=== PATIENT | female | born 1965 | race Caucasian/White ===

== ENCOUNTER 2016-04-24 18:51 | Inpatient (IN) | payer MEDICARE, MEDICAID ==
[~2016-04-24] VITALS: Ht 175.3 cm; Wt 66.0 kg
[~2016-04-24 18:51] MED LIST: /FENT25PA TD; /LINE60TA PO; /ONDA4TA OR; /ONDA4TA PO; /PANT40TA OR; /QUET10TA OR; ACET65TA OR; ACTI300C OR; ALLO300T OR; ALLO300T2 PO; AMBI5TAB OR; ASPI1TAB PO; ASPI325T OR; ASPI325T PO; ASPI650T2 OR; ASPI81CH PO; ASPI81TA60 PO; ASPI81TA85 PO; ATARAX PO; ATIV0.5T3 PO; ATIVAN PO; ATROPINE PO; Aranesp SQ; BACL10TA2 PO; BIOT10005 PO; BIOT50004 PO; BUPR100T12 OR; BUPR100T3 PO; BUPR100T6 PO; BUPR50TA PO; CALC600T10 PO; CARB1TAB20 PO; CARB20TAXR PO; CEFT250T PO; CELE40TA OR; CIPR250T2 PO; CITA40TA PO; CITA40TA4 PO; CLON0.5T PO; CODE60TA OR; CYCL10TA PO; DESYREL OR; DIFL150T PO; DIPH2.5L OR; DIPH2.5T14 PO; DIPHENOXYLATE PO; FENT50PA TOP; FENT75DI18 TD; FENT75PA TD; FENT75PA TOP; FENTANYL PATCH TOP; FERR325T PO; FLEEENE4 PR; FLON0.05; FLON1SPR; FLUC10TA PO; FLUC150T PO; FLUTISP; GABA-279 PO; GABA100C PO; GABA300C3 PO; HAIRTAB5 PO; HEPARIN FLUSH IV; HEPARIN LOCK FLUSH IV; HEPARIN SQ; IMMODIUM OR; INSUDET SC; INSUH10VL INJ; INSULANT SC; KLOR1POW2 PO; KLOR1TAB77 PO; LANTINJ4 SC; LANTUS; LANTUS SUBQ; LEVA500T IV; LEVE1INJ5 SC; LIDO5TD TOP; LIPIDS 20% IV; LOMO2.5T PO; LOPERAMIDE PO; LORA1TAB PO; LORAPOW30 PO; LOVE1INJ2 SC; MAG400TA PO; MAGN400C2 PO; MAGN400T5 PO; MAGN500T2 OR; MAPA325T2 PO; MARINOL OR; METH75TA PO; MORP10EL PO; MORP10SU IV; MORP1SOL PO; MORP20SO PO; MORP20SOL PO; MORP4SYR IV; MORP5SUP PO; MULTCAP PO; MULTLIQ7 PO; Monistat 7 PV; Multivitamin PO; NEOSSOL TOP; NEUR100C PO; NEXI40CA PO; NEXI40GR PO; NEXIUM PO; NOVOINJ3 SC; NOVOLOG FLEX PEN SUBQ; NOVOLOG100 MG/ML SC; NS10IV IV; NYSTATIN POWDER; NYSTATIN POWDER TOP; Non-Formulary Medication XX; ONDA4INJ48 IV; ONDA4TAB6 PO; ONDA8TAB8 SL; OXYC-517 PO; PAIN325T OR; PERC7.5T8 OR; PHEN 25 PO; PINK BISMUTH OR; POTA10PO PO; POTA20TA PO; POTA20TA2 PO; POTA40IN IV; POTASSIUM CHLORIDE IV; PRAV1TAB39 PO; PREV30TA OR; PRIL40CA OR; PROM25SU5 PO; PROM25TA3 PO; QUESTRAN OR; REQU0.5T PO; REQU1TAB16 PO; ROPI1TAB PO; SALI0.9I2 IV; SANDOSTATIN SQ; SERAQUEL PO; SERO50TA PO; SILV1CRE19 TOP; SODIUM CHLORIDE IV; SODIUM CL; TIGA100I IM; TIGAN IM; TPN IV; TPNINJ3 IV; TRAZ100T2 PO; TRAZ100T4 PO; TRAZADONE PO; TYL OR; VANC25CA IV; VITA-121 PO; VITA100066 PO; VITA500C10 PO; VITA500T88 PO; VITMTA PO; WELL100T OR; ZENPEP PO; ZOFR4TAB3 PO; ZYLO300T OR; [UNRECOGNIZED DRUG - CODE] IV; [UNRECOGNIZED DRUG - CODE] IV; [UNRECOGNIZED DRUG - MIXTURE] IV; [UNRECOGNIZED DRUG - OTHER] IV; [UNRECOGNIZED DRUG - OTHER] IV; [UNRECOGNIZED DRUG - OTHER] PO; [UNRECOGNIZED DRUG - OTHER] PO; aranesp SQ; heparin; heparin lock flush IV; humolog; kenalog TOP; nexium PO; novolog; saline lock flush IV
[2016-04-24 19:36] LABS: YEAST LIKE CELL URINE AUTO MODERATE
[2016-04-24] MEDS ORDERED: MORPHINE 2 MG/ML 1ML SYRINGE As Ordered ONE (20:06)
[2016-04-24 20:41] LABS: BASO % 0.2 % (0.0-1.0); EOS % 0.3 % (0.0-3.0); LARGE UNSTAINED CELL # 0.1 K/mm3 (0.0-0.4); LARGE UNSTAINED CELL % 0.9 % (0.0-4.0); LYMPH # 0.6 K/mm3 (1.5-4.5); LYMPH % 8.5 % (24.0-44.0); MEAN CORPUSCULAR HEMOGLOBIN 28.4 pg (27.0-33.0); MEAN CORPUSCULAR HGB CONC 32.5 g/dl (32.0-36.5); MEAN CORPUSCULAR VOLUME 87.5 fl (80.0-96.0); MONO # 0.2 K/mm3 (0.0-0.8); MONO % 2.9 % (0.0-5.0); NEUTROPHILS # 6.2 K/mm3 (1.8-7.7); NEUTROPHILS % 87.3 % (36.0-66.0); PLATELET COUNT, AUTOMATED 137 k/mm3 (150-450); RED CELL DISTRIBUTION WIDTH 14.2 % (11.5-14.5); WHITE BLOOD COUNT 7.1 K/mm3 (4.0-10.0)
[2016-04-24 20:45] LABS: ANION GAP 16 MEQ/L (8-16); BLOOD UREA NITROGEN 53 MG/DL (7-18); CALCIUM LEVEL 8.7 MG/DL (8.5-10.1); CARBON DIOXIDE LEVEL 19 MEQ/L (21-32); CHLORIDE LEVEL 77 MEQ/L (98-107); CREATININE FOR GFR 2.69 MG/DL (0.55-1.02); GLOMERULAR FILTRATION RATE 19.9 (>51); POTASSIUM SERUM 4.4 MEQ/L (3.5-5.1); SODIUM LEVEL 112 MEQ/L (136-145)
[2016-04-24 20:54] LABS: GLUCOSE, FASTING 1199 MG/DL (70-105)
[2016-04-24] MEDS: rOPINIRole 1MG TAB PO SCH (21:00)
[2016-04-24] MEDS: PRAVASTATIN 20 MG TAB PO SCH (21:00)
[2016-04-24] MEDS: GABAPENTIN 300 MG CAP PO SCH (21:00)
[2016-04-24] MEDS: carBAMazepine 200 MG TAB PO SCH (21:00)
[2016-04-24 21:39] LABS: ALBUMIN 3.2 GM/DL (3.2-5.2); ALBUMIN/GLOBULIN RATIO 0.86 (1.00-1.93); ALKALINE PHOSPHATASE 195 U/L (45-117); ALT/SGPT 21 U/L (12-78); AST/SGOT 12 U/L (15-37); BILIRUBIN,DIRECT 0.1 MG/DL (0.0-0.2); BILIRUBIN,TOTAL 0.3 MG/DL (0.2-1.0); TOTAL PROTEIN 6.9 GM/DL (6.4-8.2)
[2016-04-24] MEDS ORDERED: HumuLIN R (REGULAR) INSULIN (NovoLIN R) **100U/ML** PER UNIT As Ordered ONE (21:43)
[2016-04-24] MEDS ORDERED: CIPROFLOXACIN/D5W 400 MG/200 ML BAG (J0744) As Ordered ONE (21:43)
[2016-04-24] MEDS ORDERED: PERCOCET 5MG/325MG TAB PO PRN (22:15)
[2016-04-24] MEDS ORDERED: SILVER SULFADIAZINE 1% CR 50 GM JAR TOP PRN (22:15)
[2016-04-24] MEDS ORDERED: ONDANSETRON 4 MG ORAL DISINTEGRATING TAB (S0181) PO PRN (22:15)
[2016-04-24 22:26] LABS: CALCIUM LEVEL 8.3 MG/DL (8.5-10.1); CREATININE FOR GFR 2.49 MG/DL (0.55-1.02); GLOMERULAR FILTRATION RATE 21.8 (>51); MAGNESIUM LEVEL 2.1 MG/DL (1.8-2.4); POTASSIUM SERUM 4.3 MEQ/L (3.5-5.1)
[2016-04-24] MEDS ORDERED: FOSFOMYCIN TROMETHAMINE 3 GM POWDER PACKET (MONUROL) PO ONE (22:30)
[2016-04-24 22:44] LABS: VENOUS BASE EXCESS -11.6 (-2.0-2.0); VENOUS O2 SATURATION 77.1 % (60.0-80.0); VENOUS PARTIAL PRESSURE CO2 45.4 mmHg (38.0-50.0); VENOUS PARTIAL PRESSURE O2 44.3 mmHg (30.0-50.0); VENOUS STANDARD HCO3 15.1 MEQ/L; VENOUS TOTAL CO2 17.9 MEQ/L (24.0-28.0)
[2016-04-24] MEDS ORDERED: INSULIN HUMAN REGULAR 100 UNITS in NS 99 ML IV SCH (23:00)
--- NOTE | 2016-04-24 23:00 | REPUSA ---
CLINICAL HISTORY: Abdominal pain. TECHNIQUE: CT abdomen and pelvis without contrast. COMPARISON: May 26, 2015. CT ABDOMEN WITHOUT CONTRAST: Lung bases: No lung base infiltrate or effusion. Liver: No intrahepatic ductal dilation. Gallbladder: Cholecystectomy. Pancreas: No pancreatic duct dilation. Calcifications of chronic pancreatitis. Bowel loops: Right upper quadrant ileostomy. Diastasis of the anterior abdominal wall. Spleen: Normal size. Adrenals: Normal size. Right kidney: Mild hydronephrosis and hydroureter without obstructing stone. Left kidney: No stones or hydronephrosis. Calcifications adjacent to the left ureter are within the l eft gonadal vein. Aorta: Normal caliber. Peritoneum: No free air. CT PELVIS WITHOUT CONTRAST: Hips: Interval left hip arthroplasty and right femoral ORIF produce beam hardening artifact in the lo wer pelvis, limiting evaluation of the pelvic structures. Bladder: Normally distended. The wall is mildly thickened such that cystitis is not excluded Colon: Partial colectomy. Uterus: Hysterectomy. Peritoneum: No fluid. Lumbar spine: Degenerative spondylotic changes most pronounced at L4-5 and L5-S1. IMPRESSION: 1. Right upper quadrant ileostomy without evidence of obstruction. 2. Mild right hydronephrosis without obstructing stone. This may be due to reflux. 3. Urinary bladder wall thickening suggesting cystitis.
[2016-04-24 23:13] LABS: ESTIMATED AVERAGE GLUCOSE 413 MG/DL (60-110)
--- NOTE | 2016-04-24 23:29 | EDDOCDS ---
Physician Documentation [facility] Name: Delma Lora Age: 50 yrs Sex: Female : 1965 Arrival Date: 04/24/2016 Time: 18:51 Bed 7 Private MD: Disposition: 04/24/16 21:15 Hospitalization ordered by Diana Borjas for Inpatient Admission. Preliminary diagnosis are Hyperglycemia, unspecified, Hypo-osmolality and hyponatremia. - Bed requested for ICU. - Status is Inpatient Admission. [facility] - Condition is Stable. - Problem is new. - Symptoms have improved. Historical: - Allergies: Augmentin; Bactrim; Pyridium; - Home Meds: 1. aspirin 81 mg Oral cpDR 81 mg daily 2. baclofen 10 mg Oral tab 1 tab 3 times per day 3. biotin 1 mg oral tab daily 4. bupropion HCl 100 mg Oral tab 1 tab 2 times per day 5. Calcium Citrate Oral 950 mg twice a day 6. Celexa 40 mg Oral tab 1 tab once daily 7. ferrous sulfate 325 mg (65 mg iron) Oral tab three times a day 8. fluconazole 150 mg Oral tab 1 tab 9. fluticasone 50 mcg/actuation nasal spsn 2 sprays once daily 10. gabapentin 300 mg Oral cap 1 cap 3 times per day 11. Lantus 100 unit/mL Sub-Q crtg 30 unit twice a day I have not taken in over a week 12. Levemir FlexTouch 100 unit/mL (3 mL) subcutaneous inpn 35 unit daily 13. Lomotil 2.5-0.025 mg oral tab 1 tabs 4 times per day 14. magnesium oxide 400 mg Oral tab 800 mg twice a day 15. multivitamin Oral cap 1 tab daily 16. Nexium 40 mg Oral cpDR 1 cap 2 times per day 17. Normal Saline with Potassium 40 meq and Magnesium 12 meq Daily infusion via port 18. Novolog 100 unit/mL Sub-Q soln Unknown Per sliding scale has not taken 19. oxycodone 5 mg Oral tab 2 tabs every 4 hours 20. potassium Runs 40 meq daily 21. Pravachol 20 mg Oral tab 1 tab once daily 22. pravastatin 20 mg oral tab 1 tab once daily 23. Requip 1 mg Oral tab 1 tab twice a day 24. saline 1000 ml infusion through Vitale Catheter daily. 25. Silvadene 1 % Topical crea once daily not using now, using some pads 26. Tegretol 200 mg Oral tab 1 tab three times a day 27. TPN Electrolytes 35-20-5 mEq/20 mL intravenous soln Runs for 12 hours overnight. 28. trazadone 100 mg 100 mg nightly 29. Vita[employer] 1,500 mcg oral tab Unknown daily 30. Vitamin C 500 mg Oral cpER 500 mg daily 31. Vitamin D3 5,000 unit oral tab daily 32. Wellbutrin SR 100 mg Oral TbER 1 tab once daily 33. Zofran (as hydrochloride) 4 mg Oral tab 1 tabs tid prn - PMHx: chronic kidney; Depression; Diabetes - IDDM: controlled; Hypercholesterolemia; jejunostomy; necrotic bowel; Stroke; - PSHx: jejunostomy; Hysteroscopy; Knee surgery- Right; left hip surgery ( fracture repair); Vitale port placement; knee surgery; Cholecystectomy; Appendectomy; blepheroplasty; Carpal Tunnel Repair- Bilateral; - Social history: Smoking status: Patient states former smoker of tobacco. No barriers to communication noted. - Family history: Not pertinent. - : The pt / caregiver states he / she is not on anticoagulants. Home medication list is obtained from the patient. - Exposure Risk Screening:: None identified. 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 9 in. (175.26 cm) (R); Pain 8/10; 22:37 BP 96 / 61 (auto/); [facility] 22:38 BP 96 / 61; Pulse 76 MON; Resp 18; Temp 98.7; Pulse Ox 99% ; [facility] 23:23 BP 86 / 54; Pulse 75; Resp 18; Pulse Ox 98% ; [facility] 19:01 Body Mass Index 17.13 (52.62 kg, 175.26 cm) cln MDM: 19:07 Urinalysis Ordered. EDMS 19:07 Urine Culture Ordered. EDMS 19:53 NS 0.9% 1000 ml IV at bolus once ordered. fg 19:54 CBC with Diff Ordered. EDMS 19:54 Basic Metabolic Profile Ordered. EDMS 19:55 Lactic Acid (Cooper tube on ice) Ordered. EDMS 20:02 Financial registration complete. [id number] 20:04 morphine 2 mg IVP once ordered. fg 20:37 [facility] Agreement was scanned into [employer] and attached to record. dm19 21:02 Insulin Regular Human 10 units IVP once ordered. fg 21:14 Ciprofloxacin 400 mg IVPB at 200 mL/hr once over 60 mins ordered. fg 21:14 BED REQUEST+ADM ordered. EDMS 21:16 CT ABD & PELVIS: No Contrast Ordered. EDMS 21:23 ARTERIAL BLOOD GAS Ordered. EDMS 21:23 BLOOD CULTURES Ordered. EDMS 21:23 BLOOD CULTURES Ordered. EDMS 21:24 LIPASE Ordered. EDMS 21:24 LIVER PROFILE Ordered. EDMS 21:25 TROPONIN Ordered. EDMS 21:25 Admission / Observation Status ordered. EDMS 21:32 ECG WITH READING ER PHYS+CARDIAG ordered. EDMS 22:07 HEMOGLOBIN A1C Ordered. EDMS 22:07 VENOUS BLOOD GAS Ordered. EDMS 22:07 BASIC METABOLIC PROFILE Ordered. EDMS 22:08 PHOSPHOROUS LEVEL Ordered. EDMS 22:08 BASIC METABOLIC PROFILE Ordered. EDMS 22:08 BASIC METABOLIC PROFILE Ordered. EDMS 22:08 BASIC METABOLIC PROFILE Ordered. EDMS 22:08 BASIC METABOLIC PROFILE Ordered. EDMS 22:08 BASIC METABOLIC PROFILE Ordered. EDMS 22:08 BASIC METABOLIC PROFILE Ordered. EDMS 22:11 BASIC METABOLIC PROFILE Ordered. EDMS 22:15 MAGNESIUM LEVEL Ordered. EDMS 23:11 MRSA SCREEN Ordered. EDMS Administered Medications: 20:24 Drug: morphine 2 mg [morphine 2 mg/mL intravenous cartridge (1 mL)] Route: IVP; Site: jp6 Implantable Access Device; 20:25 Drug: NS 0.9% 1000 ml [sodium chloride 0.9 % intravenous solution] Route: IV; Rate: jp6 bolus; Site: Implantable Access Device; 23:25 Follow up: IV Status: Infusion discontinued; IV Intake: 850ml [facility] 21:50 Drug: Ciprofloxacin 400 mg [ciprofloxacin 400 mg/200 mL in 5 % dextrose intravenous jmb piggyback] Route: IVPB; Rate: 200 mL/hr; Infused Over: 60 mins; Site: Implantable Access Device; 23:24 Follow up: IV Status: Completed infusion; IV Intake: 200ml [facility] 21:57 Drug: Insulin Regular Human 10 units [insulin regular human 100 unit/mL injection jmb solution (0.1 mL)] {Co-Signature: ms2 (Alvino Garsia RN).} Route: IVP; Site: Implantable Access Device; Signatures: Dispatcher [employer] EDMS Deb Atwood,RN RN [facility] Juan, Leanne Guaman MD MD fg McLear, Diane [email or web address] Lokesh Joseph RN, Jessica RN [email or web address] Alvino Garsia RN ms2 The chart was reviewed and I authenticate all verbal orders and agree with the evaluation and treatment provided.Corrections: (The following items were deleted from the chart) 21:24 21:23 TROPONIN ordered. EDMS EDMS 21:24 21:23 LIVER PROFILE ordered. EDMS EDMS 21:24 21:23 LIPASE ordered. EDMS EDMS 21:37 19:57 CT ABD & PELVIS WITH CONTRAST+CT ordered. EDMS EDMS 22:11 22:07 PHOSPHOROUS LEVEL ordered. EDMS EDMS 22:11 22:07 PHOSPHOROUS LEVEL ordered. EDMS EDMS 22:11 22:07 PHOSPHOROUS LEVEL ordered. EDMS EDMS 22:11 22:08 PHOSPHOROUS LEVEL ordered. EDMS EDMS 22:11 22:08 PHOSPHOROUS LEVEL ordered. EDMS EDMS 22:11 22:08 PHOSPHOROUS LEVEL ordered. EDMS EDMS 22:15 22:07 MAGNESIUM LEVEL ordered. EDMS EDMS Attachments: 20:37 [facility] Payment Agreement [email or web address]
--- NOTE | 2016-04-24 23:29 | EDDOCDS ---
Nurse's Notes [facility] Name: Delma Lora Age: 50 yrs Sex: Female : 1965 Arrival Date: 04/24/2016 Time: 18:51 Bed 7 Private MD: Diagnosis: Hyperglycemia, unspecified;Hypo-osmolality and hyponatremia Presentation: 04/24 19:08 Presenting complaint: Patient states: I've been dehydrated for a week because dr karine delgado isn't ordering my TPN and feeling weak and feel like I've got to pee constantly with pain in my pelvic region. Adult Sepsis Screening: The patient does not have new or worsening altered mentation. Patient has a respiratory rate of greater than or equal to 22 (1 point). Systolic blood pressure is greater than 100. Patient has a qSOFA score of 1- Negative Sepsis Screen. Status: Patient is not a sales agent business services or dependent. Suicide/Homicide risk assessment- the patient denies having any suicidal and/or homicidal ideations. Transition of care: patient was not received from another setting of care. 19:08 Acuity: ABELARDO Level 3 [facility] 19:08 Method Of Arrival: Ambulance [facility] Triage Assessment: 19:15 General: Appears in no apparent distress, ill, uncomfortable, Behavior is appropriate [facility] for age, cooperative. Pain: Denies pain. HIV screening NA for this visit Offered previously. Neurological: No deficits noted. Respiratory: No deficits noted. GI: No deficits noted. : Reports urinary frequency. Derm: No deficits noted. 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 aspirin 81 mg Oral cpDR 81 mg daily 2. baclofen 10 mg Oral tab 1 tab 3 times per day 3. biotin 1 mg oral tab daily 4. bupropion HCl 100 mg Oral tab 1 tab 2 times per day 5. Calcium Citrate Oral 950 mg twice a day 6. Celexa 40 mg Oral tab 1 tab once daily 7. ferrous sulfate 325 mg (65 mg iron) Oral tab three times a day 8. fluconazole 150 mg Oral tab 1 tab 9. fluticasone 50 mcg/actuation nasal spsn 2 sprays once daily 10. gabapentin 300 mg Oral cap 1 cap 3 times per day 11. Lantus 100 unit/mL Sub-Q crtg 30 unit twice a day I have not taken in over a week 12. Levemir FlexTouch 100 unit/mL (3 mL) subcutaneous inpn 35 unit daily 13. Lomotil 2.5-0.025 mg oral tab 1 tabs 4 times per day 14. magnesium oxide 400 mg Oral tab 800 mg twice a day 15. multivitamin Oral cap 1 tab daily 16. Nexium 40 mg Oral cpDR 1 cap 2 times per day 17. Normal Saline with Potassium 40 meq and Magnesium 12 meq Daily infusion via port 18. Novolog 100 unit/mL Sub-Q soln Unknown Per sliding scale has not taken 19. oxycodone 5 mg Oral tab 2 tabs every 4 hours 20. potassium Runs 40 meq daily 21. Pravachol 20 mg Oral tab 1 tab once daily 22. pravastatin 20 mg oral tab 1 tab once daily 23. Requip 1 mg Oral tab 1 tab twice a day 24. saline 1000 ml infusion through Vitale Catheter daily. 25. Silvadene 1 % Topical crea once daily not using now, using some pads 26. Tegretol 200 mg Oral tab 1 tab three times a day 27. TPN Electrolytes 35-20-5 mEq/20 mL intravenous soln Runs for 12 hours overnight. 28. trazadone 100 mg 100 mg nightly 29. V[employer] 1,500 mcg oral tab Unknown daily 30. Vitamin C 500 mg Oral cpER 500 mg daily 31. Vitamin D3 5,000 unit oral tab daily 32. Wellbutrin SR 100 mg Oral TbER 1 tab once daily 33. Zofran (as hydrochloride) 4 mg Oral tab 1 tabs tid prn - PMHx: chronic kidney; Depression; Diabetes - IDDM: controlled; Hypercholesterolemia; jejunostomy; necrotic bowel; Stroke; - PSHx: jejunostomy; Hysteroscopy; Knee surgery- Right; left hip surgery ( fracture repair); Vitale port placement; knee surgery; Cholecystectomy; Appendectomy; blepheroplasty; Carpal Tunnel Repair- Bilateral; - Social history: Smoking status: Patient states former smoker of tobacco. No barriers to communication noted. - Family history: Not pertinent. - : The pt / caregiver states he / she is not on anticoagulants. Home medication list is obtained from the patient. - Exposure Risk Screening:: None identified. Screenin:53 Infection Control. sew 23:20 Screening information is obtained from the patient. Fall risk:. Assistance ADL's: [facility] Requires assistance with. Abuse/DV Screen: The patient / caregiver reports he/she is: not in a situation that causes fear, pain or injury. Nutritional screening: No deficits noted. Advance Directives: There is no active DNR order. home support is adequate. Assessment: 19:30 General: Appears in no apparent distress, ill, uncomfortable, Behavior is appropriate cj for age, cooperative. Pain: Denies pain. Neurological: Level of Consciousness is awake, alert, Oriented to person, place, time. Respiratory: Airway is patent Respiratory effort is even, unlabored, Respiratory pattern is regular, symmetrical, Breath sounds are clear bilaterally. GI: Abdomen is non- distended Bowel sounds present X 4 quads. j-ostomy intact to drainage bag. : Reports urinary frequency. Derm: Skin is pink, warm & dry. 20:30 General: family at bedside, assisted patient with turn, position and change of J-ostomy cjh bag. Supplies requested and provided. 21:30 General: cooperative with blood draws, IV's infusing via Vitale Cath, no complaints [facility] voiced. 22:30 General: states feeling better after IV infusion, awaiting admission. [facility] 23:20 General: awaiting admission, denies needs at this time, small amount ice chips provided cjh per authorization ED physician, no new complaints voiced awaiting admission. Vital Signs: 19:01 BP 142 / 88 LA Sitting (auto/reg); Pulse 91 MON; Resp 22 S; Temp 98.9(O); Pulse Ox 100% cln on R/A; Weight 52.62 kg (R); Height 5 ft. 9 in. (175.26 cm) (R); Pain 8/10; 22:37 BP 96 / 61 (auto/); cjh 22:38 BP 96 / 61; Pulse 76 MON; Resp 18; Temp 98.7; Pulse Ox 99% ; [facility] 23:23 BP 86 / 54; Pulse 75; Resp 18; Pulse Ox 98% ; [facility] 19:01 Body Mass Index 17.13 (52.62 kg, 175.26 cm) cln Vitals: 19:11 Log In Time N/A - ambulance arrival. [facility] ED Course: 18:52 Patient visited by Stephie Martinez. sew 18:52 Patient moved to 7 sew 19:02 Pt greeted and oriented to ED. Patient advised of names of staff involved in care, cln location of call moss, wait times and NPO status. Patient has correct armband on for positive identification. Placed in gown. Bed in low position. Call light in reach. Side rails up X 1. 19:03 Patient visited by Sophia Sorenson, ANASTASIA. cln 19:05 Leanne Holguin MD is Attending Physician. fg 19:07 Diana Borjas section supervisor. nq 19:10 Triage Initiated cjh 19:15 Urine Culture Sent. cln 19:15 Urinalysis Sent. cln 19:24 Patient visited by Leanne Holguin MD. fg 19:55 Patient visited by Wandy Mac, Television Mechanic. jlm 20:37 [facility] Payment Agreement was scanned into [employer] and attached to record. dm19 20:54 Notified attending ED physician of Critical lab value. glucose 1,199 Na+ 112 Lactic cz acid 2.7. 21:10 Diana Borjas section supervisor. nq 21:14 Diana Borjas is Hospitalizing Provider. fg 21:14 Diana Borjas is Hospitalizing Provider. fg 21:40 Patient visited by Bubba Abraham PCA. mdr 21:40 EKG done. (by ED staff). Reviewed by Leanne Holguin MD. mdr 22:28 Hospitalist Suad glucose 1091 Na+ 119. cz 23:20 The patient / caregiver is instructed regarding the plan of care and ED course. [facility] 23:20 Accessed. No procedures done that require assistance. [facility] 23:24 CT ABD & PELVIS: No Contrast Returned. EDMS Administered Medications: 20:24 Drug: morphine 2 mg [morphine 2 mg/mL intravenous cartridge (1 mL)] Route: IVP; Site: jp6 Implantable Access Device; 20:25 Drug: NS 0.9% 1000 ml [sodium chloride 0.9 % intravenous solution] Route: IV; Rate: jp6 bolus; Site: Implantable Access Device; 23:25 Follow up: IV Status: Infusion discontinued; IV Intake: 850ml [facility] 21:50 Drug: Ciprofloxacin 400 mg [ciprofloxacin 400 mg/200 mL in 5 % dextrose intravenous jmb piggyback] Route: IVPB; Rate: 200 mL/hr; Infused Over: 60 mins; Site: Implantable Access Device; 23:24 Follow up: IV Status: Completed infusion; IV Intake: 200ml [facility] 21:57 Drug: Insulin Regular Human 10 units [insulin regular human 100 unit/mL injection jmb solution (0.1 mL)] {Co-Signature: ms2 (Alvino Garsia RN).} Route: IVP; Site: Implantable Access Device; Intake: 23:24 IV: 200.00ml; Total: 200.00ml. [facility] 23:25 IV: 850.00ml; Total: 1050.00ml. [facility] Order Results: Lab Order: Urinalysis; SPEC'M 04/24/16 19:16 Test: APPEARANCE, URINE; Value: CLOUDY; Range: CLEAR; Abnormal: Above high normal; Status: F Test: COLOR, URINE; Value: YELLOW; Range: YELLOW; Status: F Test: PH,URINE; Value: 6.0; Range: 5.0-9.0; Units: UNITS; Status: F Test: SPECIFIC GRAVITY URINE AUTO; Value: 1.017; Range: 1.002-1.035; Status: F Test: PROTEIN, URINE AUTO; Value: NEGATIVE; Range: NEGATIVE; Units: mg/dL; Status: F Test: GLUCOSE, URINE (UA) AUTO; Value: 3+; Range: NEGATIVE; Abnormal: Above high normal; Units: mg/dL; Status: F Test: KETONE, URINE AUTO; Value: NEGATIVE; Range: NEGATIVE; Units: mg/dL; Status: F Test: UROBILINOGEN, URINE AUTO; Value: 0.2; Range: 0.0-2.0; Units: mg/dL; Status: F Test: BILIRUBIN, URINE AUTO; Value: NEGATIVE; Range: NEGATIVE; Status: F Test: NITRITE, URINE AUTO; Value: NEGATIVE; Range: NEGATIVE; Status: F Test: LEUKOCYTE ESTERASE, URINE AUTO; Value: 3+; Range: NEGATIVE; Abnormal: Above high normal; Status: F Test: BLOOD, URINE BLOOD; Value: 1+; Range: NEGATIVE; Abnormal: Above high normal; Status: F Test: WBC, URINE AUTO; Value: TNTC; Range: 0-3; Abnormal: Above high normal; Units: /HPF; Status: F Test: RBC, URINE AUTO; Value: 19; Range: 0-3; Abnormal: Above high normal; Units: /HPF; Status: F Test: BACTERIA, URINE AUTO; Value: 1+; Range: NEGATIVE; Abnormal: Above high normal; Status: F Test: YEAST LIKE CELL URINE AUTO; Value: MODERATE; Range: NONE; Abnormal: Above high normal; Status: F Test: SQUAMOUS EPITHELIAL CELL UR AU; Value: 2; Range: 0-6; Units: /HPF; Status: F Test: MUCUS, URINE; Value: SMALL; Range: NEGATIVE; Status: F Test: HYALINE CAST, URINE AUTO; Value: 0; Range: 0-1; Units: /LPF; Status: F Lab Order: CBC with Diff; SPEC'M 04/24/16 20:17 Test: WHITE BLOOD COUNT; Value: 7.1; Range: 4.0-10.0; Units: K/mm3; Status: F Test: RED BLOOD COUNT; Value: 4.03; Range: 4.00-5.40; Units: M/mm3; Status: F Test: HEMOGLOBIN; Value: 11.5; Range: 12.0-16.0; Abnormal: Below low normal; Units: g/dl; Status: F Test: HEMATOCRIT; Value: 35.2; Range: 36.0-47.0; Abnormal: Below low normal; Units: %; Status: F Test: MEAN CORPUSCULAR VOLUME; Value: 87.5; Range: 80.0-96.0; Units: fl; Status: F Test: MEAN CORPUSCULAR HEMOGLOBIN; Value: 28.4; Range: 27.0-33.0; Units: pg; Status: F Test: MEAN CORPUSCULAR HGB CONC; Value: 32.5; Range: 32.0-36.5; Units: g/dl; Status: F Test: RED CELL DISTRIBUTION WIDTH; Value: 14.2; Range: 11.5-14.5; Units: %; Status: F Test: PLATELET COUNT, AUTOMATED; Value: 137; Range: 150-450; Abnormal: Below low normal; Units: k/mm3; Status: F Test: NEUTROPHILS %; Value: 87.3; Range: 36.0-66.0; Abnormal: Above high normal; Units: %; Status: F Test: LYMPH %; Value: 8.5; Range: 24.0-44.0; Abnormal: Below low normal; Units: %; Status: F Test: MONO %; Value: 2.9; Range: 0.0-5.0; Units: %; Status: F Test: EOS %; Value: 0.3; Range: 0.0-3.0; Units: %; Status: F Test: BASO %; Value: 0.2; Range: 0.0-1.0; Units: %; Status: F Test: LARGE UNSTAINED CELL %; Value: 0.9; Range: 0.0-4.0; Units: %; Status: F Test: NEUTROPHILS #; Value: 6.2; Range: 1.8-7.7; Units: K/mm3; Status: F Test: LYMPH #; Value: 0.6; Range: 1.5-4.5; Abnormal: Below low normal; Units: K/mm3; Status: F Test: MONO #; Value: 0.2; Range: 0.0-0.8; Units: K/mm3; Status: F Test: EOS #; Value: 0.0; Range: 0.0-0.50; Units: K/mm3; Status: F Test: BASO #; Value: 0.0; Range: 0.0-0.2; Units: K/mm3; Status: F Test: LARGE UNSTAINED CELL #; Value: 0.1; Range: 0.0-0.4; Units: K/mm3; Status: F Lab Order: Basic Metabolic Profile; SPEC'M 04/24/16 20:17 Test: GLUCOSE, FASTING; Value: 1199; Range: 70-105; Abnormal: Above upper panic limits; Units: MG/DL; Status: F Test: BLOOD UREA NITROGEN; Value: 53; Range: 7-18; Abnormal: Above high normal; Units: MG/DL; Status: F Test: CREATININE FOR GFR; Value: 2.69; Range: 0.55-1.02; Abnormal: Above high normal; Units: MG/DL; Status: F Test: GLOMERULAR FILTRATION RATE; Value: 19.9; Range: >51; Abnormal: Below low normal; Status: F Test: SODIUM LEVEL; Value: 112; Range: 136-145; Abnormal: Critical Low; Units: MEQ/L; Status: F Test: POTASSIUM SERUM; Value: 4.4; Range: 3.5-5.1; Units: MEQ/L; Status: F Test: CHLORIDE LEVEL; Value: 77; Range: 98-107; Abnormal: Below low normal; Units: MEQ/L; Status: F Test: CARBON DIOXIDE LEVEL; Value: 19; Range: 21-32; Abnormal: Below low normal; Units: MEQ/L; Status: F Test: ANION GAP; Value: 16; Range: 8-16; Units: MEQ/L; Status: F Test: CALCIUM LEVEL; Value: 8.7; Range: 8.5-10.1; Units: MG/DL; Status: F Test Note: ; Units are mL/min/1.73 m2 Chronic Kidney Disease Staging per NKF: Stage I & II GFR >=60 Normal to Mildly Decreased Stage III GFR 30-59 Moderately Decreased Stage IV GFR 15-29 Severely Decreased Stage V GFR <15 Very Little GFR Left ESRD GFR <15 on STOCK DEALER Test: AST/SGOT; Range: 15-37; Units: U/L; Status: I Test: ALT/SGPT; Range: 12-78; Units: U/L; Status: I Test: ALKALINE PHOSPHATASE; Range: 45-117; Units: U/L; Status: I Test: BILIRUBIN,TOTAL; Range: 0.2-1.0; Units: MG/DL; Status: I Test: BILIRUBIN,DIRECT; Range: 0.0-0.2; Units: MG/DL; Status: I Test: TOTAL PROTEIN; Range: 6.4-8.2; Units: GM/DL; Status: I Test: ALBUMIN; Range: 3.2-5.2; Units: GM/DL; Status: I Test: ALBUMIN/GLOBULIN RATIO; Range: 1.00-1.93; Status: I Test: TROPONIN I; Range: < 0.10; Units: NG/ML; Status: I Test: LIPASE; Range: 73-393; Units: U/L; Status: I Lab Order: Lactic Acid (Cooper tube on ice); [facility] 04/24/16 20:17 Test: LACTIC ACID LEVEL, LACTATE; Value: 2.7; Range: 0.4-2.0; Abnormal: Above upper panic limits; Units: MMOL/L; Status: F Lab Order: LIPASE; [facility] 04/24/16 20:17 Test: LIPASE; Value: 256; Range: 73-393; Units: U/L; Status: F Lab Order: LIVER PROFILE; [facility] 04/24/16 20:17 Test: AST/SGOT; Value: 12; Range: 15-37; Abnormal: Below low normal; Units: U/L; Status: F Test: ALT/SGPT; Value: 21; Range: 12-78; Units: U/L; Status: F Test: ALKALINE PHOSPHATASE; Value: 195; Range: 45-117; Abnormal: Above high normal; Units: U/L; Status: F Test: BILIRUBIN,TOTAL; Value: 0.3; Range: 0.2-1.0; Units: MG/DL; Status: F Test: BILIRUBIN,DIRECT; Value: 0.1; Range: 0.0-0.2; Units: MG/DL; Status: F Test: TOTAL PROTEIN; Value: 6.9; Range: 6.4-8.2; Units: GM/DL; Status: F Test: ALBUMIN; Value: 3.2; Range: 3.2-5.2; Units: GM/DL; Status: F Test: ALBUMIN/GLOBULIN RATIO; Value: 0.86; Range: 1.00-1.93; Abnormal: Below low normal; Status: F Lab Order: TROPONIN; [facility] 04/24/16 20:17 Test: TROPONIN I; Value: < 0.02; Range: < 0.10; Units: NG/ML; Status: F Test Note: ; Troponin I Reference Interval for TrepUp LOCI: 99th Percentile= 0.00-0.045 ng/ml Risk Stratification: <= 0.10 ng/ml Decreased Risk for Adverse Clinical Events. 0.10-1.50 ng/ml Increased Risk for Adverse Clinical Events. Evaluation of additional criterion and/or repeat testing in 2-6 hours is suggested to rule out myocardial damage. >= 1.50 ng/ml Indicative of Myocardial Injury. Lab Order: HEMOGLOBIN A1C; [facility] 04/24/16 22:02 Test: HEMOGLOBIN A1c; Value: > 16.0; Range: 4.5-6.2; Abnormal: Above high normal; Units: %; Status: F Test: ESTIMATED AVERAGE GLUCOSE; Value: 413; Range: 60-110; Abnormal: Above high normal; Units: MG/DL; Status: F Lab Order: VENOUS BLOOD GAS; [facility] 04/24/16 22:25 Test: VENOUS PH; Value: 7.178; Range: 7.330-7.430; Abnormal: Below low normal; Units: UNITS; Status: F Test: VENOUS PARTIAL PRESSURE CO2; Value: 45.4; Range: 38.0-50.0; Units: mmHg; Status: F Test: VENOUS PARTIAL PRESSURE O2; Value: 44.3; Range: 30.0-50.0; Units: mmHg; Status: F Test: VENOUS TOTAL CO2; Value: 17.9; Range: 24.0-28.0; Abnormal: Below low normal; Units: MEQ/L; Status: F Test: VENOUS HCO3; Value: 16.5; Range: 23.0-27.0; Abnormal: Below low normal; Units: MEQ/L; Status: F Test: VENOUS BASE EXCESS; Value: -11.6; Range: -2.0-2.0; Abnormal: Below low normal; Status: F Test: VENOUS STANDARD HCO3; Value: 15.1; Units: MEQ/L; Status: F Test: VENOUS O2 SATURATION; Value: 77.1; Range: 60.0-80.0; Units: %; Status: F Lab Order: BASIC METABOLIC PROFILE; [facility] 04/24/16 22:14 Test: GLUCOSE, FASTING; Value: 1091; Range: 70-105; Abnormal: Above upper panic limits; Units: MG/DL; Status: F Test: BLOOD UREA NITROGEN; Value: 49; Range: 7-18; Abnormal: Above high normal; Units: MG/DL; Status: F Test: CREATININE FOR GFR; Value: 2.49; Range: 0.55-1.02; Abnormal: Above high normal; Units: MG/DL; Status: F Test: GLOMERULAR FILTRATION RATE; Value: 21.8; Range: >51; Abnormal: Below low normal; Status: F Test: SODIUM LEVEL; Value: 119; Range: 136-145; Abnormal: Critical Delta Low; Units: MEQ/L; Status: F Test: POTASSIUM SERUM; Value: 4.3; Range: 3.5-5.1; Units: MEQ/L; Status: F Test: CHLORIDE LEVEL; Value: 85; Range: 98-107; Abnormal: Below low normal; Units: MEQ/L; Status: F Test: CARBON DIOXIDE LEVEL; Value: 20; Range: 21-32; Abnormal: Below low normal; Units: MEQ/L; Status: F Test: ANION GAP; Value: 14; Range: 8-16; Units: MEQ/L; Status: F Test: CALCIUM LEVEL; Value: 8.3; Range: 8.5-10.1; Abnormal: Below low normal; Units: MG/DL; Status: F Test Note: ; Units are mL/min/1.73 m2 Chronic Kidney Disease Staging per NKF: Stage I & II GFR >=60 Normal to Mildly Decreased Stage III GFR 30-59 Moderately Decreased Stage IV GFR 15-29 Severely Decreased Stage V GFR <15 Very Little GFR Left ESRD GFR <15 on STOCK DEALER Lab Order: MAGNESIUM LEVEL; SPEC'M 04/24/16 22:14 Test: MAGNESIUM LEVEL; Value: 2.1; Range: 1.8-2.4; Units: MG/DL; Status: F Radiology Order: CT ABD & PELVIS: No Contrast Test: CT ABD & PELVIS: No Contrast REASON FOR EXAMINATION: Abdomen Pain; ; CLINICAL HISTORY: Abdominal pain.; ; TECHNIQUE: CT abdomen and pelvis without contrast.; ; COMPARISON: May 26, 2015.; ; CT ABDOMEN WITHOUT CONTRAST:; Lung bases: No lung base infiltrate or effusion.; Liver: No intrahepatic ductal dilation.; Gallbladder: Cholecystectomy.; Pancreas: No pancreatic duct dilation. Calcifications of chronic pancreatitis.; Bowel loops: Right upper quadrant ileostomy. Diastasis of the anterior abdominal wall.; Spleen: Normal size.; Adrenals: Normal size.; Right kidney: Mild hydronephrosis and hydroureter without obstructing stone.; Left kidney: No stones or hydronephrosis. Calcifications adjacent to the left ureter are within the l; eft gonadal vein.; Aorta: Normal caliber.; Peritoneum: No free air.; ; CT PELVIS WITHOUT CONTRAST:; Hips: Interval left hip arthroplasty and right femoral ORIF produce beam hardening artifact in the lo; wer pelvis, limiting evaluation of the pelvic structures.; Bladder: Normally distended. The wall is mildly thickened such that cystitis is not excluded; Colon: Partial colectomy.; Uterus: Hysterectomy.; Peritoneum: No fluid.; Lumbar spine: Degenerative spondylotic changes most pronounced at L4-5 and L5-S1.; IMPRESSION:; 1. Right upper quadrant ileostomy without evidence of obstruction.; 2. Mild right hydronephrosis without obstructing stone. This may be due to reflux.; 3. Urinary bladder wall thickening suggesting cystitis.; ; Outcome: 21:15 Decision to Hospitalize by Provider. 23:20 Discharge Assessment: Patient awake, alert and oriented x 3. No cognitive and/or [facility] functional deficits noted. Patient verbalized understanding of disposition instructions. patient administered narcotics - yes. Patient was admitted to the hospital or transferred to another facility. The following High Risk Discharge criteria are identified: None. Admitted to ICU. Condition: good Condition: stable Condition: improved. Property :Personal belongings accompany Pt. 23:26 CT Study completed. [facility] 23:28 Patient left the ED. [facility] Signatures: Dispatcher [employer] EDMS Rey Bone, RN RN Deb CurryRN RN [facility] Stephie Martinez Nazeel nq Becker, Joshua,RN RN Wandy Altamirano, Television Mechanic Unit Leanne Vela MD MD fg Rick, Mitchell, TOURS CAPTAIN TOURS CAPTAIN Sophia Howard, TOURS CAPTAIN TOURS CAPTAIN Pattie Santos,RN RN [id number] Ally Chambers [id number] Alvino Garsia RN ms2 Corrections: (The following items were deleted from the chart) 23:26 23:20 No special radiology studies were completed [facility] MTDD
[2016-04-25] VITALS (19 sets, daily range): BP systolic 86–137; BP diastolic 49–72
[2016-04-25] MEDS: NS 1,000 ML IV SCH ×4 (00:04→17:03)
[2016-04-25] MEDS: HEPARIN SOD (PORCINE) 5000 UNITS/ML VIAL SC SCH ×4 (00:15→21:22)
[2016-04-25] MEDS: traZODone 100 MG TAB PO SCH ×2 (00:15→21:00)
[2016-04-25] MEDS: MAGNESIUM OXIDE 400 MG TAB (MAG-OX) PO SCH ×3 (00:15→21:21)
[2016-04-25] MEDS: PANTOPRAZOLE 40MG TAB (PROTONIX) PO SCH ×3 (00:16→21:22)
[2016-04-25] MEDS: cefTRIAXone SOD 1 GM in D5W MINI-BAG PLUS 50 ML IV SCH (00:16)
[2016-04-25 00:47] LABS: CALCIUM LEVEL 8.9 MG/DL (8.5-10.1); CREATININE FOR GFR 2.21 MG/DL (0.55-1.02); POTASSIUM SERUM 3.7 MEQ/L (3.5-5.1)
[2016-04-25] MEDS ORDERED: SODIUM CHLORIDE 0.9% 1000 ML IV ONE (01:15)
[2016-04-25] MEDS: INSULIN IV RATE CHANGE DOCUMENTATION ML/HR XX SCH ×2 (01:15→02:37)
[2016-04-25 03:57] LABS: CALCIUM LEVEL 7.7 MG/DL (8.5-10.1); CREATININE FOR GFR 1.76 MG/DL (0.55-1.02); GLOMERULAR FILTRATION RATE 32.5 (>51); POTASSIUM SERUM 3.5 MEQ/L (3.5-5.1)
[2016-04-25] MEDS ORDERED: GLUCOSE 4 GM CHEW TABLET PO PRN (04:30)
[2016-04-25] MEDS ORDERED: DEXTROSE 50% 50 ML SYRINGE IV PRN (04:30)
[2016-04-25] MEDS ORDERED: LEVEMIR (INSULIN DETEMIR) 1 UNITS/0.01ML SC ONE (04:30)
[2016-04-25] MEDS ORDERED: GLUCAGON FOR INJ 1 MG VIAL (J1610) SC PRN (04:30)
--- NOTE | 2016-04-25 05:53 | ECGEPIP ---
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
[2016-04-25] MEDS: HumaLOG INSULIN (NovoLOG) PER UNIT SC SCH ×4 (07:30→20:56)
[2016-04-25] MEDS ORDERED: NALOXONE INJ 0.4 MG/1 ML VIAL (J2310) IV STA ×2 (08:06→08:13)
[2016-04-25] MEDS ORDERED: NALOXONE INJ 0.4 MG/1 ML VIAL (J2310) As Ordered ONE (08:07)
[2016-04-25] MEDS ORDERED: LEVEMIR (INSULIN DETEMIR) 1 UNITS/0.01ML SC SCH (09:00)
[2016-04-25 09:07] LABS: CREATININE FOR GFR 1.74 MG/DL (0.55-1.02); POTASSIUM SERUM 3.3 MEQ/L (3.5-5.1)
[2016-04-25] MEDS: SLF 3 ML SYR IV SCH (09:10)
[2016-04-25] MEDS: MULTIVITAMINS/MINERALS THERAP 1 TAB PO SCH (09:11)
[2016-04-25] MEDS: carBAMazepine 200 MG TAB PO SCH ×2 (09:11→21:21)
[2016-04-25] MEDS: FLUCONAZOLE 50MG TABLET PO SCH (09:11)
[2016-04-25] MEDS: GABAPENTIN 300 MG CAP PO SCH ×3 (09:11→21:26)
[2016-04-25] MEDS: FERROUS SULFATE 325MG TAB PO SCH ×3 (09:11→21:21)
[2016-04-25] MEDS: CitaloPRAM (CeleXA) 20 MG TAB PO SCH (09:11)
[2016-04-25] MEDS: LOMOTIL 2.5MG/0.025MG TABLET PO SCH ×4 (09:11→21:21)
[2016-04-25] MEDS: ASPIRIN 81 MG ENTERIC TAB PO SCH (09:12)
[2016-04-25] MEDS: FLUTICASONE PROP 0.05% NASAL SPRAY 16 GM (FLONASE) SCH (09:12)
[2016-04-25] MEDS: buPROPion 100 MG TAB PO SCH ×2 (09:12→21:22)
[2016-04-25] MEDS: rOPINIRole 1MG TAB PO SCH ×2 (09:15→21:21)
[2016-04-25] MEDS: VITAMIN D 1,000 INTERNATIONAL UNITS TABLET PO SCH (09:15)
[2016-04-25] MEDS ORDERED: POTASSIUM CHLORIDE 10 MEQ SR TABLET PO ONE (10:15)
--- NOTE | 2016-04-25 12:21 | IPN ---
DATE: 04/25/2016 50-year-old female seen at bedside. She was treated for diabetic ketoacidosis (DKA) with an anion gap. She has since closed. A little lethargic this morning. We gave her two doses of Narcan at bedside to which she did respond and seems to be much more alert. Will try to progress her meal. Continue with some IV fluids. Again, she uses TPN chronically at home. Discussed with Dr. Pratt who has agreed to consult on her later today. OBJECTIVE: Temperature 96.7, pulse 73, respiratory rate 18, blood pressure (BP)93/55, and SPO2 is 100% on room air. General: The patient appears to be in no acute distress. She is alert. HEENT: Unremarkable. Lungs: Clear. Heart: Regular rate and rhythm. Abdomen: Soft. Extremities: No Edema, no calf tenderness. LABORATORY DATA: White count 7.1, hemoglobin 11.5 and platelets are 137,000. Sodium 136, potassium 3.3 - which we will supplement, chloride 103, bicarb 20, anion gap 13, BUN is 44, creatinine is 1.74, glucose 126, calcium 9.0, lactic acid 1.4. ASSESSMENT/PLAN: 1. Diabetic ketoacidosis with anion gap that has closed. Will discontinue insulin drip. Will try to progress her diet. She does however have a high output ostomy for which we will need to reinstitute her TPN. 2. Acute on chronic renal failure. She is receiving some IV fluids. I have requested Dr. Pratt to see the patient on consult due to her longstanding issues. 3. Chronic pancreatitis with diabetes. As outlined above, will plan on adjusting her insulin with fingersticks. 4. Urinary tract infection. Continue Rocephin. Blood cultures and urine culture are pending. 5. Depression. Appears to be well-controlled on current medications. No suicidal ideation. No audiovisual hallucinations. 6. Diabetic neuropathy. Continue on Neurontin. 7. Chronic low back pain. Continue with Lidoderm patch and Percocet as needed. I did reduce her from 2 tablets to 1 tablet every 4 hours as needed and will monitor for lethargy. 8. Deep vein thrombosis (DVT) prophylaxis. Subcutaneous heparin. DISPOSITION: The patient does show some improvement; however, my concern is also for her social care. I did request patient and family services (PFS) to see the patient on consult. I know that there has been some concern about whether or not she would benefit from [facility] placement. LUCRECIA
--- NOTE | 2016-04-25 18:22 | HPE ---
DATE OF ADMISSION: 04/24/2016 PRIMARY CARE PROVIDER: Dr. Moore CHIEF COMPLAINT: Weakness. 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 The patient was recently admitted here at [facility] from 04/05/2016 to 04/10/2016. At the time, she was admitted with severe dehydration secondary to her high output ostomy and was in the process of arranging to have outpatient normal saline infusions through a central venous catheter. However, she states that she has not received these. Over the last 2 days, she has noted suprapubic tenderness, dysuria, weakness, and fatigue. No fevers, chills, sick contacts. This is what prompted her to present to the emergency room. The patient is normally on total parenteral nutrition (TPN) which she has been taking nightly. She tells me she has been checking her finger sticks and taking her insulin and it has been high the last 2 days. She has not really done anything about it. She could not tell me any specific readings. She denies chest pain, shortness of breath, fevers or chills. PAST MEDICAL HISTORY: 1. Jejunostomy as outlined above. 2. Dyslipidemia. 3. Diabetes. 4. Chronic kidney disease. 5. History of CVA without any residual deficits. 6. Restless leg syndrome. 7. Depression. 8. Iron deficiency anemia. 9. High output ostomy. 10. Severe protein calorie malnutrition. 11. Chronic sacral pressure ulcer. HOME MEDICATIONS: - NovoLog before food and nightly sliding scale - vitamin C 500 mg daily - vitamin H 1000 mcg daily - calcium 600 mg twice a day - potassium chloride 20 mEq twice a day - TPN - Clinimix E dextrose 15% at 70 mL/hour - aspirin 81 mg daily - bupropion 50 mg twice a day - carbamazepine 200 mg twice a day - vitamin D 1000 units daily - citalopram 40 mg daily - Lomotil 2.5-0.025 mg one tablet four times a day - Nexium 40 mg twice a day - ferrous sulfate 325 mg three times a day - Flonase 50 mcg inhaled two sprays to the nares daily - fluconazole 150 mg daily - gabapentin 300 mg by mouth three times a day - heparin and saline flushes - Levemir 35 units subcutaneous daily - lidocaine patch topically daily as needed - magnesium oxide 800 mg by mouth twice a day - multivitamin one tablet daily - Zofran 4 mg three times a day as needed for nausea and vomiting - Pravachol 20 mg nightly - Requip 1 mg by mouth nightly as needed - Silvadene cream topically as needed for skin sores - trazodone 100 mg nightly ALLERGIES: CLAVULANIC ACID, PENICILLIN and PENICILLIN CROSS-REACTORS cause nausea and vomiting, SULFAMETHOXAZOLE/TRIMETHOPRIM, SULFA DRUGS, PHENAZOPYRIDINE. PAST SURGICAL HISTORY: 1. Jejunostomy. 2. Hysteroscopy. 3. Right knee surgery. 4. Left hip surgery. 5. Vitale port placement. 6. Cholecystectomy. 7. Appendectomy. 8. Blepharoplasty. 9. Carpal tunnel repair bilaterally. SOCIAL HISTORY: The patient is a former smoker. She denies alcohol or illicit drug use. FAMILY HISTORY: Noncontributory. REVIEW OF SYSTEMS: Negative other than in history of present illness (HPI). PHYSICAL EXAMINATION: Blood pressure 142/88, pulse 91, respiratory rate 22, temperature 98.9, oxygen saturation 100% on room air. GENERAL: She is a disheveled, somewhat cachectic, female, laying flat in bed. She is mildly diaphoretic but does not appear to be in any acute distress. She speaks in complete sentences. She is awake, alert, oriented times three to person, place, and time, as well as to situation. HEENT: Cranial nerves II-XII are grossly intact. She has very dry mucous membranes. No elevation in her central venous pressure. CARDIOVASCULAR: S1, S2, regular. She is not tachycardic. RESPIRATORY: Clear. ABDOMINAL: Bowel sounds present. The abdomen is soft. There is some suprapubic tenderness, but no costovertebral angle (CVA) tenderness. EXTREMITIES: No clubbing, cyanosis, or edema. Chronic sacral ulcer. LABORATORY STUDIES: WBC 7.1, hemoglobin 11.5, hematocrit 35.2, platelet count 137. Chemistry panel: Sodium 112, potassium 4.4, chloride 77, bicarbonate 19, anion gap 16, BUN 53, creatinine 2.6, up from baseline of approximately 0.9, fasting glucose 1199, lactic acid 2.7, AST 12, ALT 21, lipase within normal limits. One set of troponins is within normal limits. Urinalysis is 3+ leukocyte esterase, 1+ bacteria, and WBCs too numerous to count, with 19 RBCs. Urine culture is pending. ASSESSMENT AND PLAN: This is a 50-year-old female presenting with hyperosmolar nonketotic state secondary to urinary tract infection. PROBLEMS: 1. Hyperosmolar nonketotic state secondary to urinary tract infection. I will draw blood cultures. I am currently working with pharmacy to find an acceptable antibiotic to work with this patient given her allergies. I will provide her with one dose of fosfomycin in the meantime. I will admit her to the medical intensive care unit. I will start her on normal saline at 150 mL/hour and begin diabetic ketoacidosis (DKA) protocol with every 4 hour BMP and every 2 hour finger sticks. Will check a magnesium level, blood cultures, and follow up urine cultures. Her hyponatremia is pseudohyponatremia and will likely correct with correction of her blood glucose. Hypochloremia secondary to dehydration. Acute kidney injury is likely also secondary to significant hyperosmolar dehydration. Will also trend her lactic acids in 6 hours. She should likely be scheduled with outpatient saline solution infusions prior to any disposition. 2. Protein calorie malnutrition and a short gut. Continue with Lomotil. The patient is on fluconazole, it appears to be chronically. She has a central catheter to receive her total parenteral nutrition (TPN) through. Continue with Nexium. Oxycodone as needed. I will hold her total parenteral nutrition (TPN) tonight as she is significantly hyperglycemic. We can consider restarting it tomorrow. 3. Restless leg syndrome. Continue with Requip. 4. History of CVA. Patient is on aspirin. 5. Chronic pain. The patient is on gabapentin. She is on Tegretol as well, she cannot tell me why she is on this medication. 6. Depression. On trazodone, Celexa, as well as bupropion. 7. Deep venous thrombosis (DVT) prophylaxis. The patient will be on heparin. DISPOSITION: The patient is being admitted to the medical intensive care unit, to Dr. Downey's service, who will continue following the patient tomorrow at 7 a.m.
[2016-04-25] MEDS ORDERED: FAT EMULSION IV 20% 500 ML IV SCH (21:00)
[2016-04-25] MEDS: **NOTE PATIENT COMMENT** MISC XX SCH (21:00)
[2016-04-25] MEDS ORDERED: MULTIVITAMIN -ADULT INJECTION 10 ML, CR/CU/SE/MN/ZN INJ 1 ML in AMINO AC/ELECTROLYTE/DE... IV SCH (21:00)
[2016-04-25] MEDS: PRAVASTATIN 20 MG TAB PO SCH (21:22)
[2016-04-26] VITALS (7 sets, daily range): BP systolic 99–146; BP diastolic 54–81
[2016-04-26] MEDS: NS 1,000 ML IV SCH ×2 (00:08→07:31)
[2016-04-26] MEDS: cefTRIAXone SOD 1 GM in D5W MINI-BAG PLUS 50 ML IV SCH ×2 (00:08→22:26)
[2016-04-26] MEDS: PERCOCET 5MG/325MG TAB PO PRN (05:45)
[2016-04-26] MEDS: HEPARIN SOD (PORCINE) 5000 UNITS/ML VIAL SC SCH ×3 (05:46→21:50)
[2016-04-26 07:11] LABS: MEAN CORPUSCULAR HEMOGLOBIN 31.7 pg (27.0-33.0); MEAN CORPUSCULAR VOLUME 84.6 fl (80.0-96.0); RED CELL DISTRIBUTION WIDTH 14.8 % (11.5-14.5); WHITE BLOOD COUNT 5.6 K/mm3 (4.0-10.0)
[2016-04-26 07:17] LABS: MEAN CORPUSCULAR HGB CONC 34.1 g/dl (32.0-36.5)
[2016-04-26 07:57] LABS: CALCIUM LEVEL 7.4 MG/DL (8.5-10.1); CREATININE FOR GFR 1.57 MG/DL (0.55-1.02); GLOMERULAR FILTRATION RATE 37.1 (>51); POTASSIUM SERUM 3.7 MEQ/L (3.5-5.1)
[2016-04-26] MEDS: SLF 3 ML SYR IV SCH (08:11)
[2016-04-26] MEDS: LEVEMIR (INSULIN DETEMIR) 1 UNITS/0.01ML SC SCH (08:11)
[2016-04-26] MEDS: FLUCONAZOLE 50MG TABLET PO SCH (08:11)
[2016-04-26] MEDS: VITAMIN D 1,000 INTERNATIONAL UNITS TABLET PO SCH (08:11)
[2016-04-26] MEDS: GABAPENTIN 300 MG CAP PO SCH ×3 (08:11→21:51)
[2016-04-26] MEDS: HumaLOG INSULIN (NovoLOG) PER UNIT SC SCH ×4 (08:11→20:25)
[2016-04-26] MEDS: PANTOPRAZOLE 40MG TAB (PROTONIX) PO SCH ×2 (08:12→21:51)
[2016-04-26] MEDS: rOPINIRole 1MG TAB PO SCH ×2 (08:12→21:51)
[2016-04-26] MEDS: MULTIVITAMINS/MINERALS THERAP 1 TAB PO SCH (08:12)
[2016-04-26] MEDS: LOMOTIL 2.5MG/0.025MG TABLET PO SCH ×4 (08:12→21:50)
[2016-04-26] MEDS: ASPIRIN 81 MG ENTERIC TAB PO SCH (08:12)
[2016-04-26] MEDS: CitaloPRAM (CeleXA) 20 MG TAB PO SCH (08:12)
[2016-04-26] MEDS: MAGNESIUM OXIDE 400 MG TAB (MAG-OX) PO SCH ×2 (08:12→21:51)
[2016-04-26] MEDS: carBAMazepine 200 MG TAB PO SCH ×2 (08:12→21:51)
[2016-04-26] MEDS: buPROPion 100 MG TAB PO SCH ×2 (08:12→21:51)
[2016-04-26] MEDS: FERROUS SULFATE 325MG TAB PO SCH ×3 (08:12→21:51)
[2016-04-26] MEDS: FLUTICASONE PROP 0.05% NASAL SPRAY 16 GM (FLONASE) SCH (08:13)
--- NOTE | 2016-04-26 08:21 | IPN ---
DATE: 04/26/2016 50-year-old female seen at bedside. She is feeling better. She is much more alert today and we are trying to make adjustments in her fluids as well as her insulin coverage. She denies fevers, chills, nausea or vomiting. Feels that she is relatively back to her baseline other than having some vague weakness. OBJECTIVE: Temperature is 98.9, pulse 88, respiratory rate is 20, blood pressure (BP) 140/69, SPO2 is 97% on room air. General: The patient appears to be in no acute distress. She is alert and oriented, pleasant talk to. HEENT: Unremarkable. Lungs: Clear. Heart: Regular rate and rhythm. Abdomen: Soft. Extremities: No edema, no calf tenderness. Ostomy bag and ostomy appears to be patent. No signs of infection. White count is 5.6, hemoglobin 9.8, platelets 151,000. Sodium 130, potassium 3.7, chloride 98, bicarb 20, anion gap 12, BUN is 38, creatinine 1.57, glucose is 383 which we will cover with some insulin and repeat a finger stick in the next hour. Calcium is 7.4. Blood cultures negative for 24 hours times two. Urine culture unremarkable. ASSESSMENT/PLAN: 1. Diabetic ketoacidosis with anion gap that is now closed. We are trying to progress her on to her TPN with insulin additive and sliding scale coverage and long-acting insulin will be adjusted accordingly. 2. Acute on chronic renal failure. She does appear to be improved. Will discontinue her IV fluids and appreciate Dr. Pratt's input. 3. Chronic pancreatitis resulting in diabetes. As outlined above, will continue with insulin and fingersticks. 4. Urinary tract infection. Continue on Rocephin. Blood cultures are pending. Urine culture negative. 5. Depression, well controlled. No suicidal ideation. No audiovisual hallucinations. 6. Diabetic neuropathy. Continue Neurontin 7. Chronic low back pain. Continue Lidoderm patch. Percocet as needed, which we did down regulate her medication to 1 tablet every 4 hours as needed (p.r.n.). Monitor for lethargy. 8. severe protein jah malnutrion BMI/17 emaciated treated with TPN , ivf, nutritional consult 9. stage 2 pressure ulcer coccyx present on admission 8. Deep vein thrombosis (DVT) prophylaxis. Subcutaneous heparin. DISPOSITION: She has shown quite a bit of improvement. Will go ahead and downgrade her to general medical floor today; however, long-term, I am concerned about her well being and inability to provide adequate care at home. I have requested patient and family services (PFS) to see her to help us determine whether or not she is a candidate for long-term placement. LUCRECIA
[2016-04-26] MEDS ORDERED: HumuLIN R (REGULAR) INSULIN (NovoLIN R) **100U/ML** PER UNIT SC STA (10:17)
[2016-04-26] MEDS ORDERED: HumaLOG INSULIN (NovoLOG) PER UNIT SC STA (10:22)
[2016-04-26] MEDS ORDERED: ACETAMINOPHEN TAB 650MG DOSE (2X325MG) PO ONE (15:30)
--- NOTE | 2016-04-26 20:38 | CR ---
DATE OF CONSULTATION: 04/25/2016 REASON FOR CONSULTATION: Acute renal failure and abnormal electrolytes. HISTORY OF PRESENT ILLNESS: Ms. Lora is a 50-year-old female with known history of insulin-requiring diabetes which has been historically poorly controlled. She has history of pancreatitis in the past with rupture of pancreatic cyst leading to ischemic bowel disease and requiring bowel resection. She has a jejunostomy with high output and requires daily IV normal saline at home via a central line. She also received total parenteral nutrition (TPN) every night at home. She reports that for the last week or so she could not receive the IV fluid due to running out of supplies. She reports that her primary physician did order her supplies however, she did not receive them. She also reports dysuria and increased frequency with urgency due to which she presented to the emergency room. She was found to be in diabetic ketoacidosis with blood sugars above 1100. She is currently in intensive care unit. She is being treated with IV fluids and antibiotics. Nephrology consultation was requested and the patient is seen this afternoon. PAST MEDICAL HISTORY: Significant for: 1. History of acute pancreatitis and hypotension, status post jejunostomy as a result of ischemic bowel disease. 2. History of dyslipidemia. 3. Poorly controlled insulin dependent diabetes. 4. Chronic obstructive pulmonary disease (COPD). 5. History of prior stroke without any significant residual weakness. 6. History of depression. 7. History of chronic anemia. 8. High output ostomy. 9. History of severe protein calorie malnutrition. 10. History of chronic sacral area pressure ulcer. 11. History of electrolyte abnormalities related to her TPN and IV fluids. MEDICATIONS: Her home medications include: NovoLog insulin per sliding scale, vitamin C 500 mg daily, calcium 600 mg twice a day, vitamin D 1000 mg daily, potassium chloride 20 mEq twice a day, TPN 70 mL/hour for 12 hours, aspirin 81 mg daily, bupropion 50 mg twice a day, carbamazepine 200 mg twice a day, citalopram 40 mg daily, Nexium 40 mg twice a day, ferrous sulfate 325 mg three times a day, fluconazole 150 mg daily, gabapentin 300 mg three times a day, Levemir insulin 35 units daily, lidocaine patch topically daily, magnesium oxide 800 mg twice a day, multivitamin one tablet daily, Zofran 4 mg three times a day as needed for nausea, Pravachol 20 mg daily, Requip 1 mg as needed at bedtime, trazodone 100 mg at bedtime, and Silvadene cream topically as needed for skin sores. ALLERGIES: The patient has allergy to PENICILLIN, SULFA, CLAVULANIC ACID, and PHENAZOPYRIDINE. PAST SURGICAL HISTORY: Significant for: Jejunostomy, colectomy and partial small bowel resection, hysteroscopy, right knee surgery, left hip surgery, central line placement, cholecystectomy, appendectomy, blepharoplasty and carpal tunnel release. PERSONAL AND SOCIAL HISTORY: The patient is a former smoker. She denies any alcohol or illicit drug use. FAMILY HISTORY: Significant for chronic kidney disease and hypertension. There is also diabetes in the family. REVIEW OF SYSTEMS: She denies any high-grade fever or chills. Ears are significant for mild deafness. Nose and throat are unremarkable. Cardiovascular system is negative for dyspnea or chest pain. Respiratory system is negative for cough or hemoptysis. Gastrointestinal (GI) system is as per history of present illness. Genitourinary () system is significant for dysuria, increased frequency and urgency. Endocrine system is significant for insulin-requiring diabetes. Psychosocial system is significant for depression and anxiety. Neurological system is significant for peripheral neuropathy and restless leg syndrome. Skin is negative for rash or ulcers. Musculoskeletal system is significant for chronic degenerative arthritis. Prior hip fracture and knee surgery. Other systems are unremarkable. PHYSICAL EXAMINATION: Chronically ill-looking and emaciated middle-aged lady lying in the bed without any acute distress. Temperature is 96.9 degrees Fahrenheit, heart rate 80 per minute and respiratory rate 18 per minute. Blood pressure 120/62 mmHg and oxygen saturation 100% on room air. Head is atraumatic. Ears, nose and throat are unremarkable. Pupils are equal and reactive to light and sclera is anicteric. Neck is supple and without any thyroid enlargement or jugular venous distention (JVD). Trachea is midline. Heart sounds are regular and lungs have slightly diminished breath sounds at bases. She has no wheezing or rales. Abdomen is soft. Ileostomy is present in right upper quadrant. Bowel sounds are present. Extremities have no cyanosis or clubbing. Skin has no rash or ulcers. Neurologically she is awake, alert and oriented times three. At present she has no focal neurological deficit. LABORATORY DATA: On admission sodium 112, potassium 4.4, chloride 77, CO2 19, BUN 53 and creatinine 2.69. Glucose was 1199. Lactic acid level was 2.7. Hemoglobin A1c was greater than 16%. Total protein was 6.9 and albumin 3.2. Lipase 256. This morning her sodium is up to 136, potassium 3.5, CO2 20, BUN 44 and creatinine 1.74. Glucose 126 and lactic acid is 1.4. Calcium level 9.0. Blood gas done on admission showed a pH of 7.17, pCO2 45.4, pO2 44 and bicarbonate 15. This was a venous blood gas. WBC count was 7.1, hemoglobin 11.5 and hematocrit 35.2. Urinalysis showed too numerous to count WBCs and 19 RBCs. She had 3+ leukocyte esterase. PROBLEMS: 1. Acute renal failure superimposed on chronic kidney disease. Mostly dehydration. She is improving with IV fluid hydration. She has history of chronic high output ostomy, decreased oral intake and requirement of daily IV fluid. She has not received IV fluid over a week and has also developed severe hyperglycemia which led to dehydration. She is currently receiving IV normal saline which is appropriate. 2. Hyponatremia. The patient had pseudohyponatremia on admission due to severe hyperglycemia and her sodium level has also corrected as she has been receiving IV normal saline. At this point her sodium level is already corrected fully so no further intervention will be considered. We will have to adjust her electrolytes in the total parenteral nutrition (TPN). 3. Hypokalemia. This is related to TPN and poor oral intake. She will require increased amount of potassium chloride in the TPN. 4. Diabetic ketoacidosis. The patient has history of chronic noncompliance with her diabetic control. At times she does not even monitor her blood sugars. Now her diabetes has improved. It is important for her to monitor closely and provide insulin coverage to keep her diabetes under control. Probably urinary tract infection (UTI) also contributed to poor control of her diabetes. 5. Chronic malnutrition. The patient has been TPN dependent due to short bowel syndrome. She required daily TPN. Her TPN orders have already been written today. I will be pleased to take over her TPN management from tomorrow. Thank you for involving me in the care of Ms. Lora. I will follow her along with you.
[2016-04-26] MEDS ORDERED: CALC IV SCH (21:00)
[2016-04-26] MEDS ORDERED: DEX IV SCH (21:00)
[2016-04-26] MEDS ORDERED: ELECTROLYTE IV SCH (21:00)
[2016-04-26] MEDS ORDERED: AMINO AC IV SCH (21:00)
[2016-04-26] MEDS ORDERED: FAT EMULSION IV 20% 500 ML IV SCH (21:00)
[2016-04-26] MEDS ORDERED: INSULIN HUMAN REGULAR IV SCH (21:00)
[2016-04-26] MEDS: **NOTE PATIENT COMMENT** MISC XX SCH (21:00)
[2016-04-26] MEDS: traZODone 100 MG TAB PO SCH (21:50)
[2016-04-26] MEDS: PRAVASTATIN 20 MG TAB PO SCH (21:52)
[2016-04-26] MEDS: LIDOCAINE 5% (LIDODERM) PATCH TOP PRN (21:53)
--- NOTE | 2016-04-27 00:29 | EDDOCDS ---
Physician Documentation [facility] Name: Delma Lora Age: 50 yrs Sex: Female : 1965 Arrival Date: 04/24/2016 Time: 18:51 Bed 7 Private MD: Disposition: 04/24/16 21:15 Hospitalization ordered by Diana Borjas for Inpatient Admission. Preliminary diagnosis are Hyperglycemia, unspecified, Hypo-osmolality and hyponatremia. - Bed requested for ICU. - Status is Inpatient Admission. [facility] - Condition is Stable. - Problem is new. - Symptoms have improved. Historical: - Allergies: Augmentin; Bactrim; Pyridium; - Home Meds: 1. aspirin 81 mg Oral cpDR 81 mg daily 2. baclofen 10 mg Oral tab 1 tab 3 times per day 3. biotin 1 mg oral tab daily 4. bupropion HCl 100 mg Oral tab 1 tab 2 times per day 5. Calcium Citrate Oral 950 mg twice a day 6. Celexa 40 mg Oral tab 1 tab once daily 7. ferrous sulfate 325 mg (65 mg iron) Oral tab three times a day 8. fluconazole 150 mg Oral tab 1 tab 9. fluticasone 50 mcg/actuation nasal spsn 2 sprays once daily 10. gabapentin 300 mg Oral cap 1 cap 3 times per day 11. Lantus 100 unit/mL Sub-Q crtg 30 unit twice a day I have not taken in over a week 12. Levemir FlexTouch 100 unit/mL (3 mL) subcutaneous inpn 35 unit daily 13. Lomotil 2.5-0.025 mg oral tab 1 tabs 4 times per day 14. magnesium oxide 400 mg Oral tab 800 mg twice a day 15. multivitamin Oral cap 1 tab daily 16. Nexium 40 mg Oral cpDR 1 cap 2 times per day 17. Normal Saline with Potassium 40 meq and Magnesium 12 meq Daily infusion via port 18. Novolog 100 unit/mL Sub-Q soln Unknown Per sliding scale has not taken 19. oxycodone 5 mg Oral tab 2 tabs every 4 hours 20. potassium Runs 40 meq daily 21. Pravachol 20 mg Oral tab 1 tab once daily 22. pravastatin 20 mg oral tab 1 tab once daily 23. Requip 1 mg Oral tab 1 tab twice a day 24. saline 1000 ml infusion through Vitale Catheter daily. 25. Silvadene 1 % Topical crea once daily not using now, using some pads 26. Tegretol 200 mg Oral tab 1 tab three times a day 27. TPN Electrolytes 35-20-5 mEq/20 mL intravenous soln Runs for 12 hours overnight. 28. trazadone 100 mg 100 mg nightly 29. Vita[employer] 1,500 mcg oral tab Unknown daily 30. Vitamin C 500 mg Oral cpER 500 mg daily 31. Vitamin D3 5,000 unit oral tab daily 32. Wellbutrin SR 100 mg Oral TbER 1 tab once daily 33. Zofran (as hydrochloride) 4 mg Oral tab 1 tabs tid prn - PMHx: chronic kidney; Depression; Diabetes - IDDM: controlled; Hypercholesterolemia; jejunostomy; necrotic bowel; Stroke; - PSHx: jejunostomy; Hysteroscopy; Knee surgery- Right; left hip surgery ( fracture repair); Vitale port placement; knee surgery; Cholecystectomy; Appendectomy; blepheroplasty; Carpal Tunnel Repair- Bilateral; - Social history: Smoking status: Patient states former smoker of tobacco. No barriers to communication noted. - Family history: Not pertinent. - : The pt / caregiver states he / she is not on anticoagulants. Home medication list is obtained from the patient. - Exposure Risk Screening:: None identified. 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 9 in. (175.26 cm) (R); Pain 8/10; 22:37 BP 96 / 61 (auto/); [facility] 22:38 BP 96 / 61; Pulse 76 MON; Resp 18; Temp 98.7; Pulse Ox 99% ; [facility] 23:23 BP 86 / 54; Pulse 75; Resp 18; Pulse Ox 98% ; [facility] 19:01 Body Mass Index 17.13 (52.62 kg, 175.26 cm) cln MDM: 19:07 Urinalysis Ordered. EDMS 19:07 Urine Culture Ordered. EDMS 19:53 NS 0.9% 1000 ml IV at bolus once ordered. fg 19:54 CBC with Diff Ordered. EDMS 19:54 Basic Metabolic Profile Ordered. EDMS 19:55 Lactic Acid (Cooper tube on ice) Ordered. EDMS 20:02 Financial registration complete. [id number] 20:04 morphine 2 mg IVP once ordered. fg 20:37 [facility] Payment Agreement was scanned into [employer] and attached to record. dm19 21:02 Insulin Regular Human 10 units IVP once ordered. fg 21:14 Ciprofloxacin 400 mg IVPB at 200 mL/hr once over 60 mins ordered. fg 21:14 BED REQUEST+ADM ordered. EDMS 21:16 CT ABD & PELVIS: No Contrast Ordered. EDMS 21:23 ARTERIAL BLOOD GAS Ordered. EDMS 21:23 BLOOD CULTURES Ordered. EDMS 21:23 BLOOD CULTURES Ordered. EDMS 21:24 LIPASE Ordered. EDMS 21:24 LIVER PROFILE Ordered. EDMS 21:25 TROPONIN Ordered. EDMS 21:25 Admission / Observation Status ordered. EDMS 21:32 ECG WITH READING ER PHYS+CARDIAG ordered. EDMS 22:07 HEMOGLOBIN A1C Ordered. EDMS 22:07 VENOUS BLOOD GAS Ordered. EDMS 22:07 BASIC METABOLIC PROFILE Ordered. EDMS 22:08 PHOSPHOROUS LEVEL Ordered. EDMS 22:08 BASIC METABOLIC PROFILE Ordered. EDMS 22:08 BASIC METABOLIC PROFILE Ordered. EDMS 22:08 BASIC METABOLIC PROFILE Ordered. EDMS 22:08 BASIC METABOLIC PROFILE Ordered. EDMS 22:08 BASIC METABOLIC PROFILE Ordered. EDMS 22:08 BASIC METABOLIC PROFILE Ordered. EDMS 22:11 BASIC METABOLIC PROFILE Ordered. EDMS 22:15 MAGNESIUM LEVEL Ordered. EDMS 23:11 MRSA SCREEN Ordered. EDMS 04/25 01:11 T-Sheet-- Draft Copy was scanned into [employer] and attached to record. hs2 09:38 PCR was scanned into [employer] and attached to record. gb 09:57 ECG/EKG was scanned into [employer] and attached to record. gb 09:58 Radiology Report was scanned into [employer] and attached to record. gb Administered Medications: 04/24 20:24 Drug: morphine 2 mg [morphine 2 mg/mL intravenous cartridge (1 mL)] Route: IVP; Site: jp6 Implantable Access Device; 20:25 Drug: NS 0.9% 1000 ml [sodium chloride 0.9 % intravenous solution] Route: IV; Rate: jp6 bolus; Site: Implantable Access Device; 23:25 Follow up: IV Status: Infusion discontinued; IV Intake: 850ml [facility] 21:50 Drug: Ciprofloxacin 400 mg [ciprofloxacin 400 mg/200 mL in 5 % dextrose intravenous jmb piggyback] Route: IVPB; Rate: 200 mL/hr; Infused Over: 60 mins; Site: Implantable Access Device; 23:24 Follow up: IV Status: Completed infusion; IV Intake: 200ml [facility] 21:57 Drug: Insulin Regular Human 10 units [insulin regular human 100 unit/mL injection jmb solution (0.1 mL)] {Co-Signature: [email or web address] (Alvino Garsia RN).} Route: IVP; Site: Implantable Access Device; Signatures: Dispatcher [employer] EDMS Delmy Kirk, Reg Reg gb Deb Atwood RN RN [facility] Juan, Leanne Guaman MD MD Anne Marie Jones, Reg Reg hs2 Ally Chambers dm19 Lokesh Joseph RN, Jessica RN jp6 Alvino Garsia RN ms2 The chart was reviewed and I authenticate all verbal orders and agree with the evaluation and treatment provided.Corrections: (The following items were deleted from the chart) 21:24 21:23 TROPONIN ordered. EDMS EDMS 21:24 21:23 LIVER PROFILE ordered. EDMS EDMS 21:24 21:23 LIPASE ordered. EDMS EDMS 21:37 19:57 CT ABD & PELVIS WITH CONTRAST+CT ordered. EDMS EDMS 22:11 22:07 PHOSPHOROUS LEVEL ordered. EDMS EDMS 22:11 22:07 PHOSPHOROUS LEVEL ordered. EDMS EDMS 22:11 22:07 PHOSPHOROUS LEVEL ordered. EDMS EDMS 22:11 22:08 PHOSPHOROUS LEVEL ordered. EDMS EDMS 22:11 22:08 PHOSPHOROUS LEVEL ordered. EDMS EDMS 22:11 22:08 PHOSPHOROUS LEVEL ordered. EDMS EDMS 22:15 22:07 MAGNESIUM LEVEL ordered. EDMS EDMS Attachments: 20:37 [facility] Payment Agreement [email or web address] 04/25 01:11 T-Sheet-- Draft Copy hs2 09:57 ECG/EKG gb Chart Complete MTDD
--- NOTE | 2016-04-27 00:29 | EDDOCDS ---
Nurse's Notes [facility] Name: Delma Lora Age: 50 yrs Sex: Female : 1965 Arrival Date: 04/24/2016 Time: 18:51 Bed 7 Private MD: Diagnosis: Hyperglycemia, unspecified;Hypo-osmolality and hyponatremia Presentation: 04/24 19:08 Presenting complaint: Patient states: I've been dehydrated for a week because dr karine delgado isn't ordering my TPN and feeling weak and feel like I've got to pee constantly with pain in my pelvic region. Adult Sepsis Screening: The patient does not have new or worsening altered mentation. Patient has a respiratory rate of greater than or equal to 22 (1 point). Systolic blood pressure is greater than 100. Patient has a qSOFA score of 1- Negative Sepsis Screen. Status: Patient is not a food service technician or dependent. Suicide/Homicide risk assessment- the patient denies having any suicidal and/or homicidal ideations. Transition of care: patient was not received from another setting of care. 19:08 Acuity: ABELARDO Level 3 [facility] 19:08 Method Of Arrival: Ambulance [facility] Triage Assessment: 19:15 General: Appears in no apparent distress, ill, uncomfortable, Behavior is appropriate [facility] for age, cooperative. Pain: Denies pain. HIV screening NA for this visit Offered previously. Neurological: No deficits noted. Respiratory: No deficits noted. GI: No deficits noted. : Reports urinary frequency. Derm: No deficits noted. AMBULANCE OFFICER: 19:11 LMP N/A - Hysterectomy [facility] Historical: - Allergies: Augmentin; Bactrim; Pyridium; - Home Meds: 1. aspirin 81 mg Oral cpDR 81 mg daily 2. baclofen 10 mg Oral tab 1 tab 3 times per day 3. biotin 1 mg oral tab daily 4. bupropion HCl 100 mg Oral tab 1 tab 2 times per day 5. Calcium Citrate Oral 950 mg twice a day 6. Celexa 40 mg Oral tab 1 tab once daily 7. ferrous sulfate 325 mg (65 mg iron) Oral tab three times a day 8. fluconazole 150 mg Oral tab 1 tab 9. fluticasone 50 mcg/actuation nasal spsn 2 sprays once daily 10. gabapentin 300 mg Oral cap 1 cap 3 times per day 11. Lantus 100 unit/mL Sub-Q crtg 30 unit twice a day I have not taken in over a week 12. Levemir FlexTouch 100 unit/mL (3 mL) subcutaneous inpn 35 unit daily 13. Lomotil 2.5-0.025 mg oral tab 1 tabs 4 times per day 14. magnesium oxide 400 mg Oral tab 800 mg twice a day 15. multivitamin Oral cap 1 tab daily 16. Nexium 40 mg Oral cpDR 1 cap 2 times per day 17. Normal Saline with Potassium 40 meq and Magnesium 12 meq Daily infusion via port 18. Novolog 100 unit/mL Sub-Q soln Unknown Per sliding scale has not taken 19. oxycodone 5 mg Oral tab 2 tabs every 4 hours 20. potassium Runs 40 meq daily 21. Pravachol 20 mg Oral tab 1 tab once daily 22. pravastatin 20 mg oral tab 1 tab once daily 23. Requip 1 mg Oral tab 1 tab twice a day 24. saline 1000 ml infusion through Vitale Catheter daily. 25. Silvadene 1 % Topical crea once daily not using now, using some pads 26. Tegretol 200 mg Oral tab 1 tab three times a day 27. TPN Electrolytes 35-20-5 mEq/20 mL intravenous soln Runs for 12 hours overnight. 28. trazadone 100 mg 100 mg nightly 29. Vita[employer] 1,500 mcg oral tab Unknown daily 30. Vitamin C 500 mg Oral cpER 500 mg daily 31. Vitamin D3 5,000 unit oral tab daily 32. Wellbutrin SR 100 mg Oral TbER 1 tab once daily 33. Zofran (as hydrochloride) 4 mg Oral tab 1 tabs tid prn - PMHx: chronic kidney; Depression; Diabetes - IDDM: controlled; Hypercholesterolemia; jejunostomy; necrotic bowel; Stroke; - PSHx: jejunostomy; Hysteroscopy; Knee surgery- Right; left hip surgery ( fracture repair); Vitale port placement; knee surgery; Cholecystectomy; Appendectomy; blepheroplasty; Carpal Tunnel Repair- Bilateral; - Social history: Smoking status: Patient states former smoker of tobacco. No barriers to communication noted. - Family history: Not pertinent. - : The pt / caregiver states he / she is not on anticoagulants. Home medication list is obtained from the patient. - Exposure Risk Screening:: None identified. Screenin:53 Infection Control. sew 23:20 Screening information is obtained from the patient. Fall risk:. Assistance ADL's: [facility] Requires assistance with. Abuse/DV Screen: The patient / caregiver reports he/she is: not in a situation that causes fear, pain or injury. Nutritional screening: No deficits noted. Advance Directives: There is no active DNR order. home support is adequate. Assessment: 19:30 General: Appears in no apparent distress, ill, uncomfortable, Behavior is appropriate cj for age, cooperative. Pain: Denies pain. Neurological: Level of Consciousness is awake, alert, Oriented to person, place, time. Respiratory: Airway is patent Respiratory effort is even, unlabored, Respiratory pattern is regular, symmetrical, Breath sounds are clear bilaterally. GI: Abdomen is non- distended Bowel sounds present X 4 quads. j-ostomy intact to drainage bag. : Reports urinary frequency. Derm: Skin is pink, warm & dry. 20:30 General: family at bedside, assisted patient with turn, position and change of J-ostomy cjh bag. Supplies requested and provided. 21:30 General: cooperative with blood draws, IV's infusing via Vitale Cath, no complaints [facility] voiced. 22:30 General: states feeling better after IV infusion, awaiting admission. [facility] 23:20 General: awaiting admission, denies needs at this time, small amount ice chips provided cjh per authorization ED physician, no new complaints voiced awaiting admission. Vital Signs: 19:01 BP 142 / 88 LA Sitting (auto/reg); Pulse 91 MON; Resp 22 S; Temp 98.9(O); Pulse Ox 100% cln on R/A; Weight 52.62 kg (R); Height 5 ft. 9 in. (175.26 cm) (R); Pain 8/10; 22:37 BP 96 / 61 (auto/); cjh 22:38 BP 96 / 61; Pulse 76 MON; Resp 18; Temp 98.7; Pulse Ox 99% ; [facility] 23:23 BP 86 / 54; Pulse 75; Resp 18; Pulse Ox 98% ; [facility] 19:01 Body Mass Index 17.13 (52.62 kg, 175.26 cm) cln Vitals: 19:11 Log In Time N/A - ambulance arrival. [facility] ED Course: 18:52 Patient visited by Stephie Martinez. sew 18:52 Patient moved to 7 sew 19:02 Pt greeted and oriented to ED. Patient advised of names of staff involved in care, cln location of call moss, wait times and NPO status. Patient has correct armband on for positive identification. Placed in gown. Bed in low position. Call light in reach. Side rails up X 1. 19:03 Patient visited by Sophia Sorenson, DISC PAD GRINDING MACHINE FEEDER. cln 19:05 Leanne Holguin MD is Attending Physician. fg 19:07 Diana Borjas frame gate mortiser operator. nq 19:10 Triage Initiated cjh 19:15 Urine Culture Sent. cln 19:15 Urinalysis Sent. cln 19:24 Patient visited by Leanne Holguin MD. fg 19:55 Patient visited by Wandy Mac, Home Appliance Washing Machine Mechanic. jlm 20:37 [facility] Payment Agreement was scanned into [employer] and attached to record. dm19 20:54 Notified attending ED physician of Critical lab value. glucose 1,199 Na+ 112 Lactic cz acid 2.7. 21:10 Diana Borjas frame gate mortiser operator. nq 21:14 Diana Borjas is Hospitalizing Provider. fg 21:14 Diana Borjas is Hospitalizing Provider. fg 21:40 Patient visited by Bubba Abraham PCA. mdr 21:40 EKG done. (by ED staff). Reviewed by Leanne Holguin MD. mdr 22:28 Hospitalist Suad glucose 1091 Na+ 119. cz 23:20 The patient / caregiver is instructed regarding the plan of care and ED course. cj 23:20 Accessed. No procedures done that require assistance. cj 23:24 CT ABD & PELVIS: No Contrast Returned. EDMS 04/25 01:11 T-Sheet-- Draft Copy was scanned into [employer] and attached to record. hs2 09:38 PCR was scanned into [employer] and attached to record. gb 09:57 ECG/EKG was scanned into [employer] and attached to record. gb 09:58 Radiology Report was scanned into [employer] and attached to record. gb Administered Medications: 04/24 20:24 Drug: morphine 2 mg [morphine 2 mg/mL intravenous cartridge (1 mL)] Route: IVP; Site: jp6 Implantable Access Device; 20:25 Drug: NS 0.9% 1000 ml [sodium chloride 0.9 % intravenous solution] Route: IV; Rate: jp6 bolus; Site: Implantable Access Device; 23:25 Follow up: IV Status: Infusion discontinued; IV Intake: 850ml [facility] 21:50 Drug: Ciprofloxacin 400 mg [ciprofloxacin 400 mg/200 mL in 5 % dextrose intravenous jmb piggyback] Route: IVPB; Rate: 200 mL/hr; Infused Over: 60 mins; Site: Implantable Access Device; 23:24 Follow up: IV Status: Completed infusion; IV Intake: 200ml [facility] 21:57 Drug: Insulin Regular Human 10 units [insulin regular human 100 unit/mL injection jmb solution (0.1 mL)] {Co-Signature: ms2 (Alvino Garsia RN).} Route: IVP; Site: Implantable Access Device; Intake: 23:24 IV: 200.00ml; Total: 200.00ml. [facility] 23:25 IV: 850.00ml; Total: 1050.00ml. [facility] Order Results: Lab Order: Urinalysis; SPEC'M 04/24/16 19:16 Test: APPEARANCE, URINE; Value: CLOUDY; Range: CLEAR; Abnormal: Above high normal; Status: F Test: COLOR, URINE; Value: YELLOW; Range: YELLOW; Status: F Test: PH,URINE; Value: 6.0; Range: 5.0-9.0; Units: UNITS; Status: F Test: SPECIFIC GRAVITY URINE AUTO; Value: 1.017; Range: 1.002-1.035; Status: F Test: PROTEIN, URINE AUTO; Value: NEGATIVE; Range: NEGATIVE; Units: mg/dL; Status: F Test: GLUCOSE, URINE (UA) AUTO; Value: 3+; Range: NEGATIVE; Abnormal: Above high normal; Units: mg/dL; Status: F Test: KETONE, URINE AUTO; Value: NEGATIVE; Range: NEGATIVE; Units: mg/dL; Status: F Test: UROBILINOGEN, URINE AUTO; Value: 0.2; Range: 0.0-2.0; Units: mg/dL; Status: F Test: BILIRUBIN, URINE AUTO; Value: NEGATIVE; Range: NEGATIVE; Status: F Test: NITRITE, URINE AUTO; Value: NEGATIVE; Range: NEGATIVE; Status: F Test: LEUKOCYTE ESTERASE, URINE AUTO; Value: 3+; Range: NEGATIVE; Abnormal: Above high normal; Status: F Test: BLOOD, URINE BLOOD; Value: 1+; Range: NEGATIVE; Abnormal: Above high normal; Status: F Test: WBC, URINE AUTO; Value: TNTC; Range: 0-3; Abnormal: Above high normal; Units: /HPF; Status: F Test: RBC, URINE AUTO; Value: 19; Range: 0-3; Abnormal: Above high normal; Units: /HPF; Status: F Test: BACTERIA, URINE AUTO; Value: 1+; Range: NEGATIVE; Abnormal: Above high normal; Status: F Test: YEAST LIKE CELL URINE AUTO; Value: MODERATE; Range: NONE; Abnormal: Above high normal; Status: F Test: SQUAMOUS EPITHELIAL CELL UR AU; Value: 2; Range: 0-6; Units: /HPF; Status: F Test: MUCUS, URINE; Value: SMALL; Range: NEGATIVE; Status: F Test: HYALINE CAST, URINE AUTO; Value: 0; Range: 0-1; Units: /LPF; Status: F Lab Order: CBC with Diff; SPEC'M 04/24/16 20:17 Test: WHITE BLOOD COUNT; Value: 7.1; Range: 4.0-10.0; Units: K/mm3; Status: F Test: RED BLOOD COUNT; Value: 4.03; Range: 4.00-5.40; Units: M/mm3; Status: F Test: HEMOGLOBIN; Value: 11.5; Range: 12.0-16.0; Abnormal: Below low normal; Units: g/dl; Status: F Test: HEMATOCRIT; Value: 35.2; Range: 36.0-47.0; Abnormal: Below low normal; Units: %; Status: F Test: MEAN CORPUSCULAR VOLUME; Value: 87.5; Range: 80.0-96.0; Units: fl; Status: F Test: MEAN CORPUSCULAR HEMOGLOBIN; Value: 28.4; Range: 27.0-33.0; Units: pg; Status: F Test: MEAN CORPUSCULAR HGB CONC; Value: 32.5; Range: 32.0-36.5; Units: g/dl; Status: F Test: RED CELL DISTRIBUTION WIDTH; Value: 14.2; Range: 11.5-14.5; Units: %; Status: F Test: PLATELET COUNT, AUTOMATED; Value: 137; Range: 150-450; Abnormal: Below low normal; Units: k/mm3; Status: F Test: NEUTROPHILS %; Value: 87.3; Range: 36.0-66.0; Abnormal: Above high normal; Units: %; Status: F Test: LYMPH %; Value: 8.5; Range: 24.0-44.0; Abnormal: Below low normal; Units: %; Status: F Test: MONO %; Value: 2.9; Range: 0.0-5.0; Units: %; Status: F Test: EOS %; Value: 0.3; Range: 0.0-3.0; Units: %; Status: F Test: BASO %; Value: 0.2; Range: 0.0-1.0; Units: %; Status: F Test: LARGE UNSTAINED CELL %; Value: 0.9; Range: 0.0-4.0; Units: %; Status: F Test: NEUTROPHILS #; Value: 6.2; Range: 1.8-7.7; Units: K/mm3; Status: F Test: LYMPH #; Value: 0.6; Range: 1.5-4.5; Abnormal: Below low normal; Units: K/mm3; Status: F Test: MONO #; Value: 0.2; Range: 0.0-0.8; Units: K/mm3; Status: F Test: EOS #; Value: 0.0; Range: 0.0-0.50; Units: K/mm3; Status: F Test: BASO #; Value: 0.0; Range: 0.0-0.2; Units: K/mm3; Status: F Test: LARGE UNSTAINED CELL #; Value: 0.1; Range: 0.0-0.4; Units: K/mm3; Status: F Lab Order: Basic Metabolic Profile; SPEC'M 04/24/16 20:17 Test: GLUCOSE, FASTING; Value: 1199; Range: 70-105; Abnormal: Above upper panic limits; Units: MG/DL; Status: F Test: BLOOD UREA NITROGEN; Value: 53; Range: 7-18; Abnormal: Above high normal; Units: MG/DL; Status: F Test: CREATININE FOR GFR; Value: 2.69; Range: 0.55-1.02; Abnormal: Above high normal; Units: MG/DL; Status: F Test: GLOMERULAR FILTRATION RATE; Value: 19.9; Range: >51; Abnormal: Below low normal; Status: F Test: SODIUM LEVEL; Value: 112; Range: 136-145; Abnormal: Critical Low; Units: MEQ/L; Status: F Test: POTASSIUM SERUM; Value: 4.4; Range: 3.5-5.1; Units: MEQ/L; Status: F Test: CHLORIDE LEVEL; Value: 77; Range: 98-107; Abnormal: Below low normal; Units: MEQ/L; Status: F Test: CARBON DIOXIDE LEVEL; Value: 19; Range: 21-32; Abnormal: Below low normal; Units: MEQ/L; Status: F Test: ANION GAP; Value: 16; Range: 8-16; Units: MEQ/L; Status: F Test: CALCIUM LEVEL; Value: 8.7; Range: 8.5-10.1; Units: MG/DL; Status: F Test Note: ; Units are mL/min/1.73 m2 Chronic Kidney Disease Staging per NKF: Stage I & II GFR >=60 Normal to Mildly Decreased Stage III GFR 30-59 Moderately Decreased Stage IV GFR 15-29 Severely Decreased Stage V GFR <15 Very Little GFR Left ESRD GFR <15 on ENCODING MACHINE OPERATOR Test: AST/SGOT; Range: 15-37; Units: U/L; Status: I Test: ALT/SGPT; Range: 12-78; Units: U/L; Status: I Test: ALKALINE PHOSPHATASE; Range: 45-117; Units: U/L; Status: I Test: BILIRUBIN,TOTAL; Range: 0.2-1.0; Units: MG/DL; Status: I Test: BILIRUBIN,DIRECT; Range: 0.0-0.2; Units: MG/DL; Status: I Test: TOTAL PROTEIN; Range: 6.4-8.2; Units: GM/DL; Status: I Test: ALBUMIN; Range: 3.2-5.2; Units: GM/DL; Status: I Test: ALBUMIN/GLOBULIN RATIO; Range: 1.00-1.93; Status: I Test: TROPONIN I; Range: < 0.10; Units: NG/ML; Status: I Test: LIPASE; Range: 73-393; Units: U/L; Status: I Lab Order: Lactic Acid (Cooper tube on ice); [facility] 04/24/16 20: Test: LACTIC ACID LEVEL, LACTATE; Value: 2.7; Range: 0.4-2.0; Abnormal: Above upper panic limits; Units: MMOL/L; Status: F Lab Order: LIPASE; [facility] 04/24/16 20: Test: LIPASE; Value: 256; Range: 73-393; Units: U/L; Status: F Lab Order: LIVER PROFILE; [facility] 04/24/16: Test: AST/SGOT; Value: 12; Range: 15-37; Abnormal: Below low normal; Units: U/L; Status: F Test: ALT/SGPT; Value: 21; Range: 12-78; Units: U/L; Status: F Test: ALKALINE PHOSPHATASE; Value: 195; Range: 45-117; Abnormal: Above high normal; Units: U/L; Status: F Test: BILIRUBIN,TOTAL; Value: 0.3; Range: 0.2-1.0; Units: MG/DL; Status: F Test: BILIRUBIN,DIRECT; Value: 0.1; Range: 0.0-0.2; Units: MG/DL; Status: F Test: TOTAL PROTEIN; Value: 6.9; Range: 6.4-8.2; Units: GM/DL; Status: F Test: ALBUMIN; Value: 3.2; Range: 3.2-5.2; Units: GM/DL; Status: F Test: ALBUMIN/GLOBULIN RATIO; Value: 0.86; Range: 1.00-1.93; Abnormal: Below low normal; Status: F Lab Order: TROPONIN; [facility] 04/24/16: Test: TROPONIN I; Value: < 0.02; Range: < 0.10; Units: NG/ML; Status: F Test Note: ; Troponin I Reference Interval for [employer] LOCI: 99th Percentile= 0.00-0.045 ng/ml Risk Stratification: <= 0.10 ng/ml Decreased Risk for Adverse Clinical Events. 0.10-1.50 ng/ml Increased Risk for Adverse Clinical Events. Evaluation of additional criterion and/or repeat testing in 2-6 hours is suggested to rule out myocardial damage. >= 1.50 ng/ml Indicative of Myocardial Injury. Lab Order: HEMOGLOBIN A1C; [facility] 04/24/16 22:02 Test: HEMOGLOBIN A1c; Value: > 16.0; Range: 4.5-6.2; Abnormal: Above high normal; Units: %; Status: F Test: ESTIMATED AVERAGE GLUCOSE; Value: 413; Range: 60-110; Abnormal: Above high normal; Units: MG/DL; Status: F Lab Order: VENOUS BLOOD GAS; [facility] 04/24/16 22:25 Test: VENOUS PH; Value: 7.178; Range: 7.330-7.430; Abnormal: Below low normal; Units: UNITS; Status: F Test: VENOUS PARTIAL PRESSURE CO2; Value: 45.4; Range: 38.0-50.0; Units: mmHg; Status: F Test: VENOUS PARTIAL PRESSURE O2; Value: 44.3; Range: 30.0-50.0; Units: mmHg; Status: F Test: VENOUS TOTAL CO2; Value: 17.9; Range: 24.0-28.0; Abnormal: Below low normal; Units: MEQ/L; Status: F Test: VENOUS HCO3; Value: 16.5; Range: 23.0-27.0; Abnormal: Below low normal; Units: MEQ/L; Status: F Test: VENOUS BASE EXCESS; Value: -11.6; Range: -2.0-2.0; Abnormal: Below low normal; Status: F Test: VENOUS STANDARD HCO3; Value: 15.1; Units: MEQ/L; Status: F Test: VENOUS O2 SATURATION; Value: 77.1; Range: 60.0-80.0; Units: %; Status: F Lab Order: BASIC METABOLIC PROFILE; [facility] 04/24/16 22:14 Test: GLUCOSE, FASTING; Value: 1091; Range: 70-105; Abnormal: Above upper panic limits; Units: MG/DL; Status: F Test: BLOOD UREA NITROGEN; Value: 49; Range: 7-18; Abnormal: Above high normal; Units: MG/DL; Status: F Test: CREATININE FOR GFR; Value: 2.49; Range: 0.55-1.02; Abnormal: Above high normal; Units: MG/DL; Status: F Test: GLOMERULAR FILTRATION RATE; Value: 21.8; Range: >51; Abnormal: Below low normal; Status: F Test: SODIUM LEVEL; Value: 119; Range: 136-145; Abnormal: Critical Delta Low; Units: MEQ/L; Status: F Test: POTASSIUM SERUM; Value: 4.3; Range: 3.5-5.1; Units: MEQ/L; Status: F Test: CHLORIDE LEVEL; Value: 85; Range: 98-107; Abnormal: Below low normal; Units: MEQ/L; Status: F Test: CARBON DIOXIDE LEVEL; Value: 20; Range: 21-32; Abnormal: Below low normal; Units: MEQ/L; Status: F Test: ANION GAP; Value: 14; Range: 8-16; Units: MEQ/L; Status: F Test: CALCIUM LEVEL; Value: 8.3; Range: 8.5-10.1; Abnormal: Below low normal; Units: MG/DL; Status: F Test Note: ; Units are mL/min/1.73 m2 Chronic Kidney Disease Staging per NKF: Stage I & II GFR >=60 Normal to Mildly Decreased Stage III GFR 30-59 Moderately Decreased Stage IV GFR 15-29 Severely Decreased Stage V GFR <15 Very Little GFR Left ESRD GFR <15 on ENCODING MACHINE OPERATOR Lab Order: MAGNESIUM LEVEL; SPEC'M 04/24/16 22:14 Test: MAGNESIUM LEVEL; Value: 2.1; Range: 1.8-2.4; Units: MG/DL; Status: F Radiology Order: CT ABD & PELVIS: No Contrast Test: CT ABD & PELVIS: No Contrast REASON FOR EXAMINATION: Abdomen Pain; ; CLINICAL HISTORY: Abdominal pain.; ; TECHNIQUE: CT abdomen and pelvis without contrast.; ; COMPARISON: May 26, 2015.; ; CT ABDOMEN WITHOUT CONTRAST:; Lung bases: No lung base infiltrate or effusion.; Liver: No intrahepatic ductal dilation.; Gallbladder: Cholecystectomy.; Pancreas: No pancreatic duct dilation. Calcifications of chronic pancreatitis.; Bowel loops: Right upper quadrant ileostomy. Diastasis of the anterior abdominal wall.; Spleen: Normal size.; Adrenals: Normal size.; Right kidney: Mild hydronephrosis and hydroureter without obstructing stone.; Left kidney: No stones or hydronephrosis. Calcifications adjacent to the left ureter are within the l; eft gonadal vein.; Aorta: Normal caliber.; Peritoneum: No free air.; ; CT PELVIS WITHOUT CONTRAST:; Hips: Interval left hip arthroplasty and right femoral ORIF produce beam hardening artifact in the lo; wer pelvis, limiting evaluation of the pelvic structures.; Bladder: Normally distended. The wall is mildly thickened such that cystitis is not excluded; Colon: Partial colectomy.; Uterus: Hysterectomy.; Peritoneum: No fluid.; Lumbar spine: Degenerative spondylotic changes most pronounced at L4-5 and L5-S1.; IMPRESSION:; 1. Right upper quadrant ileostomy without evidence of obstruction.; 2. Mild right hydronephrosis without obstructing stone. This may be due to reflux.; 3. Urinary bladder wall thickening suggesting cystitis.; ; Outcome: 21:15 Decision to Hospitalize by Provider. fg 23:20 Discharge Assessment: Patient awake, alert and oriented x 3. No cognitive and/or [facility] functional deficits noted. Patient verbalized understanding of disposition instructions. patient administered narcotics - yes. Patient was admitted to the hospital or transferred to another facility. The following High Risk Discharge criteria are identified: None. Admitted to ICU. Condition: good Condition: stable Condition: improved. Property :Personal belongings accompany Pt. 23:26 CT Study completed. [facility] 23:28 Patient left the ED. [facility] Signatures: Dispatcher [employer] EDMS Rey Bone, RN IJEOMA cz Delmy Kirk, Reg Reg gb Deb AtwoodRN RN [facility] Stephie Martinez Nazeel nq Becker, JoshuaRN RN Wandy Altamirano, Home Appliance Washing Machine Mechanic Unit Leanne Vela MD MD fg Rick, Mitchell, DISC PAD GRINDING MACHINE FEEDER DISC PAD GRINDING MACHINE FEEDER Anne Marie Browne, Reg Reg hs2 Sophia Sorenson, DISC PAD GRINDING MACHINE FEEDER DISC PAD GRINDING MACHINE FEEDER Pattie Santos,RN RN jp6 Ally Chambers [id number] Alvino Garsia RN ms2 Corrections: (The following items were deleted from the chart) 23:26 23:20 No special radiology studies were completed [facility] Chart Complete MTDD
--- NOTE | 2016-04-27 00:29 | EDDOCDS ---
Physician Documentation [facility] Name: Delma Lora Age: 50 yrs Sex: Female : 1965 Arrival Date: 04/24/2016 Time: 18:51 Bed 7 Private MD: Disposition: 04/24/16 21:15 Hospitalization ordered by Diana Borjas for Inpatient Admission. Preliminary diagnosis are Hyperglycemia, unspecified, Hypo-osmolality and hyponatremia. - Bed requested for ICU. - Status is Inpatient Admission. [facility] - Condition is Stable. - Problem is new. - Symptoms have improved. Historical: - Allergies: Augmentin; Bactrim; Pyridium; - Home Meds: 1. aspirin 81 mg Oral cpDR 81 mg daily 2. baclofen 10 mg Oral tab 1 tab 3 times per day 3. biotin 1 mg oral tab daily 4. bupropion HCl 100 mg Oral tab 1 tab 2 times per day 5. Calcium Citrate Oral 950 mg twice a day 6. Celexa 40 mg Oral tab 1 tab once daily 7. ferrous sulfate 325 mg (65 mg iron) Oral tab three times a day 8. fluconazole 150 mg Oral tab 1 tab 9. fluticasone 50 mcg/actuation nasal spsn 2 sprays once daily 10. gabapentin 300 mg Oral cap 1 cap 3 times per day 11. Lantus 100 unit/mL Sub-Q crtg 30 unit twice a day I have not taken in over a week 12. Levemir FlexTouch 100 unit/mL (3 mL) subcutaneous inpn 35 unit daily 13. Lomotil 2.5-0.025 mg oral tab 1 tabs 4 times per day 14. magnesium oxide 400 mg Oral tab 800 mg twice a day 15. multivitamin Oral cap 1 tab daily 16. Nexium 40 mg Oral cpDR 1 cap 2 times per day 17. Normal Saline with Potassium 40 meq and Magnesium 12 meq Daily infusion via port 18. Novolog 100 unit/mL Sub-Q soln Unknown Per sliding scale has not taken 19. oxycodone 5 mg Oral tab 2 tabs every 4 hours 20. potassium Runs 40 meq daily 21. Pravachol 20 mg Oral tab 1 tab once daily 22. pravastatin 20 mg oral tab 1 tab once daily 23. Requip 1 mg Oral tab 1 tab twice a day 24. saline 1000 ml infusion through Vitale Catheter daily. 25. Silvadene 1 % Topical crea once daily not using now, using some pads 26. Tegretol 200 mg Oral tab 1 tab three times a day 27. TPN Electrolytes 35-20-5 mEq/20 mL intravenous soln Runs for 12 hours overnight. 28. trazadone 100 mg 100 mg nightly 29. VitaMelts Energy 1,500 mcg oral tab Unknown daily 30. Vitamin C 500 mg Oral cpER 500 mg daily 31. Vitamin D3 5,000 unit oral tab daily 32. Wellbutrin SR 100 mg Oral TbER 1 tab once daily 33. Zofran (as hydrochloride) 4 mg Oral tab 1 tabs tid prn - PMHx: chronic kidney; Depression; Diabetes - IDDM: controlled; Hypercholesterolemia; jejunostomy; necrotic bowel; Stroke; - PSHx: jejunostomy; Hysteroscopy; Knee surgery- Right; left hip surgery ( fracture repair); Vitale port placement; knee surgery; Cholecystectomy; Appendectomy; blepheroplasty; Carpal Tunnel Repair- Bilateral; - Social history: Smoking status: Patient states former smoker of tobacco. No barriers to communication noted. - Family history: Not pertinent. - : The pt / caregiver states he / she is not on anticoagulants. Home medication list is obtained from the patient. - Exposure Risk Screening:: None identified. 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 9 in. (175.26 cm) (R); Pain 8/10; 22:37 BP 96 / 61 (auto/); [facility] 22:38 BP 96 / 61; Pulse 76 MON; Resp 18; Temp 98.7; Pulse Ox 99% ; [facility] 23:23 BP 86 / 54; Pulse 75; Resp 18; Pulse Ox 98% ; [facility] 19:01 Body Mass Index 17.13 (52.62 kg, 175.26 cm) cln MDM: 19:07 Urinalysis Ordered. EDMS 19:07 Urine Culture Ordered. EDMS 19:53 NS 0.9% 1000 ml IV at bolus once ordered. fg 19:54 CBC with Diff Ordered. EDMS 19:54 Basic Metabolic Profile Ordered. EDMS 19:55 Lactic Acid (Cooper tube on ice) Ordered. EDMS 20:02 Financial registration complete. [id number] 20:04 morphine 2 mg IVP once ordered. fg 20:37 [facility] Payment Agreement was scanned into [employer] and attached to record. dm19 21:02 Insulin Regular Human 10 units IVP once ordered. fg 21:14 Ciprofloxacin 400 mg IVPB at 200 mL/hr once over 60 mins ordered. fg 21:14 BED REQUEST+ADM ordered. EDMS 21:16 CT ABD & PELVIS: No Contrast Ordered. EDMS 21:23 ARTERIAL BLOOD GAS Ordered. EDMS 21:23 BLOOD CULTURES Ordered. EDMS 21:23 BLOOD CULTURES Ordered. EDMS 21:24 LIPASE Ordered. EDMS 21:24 LIVER PROFILE Ordered. EDMS 21:25 TROPONIN Ordered. EDMS 21:25 Admission / Observation Status ordered. EDMS 21:32 ECG WITH READING ER PHYS+CARDIAG ordered. EDMS 22:07 HEMOGLOBIN A1C Ordered. EDMS 22:07 VENOUS BLOOD GAS Ordered. EDMS 22:07 BASIC METABOLIC PROFILE Ordered. EDMS 22:08 PHOSPHOROUS LEVEL Ordered. EDMS 22:08 BASIC METABOLIC PROFILE Ordered. EDMS 22:08 BASIC METABOLIC PROFILE Ordered. EDMS 22:08 BASIC METABOLIC PROFILE Ordered. EDMS 22:08 BASIC METABOLIC PROFILE Ordered. EDMS 22:08 BASIC METABOLIC PROFILE Ordered. EDMS 22:08 BASIC METABOLIC PROFILE Ordered. EDMS 22:11 BASIC METABOLIC PROFILE Ordered. EDMS 22:15 MAGNESIUM LEVEL Ordered. EDMS 23:11 MRSA SCREEN Ordered. EDMS 04/25 01:11 T-Sheet-- Draft Copy was scanned into [employer] and attached to record. hs2 09:38 PCR was scanned into [employer] and attached to record. gb 09:57 ECG/EKG was scanned into [employer] and attached to record. gb 09:58 Radiology Report was scanned into [employer] and attached to record. gb Administered Medications: 04/24 20:24 Drug: morphine 2 mg [morphine 2 mg/mL intravenous cartridge (1 mL)] Route: IVP; Site: jp6 Implantable Access Device; 20:25 Drug: NS 0.9% 1000 ml [sodium chloride 0.9 % intravenous solution] Route: IV; Rate: jp6 bolus; Site: Implantable Access Device; 23:25 Follow up: IV Status: Infusion discontinued; IV Intake: 850ml [facility] 21:50 Drug: Ciprofloxacin 400 mg [ciprofloxacin 400 mg/200 mL in 5 % dextrose intravenous jmb piggyback] Route: IVPB; Rate: 200 mL/hr; Infused Over: 60 mins; Site: Implantable Access Device; 23:24 Follow up: IV Status: Completed infusion; IV Intake: 200ml [facility] 21:57 Drug: Insulin Regular Human 10 units [insulin regular human 100 unit/mL injection jmb solution (0.1 mL)] {Co-Signature: [email or web address] (Alvino Garsia RN).} Route: IVP; Site: Implantable Access Device; Signatures: Dispatcher [employer] EDMS Delmy Kirk, Reg Reg gb Deb Atwood RN RN [facility] Juan, Leanne Guaman MD MD Anne Marie Jones, Reg Reg hs2 Ally Chambers [id number] Lokesh Joseph RN, Jessica RN [email or web address] Alvino Garsia RN ms2 The chart was reviewed and I authenticate all verbal orders and agree with the evaluation and treatment provided.Corrections: (The following items were deleted from the chart) 21:24 21:23 TROPONIN ordered. EDMS EDMS 21:24 21:23 LIVER PROFILE ordered. EDMS EDMS 21:24 21:23 LIPASE ordered. EDMS EDMS 21:37 19:57 CT ABD & PELVIS WITH CONTRAST+CT ordered. EDMS EDMS 22:11 22:07 PHOSPHOROUS LEVEL ordered. EDMS EDMS 22:11 22:07 PHOSPHOROUS LEVEL ordered. EDMS EDMS 22:11 22:07 PHOSPHOROUS LEVEL ordered. EDMS EDMS 22:11 22:08 PHOSPHOROUS LEVEL ordered. EDMS EDMS 22:11 22:08 PHOSPHOROUS LEVEL ordered. EDMS EDMS 22:11 22:08 PHOSPHOROUS LEVEL ordered. EDMS EDMS 22:15 22:07 MAGNESIUM LEVEL ordered. EDMS EDMS Attachments: 20:37 [facility] Payment Agreement [email or web address] 04/25 01:11 T-Sheet-- Draft Copy hs2 09:57 ECG/EKG gb Chart Complete MTDD
[2016-04-27] MEDS: HEPARIN SOD (PORCINE) 5000 UNITS/ML VIAL SC SCH ×3 (05:05→21:47)
[2016-04-27 05:07] LABS: MEAN CORPUSCULAR HGB CONC 36.2 g/dl (32.0-36.5); MEAN CORPUSCULAR VOLUME 82.7 fl (80.0-96.0); RED CELL DISTRIBUTION WIDTH 15.3 % (11.5-14.5); WHITE BLOOD COUNT 5.1 K/mm3 (4.0-10.0)
[2016-04-27 05:39] LABS: ALBUMIN 2.2 GM/DL (3.2-5.2); CALCIUM LEVEL 7.5 MG/DL (8.5-10.1); CREATININE FOR GFR 1.45 MG/DL (0.55-1.02); GLOMERULAR FILTRATION RATE 40.7 (>51); PHOSPHORUS LEVEL 2.6 MG/DL (2.5-4.9); POTASSIUM SERUM 3.4 MEQ/L (3.5-5.1)
[2016-04-27 06:00] VITALS: BP 98/49
[2016-04-27] MEDS: PERCOCET 5MG/325MG TAB PO PRN ×3 (07:09→22:35)
[2016-04-27] MEDS: LEVEMIR (INSULIN DETEMIR) 1 UNITS/0.01ML SC SCH (08:29)
[2016-04-27] MEDS: FLUCONAZOLE 50MG TABLET PO SCH (08:29)
[2016-04-27] MEDS: MULTIVITAMINS/MINERALS THERAP 1 TAB PO SCH (08:29)
[2016-04-27] MEDS: rOPINIRole 1MG TAB PO SCH ×2 (08:29→21:46)
[2016-04-27] MEDS: FERROUS SULFATE 325MG TAB PO SCH ×3 (08:29→21:46)
[2016-04-27] MEDS: LOMOTIL 2.5MG/0.025MG TABLET PO SCH ×4 (08:30→21:47)
[2016-04-27] MEDS: GABAPENTIN 300 MG CAP PO SCH ×3 (08:30→21:47)
[2016-04-27] MEDS: MAGNESIUM OXIDE 400 MG TAB (MAG-OX) PO SCH ×2 (08:30→21:47)
[2016-04-27] MEDS: carBAMazepine 200 MG TAB PO SCH ×2 (08:30→21:46)
[2016-04-27] MEDS: SLF 3 ML SYR IV SCH (08:30)
[2016-04-27] MEDS: PANTOPRAZOLE 40MG TAB (PROTONIX) PO SCH ×2 (08:30→21:47)
[2016-04-27] MEDS: ASPIRIN 81 MG ENTERIC TAB PO SCH (08:30)
[2016-04-27] MEDS: VITAMIN D 1,000 INTERNATIONAL UNITS TABLET PO SCH (08:30)
[2016-04-27] MEDS: buPROPion 100 MG TAB PO SCH ×2 (08:30→21:46)
[2016-04-27] MEDS: HumaLOG INSULIN (NovoLOG) PER UNIT SC SCH ×4 (08:30→21:49)
[2016-04-27] MEDS: CitaloPRAM (CeleXA) 20 MG TAB PO SCH (08:31)
[2016-04-27] MEDS: FLUTICASONE PROP 0.05% NASAL SPRAY 16 GM (FLONASE) SCH (09:00)
[2016-04-27 14:00] VITALS: BP 104/56
[2016-04-27] MEDS ORDERED: POTASSIUM CHLORIDE 10 MEQ SR TABLET PO ONE (16:00)
--- NOTE | 2016-04-27 16:02 | IPN ---
DATE: 04/27/2016 50-year-old female seen at bedside. She denies any specific complaints of chest pain, shortness breath, productive sputum, cough or hemoptysis. Our concern continues to be that she has some generalized weakness. Has not been able to pass physical therapy. OBJECTIVE: Temperature is 96.6, pulse 89, respiratory rate 18, BP 104/56, SPO2 is 96% on room air. General: The patient appears to be in no acute distress. Is alert, oriented. HEENT: Unremarkable. Lungs: Clear. Heart: Regular rhythm. Abdomen: Soft. Ostomy is patent. Extremities: No edema or calf tenderness. LABORATORY DATA: White count 5.1, hemoglobin 9.7, platelets are 124,000. Sodium 132, potassium 3.4, which we will supplement, chloride 96, bicarb 23, anion gap 13, BUN 36, creatinine 1.45, glucose 152. ASSESSMENT/PLAN: 1. Diabetic ketoacidosis, anion gap is now closed. She is back on her total parenteral nutrition (TPN). Will increase the insulin additive in her TPN due to elevated blood sugars early in the morning. We did currently add 20 units of short-acting insulin. 2. Acute on chronic renal failure. She does appear to be improving. Appreciate Dr. Pratt's imput. . 3. Chronic pancreatitis, resulting in diabetes. As outlined above. Continue with insulin fingersticks before food and at bedtime with sliding scale coverage. 4. Severe protein calorie malnutrition. Continue with supplementation as indicated. 5. Urinary tract infection. Continue Rocephin. Blood cultures and urine culture pending. 6. Depression, well controlled. No suicidal ideation, audiovisual hallucinations. 7. Diabetic neuropathy. Continue Neurontin. 8. Chronic low back pain. Continue Lidoderm patch, Percocet as needed. Monitor for lethargy. 9. Stage II pressure ulcer on the coccyx present on admission, stable. 10. Deep venous thrombosis (DVT) prophylaxis with subcu heparin. DISPOSITION: Patient and Family Services (PFS) is on board as well as physical therapy. I am concerned that she does have some continued generalized weakness and does not appear to be safe for home discharge at this point. Will need to broach this subject with possible placement in either a halfway or assisted living to help her maintain her medications and TPN doses.
--- NOTE | 2016-04-27 20:43 | IPN ---
DATE: 04/26/2016 Ms. Lora is seen this morning on her bedside in intensive care unit. She is feeling better today. She reports that yesterday she had significant urine output when she was receiving IV fluid which has now been stopped. She received TPN through the night. She denies any dyspnea or chest pain. On physical exam, temperature 98.0 degrees Fahrenheit, heart rate 97 per minute and respiratory rate 18 per minute. Blood pressure 106/55 mmHg and oxygen saturation 96% on room air. Intake and output records from yesterday showed total intake 6800 mL, output 2875. Head is atraumatic. Ears, nose and throat are unremarkable. Neck is supple and without any thyroid enlargement or jugular venous distention (JVD). Heart sounds are regular. Lungs clear to auscultation. Abdomen is soft and her ileostomy is functioning right upper quadrant. Bowel sounds are present. Extremities have no cyanosis or clubbing. Neurologically, she is awake, alert and at her baseline mentation. Today's labs show WBC count 5.6, hemoglobin 9.8 and hematocrit 28.8. Sodium 130 and potassium 3.7. BUN 38 and creatinine 1.57. Glucose 838 and calcium 7.4. PROBLEMS: 1. Hyponatremia. Her corrected calcium is still within normal range. She has pseudohyponatremia related to hyperglycemia. 2. Acute renal failure superimposed on chronic kidney disease. Kidney function is improving. The patient was hydrated aggressively yesterday. I suggest to give her 1 liter of normal saline during daytime and TPN 1 liter during night. This is her usual fluids at home. 3. Hyperglycemia. The patient has developed significant hyperglycemia again today related to TPN. It is likely to improve with aggressive insulin therapy. 4. Urinary tract infection (UTI). The patient remains on antibiotics and urine culture has already been reported negative.
[2016-04-27] MEDS ORDERED: FAT EMULSION IV 20% 500 ML IV SCH (21:00)
[2016-04-27] MEDS ORDERED: [UNRECOGNIZED DRUG - MIXTURE] IV SCH ×4 (21:00)
[2016-04-27] MEDS: cefTRIAXone SOD 1 GM in D5W MINI-BAG PLUS 50 ML IV SCH (21:46)
[2016-04-27] MEDS: PRAVASTATIN 20 MG TAB PO SCH (21:47)
[2016-04-27] MEDS: traZODone 100 MG TAB PO SCH (21:47)
[2016-04-27] MEDS: **NOTE PATIENT COMMENT** MISC XX SCH (21:48)
[2016-04-27 22:00] VITALS: BP 101/57
[2016-04-28] MEDS: HEPARIN SOD (PORCINE) 5000 UNITS/ML VIAL SC SCH ×3 (05:19→21:50)
[2016-04-28 05:47] LABS: MEAN CORPUSCULAR HEMOGLOBIN 28.5 pg (27.0-33.0); MEAN CORPUSCULAR VOLUME 83.8 fl (80.0-96.0); RED CELL DISTRIBUTION WIDTH 15.4 % (11.5-14.5); WHITE BLOOD COUNT 6.2 K/mm3 (4.0-10.0)
[2016-04-28 05:58] LABS: ALBUMIN 2.4 GM/DL (3.2-5.2); CALCIUM LEVEL 7.6 MG/DL (8.5-10.1); CREATININE FOR GFR 1.45 MG/DL (0.55-1.02); GLOMERULAR FILTRATION RATE 40.7 (>51); PHOSPHORUS LEVEL 3.5 MG/DL (2.5-4.9); POTASSIUM SERUM 3.4 MEQ/L (3.5-5.1)
[2016-04-28 06:00] VITALS: BP 106/56
[2016-04-28] MEDS ORDERED: POTASSIUM CHLORIDE 10 MEQ SR TABLET PO ONE (07:30)
[2016-04-28] MEDS: LEVEMIR (INSULIN DETEMIR) 1 UNITS/0.01ML SC SCH (08:29)
[2016-04-28] MEDS: ASPIRIN 81 MG ENTERIC TAB PO SCH (08:30)
[2016-04-28] MEDS: HumaLOG INSULIN (NovoLOG) PER UNIT SC SCH ×3 (08:30→17:45)
[2016-04-28] MEDS: LOMOTIL 2.5MG/0.025MG TABLET PO SCH ×4 (08:30→21:49)
[2016-04-28] MEDS: rOPINIRole 1MG TAB PO SCH ×2 (08:30→21:49)
[2016-04-28] MEDS: FERROUS SULFATE 325MG TAB PO SCH ×3 (08:30→21:49)
[2016-04-28] MEDS: buPROPion 100 MG TAB PO SCH ×2 (08:30→21:49)
[2016-04-28] MEDS: GABAPENTIN 300 MG CAP PO SCH ×3 (08:30→21:49)
[2016-04-28] MEDS: PANTOPRAZOLE 40MG TAB (PROTONIX) PO SCH ×2 (08:30→21:49)
[2016-04-28] MEDS: MULTIVITAMINS/MINERALS THERAP 1 TAB PO SCH (08:30)
[2016-04-28] MEDS: FLUTICASONE PROP 0.05% NASAL SPRAY 16 GM (FLONASE) SCH (08:31)
[2016-04-28] MEDS: carBAMazepine 200 MG TAB PO SCH ×2 (08:31→21:49)
[2016-04-28] MEDS: VITAMIN D 1,000 INTERNATIONAL UNITS TABLET PO SCH (08:31)
[2016-04-28] MEDS: MAGNESIUM OXIDE 400 MG TAB (MAG-OX) PO SCH ×2 (08:31→21:49)
[2016-04-28] MEDS: FLUCONAZOLE 50MG TABLET PO SCH (08:31)
[2016-04-28] MEDS: CitaloPRAM (CeleXA) 20 MG TAB PO SCH (08:31)
[2016-04-28] MEDS: SLF 3 ML SYR IV SCH (08:32)
[2016-04-28] MEDS: PERCOCET 5MG/325MG TAB PO PRN ×3 (08:42→19:54)
[2016-04-28] MEDS: LIDOCAINE 5% (LIDODERM) PATCH TOP PRN (08:42)
--- NOTE | 2016-04-28 10:26 | IPN ---
DATE: 04/28/2016 50-year-old female seen at bedside. No overnight issues reported. She is resting comfortably. Denies fevers, chills, nausea, or vomiting. OBJECTIVE: Temperature is 97.6, pulse 84, respiratory rate 16, blood pressure (BP) 106/56, and SPO2 is 98% on room air. General: The patient appears to be in no acute distress. She is alert, pleasant talk to. HEENT: Unremarkable. Lungs: Clear. Heart: Regular rate and rhythm. Abdomen: Soft. Ostomy is patent. Extremities: No edema, no calf tenderness. LABORATORY DATA: White count is 6.2, hemoglobin 9.4, platelets 120,000. Sodium 131, potassium 3.4, chloride 93, bicarb 26, anion gap 12, BUN is 37, creatinine 1.45, calcium 7.6, phosphorus 3.5, albumin 2.4. She has one blood culture that was positive for Staphylococcus epidermitis. She remains afebrile. Normal white count. This most likely is a contaminant. ASSESSMENT/PLAN: 1. Diabetic ketoacidosis with anion gap now closed. She is back on TPN of which we are making some adjustments and accounting for her low potassium. Will go and check a magnesium today as well. I did increase her insulin with the TPN to 30 units starting today and will monitor to see how she does. 2. Acute on chronic renal failure. She appears to be moving back towards her baseline. Appreciate Dr. Pratt's input. 3. Chronic pancreatitis resulting in diabetes long-term. Continue with fingersticks and sliding scale coverage. 4. Protein calorie malnutrition. Continue with supplementation with TPN. 5. Urinary tract infection. Continue Rocephin. Urine culture is unremarkable. 6. Depression. Appears to be stable. She is not suicidal. No audio or visual hallucinations. 7. Diabetic neuropathy. Continue on Neurontin 8. Hypokalemia. Will make adjustments as indicated above and check magnesium. For now, I did supplement with oral potassium, but will try to make adjustments with her TPN to account for this. 8. Chronic low back pain. Continue on Lidoderm and Percocet. Monitor for lethargy. 9. Stage II pressure ulcer on the coccyx that was present on admission. Will continue to follow. 10. Deep vein thrombosis (DVT) prophylaxis with subcutaneous heparin. DISPOSITION: Patient and Family Services (PFS) is on board and physical therapy as well. She continues to have some generalized weakness and does not appear to be safe for home discharge from a physical therapy standpoint. Will continue to modify her TPN orders and see if we can get her optimized for discharge. My concern is that she does have poor compliance at home. We have discussed with the patient and PFS regarding possible assisted living, which she is resistant to this idea. However, she does continue to be a high risk for repeated bounce-backs to the emergency department and for admissions. What I would like to do is to see if we can get her followed up with the outpatient clinic/resident clinic with close follow-ups to see if we can do a better job with her disposition.
[2016-04-28 13:06] LABS: MAGNESIUM LEVEL 1.8 MG/DL (1.8-2.4)
[2016-04-28 14:00] VITALS: BP 106/60
--- NOTE | 2016-04-28 18:11 | IPN ---
DATE: 04/27/2016 Ms. Lora is seen this morning on her bedside. She has been transferred out of intensive care unit to regular medical floor. She reports feeling better today and denies any nausea, vomiting, dyspnea or chest pain. Her blood sugars went high once again. She reports that she received total parenteral nutrition (TPN) through the night. PHYSICAL EXAMINATION: Temperature 100.2 degrees Fahrenheit, heart rate 90 per minute and respiratory rate 18 per minute. Blood pressure 98/49 mmHg and oxygen saturation 97% on room air. Head is atraumatic. Ears, nose and throat are unremarkable. Neck is supple and without any jugular venous distention (JVD) or thyroid enlargement. Heart sounds are regular. Lungs with bilateral good air entry. Abdomen soft and nontender. Ileostomy is functioning. Extremities have no cyanosis or clubbing. Skin has no rash or ulcers. Neurologically she is awake, alert and oriented times three. She has no focal neurological deficit. She is still quite weak and unable to ambulate by herself. Today's labs show WBC count 5.1, hemoglobin 9.7 and hematocrit 26.8. Platelets 124. Sodium 132 and potassium 3.4. CO2 is up to 23, BUN 36 and creatinine 1.45. Glucose 521 and calcium 7.5. PROBLEMS: 1. Acute renal failure superimposed on chronic kidney disease. Most likely related to dehydration and diabetic ketoacidosis. Kidney function is gradually improving. At present she seems well hydrated and I would recommend to give her 1 liter of normal saline during the daytime and she will continue with total parenteral nutrition (TPN) through the night. 2. Hyponatremia. The patient has pseudohyponatremia related to hyperglycemia and does not need any intervention. Her actual sodium is within normal range. 3. Hypokalemia, potassium level is slightly low. Probably again related to hyperglycemia. I recommend increasing the potassium supplement in the TPN. 4. Hyperglycemia. The patient needs addition of insulin in the TPN in addition to fingerstick with coverage. She also gets dehydrated due to hyperglycemia. At home she receives 1 liter of normal saline during daytime. I would recommend to continue with daytime normal saline 1 liter and 1 liter of TPN at night. DISPOSITION: The patient has multiple chronic issues and has not been able to take care of her self very well at home. She is likely to benefit from supervised living.
[2016-04-28 20:50] VITALS: BP 103/61
[2016-04-28] MEDS ORDERED: INSULIN HUMAN REGULAR IV SCH (21:00)
[2016-04-28] MEDS ORDERED: [UNRECOGNIZED DRUG - OTHER] IV SCH (21:00)
[2016-04-28] MEDS ORDERED: FAT EMULSION IV 20% 500 ML IV SCH (21:00)
[2016-04-28] MEDS ORDERED: POTASSIUM CHLORIDE IV SCH (21:00)
[2016-04-28] MEDS: traZODone 100 MG TAB PO SCH (21:49)
[2016-04-28] MEDS: **NOTE PATIENT COMMENT** MISC XX SCH (21:50)
[2016-04-28] MEDS: PRAVASTATIN 20 MG TAB PO SCH (21:50)
[2016-04-28] MEDS: cefTRIAXone SOD 1 GM in D5W MINI-BAG PLUS 50 ML IV SCH (22:38)
[2016-04-28] MEDS ORDERED: CYCLOBENZAPRINE 5MG TABLET PO ONE (22:45)
[2016-04-29] MEDS: HumaLOG INSULIN (NovoLOG) PER UNIT SC SCH ×4 (00:40→17:59)
[2016-04-29] MEDS ORDERED: HumaLOG INSULIN (NovoLOG) PER UNIT SC ONE ×2 (00:45→03:30)
[2016-04-29] MEDS: PERCOCET 5MG/325MG TAB PO PRN ×5 (02:07→21:12)
[2016-04-29 05:05] VITALS: BP 93/54
[2016-04-29] MEDS: HEPARIN SOD (PORCINE) 5000 UNITS/ML VIAL SC SCH ×3 (05:06→21:11)
[2016-04-29 05:40] LABS: MEAN CORPUSCULAR HEMOGLOBIN 29.2 pg (27.0-33.0); MEAN CORPUSCULAR HGB CONC 35.7 g/dl (32.0-36.5); MEAN CORPUSCULAR VOLUME 81.7 fl (80.0-96.0); RED CELL DISTRIBUTION WIDTH 14.4 % (11.5-14.5); WHITE BLOOD COUNT 8.2 K/mm3 (4.0-10.0)
[2016-04-29 05:42] LABS: ALBUMIN 2.6 GM/DL (3.2-5.2); CALCIUM LEVEL 8.2 MG/DL (8.5-10.1); CREATININE FOR GFR 1.51 MG/DL (0.55-1.02); GLOMERULAR FILTRATION RATE 38.8 (>51); PHOSPHORUS LEVEL 3.8 MG/DL (2.5-4.9); POTASSIUM SERUM 3.5 MEQ/L (3.5-5.1)
[2016-04-29] MEDS: rOPINIRole 1MG TAB PO SCH ×2 (09:25→21:13)
[2016-04-29] MEDS: FERROUS SULFATE 325MG TAB PO SCH ×3 (09:25→21:13)
[2016-04-29] MEDS: PANTOPRAZOLE 40MG TAB (PROTONIX) PO SCH ×2 (09:25→21:11)
[2016-04-29] MEDS: CitaloPRAM (CeleXA) 20 MG TAB PO SCH (09:25)
[2016-04-29] MEDS: GABAPENTIN 300 MG CAP PO SCH ×3 (09:25→21:13)
[2016-04-29] MEDS: ASPIRIN 81 MG ENTERIC TAB PO SCH (09:25)
[2016-04-29] MEDS: MULTIVITAMINS/MINERALS THERAP 1 TAB PO SCH (09:26)
[2016-04-29] MEDS: LOMOTIL 2.5MG/0.025MG TABLET PO SCH ×4 (09:26→21:13)
[2016-04-29] MEDS: MAGNESIUM OXIDE 400 MG TAB (MAG-OX) PO SCH ×2 (09:26→21:12)
[2016-04-29] MEDS: carBAMazepine 200 MG TAB PO SCH ×2 (09:26→21:11)
[2016-04-29] MEDS: FLUTICASONE PROP 0.05% NASAL SPRAY 16 GM (FLONASE) SCH (09:26)
[2016-04-29] MEDS: buPROPion 100 MG TAB PO SCH ×2 (09:26→21:16)
[2016-04-29] MEDS: FLUCONAZOLE 50MG TABLET PO SCH (09:26)
[2016-04-29] MEDS: VITAMIN D 1,000 INTERNATIONAL UNITS TABLET PO SCH (09:26)
[2016-04-29] MEDS: SLF 3 ML SYR IV SCH (09:26)
[2016-04-29] MEDS: LEVEMIR (INSULIN DETEMIR) 1 UNITS/0.01ML SC SCH (09:27)
[2016-04-29] MEDS: CYCLOBENZAPRINE 10 MG TAB PO PRN ×2 (10:41→21:25)
[2016-04-29 14:00] VITALS: BP 99/65
--- NOTE | 2016-04-29 17:04 | IPN ---
DATE: 04/29/2016 A 50-year-old female seen at bedside. No overnight issues reported. She denies fevers, chills, nausea, vomiting, abdominal pain. OBJECTIVE: Temperature 97.4, pulse 89, respiratory rate 16, blood pressure (BP) 93/54, SpO2 is 100% on room air. GENERAL: The patient appears to be in no acute distress. She is alert, oriented. HEENT: Unremarkable. LUNGS: Clear. HEART: Regular rate and rhythm. ABDOMEN: Soft. Ostomy remains patent. EXTREMITIES: No edema. No calf tenderness. LABORATORY DATA: White count 8.2, hemoglobin 10.4, platelets 174,000. Sodium 133, potassium 3.5, chloride 90, bicarbonate 31, anion gap 12, BUN 39, creatinine is 1.51, glucose is 341, phosphorus 3.8, calcium is 8.2, and albumin is 2.6. ASSESSMENT AND PLAN: 1. Diabetic ketoacidosis with anion gap now closed. Her total parenteral nutrition (TPN) is back on. We are trying to make adjustments in her TPN as well as her additive regular insulin. Will increase it to 35 units today. Continue to monitor her fingersticks and continue with sliding-scale coverage as needed. She does tend to drop during the afternoon. This may be a result of her Levemir dose, which we will decrease today. Continue to monitor. 2. Acute on chronic renal failure. She appears to be at baseline. 3. Chronic pancreatitis, resulting in diabetes. Continue with fingersticks, sliding scale coverage as indicated above. 3. Severe protein calorie malnutrition with supplemental TPN. 4. Upper respiratory infection, on Rocephin. Urine culture is unremarkable. 5. Depression. Appears to be stable. She is not suicidal. No visual hallucinations. 6. Diabetic neuropathy. Continue on Neurontin 7. Hypokalemia. Will continue to supplement with her TPN. 8. Chronic low back pain. Continue on Lidoderm and Percocet. Monitor for lethargy. 9. Stage II pressure ulcer on the coccyx present at admission. Will continue to follow. 10. Deep vein thrombosis (DVT) prophylaxis with subcutaneous heparin. DISPOSITION: Patient and family services (PFS) is on board. Will continue with modifying her TPN with insulin. My concern is she appears to be deconditioned. Will need to continue with some physical therapy and make sure that she has appropriate outpatient followup and help at home due to her issues with medical noncompliance.
[2016-04-29] MEDS ORDERED: FAT EMULSION IV 20% 500 ML IV SCH (21:00)
[2016-04-29] MEDS: **NOTE PATIENT COMMENT** MISC XX SCH (21:00)
[2016-04-29] MEDS ORDERED: [UNRECOGNIZED DRUG - MIXTURE] IV SCH ×5 (21:00)
[2016-04-29 21:10] VITALS: BP 103/65
[2016-04-29] MEDS: traZODone 100 MG TAB PO SCH (21:11)
[2016-04-29] MEDS: PRAVASTATIN 20 MG TAB PO SCH (21:12)
[2016-04-29] MEDS: cefTRIAXone SOD 1 GM in D5W MINI-BAG PLUS 50 ML IV SCH (22:58)
[2016-04-30] MEDS: HumaLOG INSULIN (NovoLOG) PER UNIT SC SCH ×5 (00:20→23:48)
[2016-04-30] MEDS: CYCLOBENZAPRINE 10 MG TAB PO PRN ×3 (04:18→21:34)
[2016-04-30] MEDS: PERCOCET 5MG/325MG TAB PO PRN ×5 (04:18→21:35)
[2016-04-30 05:30] VITALS: BP 114/58
[2016-04-30] MEDS: HEPARIN SOD (PORCINE) 5000 UNITS/ML VIAL SC SCH ×3 (05:39→22:58)
[2016-04-30 06:01] LABS: MEAN CORPUSCULAR HEMOGLOBIN 28.3 pg (27.0-33.0); MEAN CORPUSCULAR HGB CONC 32.8 g/dl (32.0-36.5); MEAN CORPUSCULAR VOLUME 86.2 fl (80.0-96.0); RED CELL DISTRIBUTION WIDTH 14.3 % (11.5-14.5); WHITE BLOOD COUNT 7.9 K/mm3 (4.0-10.0)
[2016-04-30 06:20] LABS: ALBUMIN 2.3 GM/DL (3.2-5.2); CALCIUM LEVEL 8.2 MG/DL (8.5-10.1); CREATININE FOR GFR 1.44 MG/DL (0.55-1.02); PHOSPHORUS LEVEL 3.8 MG/DL (2.5-4.9); POTASSIUM SERUM 4.5 MEQ/L (3.5-5.1)
[2016-04-30] MEDS: VITAMIN D 1,000 INTERNATIONAL UNITS TABLET PO SCH (08:39)
[2016-04-30] MEDS: rOPINIRole 1MG TAB PO SCH ×2 (08:39→20:38)
[2016-04-30] MEDS: PANTOPRAZOLE 40MG TAB (PROTONIX) PO SCH ×2 (08:39→20:38)
[2016-04-30] MEDS: MAGNESIUM OXIDE 400 MG TAB (MAG-OX) PO SCH ×2 (08:39→20:37)
[2016-04-30] MEDS: MULTIVITAMINS/MINERALS THERAP 1 TAB PO SCH (08:40)
[2016-04-30] MEDS: LEVEMIR (INSULIN DETEMIR) 1 UNITS/0.01ML SC SCH ×2 (08:41→20:38)
[2016-04-30] MEDS: FLUCONAZOLE 50MG TABLET PO SCH (08:42)
[2016-04-30] MEDS: LOMOTIL 2.5MG/0.025MG TABLET PO SCH ×4 (08:42→20:38)
[2016-04-30] MEDS: ASPIRIN 81 MG ENTERIC TAB PO SCH (08:42)
[2016-04-30] MEDS: FLUTICASONE PROP 0.05% NASAL SPRAY 16 GM (FLONASE) SCH (08:42)
[2016-04-30] MEDS: carBAMazepine 200 MG TAB PO SCH ×2 (08:43→20:38)
[2016-04-30] MEDS: GABAPENTIN 300 MG CAP PO SCH ×3 (08:43→20:37)
[2016-04-30] MEDS: FERROUS SULFATE 325MG TAB PO SCH ×3 (08:43→20:37)
[2016-04-30] MEDS: CitaloPRAM (CeleXA) 20 MG TAB PO SCH (08:43)
[2016-04-30] MEDS: buPROPion 100 MG TAB PO SCH ×2 (08:43→20:38)
[2016-04-30] MEDS: SLF 3 ML SYR IV SCH (08:46)
[2016-04-30] MEDS ORDERED: HumaLOG INSULIN (NovoLOG) PER UNIT SC ONE (09:30)
[2016-04-30] MEDS ORDERED: NS 1,000 ML IV SCH (11:45)
--- NOTE | 2016-04-30 12:53 | IPN ---
DATE: 04/30/2016 50-year-old female seen at bedside. She is up using her walker. She feels that her muscle spasm in her back is moderately improved and she felt that the Flexeril did seem to help. She denies any other issues overnight. No chest pain, shortness of breath, productive sputum, cough, or hemoptysis. OBJECTIVE: Temperature 97.4, pulse 94, respiratory 16, blood pressure 114/58, SpO2 is 98% on room air. GENERAL: The patient appears to be in no acute distress. She is alert, pleasant to talk to. HEENT: Unremarkable. LUNGS: Clear. HEART: Regular rate, rhythm. ABDOMEN: Soft with patent ostomy. EXTREMITIES: No edema. No calf tenderness. LABORATORY DATA: White count 7.9, hemoglobin 9.5, platelets 164,000. Sodium is 127, potassium 4.5, chloride 86, bicarbonate 31, anion gap 10, BUN 46, creatinine 1.44, glucose 589, phosphorus 3.8, albumin is 2.3. Her blood sugars continue to be fluctuating. However her mid afternoon blood sugar yesterday was 168. She does not have any recorded low blood sugars, but we do need to make some further adjustments in her Levemir. ASSESSMENT/PLAN: 1. Diabetic ketoacidosis with anion gap, resolved. Currently we are still trying to make some adjustments in her insulin regimen. We are giving her 40 units of regular insulin with her total parenteral nutrition (TPN) that is infused from 9 p.m. to 9 a.m. I did make adjustments in her Levemir, she will need to take 20 units in the morning and 10 units in the evening and we will see if this helps regulate better. She will continue with every 6 hours fingersticks. 2. Acute on chronic renal failure. She appears to be at baseline. However, she does have some hyponatremia going on. She has a high output ostomy. Will go ahead and give her a liter of IV normal saline 250 mL/hour times one. We may need to get her back on a regimen of doing this once daily. She does have a history of easily being dehydrated if she does not have normal saline and some historical perspective is the patient previously had been taking TPN at home which she requires as well as 1 liter to 2 liters of IV normal saline, will see if we can regulate this a little bit better. 2. Chronic pancreatitis resulting in diabetes. Continue fingersticks and sliding scale coverage as indicated. 3. Severe protein calorie malnutrition. We are currently supplementing with TPN. Additives include regular insulin at 40 units and potassium chloride which I have adjusted to 10 mEq, that should be run at 9 p.m. to 9 a.m. with a Clinimix rate of 130 mL/hour, daily weights, blood sugars every 6 hours, and sliding scale protocol. Again she likely will need 1-2 liters of normal saline to supplement during the day since she continues to have a high output ostomy. 4. Upper respiratory infection. Urine culture and blood cultures were unremarkable. Will go ahead and discontinue the Rocephin since she does appear to be stable with normal white count. 6. Depression, stable. No suicidal ideation or audiovisual hallucination. 7. Diabetic neuropathy. Continue with Neurontin. 8. Hypokalemia. Continue supplementing with her TPN. 9. Chronic low back pain. Lidoderm patch, Percocet. We did add on Flexeril but we do need to monitor for lethargy since she does have a history of overuse of her medications in the past. 10. Stage II pressure ulcer on coccyx on admission. Will continue to follow and we will see if we can help her out with better nutrition. 11. Chronic jejunostomy with high output ostomy resulting from bowel perforation in the past and due to her poor nutrition status she has never been a candidate for this to be re-anastomosed. Does appear to be doing well otherwise and not infected, however she does continue with high output ostomy resulting in severe protein calorie malnutrition and at risk for acute kidney injury and dehydration. Please see above. Will continue to supplement with 1-2 liters normal saline daily. 12. Deep venous thrombosis (DVT) prophylaxis with subcutaneous heparin. DISPOSITION: Currently unclear. She definitely needs a few more days of physical therapy. We are making adjustments in her TPN, normal saline and insulin coverage. Also patient and family services (PFS) is on board and she does remain a high risk for readmission due to medical noncompliance and complexity of her medical conditions.
[2016-04-30 14:00] VITALS: BP_SYST 82; BP_SYST 88; BP_DIAS 48; BP_DIAS 56
[2016-04-30 19:03] VITALS: BP 96/51
[2016-04-30 20:30] VITALS: BP 114/82
[2016-04-30] MEDS: traZODone 100 MG TAB PO SCH (20:37)
[2016-04-30] MEDS: PRAVASTATIN 20 MG TAB PO SCH (20:38)
[2016-04-30] MEDS: **NOTE PATIENT COMMENT** MISC XX SCH (20:39)
[2016-04-30] MEDS ORDERED: POTASSIUM CHLORIDE IV ONE (21:00)
[2016-04-30] MEDS ORDERED: INSULIN HUMAN REGULAR IV ONE (21:00)
[2016-04-30] MEDS ORDERED: [UNRECOGNIZED DRUG - OTHER] IV ONE (21:00)
[2016-04-30] MEDS ORDERED: FAT EMULSION IV 20% 500 ML IV ONE (21:00)
[2016-04-30] MEDS: cefTRIAXone SOD 1 GM in D5W MINI-BAG PLUS 50 ML IV SCH (22:58)
[2016-05-01] MEDS: PERCOCET 5MG/325MG TAB PO PRN ×4 (03:52→21:19)
[2016-05-01 05:25] VITALS: BP 99/55
[2016-05-01] MEDS: HEPARIN SOD (PORCINE) 5000 UNITS/ML VIAL SC SCH ×3 (05:37→21:16)
[2016-05-01] MEDS: CYCLOBENZAPRINE 10 MG TAB PO PRN ×3 (05:38→21:17)
[2016-05-01 05:48] LABS: MEAN CORPUSCULAR HEMOGLOBIN 27.4 pg (27.0-33.0); MEAN CORPUSCULAR HGB CONC 31.8 g/dl (32.0-36.5); MEAN CORPUSCULAR VOLUME 86.2 fl (80.0-96.0); WHITE BLOOD COUNT 7.9 K/mm3 (4.0-10.0)
[2016-05-01 06:06] LABS: ALBUMIN 2.1 GM/DL (3.2-5.2); CALCIUM LEVEL 8.7 MG/DL (8.5-10.1); CREATININE FOR GFR 1.12 MG/DL (0.55-1.02); GLOMERULAR FILTRATION RATE 54.8 (>51); PHOSPHORUS LEVEL 3.1 MG/DL (2.5-4.9); POTASSIUM SERUM 4.6 MEQ/L (3.5-5.1)
[2016-05-01] MEDS: HumaLOG INSULIN (NovoLOG) PER UNIT SC SCH ×3 (06:47→17:25)
[2016-05-01] MEDS: NS 1,000 ML IV SCH ×2 (07:50→15:48)
[2016-05-01] MEDS: FLUCONAZOLE 50MG TABLET PO SCH (07:51)
[2016-05-01] MEDS: ASPIRIN 81 MG ENTERIC TAB PO SCH (07:52)
[2016-05-01] MEDS: carBAMazepine 200 MG TAB PO SCH ×2 (07:52→21:18)
[2016-05-01] MEDS: FERROUS SULFATE 325MG TAB PO SCH ×3 (07:52→21:17)
[2016-05-01] MEDS: PANTOPRAZOLE 40MG TAB (PROTONIX) PO SCH ×2 (07:52→21:18)
[2016-05-01] MEDS: LOMOTIL 2.5MG/0.025MG TABLET PO SCH ×4 (07:52→21:17)
[2016-05-01] MEDS: buPROPion 100 MG TAB PO SCH ×2 (07:52→21:17)
[2016-05-01] MEDS: VITAMIN D 1,000 INTERNATIONAL UNITS TABLET PO SCH (07:52)
[2016-05-01] MEDS: rOPINIRole 1MG TAB PO SCH ×2 (07:52→21:17)
[2016-05-01] MEDS: MULTIVITAMINS/MINERALS THERAP 1 TAB PO SCH (07:53)
[2016-05-01] MEDS: MAGNESIUM OXIDE 400 MG TAB (MAG-OX) PO SCH ×2 (07:53→21:17)
[2016-05-01] MEDS: CitaloPRAM (CeleXA) 20 MG TAB PO SCH (07:53)
[2016-05-01] MEDS: LEVEMIR (INSULIN DETEMIR) 1 UNITS/0.01ML SC SCH ×2 (07:55→21:17)
[2016-05-01] MEDS: FLUTICASONE PROP 0.05% NASAL SPRAY 16 GM (FLONASE) SCH (07:56)
[2016-05-01] MEDS: SLF 3 ML SYR IV SCH (07:56)
[2016-05-01 08:16] LABS: VENOUS BASE EXCESS 6.4 (-2.0-2.0); VENOUS O2 SATURATION 99.2 % (60.0-80.0); VENOUS PARTIAL PRESSURE CO2 41.7 mmHg (38.0-50.0); VENOUS PARTIAL PRESSURE O2 136.9 mmHg (30.0-50.0); VENOUS STANDARD HCO3 30.3 MEQ/L; VENOUS TOTAL CO2 31.7 MEQ/L (24.0-28.0)
[2016-05-01] MEDS: GABAPENTIN 300 MG CAP PO SCH ×3 (08:45→21:17)
--- NOTE | 2016-05-01 11:20 | IPNPDOC ---
Text Note Date of Service The patient was seen on 05/01/16 at 11:07. NOTE Subjective: Patient states her high ostomy output has improved. Denies any acute change. Objective: Vitals: (see below) General: No acute distress, laying comfortably in bed. HEENT: Moist mucous membranes. Neck: No JVD or lymphadenopathy Cardiac: RRR, No murmurs Pulm: Clear to auscultation b/l. No wheezing, rhonchi Abd: NT/ND + BS. Ostomy noted. Ext: No edema or cyanosis Labs (see below) Images: 04/24/16 CT ABDOMEN WITHOUT CONTRAST: Lung bases: No lung base infiltrate or effusion. Liver: No intrahepatic ductal dilation. Gallbladder: Cholecystectomy. Pancreas: No pancreatic duct dilation. Calcifications of chronic pancreatitis. Bowel loops: Right upper quadrant ileostomy. Diastasis of the anterior abdominal wall. Spleen: Normal size. Adrenals: Normal size. Right kidney: Mild hydronephrosis and hydroureter without obstructing stone. Left kidney: No stones or hydronephrosis. Calcifications adjacent to the left ureter are within the left gonadal vein. Aorta: Normal caliber. Peritoneum: No free air. CT PELVIS WITHOUT CONTRAST: Hips: Interval left hip arthroplasty and right femoral ORIF produce beam hardening artifact in the lower pelvis, limiting evaluation of the pelvic structures. Bladder: Normally distended. The wall is mildly thickened such that cystitis is not excluded Colon: Partial colectomy. Uterus: Hysterectomy. Peritoneum: No fluid. Lumbar spine: Degenerative spondylotic changes most pronounced at L4-5 and L5- S1. IMPRESSION: 1. Right upper quadrant ileostomy without evidence of obstruction. 2. Mild right hydronephrosis without obstructing stone. This may be due to reflux. 3. Urinary bladder wall thickening suggesting cystitis. Assessment/Plan 1. Diabetic ketoacidosis- resolved; Levemir has been titrated yesterday.. On TPN. May be secondary to urinary tract infection. Patient is on Rocephin. 2. Staph epidermidis bacteremia - patient does have a Vitale port. 2 blood cultures positive. We'll start patient on vancomycin for now. Blood cultures have been repeated today. IV fluids. Lactic acid 2.0. No leukocytosis. Will need ID consult cultures remain positive. 3. AQUILES - likely secondary to volume depletion from high output ostomy. Creatinine improved. On IV fluids. 4. 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 5. Severe protein calorie malnutrition- on TPN 9 PM to 9 AM. 6. Depression- continue home meds 7. Diabetic neuropathy- continue Neurontin 8. Hypokalemia- potassium has been added to TPN 9. Chronic lower back pain with a stage II pressure ulcer on coccyx on admission - on Lidoderm patch, Percocet, Flexeril when necessary. DVT prophy: Heparin Subcutaneous VS,Fishbone, I+O VS, Fishbone, I+O Laboratory Tests 05/01/16 05:31 Anion Gap 9, Red Blood Count 3.18 L, Mean Corpuscular Volume 86.2, Mean Corpuscular Hemoglobin 27.4, Mean Corpuscular Hemoglobin Concent 31.8 L, Red Cell Distribution Width 15.0 H Vital Signs Date Time Temp Pulse Resp B/P Pulse Ox O2 Delivery O2 Flow Rate FiO2 05/01/16 08:28 20 05/01/16 07:54 Room Air 05/01/16 05:25 100.3 59 99/55 98 I&O- Last 24 Hours up to 6 AM 05/01/16 06:00 Intake Total 6588 ml Output Total 5175 ml Balance 1413 ml VONNIE MCMAHAN MD May 01, 2016 11:20
[2016-05-01] MEDS ORDERED: VANCOMYCIN HCL 1,000 MG, VIAL MATE ADAPTER 1 EACH in D5W 250 ML IV ONE (12:00)
--- NOTE | 2016-05-01 12:01 | PHACANCOPD ---
PHARMACY VANCOMYCIN DOSING Pt Demographics Demographics Patient Age:50 , Weight:54.500 , Gender: female Adjusted Body Weight Date: 05/01/16, Adjusted Body Weight: Kg Events Past 24 Hours Events Past 24 Hours: YES: Fever, NO: Change in CrCl, Dialysis, Diuretic Therapy, Elevation in WBC, Other, Pending Diagnostics, Pending Procedures Vancomycin Vancomycin indication: staph epidermidis bacteremia Vancomycin Target Ranges: 15-20 mcg/ml Vancomycin Load Y/N: Yes Load Dose Date Time Vancomycin Load Dose: 1000MG Date: 05/01 Time: 12:00 noon Vancomycin Dose Date: 05/01/16. Current Vancomycin Dose: [750mg IV q12h @18] Intermittent Dosing?: No Labs Labs Item Value Date Time White Blood Count 6.2 K/mm3 04/28/16 0524 White Blood Count 8.2 K/mm3 04/29/16 0508 White Blood Count 7.9 K/mm3 04/30/16 0543 White Blood Count 7.9 K/mm3 05/01/16 0531 Creatinine 1.45 MG/DL H 04/28/16 0524 Creatinine 1.51 MG/DL H 04/29/16 0508 Creatinine 1.44 MG/DL H 04/30/16 0543 Creatinine 1.12 MG/DL H 05/01/16 0531 Vital Signs Label Value Date Time Patient Temperature 100.3 degrees F 05/01/16 0525 Temperature Source Tympanic 05/01/16 0525 Patient Temperature 99.3 degrees F 04/30/162029 Temperature Source Tympanic 04/30/16 2030 Micro Microbiology 05/01/16 Blood Culture, Received Pending 05/01/16 Blood Culture, Received Pending 04/25/16 Blood Culture - Final, Complete Staphylococcus Epidermidis 04/24/16 Blood Culture - Final, Complete Staphylococcus Epidermidis 04/24/16 MRSA Screen - Final, Complete 04/24/16 Urine Culture - Final, Complete Creatinine Clearance Date:05/01/16. Creatinine Clearance: [66 ml/min]. Pending Labs Vanco trough scheduled 05/03 @05:00 Assessment and Plan Maintaining Current Dose?: Yes Reason for dose change: No Dose Change Pharmacist Note Pharmacist Note Date: 05/01/16. Pharmacist note: pt has 2 positive blood cultures for Staph epi (drawn 04/24-) with KORTNEY = 1. Repeat blood cultures are pending. She is still on Rocephin 1g IV q24h (started 04/24). MRSA screen is negative. She was last on vancomycin at our facility in September 2014, I have resumed similar dosing. I have a trough scheduled before the 5th dose. Her SCr fluctuates, we will continue to monitor. Kapil Davis Pharm.D. May 01, 2016 12:01
[2016-05-01 14:00] VITALS: BP 97/55
[2016-05-01] MEDS: VANCOMYCIN HCL 750 MG, VIAL MATE ADAPTER 1 EACH in D5W 250 ML IV SCH (17:25)
[2016-05-01] MEDS: **NOTE PATIENT COMMENT** MISC XX SCH (21:00)
[2016-05-01] MEDS ORDERED: POTASSIUM CHLORIDE IV ONE (21:00)
[2016-05-01] MEDS ORDERED: INSULIN HUMAN REGULAR IV ONE (21:00)
[2016-05-01] MEDS ORDERED: [UNRECOGNIZED DRUG - OTHER] IV ONE (21:00)
[2016-05-01] MEDS ORDERED: FAT EMULSION IV 20% 500 ML IV ONE (21:00)
[2016-05-01] MEDS: PRAVASTATIN 20 MG TAB PO SCH (21:18)
[2016-05-01] MEDS: traZODone 100 MG TAB PO SCH (21:18)
[2016-05-01 22:00] VITALS: BP 122/68
[2016-05-02] MEDS: HumaLOG INSULIN (NovoLOG) PER UNIT SC SCH ×4 (00:16→17:27)
[2016-05-02] MEDS: cefTRIAXone SOD 1 GM in D5W MINI-BAG PLUS 50 ML IV SCH ×2 (00:16→23:00)
[2016-05-02] MEDS: PERCOCET 5MG/325MG TAB PO PRN ×6 (01:22→23:00)
[2016-05-02 06:00] VITALS: BP 112/58
[2016-05-02] MEDS: VANCOMYCIN HCL 750 MG, VIAL MATE ADAPTER 1 EACH in D5W 250 ML IV SCH ×2 (06:00→17:54)
[2016-05-02] MEDS: HEPARIN SOD (PORCINE) 5000 UNITS/ML VIAL SC SCH ×3 (06:01→21:45)
[2016-05-02 06:11] LABS: MEAN CORPUSCULAR HGB CONC 32.3 g/dl (32.0-36.5); MEAN CORPUSCULAR VOLUME 86.7 fl (80.0-96.0); RED CELL DISTRIBUTION WIDTH 14.2 % (11.5-14.5); WHITE BLOOD COUNT 7.1 K/mm3 (4.0-10.0)
[2016-05-02] MEDS: CYCLOBENZAPRINE 10 MG TAB PO PRN ×3 (06:13→17:54)
[2016-05-02 06:27] LABS: ALBUMIN 1.9 GM/DL (3.2-5.2); ANION GAP 8 MEQ/L (8-16); BLOOD UREA NITROGEN 23 MG/DL (7-18); CALCIUM LEVEL 8.9 MG/DL (8.5-10.1); CARBON DIOXIDE LEVEL 33 MEQ/L (21-32); CHLORIDE LEVEL 96 MEQ/L (98-107); CREATININE FOR GFR 0.92 MG/DL (0.55-1.02); GLOMERULAR FILTRATION RATE > 60.0 (>51); GLUCOSE, FASTING 201 MG/DL (70-105); PHOSPHORUS LEVEL 3.4 MG/DL (2.5-4.9); POTASSIUM SERUM 4.3 MEQ/L (3.5-5.1); SODIUM LEVEL 137 MEQ/L (136-145)
[2016-05-02] MEDS: NS 1,000 ML IV SCH (08:23)
[2016-05-02] MEDS: SLF 3 ML SYR IV SCH (09:00)
[2016-05-02] MEDS: ASPIRIN 81 MG ENTERIC TAB PO SCH (09:07)
[2016-05-02] MEDS: CitaloPRAM (CeleXA) 20 MG TAB PO SCH (09:07)
[2016-05-02] MEDS: MULTIVITAMINS/MINERALS THERAP 1 TAB PO SCH (09:07)
[2016-05-02] MEDS: buPROPion 100 MG TAB PO SCH ×2 (09:07→21:46)
[2016-05-02] MEDS: MAGNESIUM OXIDE 400 MG TAB (MAG-OX) PO SCH ×2 (09:07→21:47)
[2016-05-02] MEDS: FERROUS SULFATE 325MG TAB PO SCH ×3 (09:07→21:47)
[2016-05-02] MEDS: PANTOPRAZOLE 40MG TAB (PROTONIX) PO SCH ×2 (09:07→21:47)
[2016-05-02] MEDS: GABAPENTIN 300 MG CAP PO SCH ×3 (09:07→21:47)
[2016-05-02] MEDS: rOPINIRole 1MG TAB PO SCH ×2 (09:08→21:47)
[2016-05-02] MEDS: VITAMIN D 1,000 INTERNATIONAL UNITS TABLET PO SCH (09:08)
[2016-05-02] MEDS: FLUCONAZOLE 50MG TABLET PO SCH (09:08)
[2016-05-02] MEDS: carBAMazepine 200 MG TAB PO SCH ×2 (09:08→21:46)
[2016-05-02] MEDS: LOMOTIL 2.5MG/0.025MG TABLET PO SCH ×4 (09:08→21:47)
[2016-05-02] MEDS: LEVEMIR (INSULIN DETEMIR) 1 UNITS/0.01ML SC SCH ×2 (09:09→21:46)
[2016-05-02] MEDS: FLUTICASONE PROP 0.05% NASAL SPRAY 16 GM (FLONASE) SCH (09:10)
[2016-05-02] MEDS: LIDOCAINE 5% (LIDODERM) PATCH TOP PRN (09:16)
--- NOTE | 2016-05-02 13:54 | IPN ---
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 She was left on the bed dwyer. No fever or chills. She is on TPN, which was renewed today. PHYSICAL EXAMINATION: 99.7, maximum temperature (t-max) 100.3. GENERAL APPEARANCE: Chronically ill-appearing, cachectic. LUNGS: Clear. HEART: Regular rhythm. ABDOMEN: Soft, nontender. Tender over the right sacroiliac joint. Pain in right sacroiliac joint to rotate right hip. LABORATORY DATA: CBC is stable. CMP looks unremarkable, potassium is 4.3, glucose 201, albumin is 1.9. Repeat blood cultures are negative at 24 hours. IMPRESSION: 1. Right sacroiliac joint pain. X-ray ordered. She denies any falls. There is pain to manipulate the hip in the right sacroiliac joint. 2. Nonketotic hyperosmolar coma. On Levemir and sliding scale. 3. Staphylococcus epidermidis bacteremia. Repeat blood cultures are pending. No infectious disease consultation available today. Could consult tomorrow. Vancomycin has been added. 4. Acute kidney injury. Creatinine is improved. Clinical pharmacology is managing dosing of vancomycin. 5. Severe protein calorie malnutrition. On TPN, which was renewed.
[2016-05-02 14:00] VITALS: BP 103/51
--- NOTE | 2016-05-02 14:51 | REP ---
Clinical: Right sacroiliac joint pain. Comparison: 03/02/2015. Findings: Degenerative changes to the visualized lumbosacral spine appreciated. Bilateral sacroiliac joints appear relatively symmetric and essentially normal for age. No obvious excessive fusion or spurring. No periarticular cystic changes are appreciated. Impression: Relatively symmetric age-appropriate sacroiliac joint suggested. Signed by Xander Hollingsworth MD 05/02/2016 02:42 P
[2016-05-02] MEDS ORDERED: [UNRECOGNIZED DRUG - OTHER] IV ONE ×5 (21:00)
[2016-05-02] MEDS ORDERED: POTASSIUM CHLORIDE IV ONE ×5 (21:00)
[2016-05-02] MEDS ORDERED: INSULIN HUMAN REGULAR IV ONE ×5 (21:00)
[2016-05-02] MEDS: **NOTE PATIENT COMMENT** MISC XX SCH (21:00)
[2016-05-02] MEDS ORDERED: FAT EMULSION IV 20% 500 ML IV ONE (21:00)
[2016-05-02] MEDS: PRAVASTATIN 20 MG TAB PO SCH (21:47)
[2016-05-02] MEDS: traZODone 100 MG TAB PO SCH (21:47)
[2016-05-02 22:00] VITALS: BP 112/62
[2016-05-03] MEDS: HumaLOG INSULIN (NovoLOG) PER UNIT SC SCH ×5 (01:00→23:56)
[2016-05-03] MEDS: NS 1,000 ML IV SCH ×2 (01:03→17:01)
[2016-05-03] MEDS: CYCLOBENZAPRINE 10 MG TAB PO PRN ×3 (01:59→18:43)
[2016-05-03] MEDS: PERCOCET 5MG/325MG TAB PO PRN ×5 (04:34→18:43)
[2016-05-03 05:16] LABS: MEAN CORPUSCULAR HEMOGLOBIN 27.1 pg (27.0-33.0); MEAN CORPUSCULAR HGB CONC 31.5 g/dl (32.0-36.5); MEAN CORPUSCULAR VOLUME 85.9 fl (80.0-96.0); RED CELL DISTRIBUTION WIDTH 14.7 % (11.5-14.5); WHITE BLOOD COUNT 8.1 K/mm3 (4.0-10.0)
[2016-05-03 05:37] LABS: ANION GAP 9 MEQ/L (8-16); BLOOD UREA NITROGEN 18 MG/DL (7-18); CALCIUM LEVEL 7.9 MG/DL (8.5-10.1); CARBON DIOXIDE LEVEL 33 MEQ/L (21-32); CHLORIDE LEVEL 96 MEQ/L (98-107); CREATININE FOR GFR 0.95 MG/DL (0.55-1.02); GLOMERULAR FILTRATION RATE > 60.0 (>51); GLUCOSE, FASTING 266 MG/DL (70-105); PHOSPHORUS LEVEL 4.1 MG/DL (2.5-4.9); POTASSIUM SERUM 4.2 MEQ/L (3.5-5.1); SODIUM LEVEL 138 MEQ/L (136-145)
[2016-05-03 06:00] VITALS: BP 118/61
[2016-05-03] MEDS: VANCOMYCIN HCL 750 MG, VIAL MATE ADAPTER 1 EACH in D5W 250 ML IV SCH ×2 (06:04→17:01)
[2016-05-03] MEDS: HEPARIN SOD (PORCINE) 5000 UNITS/ML VIAL SC SCH ×3 (06:04→22:11)
--- NOTE | 2016-05-03 07:24 | PHACANCOPD ---
PHARMACY VANCOMYCIN DOSING Pt Demographics Demographics Patient Age:50 , Weight:56.600 , Gender: female Adjusted Body Weight Date: 05/01/16, Adjusted Body Weight: Kg Vancomycin Vancomycin indication: staph epidermidis bacteremia Vancomycin Target Ranges: 15-20 mcg/ml Vancomycin Load Y/N: Yes Load Dose Date Time Vancomycin Load Dose: 1000MG Date: 05/01 Time: 12:00 noon Vancomycin Dose Date: 05/03/16. Current Vancomycin Dose: [750MG IV Q12H] Date: 05/01/16. Current Vancomycin Dose: [750mg IV q12h @18] Intermittent Dosing?: No Labs Labs Item Value Date Time Creatinine 1.12 MG/DL H 05/01/16 0531 Creatinine 0.92 MG/DL 05/02/16 0557 Creatinine 0.95 MG/DL 05/03/16 0503 Micro Microbiology 05/01/16 Blood Culture - Preliminary, Resulted No growth after 24 hours . All specim... 05/01/16 Blood Culture - Preliminary, Resulted No growth after 24 hours . All specim... 04/25/16 Blood Culture - Final, Complete Staphylococcus Epidermidis 04/24/16 Blood Culture - Final, Complete Staphylococcus Epidermidis 04/24/16 MRSA Screen - Final, Complete 04/24/16 Urine Culture - Final, Complete Creatinine Clearance Date:05/01/16. Creatinine Clearance: [66 ml/min]. Pending Labs Vanco trough scheduled 05/05 @05:00 Assessment and Plan Maintaining Current Dose?: Yes Reason for dose change: No Dose Change Pharmacist Note Pharmacist Note Date: 05/03/16. Pharmacist note:Patients trough was therapeutic. Continue current dosing and repeat trough in 2 days. Continue to monitor renal function and adjust dose as needed. Date: 05/01/16. Pharmacist note: pt has 2 positive blood cultures for Staph epi (drawn 04/24-) with KORTNEY = 1. Repeat blood cultures are pending. She is still on Rocephin 1g IV q24h (started 04/24). MRSA screen is negative. She was last on vancomycin at our facility in September 2014, I have resumed similar dosing. I have a trough scheduled before the 5th dose. Her SCr fluctuates, we will continue to monitor. JEANETH VITALE PHARMACY May 03, 2016 07:24
[2016-05-03] MEDS: CitaloPRAM (CeleXA) 20 MG TAB PO SCH (08:39)
[2016-05-03] MEDS: rOPINIRole 1MG TAB PO SCH ×2 (08:39→22:12)
[2016-05-03] MEDS: FLUCONAZOLE 50MG TABLET PO SCH (08:39)
[2016-05-03] MEDS: VITAMIN D 1,000 INTERNATIONAL UNITS TABLET PO SCH (08:39)
[2016-05-03] MEDS: buPROPion 100 MG TAB PO SCH ×2 (08:39→22:12)
[2016-05-03] MEDS: FERROUS SULFATE 325MG TAB PO SCH ×3 (08:39→22:11)
[2016-05-03] MEDS: MAGNESIUM OXIDE 400 MG TAB (MAG-OX) PO SCH ×2 (08:39→22:11)
[2016-05-03] MEDS: LOMOTIL 2.5MG/0.025MG TABLET PO SCH ×4 (08:39→22:11)
[2016-05-03] MEDS: carBAMazepine 200 MG TAB PO SCH ×2 (08:39→22:12)
[2016-05-03] MEDS: PANTOPRAZOLE 40MG TAB (PROTONIX) PO SCH ×2 (08:39→22:12)
[2016-05-03] MEDS: GABAPENTIN 300 MG CAP PO SCH ×3 (08:40→22:12)
[2016-05-03] MEDS: MULTIVITAMINS/MINERALS THERAP 1 TAB PO SCH (08:40)
[2016-05-03] MEDS: LEVEMIR (INSULIN DETEMIR) 1 UNITS/0.01ML SC SCH ×2 (08:40→22:10)
[2016-05-03] MEDS: ASPIRIN 81 MG ENTERIC TAB PO SCH (08:40)
[2016-05-03] MEDS: FLUTICASONE PROP 0.05% NASAL SPRAY 16 GM (FLONASE) SCH (08:41)
[2016-05-03] MEDS: SLF 3 ML SYR IV SCH (08:41)
[2016-05-03 09:25] LABS: VENOUS PARTIAL PRESSURE CO2 57.2 mmHg (38.0-50.0); VENOUS PARTIAL PRESSURE O2 54.9 mmHg (30.0-50.0); VENOUS STANDARD HCO3 30.7 MEQ/L
[2016-05-03] MEDS ORDERED: PERCOCET 5MG/325MG TAB PO ONE (12:00)
[2016-05-03 14:00] VITALS: BP 109/57
--- NOTE | 2016-05-03 14:30 | IPNPDOC ---
Text Note Date of Service The patient was seen on 05/03/16 at 14:30. NOTE Subjective: Patient states she feels well. Has some mild discomfort from her hip region. Denies any acute change. Objective: Vitals: (see below) General: No acute distress, laying comfortably in bed. HEENT: Moist mucous membranes. Neck: No JVD or lymphadenopathy Cardiac: RRR, No murmurs Pulm: Clear to auscultation b/l. No wheezing, rhonchi. Right Vitale catheter. No area of bleeding or cellulitis. No tenderness. Abd: NT/ND + BS. Ostomy noted. Ext: No edema or cyanosis Labs (see below) Images: 04/24/16 CT ABDOMEN WITHOUT CONTRAST: Lung bases: No lung base infiltrate or effusion. Liver: No intrahepatic ductal dilation. Gallbladder: Cholecystectomy. Pancreas: No pancreatic duct dilation. Calcifications of chronic pancreatitis. Bowel loops: Right upper quadrant ileostomy. Diastasis of the anterior abdominal wall. Spleen: Normal size. Adrenals: Normal size. Right kidney: Mild hydronephrosis and hydroureter without obstructing stone. Left kidney: No stones or hydronephrosis. Calcifications adjacent to the left ureter are within the left gonadal vein. Aorta: Normal caliber. Peritoneum: No free air. CT PELVIS WITHOUT CONTRAST: Hips: Interval left hip arthroplasty and right femoral ORIF produce beam hardening artifact in the lower pelvis, limiting evaluation of the pelvic structures. Bladder: Normally distended. The wall is mildly thickened such that cystitis is not excluded Colon: Partial colectomy. Uterus: Hysterectomy. Peritoneum: No fluid. Lumbar spine: Degenerative spondylotic changes most pronounced at L4-5 and L5- S1. IMPRESSION: 1. Right upper quadrant ileostomy without evidence of obstruction. 2. Mild right hydronephrosis without obstructing stone. This may be due to reflux. 3. Urinary bladder wall thickening suggesting cystitis. Assessment/Plan 1. Diabetic ketoacidosis- resolved; Levemir has been titrated yesterday.. On TPN. May be secondary to urinary tract infection. Patient is on Rocephin. 2. Staph epidermidis bacteremia - patient does have a Vitale port, which will need to be removed. Patient will need a temporary central line for her TPN. 2 blood cultures positive. Cont. vancomycin for now. Blood cultures repeated, and 1 bottle positive. IV fluids. Lactic acid 2.0. No leukocytosis. We'll obtain echocardiogram. Will need ID consult cultures remain positive. 3. AQUILES - likely secondary to volume depletion from high output ostomy. Creatinine improved. On IV fluids. 4. 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 5. Severe protein calorie malnutrition- on TPN 9 PM to 9 AM. 6. Depression- continue home meds 7. Diabetic neuropathy- continue Neurontin 8. Hypokalemia- potassium has been added to TPN 9. Chronic lower back pain with a stage II pressure ulcer on coccyx on admission - on Lidoderm patch, Percocet, Flexeril when necessary. DVT prophy: Heparin Subcutaneous VS,Fishbone, I+O VS, Fishbone, I+O Laboratory Tests 05/03/16 05:03 Anion Gap 9, Red Blood Count 2.93 L, Mean Corpuscular Volume 85.9, Mean Corpuscular Hemoglobin 27.1, Mean Corpuscular Hemoglobin Concent 31.5 L, Red Cell Distribution Width 14.7 H Vital Signs Date Time Temp Pulse Resp B/P Pulse Ox O2 Delivery O2 Flow Rate FiO2 05/03/16 14:08 18 Room Air 05/03/16 06:00 98.1 86 118/61 97 I&O- Last 24 Hours up to 6 AM 05/03/16 06:00 Intake Total 2660 ml Output Total 7800 ml Balance -5140 ml VONNIE MCMAHAN MD May 03, 2016 14:30
[2016-05-03 16:36] LABS: MICROSCOPIC INDICATED? NO (NO); YEAST LIKE CELL URINE AUTO SMALL
[2016-05-03] MEDS ORDERED: KETOROLAC 30 MG/ML VIAL (J1885) IV SCH (16:45)
[2016-05-03] MEDS: KETOROLAC 30 MG/ML VIAL (J1885) IV PRN (17:00)
[2016-05-03] MEDS: **NOTE PATIENT COMMENT** MISC XX SCH (21:00)
[2016-05-03] MEDS ORDERED: INSULIN HUMAN REGULAR IV SCH (21:00)
[2016-05-03] MEDS ORDERED: POTASSIUM CHLORIDE IV SCH (21:00)
[2016-05-03] MEDS ORDERED: FAT EMULSION IV 20% 500 ML IV SCH (21:00)
[2016-05-03] MEDS ORDERED: [UNRECOGNIZED DRUG - OTHER] IV SCH (21:00)
[2016-05-03 22:00] VITALS: BP 80/54
[2016-05-03] MEDS: traZODone 100 MG TAB PO SCH (22:12)
[2016-05-03] MEDS: PRAVASTATIN 20 MG TAB PO SCH (22:12)
[2016-05-03] MEDS: cefTRIAXone SOD 1 GM in D5W MINI-BAG PLUS 50 ML IV SCH (23:04)
[2016-05-03 23:30] VITALS: BP 86/52
[2016-05-03] MEDS ORDERED: SODIUM CHLORIDE 0.9% 1000 ML IV ONE (23:45)
[2016-05-04] VITALS (7 sets, daily range): BP systolic 88–160; BP diastolic 56–76
[2016-05-04] MEDS ORDERED: SODIUM CHLORIDE 0.9% 1000 ML IV ONE (02:15)
[2016-05-04] MEDS: NS 1,000 ML IV SCH ×3 (03:34→21:06)
[2016-05-04] MEDS: KETOROLAC 30 MG/ML VIAL (J1885) IV PRN ×3 (04:32→21:07)
[2016-05-04 05:33] LABS: BASO % 0.2 % (0.0-1.0); EOS # 0.1 K/mm3 (0.0-0.50); EOS % 1.6 % (0.0-3.0); LARGE UNSTAINED CELL # 0.1 K/mm3 (0.0-0.4); LARGE UNSTAINED CELL % 1.2 % (0.0-4.0); LYMPH # 0.9 K/mm3 (1.5-4.5); LYMPH % 12.6 % (24.0-44.0); MEAN CORPUSCULAR HEMOGLOBIN 27.6 pg (27.0-33.0); MEAN CORPUSCULAR HGB CONC 31.5 g/dl (32.0-36.5); MEAN CORPUSCULAR VOLUME 87.6 fl (80.0-96.0); MONO # 0.3 K/mm3 (0.0-0.8); MONO % 4.1 % (0.0-5.0); NEUTROPHILS # 5.9 K/mm3 (1.8-7.7); NEUTROPHILS % 80.3 % (36.0-66.0); PLATELET COUNT, AUTOMATED 162 k/mm3 (150-450); WHITE BLOOD COUNT 7.3 K/mm3 (4.0-10.0)
[2016-05-04] MEDS: HEPARIN SOD (PORCINE) 5000 UNITS/ML VIAL SC SCH ×3 (05:36→22:48)
[2016-05-04] MEDS: VANCOMYCIN HCL 750 MG, VIAL MATE ADAPTER 1 EACH in D5W 250 ML IV SCH ×2 (05:36→17:50)
[2016-05-04 05:57] LABS: ALBUMIN 1.8 GM/DL (3.2-5.2); ANION GAP 9 MEQ/L (8-16); BLOOD UREA NITROGEN 19 MG/DL (7-18); CALCIUM LEVEL 7.7 MG/DL (8.5-10.1); CARBON DIOXIDE LEVEL 30 MEQ/L (21-32); CHLORIDE LEVEL 100 MEQ/L (98-107); CREATININE FOR GFR 0.92 MG/DL (0.55-1.02); GLOMERULAR FILTRATION RATE > 60.0 (>51); GLUCOSE, FASTING 178 MG/DL (70-105); PHOSPHORUS LEVEL 3.3 MG/DL (2.5-4.9); POTASSIUM SERUM 4.2 MEQ/L (3.5-5.1); SODIUM LEVEL 139 MEQ/L (136-145)
[2016-05-04] MEDS: HumaLOG INSULIN (NovoLOG) PER UNIT SC SCH ×3 (06:03→17:31)
[2016-05-04] MEDS: GABAPENTIN 300 MG CAP PO SCH ×3 (09:32→21:07)
[2016-05-04] MEDS: CYCLOBENZAPRINE 10 MG TAB PO PRN ×2 (09:32→17:50)
[2016-05-04] MEDS: VITAMIN D 1,000 INTERNATIONAL UNITS TABLET PO SCH (09:32)
[2016-05-04] MEDS: MULTIVITAMINS/MINERALS THERAP 1 TAB PO SCH (09:32)
[2016-05-04] MEDS: LOMOTIL 2.5MG/0.025MG TABLET PO SCH ×4 (09:32→21:08)
[2016-05-04] MEDS: carBAMazepine 200 MG TAB PO SCH ×2 (09:32→21:08)
[2016-05-04] MEDS: FLUCONAZOLE 50MG TABLET PO SCH (09:32)
[2016-05-04] MEDS: ASPIRIN 81 MG ENTERIC TAB PO SCH (09:32)
[2016-05-04] MEDS: CitaloPRAM (CeleXA) 20 MG TAB PO SCH (09:32)
[2016-05-04] MEDS: rOPINIRole 1MG TAB PO SCH ×2 (09:33→21:08)
[2016-05-04] MEDS: MAGNESIUM OXIDE 400 MG TAB (MAG-OX) PO SCH ×2 (09:33→21:07)
[2016-05-04] MEDS: LEVEMIR (INSULIN DETEMIR) 1 UNITS/0.01ML SC SCH (09:33)
[2016-05-04] MEDS: buPROPion 100 MG TAB PO SCH ×2 (09:33→21:09)
[2016-05-04] MEDS: PANTOPRAZOLE 40MG TAB (PROTONIX) PO SCH ×2 (09:33→21:07)
[2016-05-04] MEDS: FERROUS SULFATE 325MG TAB PO SCH ×3 (09:33→21:09)
[2016-05-04] MEDS: SLF 3 ML SYR IV SCH (09:33)
[2016-05-04] MEDS: FLUTICASONE PROP 0.05% NASAL SPRAY 16 GM (FLONASE) SCH (09:34)
--- NOTE | 2016-05-04 10:14 | ECHO ---
DATE OF PROCEDURE: 05/03/2016 REFERRING PHYSICIAN: Tony Mayo. The study was performed May 03 for indication of blood culture positivity suspicion for endocarditis. The patient measures 179 cm. Weight is 57 kg. DIMENSIONS: IVS - 0.9 LV - 4.4 LVPW - 1.0 LA - 3.4 Aorta - 2.9 FINDINGS: The study is of good technical quality. Left ventricle is normal size and systolic function with estimated EF around 70%. Right ventricle does not appear enlarged. Both atria appear grossly normal. All four cardiac valves were reasonably well seen and appear normal. No vegetation is seen on any of the valves. No pericardial effusion is noted. Inferior vena cava is normal size. Aortic root and abdominal aorta appear normal. Doppler interrogation reveals no aortic, mitral or pulmonic valve disease. There is trace tricuspid insufficiency. Calculated pulmonary artery pressure is within normal limits. Mitral inflow pattern and tissue Doppler imaging of mitral annulus reveal probably grade 1 diastolic dysfunction. CONCLUSION: 1. Study is of good technical quality. 2. Normal LV size and systolic function, probably normal diastolic function (there is approximately equal size of E and A wave on mitral inflow). 3. No significant valvular disease. 4. Normal central venous pressure and likely normal pulmonary artery pressure. 5. No vegetations are seen. COMMENT: SBE prophylaxis is not recommended. INDICATION
[2016-05-04] MEDS: LIDOCAINE 5% (LIDODERM) PATCH TOP PRN (13:16)
[2016-05-04] MEDS ORDERED: POTASSIUM CHLORIDE IV ONE ×10 (14:00→21:00)
[2016-05-04] MEDS ORDERED: INSULIN HUMAN REGULAR IV ONE ×10 (14:00→21:00)
[2016-05-04] MEDS ORDERED: [UNRECOGNIZED DRUG - OTHER] IV ONE ×10 (14:00→21:00)
[2016-05-04] MEDS: PERCOCET 5MG/325MG TAB PO PRN ×2 (14:08→22:49)
--- NOTE | 2016-05-04 15:15 | IPNPDOC ---
Text Note Date of Service The patient was seen on 05/04/16 at 15:12. NOTE Subjective: Patient states she feels well. Denies any acute change. No black stools/blood in ostomy. Objective: Vitals: (see below) General: No acute distress, laying comfortably in bed. HEENT: Moist mucous membranes. Neck: No JVD or lymphadenopathy Cardiac: RRR, No murmurs Pulm: Clear to auscultation b/l. No wheezing, rhonchi. Right Vitale catheter. No area of bleeding or cellulitis. No tenderness. Abd: NT/ND + BS. Ostomy noted. Ext: No edema or cyanosis Labs (see below) Images: 04/24/16 CT ABDOMEN WITHOUT CONTRAST: Lung bases: No lung base infiltrate or effusion. Liver: No intrahepatic ductal dilation. Gallbladder: Cholecystectomy. Pancreas: No pancreatic duct dilation. Calcifications of chronic pancreatitis. Bowel loops: Right upper quadrant ileostomy. Diastasis of the anterior abdominal wall. Spleen: Normal size. Adrenals: Normal size. Right kidney: Mild hydronephrosis and hydroureter without obstructing stone. Left kidney: No stones or hydronephrosis. Calcifications adjacent to the left ureter are within the left gonadal vein. Aorta: Normal caliber. Peritoneum: No free air. CT PELVIS WITHOUT CONTRAST: Hips: Interval left hip arthroplasty and right femoral ORIF produce beam hardening artifact in the lower pelvis, limiting evaluation of the pelvic structures. Bladder: Normally distended. The wall is mildly thickened such that cystitis is not excluded Colon: Partial colectomy. Uterus: Hysterectomy. Peritoneum: No fluid. Lumbar spine: Degenerative spondylotic changes most pronounced at L4-5 and L5- S1. IMPRESSION: 1. Right upper quadrant ileostomy without evidence of obstruction. 2. Mild right hydronephrosis without obstructing stone. This may be due to reflux. 3. Urinary bladder wall thickening suggesting cystitis. Assessment/Plan 1. Diabetic ketoacidosis- resolved; Levemir has been titrated yesterday.. On TPN. May be secondary to urinary tract infection. Patient is on Rocephin. 2. Staph epidermidis bacteremia - 2 blood cultures positive. Cont. vancomycin for now. Blood cultures repeated, and 1 bottle positive. IV fluids. Lactic acid 2.0. No leukocytosis. We'll obtain echocardiogram. Spoke with Dr. Bansal and Dr. Hankins - will obtain repeat cultures, one from the port and one peripheral, if port culture is positive, will have it removed. 3. Anemia - chronically trending down. Occult blood negative. Transfuse 1 unit. Monitor Hb 4. AQUILES - likely secondary to volume depletion from high output ostomy. Creatinine improved. On IV fluids. 5. 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 6. Severe protein calorie malnutrition- on TPN 9 PM to 9 AM. 7. Depression- continue home meds 8. Diabetic neuropathy- continue Neurontin 9. Hypokalemia- potassium has been added to TPN 10. Chronic lower back pain with a stage II pressure ulcer on coccyx on admission- on Lidoderm patch, Percocet, Flexeril when necessary. DVT prophy: Heparin Subcutaneous VS,Fishbone, I+O VS, Fishbone, I+O Laboratory Tests 05/04/16 05:19 Anion Gap 9, Red Blood Count 2.77 L, Mean Corpuscular Volume 87.6, Mean Corpuscular Hemoglobin 27.6, Mean Corpuscular Hemoglobin Concent 31.5 L, Red Cell Distribution Width 14.0, Neutrophils (%) (Auto) 80.3 H, Lymphocytes (%) ( Auto) 12.6 L, Monocytes (%) (Auto) 4.1, Eosinophils (%) (Auto) 1.6, Basophils (% ) (Auto) 0.2, Neutrophils # (Auto) 5.9, Lymphocytes # (Auto) 0.9 L, Monocytes # (Auto) 0.3, Eosinophils # (Auto) 0.1, Basophils # (Auto) 0.0 Vital Signs Date Time Temp Pulse Resp B/P Pulse Ox O2 Delivery O2 Flow Rate FiO2 05/04/16 14:08 18 05/04/16 06:00 100.3 91 132/67 97 Room Air 05/03/16 14:47 3.0 I&O- Last 24 Hours up to 6 AM 05/04/16 06:00 Intake Total 5744 ml Output Total 5175 ml Balance 569 ml VONNIE MCMAHAN MD May 04, 2016 15:15
[2016-05-04] MEDS ORDERED: LEVEMIR (INSULIN DETEMIR) 1 UNITS/0.01ML SC SCH ×2 (21:00)
[2016-05-04] MEDS ORDERED: FAT EMULSION IV 20% 500 ML IV ONE (21:00)
[2016-05-04] MEDS: PRAVASTATIN 20 MG TAB PO SCH (21:08)
[2016-05-04] MEDS: traZODone 100 MG TAB PO SCH (21:08)
[2016-05-04] MEDS: **NOTE PATIENT COMMENT** MISC XX SCH (21:11)
[2016-05-04] MEDS: cefTRIAXone SOD 1 GM in D5W MINI-BAG PLUS 50 ML IV SCH (22:49)
[2016-05-05] MEDS: HumaLOG INSULIN (NovoLOG) PER UNIT SC SCH ×4 (00:56→17:54)
[2016-05-05] MEDS: KETOROLAC 30 MG/ML VIAL (J1885) IV PRN ×3 (03:38→21:33)
[2016-05-05] MEDS: HEPARIN SOD (PORCINE) 5000 UNITS/ML VIAL SC SCH ×3 (05:48→21:35)
[2016-05-05] MEDS: NS 1,000 ML IV SCH (05:49)
--- NOTE | 2016-05-05 05:52 | PHACANCOPD ---
PHARMACY VANCOMYCIN DOSING Pt Demographics Demographics Patient Age:50 , Weight:57.500 , Gender: female Adjusted Body Weight Date: 05/01/16, Adjusted Body Weight: [57.5]ACTUAL WT Kg Vancomycin Vancomycin indication: staph epidermidis bacteremia Vancomycin Target Ranges: 15-20 mcg/ml Vancomycin Load Y/N: Yes Load Dose Date Time Vancomycin Load Dose: 1000MG Date: 05/01 Time: 12:00 noon Vancomycin Dose Date: 05/05/16. Current Vancomycin Dose: [1 GRAM IV Q24H@12] Date: 05/03/16. Current Vancomycin Dose: [750MG IV Q12H] Date: 05/01/16. Current Vancomycin Dose: [750mg IV q12h @18] Intermittent Dosing?: No Labs Micro Microbiology 05/03/16 Blood Culture - Preliminary, Resulted No growth after 24 hours . All specim... 05/03/16 Blood Culture - Preliminary, Resulted No growth after 24 hours . All specim... 05/01/16 Blood Culture - Preliminary, Resulted 05/01/16 Blood Culture - Preliminary, Resulted No Growth after 72 hours. All specime... 04/25/16 Blood Culture - Final, Complete Staphylococcus Epidermidis 05/04/16 Stool Occult Blood (KORTNEY) - Final, Complete 05/03/16 Urine Culture - Final, Complete Creatinine Clearance Date:05/01/16. Creatinine Clearance: [66 ml/min]. Assessment and Plan Maintaining Current Dose?: No Reason for dose change: Trough too high Pharmacist Note Pharmacist Note Date: 05/05/16. Pharmacist note:TROUGH DRAWN THIS AM@0452=REPORTED 22.3:WILL ADJUST current Vancomycin dose (d/t accumulation) to 1 GM IV Q234H@12noon :scr= 0.92:calculated CRCL=63.5: will continue to monitor Date: 05/03/16. Pharmacist note:Patients trough was therapeutic. Continue current dosing and repeat trough in 2 days. Continue to monitor renal function and adjust dose as needed. Date: 05/01/16. Pharmacist note: pt has 2 positive blood cultures for Staph epi (drawn 04/24-) with KORTNEY = 1. Repeat blood cultures are pending. She is still on Rocephin 1g IV q24h (started 04/24). MRSA screen is negative. She was last on vancomycin at our facility in September 2014, I have resumed similar dosing. I have a trough scheduled before the 5th dose. Her SCr fluctuates, we will continue to monitor. TERESITA SMALL PHARMACY May 05, 2016 05:52
[2016-05-05 06:00] VITALS: BP 119/55
[2016-05-05] MEDS: GABAPENTIN 300 MG CAP PO SCH ×3 (09:18→21:34)
[2016-05-05] MEDS: LOMOTIL 2.5MG/0.025MG TABLET PO SCH ×4 (09:18→21:34)
[2016-05-05] MEDS: PANTOPRAZOLE 40MG TAB (PROTONIX) PO SCH ×2 (09:18→21:34)
[2016-05-05] MEDS: FERROUS SULFATE 325MG TAB PO SCH ×3 (09:18→21:34)
[2016-05-05] MEDS: VITAMIN D 1,000 INTERNATIONAL UNITS TABLET PO SCH (09:18)
[2016-05-05] MEDS: rOPINIRole 1MG TAB PO SCH ×2 (09:18→21:33)
[2016-05-05] MEDS: SLF 3 ML SYR IV SCH (09:18)
[2016-05-05] MEDS: CitaloPRAM (CeleXA) 20 MG TAB PO SCH (09:18)
[2016-05-05] MEDS: carBAMazepine 200 MG TAB PO SCH ×2 (09:18→21:34)
[2016-05-05] MEDS: LEVEMIR (INSULIN DETEMIR) 1 UNITS/0.01ML SC SCH ×2 (09:18→21:35)
[2016-05-05] MEDS: MAGNESIUM OXIDE 400 MG TAB (MAG-OX) PO SCH ×2 (09:18→21:34)
[2016-05-05] MEDS: LIDOCAINE 5% (LIDODERM) PATCH TOP PRN (09:19)
[2016-05-05] MEDS: FLUCONAZOLE 50MG TABLET PO SCH (09:19)
[2016-05-05] MEDS: MULTIVITAMINS/MINERALS THERAP 1 TAB PO SCH (09:19)
[2016-05-05] MEDS: FLUTICASONE PROP 0.05% NASAL SPRAY 16 GM (FLONASE) SCH (09:19)
[2016-05-05] MEDS: buPROPion 100 MG TAB PO SCH ×2 (09:19→21:34)
[2016-05-05] MEDS: ASPIRIN 81 MG ENTERIC TAB PO SCH (09:19)
[2016-05-05] MEDS: CYCLOBENZAPRINE 10 MG TAB PO PRN (09:19)
[2016-05-05 09:42] LABS: MEAN CORPUSCULAR HEMOGLOBIN 27.8 pg (27.0-33.0); MEAN CORPUSCULAR HGB CONC 32.1 g/dl (32.0-36.5); MEAN CORPUSCULAR VOLUME 86.4 fl (80.0-96.0); RED CELL DISTRIBUTION WIDTH 14.9 % (11.5-14.5); WHITE BLOOD COUNT 7.5 K/mm3 (4.0-10.0)
[2016-05-05 10:14] LABS: ANION GAP 9 MEQ/L (8-16); BLOOD UREA NITROGEN 25 MG/DL (7-18); CARBON DIOXIDE LEVEL 29 MEQ/L (21-32); CHLORIDE LEVEL 104 MEQ/L (98-107); CREATININE FOR GFR 0.78 MG/DL (0.55-1.02); GLOMERULAR FILTRATION RATE > 60.0 (>51); GLUCOSE, FASTING 114 MG/DL (70-105); MAGNESIUM LEVEL 1.7 MG/DL (1.8-2.4); POTASSIUM SERUM 4.2 MEQ/L (3.5-5.1); SODIUM LEVEL 142 MEQ/L (136-145)
--- NOTE | 2016-05-05 10:57 | CR ---
DATE OF CONSULTATION: 05/03/2016 CHIEF COMPLAINT: Gram-positive bacteremia. HISTORY OF PRESENT ILLNESS: The patient is a 50-year-old female who came to the emergency room on the with chief complaint of weakness. She was found to have hyperosmolar nonketotic state secondary to urinary tract infection. She was also treated for possible sepsis secondary to blood stream infection with Gram-positive Staphylococcus epidermidis blood cultures. Currently, she is better. Vitals have been stable. She is out of the intensive care unit (ICU). However, she is continuing to have positive blood cultures. Therefore, I was asked to remove Vitale catheter from her right IJ that could possibly be infected and causing these persistent positive blood cultures. Last cultures were drawn on the , only one of two was positive then and according to the lab, they believe that the peripheral one was positive and that the port site culture was negative. 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 She uses this Ivtale catheter for daily TPN feedings, as well as IV hydration. This catheter has been in for almost a year. The last one was removed a little over year ago for similar reasons of possible infection, however, she has not had any problems with this one up until now. She denies any current nausea or vomiting. No fevers or chills. The only reason she is still the hospital is due to these persistent blood cultures being positive. PAST MEDICAL HISTORY: Jejunostomy, dyslipidemia, diabetes, chronic kidney disease, history of CVA, restless leg syndrome, depression, iron-deficient anemia, protein calorie malnutrition, chronic sacral pressure ulcer. HOME MEDICATIONS: Please see medical record. ALLERGIES: CLAVULANIC ACID, PENICILLIN, BACTRIM, SULFA DRUGS. PAST SURGICAL HISTORY: Jejunostomy, partial colectomy, partial small bowel resection hysteroscopy, right knee surgery, left hip surgery, Vitale catheter placement, cholecystectomy, appendectomy blepharoplasty, carpal tunnel repair bilaterally. SOCIAL HISTORY: Denies any current drug, alcohol, tobacco abuse. FAMILY HISTORY: Noncontributory. REVIEW OF SYSTEMS: Pertinent positives and negatives as stated in the history of present illness. PHYSICAL EXAMINATION GENERAL: The patient is alert and oriented times three. No acute distress. VITALS: Temperature 97.1, pulse 79, respirations 18, blood pressure 121/59, pulse oximetry 97% room air. HEENT: Pupils equal round react to light accommodation. HEART: S1, S2. Regular rate and rhythm. LUNGS: Clear to auscultation bilaterally. Chest wall; there is a tunneled central venous catheter in the right IJ coming onto the right chest wall. No signs of infection. No erythema. No pain to palpation. No drainage around the catheter site. ABDOMEN: Soft, nontender, nondistended. EXTREMITIES: No clubbing, cyanosis or edema. LABORATORY DATA: White count 8.1, hemoglobin 7.9, platelets 172. Blood cultures on the 04/24 and 04/25/2016; she had two separate cultures and both positive for Staphylococcus epidermis. On 05/01/2016, she had two cultures drawn, one positive and one negative. IMAGING STUDIES: CT abdomen and pelvis from 04/24/2016 shows right upper quadrant ileostomy, mild right hydronephrosis, urinary bladder wall thickening. 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 She has a chronic jejunostomy and uses TPN and home intravenous hydration because of that. She has currently in the hospital for an episode of sepsis, likely secondary to both the UTI and possibly a port infection. Blood cultures are positive with Staphylococcus epidermidis. I was asked to remove the Vitale catheter; however, with talking to the patient, she is not interested in having it removed unless it is absolutely necessary. Her last cultures drawn on the , only one was positive and one was negative. The one was positive was drawn from peripheral site and that could have been secondary to contamination. Therefore, my recommendation is to obtain two more blood cultures today, one from the port from the peripheral site with further recommendations to follow.
[2016-05-05] MEDS: VANCOMYCIN HCL 1,000 MG, VIAL MATE ADAPTER 1 EACH in D5W 250 ML IV SCH (11:26)
--- NOTE | 2016-05-05 13:26 | IPNPDOC ---
Text Note Date of Service The patient was seen on 05/05/16 at 13:21. NOTE Subjective: Patient states she feels well. No changes overnight. Objective: Vitals: (see below) General: No acute distress, laying comfortably in bed. HEENT: Moist mucous membranes. Neck: No JVD or lymphadenopathy Cardiac: RRR, No murmurs Pulm: Clear to auscultation b/l. No wheezing, rhonchi. Right Vitale catheter. No area of bleeding or cellulitis. No tenderness. Abd: NT/ND + BS. Ostomy noted. Ext: No edema or cyanosis Labs (see below) Images: 04/24/16 CT ABDOMEN WITHOUT CONTRAST: Lung bases: No lung base infiltrate or effusion. Liver: No intrahepatic ductal dilation. Gallbladder: Cholecystectomy. Pancreas: No pancreatic duct dilation. Calcifications of chronic pancreatitis. Bowel loops: Right upper quadrant ileostomy. Diastasis of the anterior abdominal wall. Spleen: Normal size. Adrenals: Normal size. Right kidney: Mild hydronephrosis and hydroureter without obstructing stone. Left kidney: No stones or hydronephrosis. Calcifications adjacent to the left ureter are within the left gonadal vein. Aorta: Normal caliber. Peritoneum: No free air. CT PELVIS WITHOUT CONTRAST: Hips: Interval left hip arthroplasty and right femoral ORIF produce beam hardening artifact in the lower pelvis, limiting evaluation of the pelvic structures. Bladder: Normally distended. The wall is mildly thickened such that cystitis is not excluded Colon: Partial colectomy. Uterus: Hysterectomy. Peritoneum: No fluid. Lumbar spine: Degenerative spondylotic changes most pronounced at L4-5 and L5- S1. IMPRESSION: 1. Right upper quadrant ileostomy without evidence of obstruction. 2. Mild right hydronephrosis without obstructing stone. This may be due to reflux. 3. Urinary bladder wall thickening suggesting cystitis. Assessment/Plan 1. Diabetic ketoacidosis- resolved; Levemir has been titrated.. On TPN. May be secondary to urinary tract infection. Patient is on Rocephin. 2. Staph epidermidis bacteremia - 2 blood cultures positive. Cont. vancomycin for now. Blood cultures repeated, and 1 bottle positive for staph epi. IV fluids. No leukocytosis. TTE with no vegetations. Spoke with Dr. Bansal and Dr. Hankins - will obtain repeat cultures, one from the port and one peripheral, if port culture is positive, will have it removed. 3. Anemia - chronically trending down. Occult blood negative. Transfused 1 unit. Monitor Hb 4. AQUILES - likely secondary to volume depletion from high output ostomy. Creatinine improved. On IV fluids. 5. 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 6. Severe protein calorie malnutrition- on TPN 9 PM to 9 AM. 7. Depression- continue home meds 8. Diabetic neuropathy- continue Neurontin 9. Hypokalemia- potassium has been added to TPN 10. Chronic lower back pain with a stage II pressure ulcer on coccyx on admission- on Lidoderm patch, Percocet, Flexeril when necessary. DVT prophy: Heparin Subcutaneous VS,Fishbone, I+O VS, Fishbone, I+O Laboratory Tests 05/05/16 09:24 Calcium Level 8.0 L, Red Blood Count 3.30 L, Mean Corpuscular Volume 86.4, Mean Corpuscular Hemoglobin 27.8, Mean Corpuscular Hemoglobin Concent 32.1, Red Cell Distribution Width 14.9 H Vital Signs Date Time Temp Pulse Resp B/P Pulse Ox O2 Delivery O2 Flow Rate FiO2 05/05/16 06:00 97.5 81 18 119/55 96 Room Air 05/03/16 14:47 3.0 I&O- Last 24 Hours up to 6 AM 05/05/16 06:00 Intake Total 3941 ml Output Total 7275 ml Balance -3334 ml VONNIE MCMAHAN MD May 05, 2016 13:26
[2016-05-05 14:00] VITALS: BP 135/69
[2016-05-05] MEDS: PERCOCET 5MG/325MG TAB PO PRN (14:31)
[2016-05-05] MEDS ORDERED: FAT EMULSION IV 20% 500 ML IV SCH (21:00)
[2016-05-05] MEDS ORDERED: AMINO AC/ELECTROLYTE/DEX/CALC 2,000 ML IV SCH (21:00)
[2016-05-05] MEDS: PRAVASTATIN 20 MG TAB PO SCH (21:33)
[2016-05-05] MEDS: traZODone 100 MG TAB PO SCH (21:34)
[2016-05-05] MEDS: **NOTE PATIENT COMMENT** MISC XX SCH (21:36)
[2016-05-05 22:00] VITALS: BP 125/67
[2016-05-06] MEDS: cefTRIAXone SOD 1 GM in D5W MINI-BAG PLUS 50 ML IV SCH ×2 (00:15→23:32)
[2016-05-06] MEDS: NS 1,000 ML IV SCH ×2 (00:15→09:32)
[2016-05-06] MEDS ORDERED: HumaLOG INSULIN (NovoLOG) PER UNIT SC STA ×2 (00:31→02:01)
[2016-05-06] MEDS: PERCOCET 5MG/325MG TAB PO PRN ×5 (00:41→21:27)
[2016-05-06] MEDS ORDERED: LEVEMIR (INSULIN DETEMIR) 1 UNITS/0.01ML SC ONE (02:15)
[2016-05-06] MEDS: KETOROLAC 30 MG/ML VIAL (J1885) IV PRN ×3 (04:01→17:54)
[2016-05-06] MEDS: HEPARIN SOD (PORCINE) 5000 UNITS/ML VIAL SC SCH ×4 (05:22→21:34)
[2016-05-06] MEDS: HumaLOG INSULIN (NovoLOG) PER UNIT SC SCH ×5 (05:23→23:35)
[2016-05-06 05:32] LABS: MEAN CORPUSCULAR HEMOGLOBIN 27.9 pg (27.0-33.0); RED CELL DISTRIBUTION WIDTH 14.9 % (11.5-14.5); WHITE BLOOD COUNT 9.6 K/mm3 (4.0-10.0)
[2016-05-06 05:57] LABS: ANION GAP 9 MEQ/L (8-16); BLOOD UREA NITROGEN 21 MG/DL (7-18); CARBON DIOXIDE LEVEL 28 MEQ/L (21-32); CHLORIDE LEVEL 101 MEQ/L (98-107); CREATININE FOR GFR 1.02 MG/DL (0.55-1.02); GLOMERULAR FILTRATION RATE > 60.0 (>51); GLUCOSE, FASTING 267 MG/DL (70-105); SODIUM LEVEL 138 MEQ/L (136-145)
[2016-05-06] MEDS: SLF 3 ML SYR IV SCH (09:32)
[2016-05-06] MEDS: LEVEMIR (INSULIN DETEMIR) 1 UNITS/0.01ML SC SCH ×2 (09:33→21:35)
[2016-05-06] MEDS: FLUCONAZOLE 50MG TABLET PO SCH (09:33)
[2016-05-06] MEDS: MAGNESIUM OXIDE 400 MG TAB (MAG-OX) PO SCH ×2 (09:34→21:34)
[2016-05-06] MEDS: PANTOPRAZOLE 40MG TAB (PROTONIX) PO SCH ×2 (09:34→21:27)
[2016-05-06] MEDS: FERROUS SULFATE 325MG TAB PO SCH ×3 (09:34→21:27)
[2016-05-06] MEDS: LOMOTIL 2.5MG/0.025MG TABLET PO SCH ×4 (09:34→21:26)
[2016-05-06] MEDS: GABAPENTIN 300 MG CAP PO SCH ×3 (09:34→21:34)
[2016-05-06] MEDS: buPROPion 100 MG TAB PO SCH ×2 (09:34→21:26)
[2016-05-06] MEDS: ASPIRIN 81 MG ENTERIC TAB PO SCH (09:34)
[2016-05-06] MEDS: MULTIVITAMINS/MINERALS THERAP 1 TAB PO SCH (09:34)
[2016-05-06] MEDS: VITAMIN D 1,000 INTERNATIONAL UNITS TABLET PO SCH (09:34)
[2016-05-06] MEDS: CitaloPRAM (CeleXA) 20 MG TAB PO SCH (09:34)
[2016-05-06] MEDS: carBAMazepine 200 MG TAB PO SCH ×2 (09:34→21:27)
[2016-05-06] MEDS: rOPINIRole 1MG TAB PO SCH ×2 (09:35→21:26)
[2016-05-06] MEDS: FLUTICASONE PROP 0.05% NASAL SPRAY 16 GM (FLONASE) SCH (09:35)
[2016-05-06 10:45] VITALS: BP 126/66
[2016-05-06] MEDS: VANCOMYCIN HCL 1,000 MG, VIAL MATE ADAPTER 1 EACH in D5W 250 ML IV SCH (12:24)
[2016-05-06 14:00] VITALS: BP 120/66
--- NOTE | 2016-05-06 14:01 | IPNPDOC ---
Text Note Date of Service The patient was seen on 05/06/16 at 13:57. NOTE Subjective: Patient states she feels well. C/o pelvic/LBP with radiculopathy down RLE. Objective: Vitals: (see below) General: No acute distress, laying comfortably in bed. HEENT: Moist mucous membranes. Neck: No JVD or lymphadenopathy Cardiac: RRR, No murmurs Pulm: Clear to auscultation b/l. No wheezing, rhonchi. Right Vitale catheter. No area of bleeding or cellulitis. No tenderness. Abd: NT/ND + BS. Ostomy noted. Ext: No edema or cyanosis. LE with preserved strength 5/5 in BLE. Distal pulses intact. Labs (see below) Images: 04/24/16 CT ABDOMEN WITHOUT CONTRAST: Lung bases: No lung base infiltrate or effusion. Liver: No intrahepatic ductal dilation. Gallbladder: Cholecystectomy. Pancreas: No pancreatic duct dilation. Calcifications of chronic pancreatitis. Bowel loops: Right upper quadrant ileostomy. Diastasis of the anterior abdominal wall. Spleen: Normal size. Adrenals: Normal size. Right kidney: Mild hydronephrosis and hydroureter without obstructing stone. Left kidney: No stones or hydronephrosis. Calcifications adjacent to the left ureter are within the left gonadal vein. Aorta: Normal caliber. Peritoneum: No free air. CT PELVIS WITHOUT CONTRAST: Hips: Interval left hip arthroplasty and right femoral ORIF produce beam hardening artifact in the lower pelvis, limiting evaluation of the pelvic structures. Bladder: Normally distended. The wall is mildly thickened such that cystitis is not excluded Colon: Partial colectomy. Uterus: Hysterectomy. Peritoneum: No fluid. Lumbar spine: Degenerative spondylotic changes most pronounced at L4-5 and L5- S1. IMPRESSION: 1. Right upper quadrant ileostomy without evidence of obstruction. 2. Mild right hydronephrosis without obstructing stone. This may be due to reflux. 3. Urinary bladder wall thickening suggesting cystitis. Assessment/Plan 1. Diabetic ketoacidosis- resolved; Levemir has been titrated.. On TPN. May be secondary to urinary tract infection. Completing Rocephin 05/06/16. 2. Staph epidermidis bacteremia - 2 blood cultures positive. Cont. vancomycin for now. Blood cultures repeated, and 1 bottle positive for staph epi. IV fluids. No leukocytosis. TTE with no vegetations. Repeat cx negative. will hold off on removing line as it does not appear to be infected. The positive cultures were from peripheral draws. 3. Anemia - chronically trending down. Occult blood negative. Transfused 1 unit. Hb stable 4. AQUILES - resolved. likely secondary to volume depletion from high output ostomy. Creatinine improved. On IV fluids. 5. 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 6. Severe protein calorie malnutrition- on TPN 9 PM to 9 AM. 7. Depression- continue home meds 8. Diabetic neuropathy- continue Neurontin 9. Hypokalemia- potassium has been added to TPN 10. Chronic lower back pain with a stage II pressure ulcer on coccyx on admission- on Lidoderm patch, Percocet, Flexeril when necessary. Given radiculopathy, MRI Lumbar spine ordered. Increase toradol to 30mg q6h prn. DVT prophy: Heparin Subcutaneous VS,Fishbone, I+O VS, Fishbone, I+O Laboratory Tests 05/06/16 05:20 Calcium Level 8.0 L, Red Blood Count 3.03 L, Mean Corpuscular Volume 87.0, Mean Corpuscular Hemoglobin 27.9, Mean Corpuscular Hemoglobin Concent 32.0, Red Cell Distribution Width 14.9 H Vital Signs Date Time Temp Pulse Resp B/P Pulse Ox O2 Delivery O2 Flow Rate FiO2 05/06/16 10:45 98.6 88 16 126/66 99 Room Air 05/03/16 14:47 3.0 I&O- Last 24 Hours up to 6 AM 05/06/16 06:00 Intake Total 7388 ml Output Total 8975 ml Balance -1587 ml VONNIE MCMAHAN MD May 06, 2016 14:00
--- NOTE | 2016-05-06 15:17 | REP ---
BILATERAL HIPS AND AP PELVIS: AP PELVIS: Comparison: 11/02/2015. There is a left hip hemiarthroplasty. This is unchanged. There is internal fixation of the right hip with a gamma nail stabilizing the intertochanteric fracture on the prior study. The fracture is maintained in satisfactory position and alignment. The visualized portion of the gamma nail is unremarkable. No acute pelvic fractures are identified. There is degenerative disc disease in the visualized inferior lumbar spine. RIGHT HIP, TWO VIEWS: Comparison: 11/02/2015. There is internal fixation of an intertrochanteric fracture with a gamma nail and compression plate. The fracture and gamma nail are in satisfactory positions and alignment on the views provided. The visualized portion of the compression plate is in satisfactory position and alignment, however, the distal portion of the compression plate is excluded at the film margin. LEFT HIP, TWO VIEWS: Comparison is 09/07/2005. There is hemiarthroplasty with the hardware in satisfactory position and alignment in both views, unchanged. There is no acute fracture or dislocation. Unreviewed
--- NOTE | 2016-05-06 16:12 | REP ---
Limited MRI study of the lumbar spine without contrast: History: Radiculopathy and back pain. Comparison study: 09/02/2014. Technique: The study was severely limited because the patient was unable to continue after the initial T2-weighted sagittal sequence. Exam was terminated at her request due to severe hip and leg and back pain. Interestingly, the prior comparison study from 09/02/2014 followed precisely this in course which consisted only of the T2-weighted sagittal sequence. Findings: T2-weighted sagittal images demonstrate degenerative disc narrowing at this L3-4, L4-5, and L5-S1 with disc space bulging diffusely at each of these levels. This indents the ventral margin of the thecal sac. There is no evidence of spinal stenosis however. The thecal sac is fairly capacious. Conus medullaris terminates at L1-L2 and is unremarkable. There is mild right-sided neural foraminal narrowing L4-5 and L5-S1 unchanged. No new finding. Signed by Royce Tijerina MD 05/06/2016 05:18 P
[2016-05-06] MEDS ORDERED: [UNRECOGNIZED DRUG - MIXTURE] IV SCH ×5 (21:00)
[2016-05-06] MEDS ORDERED: FAT EMULSION IV 20% 500 ML IV SCH (21:00)
[2016-05-06] MEDS: **NOTE PATIENT COMMENT** MISC XX SCH (21:00)
[2016-05-06] MEDS: traZODone 100 MG TAB PO SCH (21:26)
[2016-05-06] MEDS: PRAVASTATIN 20 MG TAB PO SCH (21:26)
[2016-05-06 22:00] VITALS: BP 122/62
[2016-05-07] MEDS: KETOROLAC 30 MG/ML VIAL (J1885) IV PRN ×4 (00:33→21:26)
[2016-05-07] MEDS: HEPARIN SOD (PORCINE) 5000 UNITS/ML VIAL SC SCH ×2 (05:24→14:12)
[2016-05-07] MEDS: HumaLOG INSULIN (NovoLOG) PER UNIT SC SCH ×4 (05:24→18:23)
[2016-05-07] MEDS: PERCOCET 5MG/325MG TAB PO PRN ×4 (05:26→17:01)
[2016-05-07 05:50] LABS: MEAN CORPUSCULAR HEMOGLOBIN 27.5 pg (27.0-33.0); MEAN CORPUSCULAR HGB CONC 31.7 g/dl (32.0-36.5); MEAN CORPUSCULAR VOLUME 86.9 fl (80.0-96.0); WHITE BLOOD COUNT 8.7 K/mm3 (4.0-10.0)
[2016-05-07 06:00] VITALS: BP 139/67
[2016-05-07 06:06] LABS: ANION GAP 10 MEQ/L (8-16); BLOOD UREA NITROGEN 22 MG/DL (7-18); CARBON DIOXIDE LEVEL 29 MEQ/L (21-32); CHLORIDE LEVEL 101 MEQ/L (98-107); CREATININE FOR GFR 0.88 MG/DL (0.55-1.02); GLOMERULAR FILTRATION RATE > 60.0 (>51); GLUCOSE, FASTING 273 MG/DL (70-105); POTASSIUM SERUM 4.4 MEQ/L (3.5-5.1); SODIUM LEVEL 140 MEQ/L (136-145)
[2016-05-07] MEDS: GABAPENTIN 300 MG CAP PO SCH ×3 (08:50→21:25)
[2016-05-07] MEDS: MULTIVITAMINS/MINERALS THERAP 1 TAB PO SCH (08:50)
[2016-05-07] MEDS: rOPINIRole 1MG TAB PO SCH ×2 (08:50→21:25)
[2016-05-07] MEDS: buPROPion 100 MG TAB PO SCH ×2 (08:50→21:25)
[2016-05-07] MEDS: LOMOTIL 2.5MG/0.025MG TABLET PO SCH ×4 (08:50→21:25)
[2016-05-07] MEDS: FERROUS SULFATE 325MG TAB PO SCH ×3 (08:50→21:25)
[2016-05-07] MEDS: PANTOPRAZOLE 40MG TAB (PROTONIX) PO SCH ×2 (08:50→21:29)
[2016-05-07] MEDS: FLUCONAZOLE 50MG TABLET PO SCH (08:50)
[2016-05-07] MEDS: ASPIRIN 81 MG ENTERIC TAB PO SCH (08:50)
[2016-05-07] MEDS: CitaloPRAM (CeleXA) 20 MG TAB PO SCH (08:51)
[2016-05-07] MEDS: VITAMIN D 1,000 INTERNATIONAL UNITS TABLET PO SCH (08:51)
[2016-05-07] MEDS: MAGNESIUM OXIDE 400 MG TAB (MAG-OX) PO SCH ×2 (08:51→21:25)
[2016-05-07] MEDS: carBAMazepine 200 MG TAB PO SCH ×2 (08:52→21:25)
[2016-05-07] MEDS: SLF 3 ML SYR IV SCH (08:53)
[2016-05-07] MEDS: LEVEMIR (INSULIN DETEMIR) 1 UNITS/0.01ML SC SCH ×2 (08:53→21:25)
[2016-05-07] MEDS: FLUTICASONE PROP 0.05% NASAL SPRAY 16 GM (FLONASE) SCH (08:54)
[2016-05-07 08:57] VITALS: BP 139/67
[2016-05-07] MEDS: CYCLOBENZAPRINE 10 MG TAB PO PRN (11:08)
[2016-05-07] MEDS: VANCOMYCIN HCL 1,000 MG, VIAL MATE ADAPTER 1 EACH in D5W 250 ML IV SCH (12:52)
[2016-05-07] MEDS ORDERED: MAG SULF 1GM/100ML (MAG RUN) 1 GM in APPROPRIATE DILUENT 1 EA IV ONE (13:00)
--- NOTE | 2016-05-07 13:38 | IPNPDOC ---
Text Note Date of Service The patient was seen on 05/07/16 at 13:28. NOTE Subjective: Patient states she feels well. C/o pelvic/LBP with radiculopathy down RLE. States she will try to get out of bed and walk around. Objective: Vitals: (see below) General: No acute distress, laying comfortably in bed. HEENT: Moist mucous membranes. Neck: No JVD or lymphadenopathy Cardiac: RRR, No murmurs Pulm: Clear to auscultation b/l. No wheezing, rhonchi. Right Vitael catheter. No area of bleeding or cellulitis. No tenderness. Abd: NT/ND + BS. Ostomy noted. Ext: No edema or cyanosis. LE with preserved strength 5/5 in BLE. Distal pulses intact. Labs (see below) Images: 04/24/16 CT ABDOMEN WITHOUT CONTRAST: Lung bases: No lung base infiltrate or effusion. Liver: No intrahepatic ductal dilation. Gallbladder: Cholecystectomy. Pancreas: No pancreatic duct dilation. Calcifications of chronic pancreatitis. Bowel loops: Right upper quadrant ileostomy. Diastasis of the anterior abdominal wall. Spleen: Normal size. Adrenals: Normal size. Right kidney: Mild hydronephrosis and hydroureter without obstructing stone. Left kidney: No stones or hydronephrosis. Calcifications adjacent to the left ureter are within the left gonadal vein. Aorta: Normal caliber. Peritoneum: No free air. CT PELVIS WITHOUT CONTRAST: Hips: Interval left hip arthroplasty and right femoral ORIF produce beam hardening artifact in the lower pelvis, limiting evaluation of the pelvic structures. Bladder: Normally distended. The wall is mildly thickened such that cystitis is not excluded Colon: Partial colectomy. Uterus: Hysterectomy. Peritoneum: No fluid. Lumbar spine: Degenerative spondylotic changes most pronounced at L4-5 and L5- S1. IMPRESSION: 1. Right upper quadrant ileostomy without evidence of obstruction. 2. Mild right hydronephrosis without obstructing stone. This may be due to reflux. 3. Urinary bladder wall thickening suggesting cystitis. MRI Lumbar spine 05/06/16 Findings: T2-weighted sagittal images demonstrate degenerative disc narrowing at this L3-4, L4-5, and L5-S1 with disc space bulging diffusely at each of these levels. This indents the ventral margin of the thecal sac. There is no evidence of spinal stenosis however. The thecal sac is fairly capacious. Conus medullaris terminates at L1-L2 and is unremarkable. There is mild right-sided neural foraminal narrowing L4-5 and L5-S1 unchanged. No new finding. Assessment/Plan 1. Diabetic ketoacidosis- resolved; Levemir has been titrated.. On TPN. May be secondary to urinary tract infection. Completing Rocephin 05/06/16. 2. Staph epidermidis bacteremia - 2 blood cultures positive. Cont. vancomycin for now. Blood cultures repeated, and 1 bottle positive for staph epi. IV fluids. No leukocytosis. TTE with no vegetations. Repeat cx negative. will hold off on removing line as it does not appear to be infected. The positive cultures were from peripheral draws. Spiked low grade fever today, and repeat bld cx drawn. 3. Anemia - chronically trending down. Occult blood negative. Transfused 1 unit. Hb stable 4. AQUILES - resolved. likely secondary to volume depletion from high output ostomy. Creatinine improved. On IV fluids. 5. 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 6. Severe protein calorie malnutrition- on TPN 9 PM to 9 AM. 7. Depression- continue home meds 8. Diabetic neuropathy- continue Neurontin 9. Hypokalemia- potassium has been added to TPN 10. Chronic lower back pain with a stage II pressure ulcer on coccyx on admission- on Lidoderm patch, Percocet, Flexeril when necessary.MRI Lumbar spine (see above). Cont toradol, lidocaine patch, OOB, PT. Percocet. DVT prophy: Heparin Subcutaneous VS,Fishbone, I+O VS, Fishbone, I+O Laboratory Tests 05/07/16 05:34 Calcium Level 8.0 L, Red Blood Count 3.15 L, Mean Corpuscular Volume 86.9, Mean Corpuscular Hemoglobin 27.5, Mean Corpuscular Hemoglobin Concent 31.7 L, Red Cell Distribution Width 15.0 H Vital Signs Date Time Temp Pulse Resp B/P Pulse Ox O2 Delivery O2 Flow Rate FiO2 05/07/16 12:53 18 Room Air 05/07/16 08:57 100.6 96 139/67 96 3.0 I&O- Last 24 Hours up to 6 AM 05/07/16 06:00 Intake Total 2040 ml Output Total 6050 ml Balance -4010 ml VONNIE MCMAHAN MD May 07, 2016 13:38
[2016-05-07 14:00] VITALS: BP 122/66
--- NOTE | 2016-05-07 15:18 | PHACANCOPD ---
PHARMACY VANCOMYCIN DOSING Pt Demographics Demographics Patient Age:50 , Weight:61.000 , Gender: female Adjusted Body Weight Date: 05/01/16, Adjusted Body Weight: [57.5]ACTUAL WT Kg Events Past 24 Hours Events Past 24 Hours: YES: Fever, NO: Change in CrCl, Dialysis, Diuretic Therapy, Elevation in WBC, Other, Pending Diagnostics, Pending Procedures Vancomycin Vancomycin indication: staph epidermidis bacteremia Vancomycin Target Ranges: 15-20 mcg/ml Vancomycin Load Y/N: Yes Load Dose Date Time Vancomycin Load Dose: 1000MG Date: 05/01 Time: 12:00 noon Vancomycin Dose Date: 05/07/16. Current Vancomycin Dose: [1g IV q18h @06] Date: 05/05/16. Current Vancomycin Dose: [1 GRAM IV Q24H@12] Date: 05/03/16. Current Vancomycin Dose: [750MG IV Q12H] Date: 05/01/16. Current Vancomycin Dose: [750mg IV q12h @18] Intermittent Dosing?: No Labs Labs Item Value Date Time White Blood Count 7.5 K/mm3 05/05/16 0924 White Blood Count 9.6 K/mm3 05/06/16 0520 White Blood Count 8.7 K/mm3 05/07/16 0534 Creatinine 0.78 MG/DL 05/05/16 0924 Creatinine 1.02 MG/DL 05/06/16 0520 Creatinine 0.88 MG/DL 05/07/16 0534 Vancomycin Level Trough 13.0 UG/ML 05/07/16 1100 Vital Signs Label Value Date Time Patient Temperature 100.6 degrees F 05/07/16 0857 Temperature Source Tympanic 05/07/16 0857 Patient Temperature 98.4 degrees F 05/07/16 1400 Temperature Source Tympanic 05/07/16 1400 Patient Temperature 100.6 degrees F 05/07/16 0600 Temperature Source Tympanic 05/07/16 0600 Patient Temperature 97.5 degrees F 05/06/16 2200 Temperature Source Tympanic 05/06/16 2200 Micro Microbiology 05/07/16 Blood Culture, Received Pending 05/07/16 Blood Culture, Received Pending 05/03/16 Blood Culture - Preliminary, Resulted No Growth after 72 hours. All specime... 05/03/16 Blood Culture - Preliminary, Resulted No Growth after 72 hours. All specime... 05/01/16 Blood Culture - Final, Complete Staphylococcus Epidermidis 05/01/16 Blood Culture - Final, Complete NO GROWTH AFTER 5 DAYS 05/04/16 Stool Occult Blood (KORTNEY) - Final, Complete 05/03/16 Urine Culture - Final, Complete Creatinine Clearance Date:05/07/16. Creatinine Clearance: [84 ml/min]. Date:05/01/16. Creatinine Clearance: [66 ml/min]. Assessment and Plan Maintaining Current Dose?: No Reason for dose change: Trough too low Pharmacist Note Pharmacist Note Date: 05/07/16. Pharmacist note: vanco trough was drawn on time 1 hour before the dose and came back at 13. Last positive blood culture was on 05/01 (1/) for Staph epi, same sensitivities. Viatle catheter was not removed as the pt does not want it removed unless absolutely necessary. Blood cultures on 05/03 are negative (2/2), repeat cultures today are pending. I have increased her dosing to 1g IV q18h (~1250mg/day) to yield a higher trough level. We will continue to monitor. Date: 05/05/16. Pharmacist note:TROUGH DRAWN THIS AM@0452=REPORTED 22.3:WILL ADJUST current Vancomycin dose (d/t accumulation) to 1 GM IV Q234H@12noon :scr= 0.92:calculated CRCL=63.5: will continue to monitor Date: 05/03/16. Pharmacist note:Patients trough was therapeutic. Continue current dosing and repeat trough in 2 days. Continue to monitor renal function and adjust dose as needed. Date: 05/01/16. Pharmacist note: pt has 2 positive blood cultures for Staph epi (drawn 04/24-) with KORTNEY = 1. Repeat blood cultures are pending. She is still on Rocephin 1g IV q24h (started 04/24). MRSA screen is negative. She was last on vancomycin at our facility in September 2014, I have resumed similar dosing. I have a trough scheduled before the 5th dose. Her SCr fluctuates, we will continue to monitor. Kapli Davis Pharm.D. May 07, 2016 15:18
[2016-05-07] MEDS ORDERED: [UNRECOGNIZED DRUG - OTHER] IV SCH (21:00)
[2016-05-07] MEDS ORDERED: POTASSIUM CHLORIDE IV SCH (21:00)
[2016-05-07] MEDS ORDERED: INSULIN HUMAN REGULAR IV SCH (21:00)
[2016-05-07] MEDS ORDERED: FAT EMULSION IV 20% 500 ML IV SCH (21:00)
[2016-05-07] MEDS: **NOTE PATIENT COMMENT** MISC XX SCH (21:00)
[2016-05-07] MEDS: PRAVASTATIN 20 MG TAB PO SCH (21:25)
[2016-05-07] MEDS: traZODone 100 MG TAB PO SCH (21:25)
[2016-05-07 22:00] VITALS: BP 104/57
[2016-05-08] MEDS: HumaLOG INSULIN (NovoLOG) PER UNIT SC SCH ×7 (00:15→18:17)
[2016-05-08] MEDS: KETOROLAC 30 MG/ML VIAL (J1885) IV PRN ×3 (03:37→21:42)
[2016-05-08] MEDS: VANCOMYCIN HCL 1,000 MG, VIAL MATE ADAPTER 1 EACH in D5W 250 ML IV SCH (05:25)
[2016-05-08] MEDS: PERCOCET 5MG/325MG TAB PO PRN ×3 (05:56→18:18)
[2016-05-08 06:00] VITALS: BP 116/60
[2016-05-08 06:16] LABS: ANION GAP 9 MEQ/L (8-16); BLOOD UREA NITROGEN 23 MG/DL (7-18); CALCIUM LEVEL 8.1 MG/DL (8.5-10.1); CARBON DIOXIDE LEVEL 32 MEQ/L (21-32); CHLORIDE LEVEL 100 MEQ/L (98-107); CREATININE FOR GFR 0.82 MG/DL (0.55-1.02); GLOMERULAR FILTRATION RATE > 60.0 (>51); GLUCOSE, FASTING 54 MG/DL (70-105); MEAN CORPUSCULAR HEMOGLOBIN 27.9 pg (27.0-33.0); MEAN CORPUSCULAR HGB CONC 32.5 g/dl (32.0-36.5); MEAN CORPUSCULAR VOLUME 85.9 fl (80.0-96.0); POTASSIUM SERUM 4.6 MEQ/L (3.5-5.1); RED CELL DISTRIBUTION WIDTH 14.1 % (11.5-14.5); SODIUM LEVEL 141 MEQ/L (136-145); WHITE BLOOD COUNT 7.3 K/mm3 (4.0-10.0)
[2016-05-08] MEDS: VITAMIN D 1,000 INTERNATIONAL UNITS TABLET PO SCH (09:18)
[2016-05-08] MEDS: CitaloPRAM (CeleXA) 20 MG TAB PO SCH (09:18)
[2016-05-08] MEDS: FERROUS SULFATE 325MG TAB PO SCH ×3 (09:18→21:45)
[2016-05-08] MEDS: LOMOTIL 2.5MG/0.025MG TABLET PO SCH ×4 (09:18→21:45)
[2016-05-08] MEDS: buPROPion 100 MG TAB PO SCH ×2 (09:18→21:45)
[2016-05-08] MEDS: rOPINIRole 1MG TAB PO SCH ×2 (09:18→21:45)
[2016-05-08] MEDS: PANTOPRAZOLE 40MG TAB (PROTONIX) PO SCH ×2 (09:18→21:44)
[2016-05-08] MEDS: FLUCONAZOLE 50MG TABLET PO SCH (09:20)
[2016-05-08] MEDS: MAGNESIUM OXIDE 400 MG TAB (MAG-OX) PO SCH ×2 (09:20→21:45)
[2016-05-08] MEDS: ASPIRIN 81 MG ENTERIC TAB PO SCH (09:21)
[2016-05-08] MEDS: GABAPENTIN 300 MG CAP PO SCH ×3 (09:23→21:45)
[2016-05-08] MEDS: MULTIVITAMINS/MINERALS THERAP 1 TAB PO SCH (09:24)
[2016-05-08] MEDS: carBAMazepine 200 MG TAB PO SCH ×2 (09:24→21:45)
[2016-05-08] MEDS: FLUTICASONE PROP 0.05% NASAL SPRAY 16 GM (FLONASE) SCH (09:28)
[2016-05-08] MEDS: SLF 3 ML SYR IV SCH (09:29)
[2016-05-08] MEDS: LEVEMIR (INSULIN DETEMIR) 1 UNITS/0.01ML SC SCH ×2 (09:43→21:43)
[2016-05-08] MEDS: CYCLOBENZAPRINE 10 MG TAB PO PRN ×2 (09:43→16:32)
[2016-05-08] MEDS: LIDOCAINE 5% (LIDODERM) PATCH TOP PRN (09:43)
--- NOTE | 2016-05-08 13:58 | IPNPDOC ---
Text Note Date of Service The patient was seen on 05/08/16 at 13:57. NOTE Subjective: Patient states she feels well. States her pain is much improved, and she is ambulating. Objective: Vitals: (see below) General: No acute distress, laying comfortably in bed. HEENT: Moist mucous membranes. Neck: No JVD or lymphadenopathy Cardiac: RRR, No murmurs Pulm: Clear to auscultation b/l. No wheezing, rhonchi. Right Vitale catheter. No area of bleeding or cellulitis. No tenderness. Abd: NT/ND + BS. Ostomy noted. Ext: No edema or cyanosis. LE with preserved strength 5/5 in BLE. Distal pulses intact. Labs (see below) Images: 04/24/16 CT ABDOMEN WITHOUT CONTRAST: Lung bases: No lung base infiltrate or effusion. Liver: No intrahepatic ductal dilation. Gallbladder: Cholecystectomy. Pancreas: No pancreatic duct dilation. Calcifications of chronic pancreatitis. Bowel loops: Right upper quadrant ileostomy. Diastasis of the anterior abdominal wall. Spleen: Normal size. Adrenals: Normal size. Right kidney: Mild hydronephrosis and hydroureter without obstructing stone. Left kidney: No stones or hydronephrosis. Calcifications adjacent to the left ureter are within the left gonadal vein. Aorta: Normal caliber. Peritoneum: No free air. CT PELVIS WITHOUT CONTRAST: Hips: Interval left hip arthroplasty and right femoral ORIF produce beam hardening artifact in the lower pelvis, limiting evaluation of the pelvic structures. Bladder: Normally distended. The wall is mildly thickened such that cystitis is not excluded Colon: Partial colectomy. Uterus: Hysterectomy. Peritoneum: No fluid. Lumbar spine: Degenerative spondylotic changes most pronounced at L4-5 and L5- S1. IMPRESSION: 1. Right upper quadrant ileostomy without evidence of obstruction. 2. Mild right hydronephrosis without obstructing stone. This may be due to reflux. 3. Urinary bladder wall thickening suggesting cystitis. MRI Lumbar spine 05/06/16 Findings: T2-weighted sagittal images demonstrate degenerative disc narrowing at this L3-4, L4-5, and L5-S1 with disc space bulging diffusely at each of these levels. This indents the ventral margin of the thecal sac. There is no evidence of spinal stenosis however. The thecal sac is fairly capacious. Conus medullaris terminates at L1-L2 and is unremarkable. There is mild right-sided neural foraminal narrowing L4-5 and L5-S1 unchanged. No new finding. Assessment/Plan 1. Diabetic ketoacidosis- resolved; Levemir has been titrated.. On TPN. May be secondary to urinary tract infection. Completing Rocephin 05/06/16. 2. Staph epidermidis bacteremia - 2 blood cultures positive. Cont. vancomycin for now. Blood cultures repeated, and 1 bottle positive for staph epi. IV fluids. No leukocytosis. TTE with no vegetations. Repeat cx negative. will hold off on removing line as it does not appear to be infected. The positive cultures were from peripheral draws. Spiked low grade fever today, and repeat bld cx drawn. Will need ID consult when available. 3. Anemia - chronically trending down. Occult blood negative. Transfused 1 unit. Hb stable 4. AQUILES - resolved. likely secondary to volume depletion from high output ostomy. Creatinine improved. On IV fluids. 5. 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 6. Severe protein calorie malnutrition- on TPN 9 PM to 9 AM. 7. Depression- continue home meds 8. Diabetic neuropathy- continue Neurontin 9. Hypokalemia- potassium has been added to TPN 10. Chronic lower back pain with a stage II pressure ulcer on coccyx on admission- on Lidoderm patch, Percocet, Flexeril when necessary.MRI Lumbar spine (see above). Cont toradol, lidocaine patch, OOB, PT. Percocet. DVT prophy: Heparin Subcutaneous VS,Fishbone, I+O VS, Fishbone, I+O Laboratory Tests 05/08/16 05:31 Calcium Level 8.1 L, Red Blood Count 3.00 L, Mean Corpuscular Volume 85.9, Mean Corpuscular Hemoglobin 27.9, Mean Corpuscular Hemoglobin Concent 32.5, Red Cell Distribution Width 14.1 Vital Signs Date Time Temp Pulse Resp B/P Pulse Ox O2 Delivery O2 Flow Rate FiO2 05/08/16 06:46 18 05/08/16 06:00 98.0 87 116/60 96 Room Air 05/07/16 08:57 3.0 I&O- Last 24 Hours up to 6 AM 05/08/16 06:00 Intake Total 4020 ml Output Total 5920 ml Balance -1900 ml VONNIE MCMAHAN MD May 08, 2016 13:58
[2016-05-08 14:00] VITALS: BP 144/75
[2016-05-08] MEDS: HEPARIN SOD (PORCINE) 5000 UNITS/ML VIAL SQ SCH ×2 (14:06→21:44)
[2016-05-08] MEDS: **NOTE PATIENT COMMENT** MISC XX SCH (21:00)
[2016-05-08] MEDS ORDERED: INSULIN HUMAN REGULAR IV ONE (21:00)
[2016-05-08] MEDS ORDERED: FAT EMULSION IV 20% 500 ML IV ONE (21:00)
[2016-05-08] MEDS ORDERED: POTASSIUM CHLORIDE IV ONE (21:00)
[2016-05-08] MEDS ORDERED: [UNRECOGNIZED DRUG - OTHER] IV ONE (21:00)
[2016-05-08] MEDS: traZODone 100 MG TAB PO SCH (21:45)
[2016-05-08] MEDS: PRAVASTATIN 20 MG TAB PO SCH (21:45)
[2016-05-08 22:00] VITALS: BP 101/54
[2016-05-09] MEDS: HumaLOG INSULIN (NovoLOG) PER UNIT SC SCH ×4 (00:40→17:43)
[2016-05-09] MEDS: PERCOCET 5MG/325MG TAB PO PRN ×5 (00:41→22:29)
[2016-05-09] MEDS: VANCOMYCIN HCL 1,000 MG, VIAL MATE ADAPTER 1 EACH in D5W 250 ML IV SCH ×2 (00:41→18:17)
[2016-05-09] MEDS: HEPARIN SOD (PORCINE) 5000 UNITS/ML VIAL SQ SCH ×3 (05:49→22:26)
[2016-05-09 06:00] VITALS: BP 106/55
[2016-05-09 06:09] LABS: MEAN CORPUSCULAR HGB CONC 31.6 g/dl (32.0-36.5); MEAN CORPUSCULAR VOLUME 88.8 fl (80.0-96.0); RED CELL DISTRIBUTION WIDTH 14.2 % (11.5-14.5); WHITE BLOOD COUNT 5.4 K/mm3 (4.0-10.0)
[2016-05-09 06:25] LABS: ANION GAP 7 MEQ/L (8-16); BLOOD UREA NITROGEN 26 MG/DL (7-18); CALCIUM LEVEL 8.1 MG/DL (8.5-10.1); CARBON DIOXIDE LEVEL 31 MEQ/L (21-32); CHLORIDE LEVEL 101 MEQ/L (98-107); CREATININE FOR GFR 0.99 MG/DL (0.55-1.02); GLOMERULAR FILTRATION RATE > 60.0 (>51); GLUCOSE, FASTING 303 MG/DL (70-105); POTASSIUM SERUM 4.3 MEQ/L (3.5-5.1); SODIUM LEVEL 139 MEQ/L (136-145)
[2016-05-09] MEDS: KETOROLAC 30 MG/ML VIAL (J1885) IV PRN ×3 (06:51→19:49)
[2016-05-09] MEDS ORDERED: SODIUM CHLORIDE 0.9% 1000 ML IV ONE (08:15)
[2016-05-09] MEDS: LOMOTIL 2.5MG/0.025MG TABLET PO SCH ×4 (09:41→22:27)
[2016-05-09] MEDS: MAGNESIUM OXIDE 400 MG TAB (MAG-OX) PO SCH ×2 (09:41→22:27)
[2016-05-09] MEDS: FLUCONAZOLE 50MG TABLET PO SCH (09:41)
[2016-05-09] MEDS: LEVEMIR (INSULIN DETEMIR) 1 UNITS/0.01ML SC SCH ×2 (09:41→22:26)
[2016-05-09] MEDS: PANTOPRAZOLE 40MG TAB (PROTONIX) PO SCH ×2 (09:41→22:28)
[2016-05-09] MEDS: buPROPion 100 MG TAB PO SCH ×2 (09:41→22:27)
[2016-05-09] MEDS: rOPINIRole 1MG TAB PO SCH ×2 (09:41→22:27)
[2016-05-09] MEDS: FERROUS SULFATE 325MG TAB PO SCH ×3 (09:41→22:27)
[2016-05-09] MEDS: VITAMIN D 1,000 INTERNATIONAL UNITS TABLET PO SCH (09:42)
[2016-05-09] MEDS: carBAMazepine 200 MG TAB PO SCH ×2 (09:42→22:27)
[2016-05-09] MEDS: CitaloPRAM (CeleXA) 20 MG TAB PO SCH (09:42)
[2016-05-09] MEDS: SLF 3 ML SYR IV SCH (09:42)
[2016-05-09] MEDS: GABAPENTIN 300 MG CAP PO SCH ×3 (09:42→22:28)
[2016-05-09] MEDS: MULTIVITAMINS/MINERALS THERAP 1 TAB PO SCH (09:42)
[2016-05-09] MEDS: ASPIRIN 81 MG ENTERIC TAB PO SCH (09:42)
[2016-05-09] MEDS: FLUTICASONE PROP 0.05% NASAL SPRAY 16 GM (FLONASE) SCH (09:43)
[2016-05-09 14:00] VITALS: BP 131/58
--- NOTE | 2016-05-09 14:17 | IPNPDOC ---
Text Note Date of Service The patient was seen on 05/09/16 at 14:16. NOTE Subjective: Denies any complaints. States she has walked around the room yesterday. Objective: Vitals: (see below) General: No acute distress, laying comfortably in bed. HEENT: Moist mucous membranes. Neck: No JVD or lymphadenopathy Cardiac: RRR, No murmurs Pulm: Clear to auscultation b/l. No wheezing, rhonchi. Right Vitale catheter. No area of bleeding or cellulitis. No tenderness. Abd: NT/ND + BS. Ostomy noted. Ext: No edema or cyanosis. LE with preserved strength 5/5 in BLE. Distal pulses intact. Labs (see below) Images: 04/24/16 CT ABDOMEN WITHOUT CONTRAST: Lung bases: No lung base infiltrate or effusion. Liver: No intrahepatic ductal dilation. Gallbladder: Cholecystectomy. Pancreas: No pancreatic duct dilation. Calcifications of chronic pancreatitis. Bowel loops: Right upper quadrant ileostomy. Diastasis of the anterior abdominal wall. Spleen: Normal size. Adrenals: Normal size. Right kidney: Mild hydronephrosis and hydroureter without obstructing stone. Left kidney: No stones or hydronephrosis. Calcifications adjacent to the left ureter are within the left gonadal vein. Aorta: Normal caliber. Peritoneum: No free air. CT PELVIS WITHOUT CONTRAST: Hips: Interval left hip arthroplasty and right femoral ORIF produce beam hardening artifact in the lower pelvis, limiting evaluation of the pelvic structures. Bladder: Normally distended. The wall is mildly thickened such that cystitis is not excluded Colon: Partial colectomy. Uterus: Hysterectomy. Peritoneum: No fluid. Lumbar spine: Degenerative spondylotic changes most pronounced at L4-5 and L5- S1. IMPRESSION: 1. Right upper quadrant ileostomy without evidence of obstruction. 2. Mild right hydronephrosis without obstructing stone. This may be due to reflux. 3. Urinary bladder wall thickening suggesting cystitis. MRI Lumbar spine 05/06/16 Findings: T2-weighted sagittal images demonstrate degenerative disc narrowing at this L3-4, L4-5, and L5-S1 with disc space bulging diffusely at each of these levels. This indents the ventral margin of the thecal sac. There is no evidence of spinal stenosis however. The thecal sac is fairly capacious. Conus medullaris terminates at L1-L2 and is unremarkable. There is mild right-sided neural foraminal narrowing L4-5 and L5-S1 unchanged. No new finding. Assessment/Plan 1. Diabetic ketoacidosis- resolved; Levemir has been titrated.. On TPN. May be secondary to urinary tract infection. Completing Rocephin 05/06/16. 2. Staph epidermidis bacteremia - 2 blood cultures positive. Cont. vancomycin for now. Blood cultures repeated, and 1 bottle positive for staph epi. IV fluids. No leukocytosis. TTE with no vegetations. Repeat cx negative. will hold off on removing line as it does not appear to be infected. The positive cultures were from peripheral draws. Will need ID consult when available. 3. Anemia - chronically trending down. Occult blood negative. Transfused 1 unit. Hb stable 4. AQUILES - resolved. likely secondary to volume depletion from high output ostomy. Creatinine improved. On IV fluids. 5. 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 6. Severe protein calorie malnutrition- on TPN 9 PM to 9 AM. 7. Depression- continue home meds 8. Diabetic neuropathy- continue Neurontin 9. Hypokalemia- potassium has been added to TPN 10. Chronic lower back pain with a stage II pressure ulcer on coccyx on admission- on Lidoderm patch, Percocet, Flexeril when necessary.MRI Lumbar spine (see above). Cont toradol, lidocaine patch, OOB, PT. Percocet. DVT prophy: Heparin Subcutaneous Case management noting that it would be very difficult to find surfaces were the patient would have antibiotics at home. This is due to the fact that the patient also receives TPN as well as normal saline daily. VS,Fishbone, I+O VS, Fishbone, I+O Laboratory Tests 05/09/16 05:58 Calcium Level 8.1 L, Red Blood Count 2.89 L, Mean Corpuscular Volume 88.8, Mean Corpuscular Hemoglobin 28.0, Mean Corpuscular Hemoglobin Concent 31.6 L, Red Cell Distribution Width 14.2 Vital Signs Date Time Temp Pulse Resp B/P Pulse Ox O2 Delivery O2 Flow Rate FiO2 05/09/16 11:14 16 05/09/16 06:00 97.2 87 106/55 94 Room Air 05/07/16 08:57 3.0 I&O- Last 24 Hours up to 6 AM 05/09/16 06:00 Intake Total 2672 ml Output Total 5350 ml Balance -2678 ml VONNIE MCMAHAN MD May 09, 2016 14:17
[2016-05-09] MEDS ORDERED: FAT EMULSION IV 20% 500 ML IV SCH (21:00)
[2016-05-09] MEDS: **NOTE PATIENT COMMENT** MISC XX SCH (21:00)
[2016-05-09] MEDS ORDERED: [UNRECOGNIZED DRUG - MIXTURE] IV SCH ×5 (21:00)
[2016-05-09 22:00] VITALS: BP 137/67
[2016-05-09] MEDS: PRAVASTATIN 20 MG TAB PO SCH (22:27)
[2016-05-09] MEDS: traZODone 100 MG TAB PO SCH (22:27)
[2016-05-09] MEDS: CYCLOBENZAPRINE 10 MG TAB PO PRN (23:55)
[2016-05-10] MEDS: KETOROLAC 30 MG/ML VIAL (J1885) IV PRN ×3 (01:52→17:34)
[2016-05-10] MEDS: HEPARIN SOD (PORCINE) 5000 UNITS/ML VIAL SQ SCH ×3 (06:11→21:47)
[2016-05-10 06:37] LABS: MEAN CORPUSCULAR HEMOGLOBIN 27.9 pg (27.0-33.0); MEAN CORPUSCULAR HGB CONC 31.6 g/dl (32.0-36.5); MEAN CORPUSCULAR VOLUME 88.2 fl (80.0-96.0); RED CELL DISTRIBUTION WIDTH 14.2 % (11.5-14.5); WHITE BLOOD COUNT 5.7 K/mm3 (4.0-10.0)
[2016-05-10 06:40] LABS: ANION GAP 7 MEQ/L (8-16); BLOOD UREA NITROGEN 22 MG/DL (7-18); CALCIUM LEVEL 8.3 MG/DL (8.5-10.1); CARBON DIOXIDE LEVEL 30 MEQ/L (21-32); CHLORIDE LEVEL 102 MEQ/L (98-107); CREATININE FOR GFR 0.96 MG/DL (0.55-1.02); GLOMERULAR FILTRATION RATE > 60.0 (>51); GLUCOSE, FASTING 168 MG/DL (70-105); POTASSIUM SERUM 4.5 MEQ/L (3.5-5.1); SODIUM LEVEL 139 MEQ/L (136-145)
[2016-05-10] MEDS: PERCOCET 5MG/325MG TAB PO PRN ×4 (06:52→22:50)
[2016-05-10] MEDS: HumaLOG INSULIN (NovoLOG) PER UNIT SC SCH ×4 (06:52→17:34)
[2016-05-10 09:05] VITALS: BP 134/70
[2016-05-10] MEDS: SLF 3 ML SYR IV SCH (09:58)
[2016-05-10] MEDS: CYCLOBENZAPRINE 10 MG TAB PO PRN ×2 (10:06→21:45)
[2016-05-10] MEDS: LIDOCAINE 5% (LIDODERM) PATCH TOP PRN (10:07)
[2016-05-10] MEDS: CitaloPRAM (CeleXA) 20 MG TAB PO SCH (10:24)
[2016-05-10] MEDS: FLUCONAZOLE 50MG TABLET PO SCH (10:25)
[2016-05-10] MEDS: LOMOTIL 2.5MG/0.025MG TABLET PO SCH ×4 (10:25→21:45)
[2016-05-10] MEDS: ASPIRIN 81 MG ENTERIC TAB PO SCH (10:26)
[2016-05-10] MEDS: GABAPENTIN 300 MG CAP PO SCH ×3 (10:26→21:46)
[2016-05-10] MEDS: PANTOPRAZOLE 40MG TAB (PROTONIX) PO SCH ×2 (10:26→21:46)
[2016-05-10] MEDS: rOPINIRole 1MG TAB PO SCH ×2 (10:26→21:45)
[2016-05-10] MEDS: MULTIVITAMINS/MINERALS THERAP 1 TAB PO SCH (10:26)
[2016-05-10] MEDS: carBAMazepine 200 MG TAB PO SCH ×2 (10:26→21:45)
[2016-05-10] MEDS: buPROPion 100 MG TAB PO SCH ×2 (10:26→21:45)
[2016-05-10] MEDS: FERROUS SULFATE 325MG TAB PO SCH ×3 (10:26→21:45)
[2016-05-10] MEDS: VITAMIN D 1,000 INTERNATIONAL UNITS TABLET PO SCH (10:26)
[2016-05-10] MEDS: MAGNESIUM OXIDE 400 MG TAB (MAG-OX) PO SCH ×2 (10:27→21:46)
[2016-05-10] MEDS: FLUTICASONE PROP 0.05% NASAL SPRAY 16 GM (FLONASE) SCH (10:28)
[2016-05-10] MEDS: LEVEMIR (INSULIN DETEMIR) 1 UNITS/0.01ML SC SCH ×2 (10:32→21:47)
--- NOTE | 2016-05-10 12:41 | IPNPDOC ---
Text Note Date of Service The patient was seen on 05/10/16 at 12:14. NOTE Subjective: Patient is a 50 year old female with a PMHx of pancreatic cyst rupture causing ischemic gut - s/p partial colectomy and jejunostomy, DLP, DM2, CKD3, hx of CVA, RLS, Depression, CALVIN, Chronic sacral pressure ulcer, . Patient was recently admitted from 04/05 - 04/10 for dehydration 2/2 high output ostomy. Had outpatient arrangements for NS infusion and TPN. When patient was home she had complaints of suprapubic tenderness. Also noted that she had uncontrolled blood sugars. Upon arrival to ER patient was found to have a UTI and HHNK state. Blood cultures were subsequently positive for MSSA. Patient was seen and examined at the bedside. Clinically she has no new complaints. Objective: Vitals (see below) General: Lying in bed, no acute distress, AAOx3 HEENT: NC, AT CVS: RRR, +S1S2 Lungs: Fair air entry b/l, -w/r/r Abdomen: Soft, ND, NT, +BSx4 Extremities: +PPx4, -edema, -calf tenderness Assessment and plan: 1. s/p HHNK - 2/2 poorly controlled DM2 and infection - Levemir has been titrated - will continue to follow glucose and adjust insulin as needed 2. Sepsis - 2/2 staph epidermidis bacteremia - (2/2 unclear etiology - possibly 2/2 abdominal skin infection) and urinary tract infection - Blood cultures 04/24 positive for Strep epidermidis - Urine cultures 04/25 negative - Repeat blood cultures on 05/03 and 05/07 negative - TTE 05/03: no vegetations noted - Patient has a Right side Vitale catheter present - not removed as cultures were negative - s/p Ceftriaxone (for 12 days) - c/w Vancomycin (Day #16) - Will consult ID (Dr. Hankins) today 3. Normocytic anemia - Hg from admission was 11; currently at 8 - Likely 2/2 dilution - s/p 1 unit PRBC - FOBT negative 05/04 - Will check iron panel and reticulocyte count 4. s/p AQUILES 5. History of pancreatic cyst rupture - causing ischemic cut; s/p partial colectomy with jejunostomy - supplements with 1 liter of NS daily and TPN nightly 6. Severe protein calorie malnutrition - c/w TPN nightly 7. Depression 8. Diabetic neuropathy 9. Chronic lower back pain - MRI shows degenerative disc narrowing, no spinal stenosis, mild right sided neural foraminal narrowing - c/w lidoderm patch, percocet, flexeril 10. Stage II Pressure ulcer at coccyx - present from admission 11. GI prophylaxis - c/w protonix 12. DVT prophylaxis - c/w heparin VS,Fishbone, I+O VS, Fishbone, I+O Laboratory Tests 05/10/16 06:02 Calcium Level 8.3 L, Red Blood Count 2.87 L, Mean Corpuscular Volume 88.2, Mean Corpuscular Hemoglobin 27.9, Mean Corpuscular Hemoglobin Concent 31.6 L, Red Cell Distribution Width 14.2 Vital Signs Date Time Temp Pulse Resp B/P Pulse Ox O2 Delivery O2 Flow Rate FiO2 05/10/16 09:05 97.2 93 24 134/70 92 Room Air 05/07/16 08:57 3.0 I&O- Last 24 Hours up to 6 AM 05/10/16 06:00 Intake Total 7070 ml Output Total 9150 ml Balance -2080 ml LIBRADO PALMER MD May 10, 2016 12:41
[2016-05-10] MEDS: VANCOMYCIN HCL 1,000 MG, VIAL MATE ADAPTER 1 EACH in D5W 250 ML IV SCH (12:59)
[2016-05-10 13:21] LABS: PERCENT SATURATION 15.6 % (13.2-37.4)
[2016-05-10 14:25] VITALS: BP 140/73
[2016-05-10 16:00] VITALS: BP 140/73
--- NOTE | 2016-05-10 18:25 | CR ---
DATE OF CONSULTATION: 05/10/2016 Asked to consult by hospitalist for evaluation of a port infection with staph epidermidis. HISTORY OF PRESENT ILLNESS; Ms. Lora is a 50-year-old female with a history of multiple chronic medical problems as well as noncompliance with a history of ischemic gut requiring colectomy. The patient usually requires normal saline 1 meter every day to prevent dehydration. According to the patient she did not receive her saline from [employer] infusion company because it was not renewed and she came to the hospital complaining of weakness, dehydration. The patient was also complaining of dysuria, suprapubic tenderness, weakness and fatigue. She had no fever or chills. The patient was treated for presumed urinary tract infection with IV Rocephin for 13 days. Her urinalysis had many white cells but urine culture was negative. She also had blood cultures that were done on admission, two sets were positive for staph epidermidis that was resistant to oxacillin another repeat culture was taken on 05/01 and that was positive for staph epidermidis. At that point vancomycin was started initially ay 750 mg every 12 hours then was switched to 1 gram IV every 18 hours. The patient had a temperature of 100.6 on the . Blood cultures from the and the have been negative since vancomycin was started. Currently she has no complaint except from back pain. The patient has had bilateral femur fractures and hip fracture from multiple falls this past 6 months. She has had multiple surgeries. PAST MEDICAL HISTORY: Dyslipidemia, diabetes, chronic kidney disease, CVA, restless leg syndrome, depression and iron deficiency anemia, high output ileostomy leading to protein calorie malnutrition, decubitus sacral pressure ulcer. PAST SURGICAL HISTORY: Multiple abdominal surgeries, jejunostomy, hysteroscopy, knee surgery, hip surgery, Vitale port placement, open reduction internal fixation of right hip fracture, cholecystectomy, appendectomy, left blepharoplasty, carpal tunnel surgery. SOCIAL HISTORY: She is a former smoker. She denies alcohol or illicit drug use. She lives with her who takes care of her, her [id number]-xox as well and currently public health as stating that they would not take her back home because she has been noncompliant and needs 24-hour care. REVIEW OF SYSTEMS: She denies any nausea, vomiting. She has chronic output ileostomy from her ileostomy. She has low back pain and right hip pain which has worsened in the past 2 days. No fever or chills. No cough or shortness of breath. No urinary symptoms currently. ALLERGIES: CLAVULANIC ACID, PENICILLIN, BACTRIM, PHENAZOPYRIDINE. MEDICATIONS: - insulin 51 units IV - TPN fatty emulsion -vancomycin 1 gram IV every 18 hours - Percocet 2 tablets every fours hours as needed - Toradol 30 mg IV every 6 hours as needed - Flexeril 10 mg by mouth every 6 hours as needed - Humalog sliding - aspirin 81 mg by mouth daily - bupropion 100 mg by mouth twice a day - vitamin D 1000 units by mouth daily - citalopram 40 mg daily - Lomotil 1 tablet by mouth four times a day - ferrous sulfate 325 three times a day - fluticasone 2 sprays inhaled daily - fluconazole 150 mg by mouth daily - multivitamin 1 tablet by mouth daily - fluconazole was started on 04/25 - gabapentin 300 mg by mouth three times a day - Mag oxide 800 mg by mouth twice a day - Requip 1 mg by mouth twice a day - <<4:33>> 100 mg by mouth at bedtime LABORATORY DATA: White count on admission was normal 7.1 and today was normal at 5.7, hemoglobin 88, hematocrit 25.4, platelets 223. Retic count is 3%. Sodium 139, potassium 4.5, chloride 102, bicarb 30, BUN 22, creatinine 0.96, glucose 168, calcium 8.3, magnesium 1.70, iron 38, TIBC 244, iron saturation 15, ferritin 161. Urinalysis on admission had too many white cells. Repeat urinalysis had 91 white cells, 6 red cells. Vancomycin level of 18.7 on 05/10. Blood cultures on 04/24, 04/25 and 05/01 was positive for staph epidermidis but a repeat cultures from 05/03 when vancomycin was started have been negative. Urine culture from admission was negative. IMAGING STUDY: Hip x-rays bilateral hip and pelvis no acute pelvic fracture. There is internal fixation of the right hip with a gamma nail stabilizing the intertrochanteric fracture left hip. There is a hemiarthroplasty with hardware. [id number] nontender. IMPRESSION: This is a 50-year-old female with a history of protein calorie malnutrition from a colectomy and high output ileostomy who is on chronic TPN and is admitted with dehydration as well as Lrakre-A-Liha infection with staph epidermidis. The patient was started on vancomycin on 05/01 following which her blood cultures have come back negative. There is no need to remove her Gpzuby-W-Kace as her cultures are negative within 48 hours of appropriate antibiotic. Previous to that she was being treated for UTI with Rocephin which she finished a 13-day course. Acute kidney injury has resolved. She came with a creatinine of 2.7 and currently is 0.96. PLAN: The patient, from an infectious disease standpoint could go home on vancomycin IV at the dose of 1 gram every 18 hours or that could be adjusted to every 24 hours as well as. If she is accepted with a nursing agency, currently there is issues with public health and [place] as she has had behavioral issues and noncompliance. Her end of therapy with vancomycin would be May 16. After her IV vancomycin is finished please repeat blood cultures through her [id number] to make sure that the line is sterile. Monitor CBC, vancomycin trough and basic profile every 3-5 days. Thank you for consultation. Case has been discussed with Dr. Cachorro Torres and David Sanderson from [facility]
[2016-05-10] MEDS ORDERED: [UNRECOGNIZED DRUG - OTHER] IV SCH (21:00)
[2016-05-10] MEDS ORDERED: INSULIN HUMAN REGULAR IV SCH (21:00)
[2016-05-10] MEDS: **NOTE PATIENT COMMENT** MISC XX SCH (21:00)
[2016-05-10] MEDS ORDERED: FAT EMULSION IV 20% 500 ML IV SCH (21:00)
[2016-05-10] MEDS ORDERED: POTASSIUM CHLORIDE IV SCH (21:00)
[2016-05-10] MEDS: traZODone 100 MG TAB PO SCH (21:45)
[2016-05-10] MEDS: PRAVASTATIN 20 MG TAB PO SCH (21:45)
[2016-05-10 22:00] VITALS: BP 112/60
[2016-05-11] MEDS: HumaLOG INSULIN (NovoLOG) PER UNIT SC SCH ×4 (00:04→17:44)
[2016-05-11] MEDS: PERCOCET 5MG/325MG TAB PO PRN ×4 (04:50→22:13)
[2016-05-11] MEDS: VANCOMYCIN HCL 1,000 MG, VIAL MATE ADAPTER 1 EACH in D5W 250 ML IV SCH (05:22)
[2016-05-11] MEDS: HEPARIN SOD (PORCINE) 5000 UNITS/ML VIAL SQ SCH ×3 (05:22→21:10)
[2016-05-11 05:24] LABS: MEAN CORPUSCULAR HEMOGLOBIN 27.8 pg (27.0-33.0); MEAN CORPUSCULAR HGB CONC 31.2 g/dl (32.0-36.5); MEAN CORPUSCULAR VOLUME 89.1 fl (80.0-96.0); RED CELL DISTRIBUTION WIDTH 15.1 % (11.5-14.5); WHITE BLOOD COUNT 6.7 K/mm3 (4.0-10.0)
[2016-05-11] MEDS: KETOROLAC 30 MG/ML VIAL (J1885) IV PRN ×2 (05:27→17:40)
[2016-05-11 05:44] LABS: ANION GAP 6 MEQ/L (8-16); BLOOD UREA NITROGEN 23 MG/DL (7-18); CALCIUM LEVEL 8.2 MG/DL (8.5-10.1); CARBON DIOXIDE LEVEL 31 MEQ/L (21-32); CHLORIDE LEVEL 103 MEQ/L (98-107); CREATININE FOR GFR 0.96 MG/DL (0.55-1.02); GLOMERULAR FILTRATION RATE > 60.0 (>51); GLUCOSE, FASTING 136 MG/DL (70-105); POTASSIUM SERUM 4.6 MEQ/L (3.5-5.1); SODIUM LEVEL 140 MEQ/L (136-145)
[2016-05-11 06:00] VITALS: BP 128/63
[2016-05-11] MEDS ORDERED: IRON SUCROSE 100 MG/5 ML INJ (J1756) IV ONE (07:30)
[2016-05-11] MEDS ORDERED: IRON SUCROSE 25 MG in NS 50 ML IV ONE (09:00)
[2016-05-11] MEDS: FLUCONAZOLE 50MG TABLET PO SCH (09:27)
[2016-05-11] MEDS: LOMOTIL 2.5MG/0.025MG TABLET PO SCH ×4 (09:27→21:13)
[2016-05-11] MEDS: carBAMazepine 200 MG TAB PO SCH ×2 (09:27→21:13)
[2016-05-11] MEDS: MAGNESIUM OXIDE 400 MG TAB (MAG-OX) PO SCH ×2 (09:28→21:13)
[2016-05-11] MEDS: ASPIRIN 81 MG ENTERIC TAB PO SCH (09:28)
[2016-05-11] MEDS: PANTOPRAZOLE 40MG TAB (PROTONIX) PO SCH ×2 (09:28→21:14)
[2016-05-11] MEDS: rOPINIRole 1MG TAB PO SCH ×2 (09:28→21:13)
[2016-05-11] MEDS: GABAPENTIN 300 MG CAP PO SCH ×3 (09:28→21:13)
[2016-05-11] MEDS: VITAMIN D 1,000 INTERNATIONAL UNITS TABLET PO SCH (09:28)
[2016-05-11] MEDS: buPROPion 100 MG TAB PO SCH ×2 (09:28→21:13)
[2016-05-11] MEDS: MULTIVITAMINS/MINERALS THERAP 1 TAB PO SCH (09:29)
[2016-05-11] MEDS: FERROUS SULFATE 325MG TAB PO SCH ×3 (09:29→21:13)
[2016-05-11] MEDS: CitaloPRAM (CeleXA) 20 MG TAB PO SCH (09:29)
[2016-05-11] MEDS: LEVEMIR (INSULIN DETEMIR) 1 UNITS/0.01ML SC SCH ×2 (09:29→21:11)
[2016-05-11] MEDS: FLUTICASONE PROP 0.05% NASAL SPRAY 16 GM (FLONASE) SCH (09:29)
[2016-05-11] MEDS: SLF 3 ML SYR IV SCH (09:30)
[2016-05-11] MEDS ORDERED: IRON SUCROSE 75 MG in NS 100 ML IV ONE (10:00)
--- NOTE | 2016-05-11 11:55 | IPNPDOC ---
Text Note Date of Service The patient was seen on 05/11/16 at 11:49. NOTE Subjective: Patient is a 50 year old female with a PMHx of pancreatic cyst rupture causing ischemic gut - s/p partial colectomy and jejunostomy, DLP, DM2, CKD3, hx of CVA, RLS, Depression, CALVIN, Chronic sacral pressure ulcer, . Patient was recently admitted from 04/05 - 04/10 for dehydration 2/2 high output ostomy. Had outpatient arrangements for NS infusion and TPN. When patient was home she had complaints of suprapubic tenderness. Also noted that she had uncontrolled blood sugars. Upon arrival to ER patient was found to have a UTI and HHNK state. Blood cultures were subsequently positive for MSSA. Patient was seen and examined at the bedside. Patient noted that she is having some right lower back pain radiating to front of her abdomen. Objective: Vitals (see below) General: Lying in bed, no acute distress, AAOx3 HEENT: NC, AT CVS: RRR, +S1S2 Lungs: Fair air entry b/l, -w/r/r Abdomen: Soft, ND, NT, +BSx4 Extremities: +PPx4, -edema, -calf tenderness Assessment and plan: 1. s/p HHNK - 2/2 poorly controlled DM2 and infection - Levemir has been titrated - will continue to follow glucose and adjust insulin as needed 2. Sepsis - 2/2 staph epidermidis bacteremia - (2/2 possible R IJ catheter infection) and/or urinary tract infection - Clinical picture of sepsis was present from admission - Initially treated for UTI with ceftriaxone; Strep epi was resistant to it, antibiotics were subsequently changed to vancomycin - Blood cultures 04/24 positive for Strep epidermidis - Urine cultures 04/25 negative after treatment with Vancomycin - Repeat blood cultures on 05/03 and 05/07 negative - TTE 05/03: no vegetations noted - Patient has a Right side Vitale catheter present - not removed as cultures were negative - s/p Ceftriaxone (for 12 days) - c/w Vancomycin - ID consulted (Dr. Hankins) - no need to remove catheter; will c/w current antibiotics until May 16 3. Normocytic anemia - Hg from admission was 11; currently at 8 - Reticulocyte index of 1.2; Iron panel - consistent with CALVIN - s/p 1 unit PRBC - FOBT negative 05/04 - will give Venofer 100mg IV today 4. s/p AQUILES 5. History of pancreatic cyst rupture - causing ischemic cut; s/p partial colectomy with jejunostomy - supplements with 1 liter of NS daily and TPN nightly 6. Severe protein calorie malnutrition - c/w TPN nightly 7. Depression 8. Diabetic neuropathy 9. Chronic lower back pain - MRI shows degenerative disc narrowing, no spinal stenosis, mild right sided neural foraminal narrowing - c/w lidoderm patch, percocet, flexeril - if pain remains uncontrolled will consider getting pain management consult; re : opiate abuser 10. Stage II Pressure ulcer at coccyx - present from admission 11. GI prophylaxis - c/w protonix 12. DVT prophylaxis - c/w heparin Disposition: - may require inpatient stay for Vancomycin until May 16 - will need outpatient setup continued for 1 L NS and TPN nightly VS,Fishbone, I+O VS, Fishbone, I+O Laboratory Tests 05/11/16 05:08 Calcium Level 8.2 L, Red Blood Count 2.85 L, Mean Corpuscular Volume 89.1, Mean Corpuscular Hemoglobin 27.8, Mean Corpuscular Hemoglobin Concent 31.2 L, Red Cell Distribution Width 15.1 H Vital Signs Date Time Temp Pulse Resp B/P Pulse Ox O2 Delivery O2 Flow Rate FiO2 05/11/16 09:58 18 05/11/16 06:00 99.2 94 128/63 91 Room Air 05/07/16 08:57 3.0 I&O- Last 24 Hours up to 6 AM 05/11/16 06:00 Intake Total 1770 ml Output Total 6350 ml Balance -4580 ml LIBRADO PALMER MD May 11, 2016 11:50
[2016-05-11] MEDS: CYCLOBENZAPRINE 10 MG TAB PO PRN ×2 (13:00→22:12)
[2016-05-11 14:00] VITALS: BP 116/58
--- NOTE | 2016-05-11 19:41 | IPN ---
DATE: 05/11/2016 Ms. Lora is feeling well except for severe right hip pain. She denies any fever or chills. No nausea or vomiting. No abdominal pain. The hip pain has been new since that hospital admission. She had an x-ray of pelvis and both hips. There is no acute findings. No fractures or dislocation. PHYSICAL EXAMINATION: On physical exam temperature is 98.1, pulse 85, respirations 18, blood pressure 116/58, O2 sat 94% on room air. HEART: Normal S1-S2. No murmurs. LUNGS: Are clear. ABDOMEN: Is soft, nontender. Ileostomy with large amount of stools in the Youngblood catheter bag. EXTREMITIES: Trace ankle edema bilaterally. Right sacral iliac tenderness, but range of motion of the hip in the knee within normal. LABORATORY DATA: White count 6.7, hemoglobin 7.9, hematocrit 25.4, platelets 230. Sodium 140, potassium 4.6, chloride 103, bicarb 31, BUN 23, creatinine 0.96, glucose 136, calcium 8.2, CRP 6.40. Blood cultures from 05/03 and 05/07 are negative. Blood cultures from 04/24, 04/25 and 05/01 were positive for staph epidermidis. IMPRESSION: 1. Vitale port infection with staph epidermidis on IV vancomycin. The patient will need to remain on IV vancomycin for total of 14 weeks from negative culture end of therapy treatment would be on May 17. Currently on vancomycin 1 gram IV every 18 hours. If the patient will be discharged home, please ask pharmacy to dose her every 24 hours for convenience. 2. Right hip pain, probably related to multiple surgery. PLAN: Continue IV vancomycin until May 17.
[2016-05-11] MEDS ORDERED: [UNRECOGNIZED DRUG - MIXTURE] IV ONE ×5 (21:00)
[2016-05-11] MEDS ORDERED: FAT EMULSION IV 20% 500 ML IV ONE (21:00)
[2016-05-11] MEDS: NS 1,000 ML IV SCH (21:11)
[2016-05-11] MEDS: traZODone 100 MG TAB PO SCH (21:12)
[2016-05-11] MEDS: PRAVASTATIN 20 MG TAB PO SCH (21:13)
[2016-05-11] MEDS: **NOTE PATIENT COMMENT** MISC XX SCH (21:14)
[2016-05-11 22:00] VITALS: BP 126/60
[2016-05-12] MEDS: VANCOMYCIN HCL 1,000 MG, VIAL MATE ADAPTER 1 EACH in D5W 250 ML IV SCH ×2 (00:01→17:34)
[2016-05-12] MEDS: HumaLOG INSULIN (NovoLOG) PER UNIT SC SCH ×5 (00:01→23:55)
[2016-05-12] MEDS: PERCOCET 5MG/325MG TAB PO PRN ×4 (05:03→20:40)
[2016-05-12] MEDS: HEPARIN SOD (PORCINE) 5000 UNITS/ML VIAL SQ SCH ×3 (05:03→22:09)
[2016-05-12 05:33] LABS: BASO % 0.2 % (0.0-1.0); EOS # 0.2 K/mm3 (0.0-0.50); EOS % 3.4 % (0.0-3.0); LARGE UNSTAINED CELL # 0.1 K/mm3 (0.0-0.4); LARGE UNSTAINED CELL % 2.2 % (0.0-4.0); LYMPH % 15.8 % (24.0-44.0); MEAN CORPUSCULAR HEMOGLOBIN 27.3 pg (27.0-33.0); MEAN CORPUSCULAR HGB CONC 30.6 g/dl (32.0-36.5); MEAN CORPUSCULAR VOLUME 89.3 fl (80.0-96.0); MONO # 0.4 K/mm3 (0.0-0.8); NEUTROPHILS # 4.5 K/mm3 (1.8-7.7); NEUTROPHILS % 72.4 % (36.0-66.0); PLATELET COUNT, AUTOMATED 256 k/mm3 (150-450); RED CELL DISTRIBUTION WIDTH 14.4 % (11.5-14.5); WHITE BLOOD COUNT 6.2 K/mm3 (4.0-10.0)
[2016-05-12 05:51] LABS: ALBUMIN 1.8 GM/DL (3.2-5.2); ALBUMIN/GLOBULIN RATIO 0.53 (1.00-1.93); ALKALINE PHOSPHATASE 158 U/L (45-117); ALT/SGPT 17 U/L (12-78); ANION GAP 10 MEQ/L (8-16); AST/SGOT 10 U/L (15-37); BILIRUBIN,TOTAL 0.2 MG/DL (0.2-1.0); BLOOD UREA NITROGEN 23 MG/DL (7-18); CALCIUM LEVEL 7.8 MG/DL (8.5-10.1); CARBON DIOXIDE LEVEL 29 MEQ/L (21-32); CHLORIDE LEVEL 102 MEQ/L (98-107); CREATININE FOR GFR 0.97 MG/DL (0.55-1.02); GLOMERULAR FILTRATION RATE > 60.0 (>51); GLUCOSE, FASTING 258 MG/DL (70-105); POTASSIUM SERUM 4.5 MEQ/L (3.5-5.1); SODIUM LEVEL 141 MEQ/L (136-145); TOTAL PROTEIN 5.2 GM/DL (6.4-8.2)
[2016-05-12 06:00] VITALS: BP 122/58
[2016-05-12] MEDS ORDERED: SODIUM CHLORIDE 0.9% 1000 ML IV SCH (09:00)
[2016-05-12] MEDS: LEVEMIR (INSULIN DETEMIR) 1 UNITS/0.01ML SC SCH ×2 (09:41→20:41)
[2016-05-12] MEDS: rOPINIRole 1MG TAB PO SCH ×2 (09:41→20:40)
[2016-05-12] MEDS: MULTIVITAMINS/MINERALS THERAP 1 TAB PO SCH (09:41)
[2016-05-12] MEDS: LOMOTIL 2.5MG/0.025MG TABLET PO SCH ×4 (09:41→20:40)
[2016-05-12] MEDS: PANTOPRAZOLE 40MG TAB (PROTONIX) PO SCH ×2 (09:42→20:40)
[2016-05-12] MEDS: carBAMazepine 200 MG TAB PO SCH ×2 (09:42→20:40)
[2016-05-12] MEDS: MAGNESIUM OXIDE 400 MG TAB (MAG-OX) PO SCH ×2 (09:42→20:40)
[2016-05-12] MEDS: ASPIRIN 81 MG ENTERIC TAB PO SCH (09:42)
[2016-05-12] MEDS: GABAPENTIN 300 MG CAP PO SCH ×3 (09:42→20:41)
[2016-05-12] MEDS: buPROPion 100 MG TAB PO SCH ×2 (09:42→20:40)
[2016-05-12] MEDS: FERROUS SULFATE 325MG TAB PO SCH ×3 (09:42→20:41)
[2016-05-12] MEDS: VITAMIN D 1,000 INTERNATIONAL UNITS TABLET PO SCH (09:42)
[2016-05-12] MEDS: CitaloPRAM (CeleXA) 20 MG TAB PO SCH (09:42)
[2016-05-12] MEDS: SLF 3 ML SYR IV SCH (09:43)
[2016-05-12] MEDS: FLUTICASONE PROP 0.05% NASAL SPRAY 16 GM (FLONASE) SCH (09:43)
--- NOTE | 2016-05-12 11:52 | IPNPDOC ---
Text Note Date of Service The patient was seen on 05/12/16 at 11:46. NOTE Subjective: Patient is a 50 year old female with a PMHx of pancreatic cyst rupture causing ischemic gut - s/p partial colectomy and jejunostomy, DLP, DM2, CKD3, hx of CVA, RLS, Depression, CALVIN, Chronic sacral pressure ulcer, . Patient was recently admitted from 04/05 - 04/10 for dehydration 2/2 high output ostomy. Had outpatient arrangements for NS infusion and TPN. When patient was home she had complaints of suprapubic tenderness. Also noted that she had uncontrolled blood sugars. Upon arrival to ER patient was found to have a UTI and HHNK state. Blood cultures were subsequently positive for MSSA. Patient was seen and examined at the bedside. Patient noted that she is experiencing right lower back pain radiating down her right leg. She notes that the pain is a 8/10 constant. Objective: Vitals (see below) General: Lying in bed, no acute distress, AAOx3 HEENT: NC, AT CVS: RRR, +S1S2 Lungs: Fair air entry b/l, -w/r/r Abdomen: Soft, ND, NT, +BSx4, Ostomy on R lower quadrant Extremities: +PPx4, -edema, -calf tenderness Assessment and plan: 1. Sepsis - 2/2 staph epidermidis bacteremia - (2/2 possible R IJ catheter infection) and/or urinary tract infection - Clinical picture of sepsis was present from admission - Initially treated for UTI with ceftriaxone; Strep epi was resistant to it, antibiotics were subsequently changed to vancomycin - Blood cultures 04/24 positive for Strep epidermidis - Urine cultures 04/25 negative after treatment with Vancomycin - Repeat blood cultures on 05/03 and 05/07 negative - TTE 05/03: no vegetations noted - Patient has a Right side Vitale catheter present - not removed as cultures were negative - s/p Ceftriaxone (for 12 days) - c/w Vancomycin - ID consulted (Dr. Hankins) - no need to remove catheter; will c/w current antibiotics until May 16 2. s/p HHNK - 2/2 poorly controlled DM2 and infection - Levemir has been titrated - will continue to follow glucose and adjust insulin as needed 3. Normocytic anemia - Hg from admission was 11 - currently at 8 - Reticulocyte index of 1.2; Iron panel - consistent with CALVIN - s/p 1 unit PRBC - FOBT negative 05/04 - s/p Venofer 100mg IV today 4. s/p AQUILES 5. History of pancreatic cyst rupture - causing ischemic cut; s/p partial colectomy with jejunostomy 6. Severe protein calorie malnutrition and high output ostomy - supplements with 1 liter of NS daily and TPN nightly 7. Depression 8. Diabetic neuropathy 9. Chronic lower back pain - MRI shows degenerative disc narrowing, no spinal stenosis, mild right sided neural foraminal narrowing - c/w lidoderm patch, percocet, flexeril - consulted pain management consult; re: opiate abuser 10. Stage II Pressure ulcer at coccyx - present from admission 11. GI prophylaxis - c/w protonix 12. DVT prophylaxis - c/w heparin Disposition: - may require inpatient stay for Vancomycin until May 16 - will need outpatient setup continued for 1 L NS and TPN nightly - pain management consult for back pain VS,Hardike, I+O VS, Fishbone, I+O Laboratory Tests 05/12/16 05:15 Calcium Level 7.8 L, Aspartate Amino Transf (AST/SGOT) 10 L, Alanine Aminotransferase (ALT/SGPT) 17, Alkaline Phosphatase 158 H, Total Bilirubin 0.2 , Total Protein 5.2 L, Albumin 1.8 L, Red Blood Count 2.93 L, Mean Corpuscular Volume 89.3, Mean Corpuscular Hemoglobin 27.3, Mean Corpuscular Hemoglobin Concent 30.6 L, Red Cell Distribution Width 14.4, Neutrophils (%) (Auto) 72.4 H , Lymphocytes (%) (Auto) 15.8 L, Monocytes (%) (Auto) 6.0 H, Eosinophils (%) ( Auto) 3.4 H, Basophils (%) (Auto) 0.2, Neutrophils # (Auto) 4.5, Lymphocytes # ( Auto) 1.0 L, Monocytes # (Auto) 0.4, Eosinophils # (Auto) 0.2, Basophils # (Auto ) 0.0 Vital Signs Date Time Temp Pulse Resp B/P Pulse Ox O2 Delivery O2 Flow Rate FiO2 05/12/16 10:25 18 05/12/16 09:43 Room Air 05/12/16 06:00 99.8 99 122/58 93 05/07/16 08:57 3.0 I&O- Last 24 Hours up to 6 AM 05/12/16 06:00 Intake Total 6753 ml Output Total 5200 ml Balance 1553 ml LIBRADO PALMER MD May 12, 2016 11:52
[2016-05-12] MEDS: [UNRECOGNIZED DRUG - REMARK] XX SCH (12:00)
[2016-05-12 14:00] VITALS: BP 126/60
[2016-05-12] MEDS: tiZANidine 4 MG TAB PO PRN ×2 (17:16→23:54)
[2016-05-12] MEDS: ANALGESIC BALM CRM 120 GM TOP SCH ×2 (17:16→20:42)
[2016-05-12] MEDS ORDERED: HumaLOG INSULIN (NovoLOG) PER UNIT SC SCH (18:00)
[2016-05-12] MEDS: traZODone 100 MG TAB PO SCH (20:40)
[2016-05-12] MEDS: PRAVASTATIN 20 MG TAB PO SCH (20:40)
[2016-05-12] MEDS: NS 1,000 ML IV SCH (20:42)
[2016-05-12] MEDS ORDERED: INSULIN HUMAN REGULAR IV SCH (21:00)
[2016-05-12] MEDS ORDERED: POTASSIUM CHLORIDE IV SCH (21:00)
[2016-05-12] MEDS ORDERED: [UNRECOGNIZED DRUG - OTHER] IV SCH (21:00)
[2016-05-12] MEDS ORDERED: FAT EMULSION IV 20% 500 ML IV SCH (21:00)
[2016-05-12 22:00] VITALS: BP 121/67
[2016-05-13 05:07] LABS: MEAN CORPUSCULAR HEMOGLOBIN 27.7 pg (27.0-33.0); MEAN CORPUSCULAR HGB CONC 31.8 g/dl (32.0-36.5); MEAN CORPUSCULAR VOLUME 87.1 fl (80.0-96.0); RED CELL DISTRIBUTION WIDTH 14.6 % (11.5-14.5); WHITE BLOOD COUNT 6.4 K/mm3 (4.0-10.0)
[2016-05-13 05:56] LABS: ANION GAP 9 MEQ/L (8-16); BLOOD UREA NITROGEN 20 MG/DL (7-18); CALCIUM LEVEL 8.5 MG/DL (8.5-10.1); CARBON DIOXIDE LEVEL 30 MEQ/L (21-32); CHLORIDE LEVEL 102 MEQ/L (98-107); GLOMERULAR FILTRATION RATE > 60.0 (>51); GLUCOSE, FASTING 90 MG/DL (70-105); POTASSIUM SERUM 4.5 MEQ/L (3.5-5.1); SODIUM LEVEL 141 MEQ/L (136-145)
[2016-05-13] MEDS: HumaLOG INSULIN (NovoLOG) PER UNIT SC SCH ×3 (05:57→18:26)
[2016-05-13 06:00] VITALS: BP 131/70
[2016-05-13] MEDS: HEPARIN SOD (PORCINE) 5000 UNITS/ML VIAL SQ SCH ×3 (06:02→21:06)
[2016-05-13] MEDS: PERCOCET 5MG/325MG TAB PO PRN ×3 (06:03→18:26)
[2016-05-13] MEDS: tiZANidine 4 MG TAB PO PRN ×3 (06:38→20:57)
[2016-05-13] MEDS: ANALGESIC BALM CRM 120 GM TOP SCH ×3 (09:24→21:07)
[2016-05-13] MEDS: SLF 3 ML SYR IV SCH (09:24)
[2016-05-13] MEDS: FLUTICASONE PROP 0.05% NASAL SPRAY 16 GM (FLONASE) SCH (09:25)
[2016-05-13] MEDS: LEVEMIR (INSULIN DETEMIR) 1 UNITS/0.01ML SC SCH ×2 (09:25→20:55)
[2016-05-13] MEDS: MAGNESIUM OXIDE 400 MG TAB (MAG-OX) PO SCH ×2 (09:26→20:56)
[2016-05-13] MEDS: LOMOTIL 2.5MG/0.025MG TABLET PO SCH ×4 (09:26→20:56)
[2016-05-13] MEDS: ASPIRIN 81 MG ENTERIC TAB PO SCH (09:26)
[2016-05-13] MEDS: MULTIVITAMINS/MINERALS THERAP 1 TAB PO SCH (09:26)
[2016-05-13] MEDS: GABAPENTIN 300 MG CAP PO SCH ×3 (09:26→20:57)
[2016-05-13] MEDS: carBAMazepine 200 MG TAB PO SCH ×2 (09:26→20:57)
[2016-05-13] MEDS: PANTOPRAZOLE 40MG TAB (PROTONIX) PO SCH ×2 (09:26→20:57)
[2016-05-13] MEDS: FERROUS SULFATE 325MG TAB PO SCH ×3 (09:26→20:56)
[2016-05-13] MEDS: CitaloPRAM (CeleXA) 20 MG TAB PO SCH (09:26)
[2016-05-13] MEDS: VITAMIN D 1,000 INTERNATIONAL UNITS TABLET PO SCH (09:26)
[2016-05-13] MEDS: buPROPion 100 MG TAB PO SCH ×2 (09:26→20:57)
[2016-05-13] MEDS: rOPINIRole 1MG TAB PO SCH ×2 (09:26→20:56)
--- NOTE | 2016-05-13 11:15 | CR.PDOC ---
[facility] Pain Clinic Consultation General Date of Consultation: 05/12/16 Chief Complaint The patient is a 50-year-old female admitted with a reason for visit of Hyperosmolar Non-Ketotic State In Pt W/Type 2 DM. Pain management is asked to see the patient for new onset right back sacral and hip area pain. Patient states that she has never had this pain before. States that the pain began during her hospitalization after being placed on the bedpan. Since then she states pain has been sharp severe. He has been rating the pain as an 8-9/10. Pain has been treated with Percocet. She has been noting intermittent relief of pain with this medication. Reports that the pain has made it difficult for her to stand and walk. Has noted no changes in her bowel output through her high output colostomy. Denies any loss of bladder control. Has a history of a right hip fracture and right femur fracture with rods and screws. Notes that this area has been very achy since this pain started. Denies any numbness tingling or weakness in the feet. History of Present Illness See above. Home Medications Scheduled (Requip) 1 Mg Tab 1 MG PO BID (Reported) (Flonase Allergy Relief) 50 Mcg/Act Spr 2 SPRAYS NA DAILY (Reported) (TPN Electrolytes) 1 Inj Inj 1 INJ IV DAILY (Reported) Ascorbic Acid (Vitamin C) 500 Mg Tab 500 MG PO DAILY (Reported) Aspirin (Aspirin 81) 81 Mg Tab 81 MG PO DAILY (Reported) Biotin (Vitamin H) (Biotin) 1,000 Mcg Tab 1,000 MCG PO DAILY (Reported) Bupropion HCl (Bupropion HCl) 50 Mg Halftab 100 MG PO BID (Reported) Calcium (Calcium) 600 Mg Tab 600 MG PO BID (Reported) Carbamazepine (Carbamazepine) 200 Mg Tab 200 MG PO BID (Reported) Cholecalciferol (Vitamin D) 1,000 Unit Tab 1,000 UNIT PO DAILY (Reported) Citalopram Hydrobromide (Citalopram Hydrobromide) 40 Mg Tab 40 MG PO DAILY ( Reported) Diphenoxylate/Atropine (Lomotil 2.5-0.025 mg) 1 Tab Tab 2 TAB PO QID (Reported ) Esomeprazole Magnesium Trihydr (Nexium) 40 Mg Cap 40 MG PO BID (Reported) Ferrous Sulfate (Ferrous Sulfate) 325 Mg Tab 325 MG PO TID (Reported) Fluconazole (Fluconazole) 150 Mg Tab 150 MG PO DAILY (Reported) Gabapentin (Gabapentin) 300 Mg Cap 300 MG PO TID (Reported) Heparin Sodium Flush (Porcine) (Heparin Lock Flush/NaCl F) 10 Unit/Ml Inj 1 DOSE IV TID (Reported) Insulin Aspart (Novolog Flexpen) 100 Unit/Ml Inj 1 DOSE SC ACHS (Reported) PER SLIDING SCALE Insulin Detemir (Levemir) 1 Units/0.01 Ml Susp 35 UNITS SC DAILY (Reported) Magnesium Oxide (Magnesium Oxide) 400 Mg Tab 800 MG PO BID (Reported) Multivitamins *[facility] STOCKED* (Thera M Plus *[facility] STOCKED*) 1 Tab Tab 1 TAB PO DAILY (Reported) Potassium Chloride (Klor-Con M20) 20 Meq Tabcr 20 MEQ PO BID Pravastatin Sodium (Pravachol) 20 Mg Tab 20 MG PO QHS (Reported) Sodium Chloride (Saline Flush) 0.9 % Inj 1 DOSE IV DAILY (Reported) Trazodone HCl (Trazodone HCl) 100 Mg Tab 100 MG PO QHS (Reported) Scheduled PRN Lidocaine (Lidocaine) 5 % Pad 1 PATCH TOP DAILY PRN PRN PAIN (Reported) APPLY TO BACK Ondansetron (Zofran Odt) 4 Mg Tab 4 MG PO TID PRN PRN NAUSEA OR VOMITING ( Reported) Silver Sulfadiazine (Silvadene) 1 % Cre 1 DOSE TOP DAILY PRN PRN SKIN SORES ( Reported) APPLY TO BUTTOCKS Allergies Coded Allergies: Phenazopyridine (Unverified Allergy, Intermediate, RASH, 02/09/16) Sulfa Drugs (Unverified Allergy, Intermediate, RASH, 02/09/16) Replaces SULFAMETHOXAZ Sulfamethoxazole (Unverified Allergy, Intermediate, RASH, 02/09/16) Replaces SULFAMETHOXAZ Trimethoprim (Unverified Allergy, Intermediate, RASH, 02/09/16) Replaces SULFAMETHOXAZ Clavulanic Acid (Unverified Adverse Reaction, Mild, NAUSEA AND VOMITING, DIARRHEA, 02/09/16) Replaces AUGMENTIN Penicillins (Unverified Adverse Reaction, Mild, NAUSEA AND VOMITING, ) Replaces AUGMENTIN Penicillins Cross Reactors (Unverified Adverse Reaction, Mild, NAUSEA AND VOMITING, 02/09/16) Replaces AUGMENTIN Past Medical History Past Medical History Medical History Past medical history includes history of ischemic gut requiring requiring colectomy, need for IV hydration. Sepsis with staph epidermis requiring IV antibiotics. History of bilateral femur fracture and right hip fracture status post multiple falls. Iron deficiency anemia. History of multiple pressure ulcers. Chronic kidney disease. Status post stroke. Diabetes mellitus type 2. Restless leg syndrome and dyslipidemia. Surgical History As above Social History Psychosocial History: Other (history of noncompliance with medical regimen) Alcohol: denies Drugs: denies Review of Systems Subjective Constitutional: Denies: chills, fatigue, fever, night sweats, weakness Skin: Reports: breakdown (healing area and sacrum a few open areas bilateral lower extremities) Pulmonary: Reports: shortness of breath (with exertion) Cardiovascular: Denies: chest pain Gastrointestinal: Reports: diarrhea (high-output ileostomy) Genitourinary: Reports: normal urination, Denies: hematuria, pain Hematologic: Reports: anemia, easy bruising Musculoskeletal: Reports: leg pain, muscle pain, muscle stiffness, spasms ( right hip right leg) Neurological: Denies: headache, migraines, numbness Psych: Reports: anxiety Physical Examination Physical Examination Vital Signs/I&O Vital Signs Date Time Temp Pulse Resp B/P Pulse Ox O2 Delivery O2 Flow Rate FiO2 05/13/16 06:33 15 Room Air 05/13/16 06:00 98.6 88 131/70 90 05/07/16 08:57 3.0 I&O- Last 24 Hours up to 6 AM 05/13/16 06:00 Intake Total 3975 ml Output Total 4700 ml Balance -725 ml Recent Travel/Sick Contacts: Denies: Recent sick contacts, Recent travel General Exam: Positive: alert, attentive, no acute distress, oriented times three, talkative Visual Analog Score (VAS) For: 7 ENT EXAM: Positive: normocephalic, other (thinning hair) Neck Exam: Negative: Lymphadenopathy, Thyromegaly Chest Exam: Positive: Clear to auscultation, Decreased breath sounds (at bases) , Decreased resp. excursion Heart Exam: Positive: Normal S1, S2, Regular rate and rhythm, Negative: Murmurs, Rubs Abdominal Exam: Positive: Nondistended, Normal bowel sounds, Other (colostomy intact large amount of liquid stools), Soft Extremity Exam: Negative: Edema Skin Exam: Positive: Dry, Other Symptoms (stage II pressure ulcer noted over right sacrum. Dressings over open lesions noted lower extremities.), Warm, Negative: Rashes Neuro Exam: Positive: Normal sensation (bilateral lower extremities) Musculoskeletal Point tenderness noted with palpation over lumbar spinous processes and over the right sacrum and sacroiliac joint. Tenderness extends into the right trochanteric region. Well-healed surgical incision identified over the right femur from the trochanter to the knee. No edema. Trigger points and tight fibrous bands are identified over the right sacrum right trochanter and into the right buttock. Point tenderness present over the right piriformis. Laboratory Data Labs 24H Laboratory Tests 2 05/12/16 12:03: Bedside Glucose (Misc Panel) 195H 05/12/16 16:43: Bedside Glucose (Misc Panel) 67L 05/12/16 20:41: Bedside Glucose (Misc Panel) 237H 05/12/16 23:46: Bedside Glucose (Misc Panel) 218H 05/13/16 05:01: Anion Gap 9, C-Reactive Protein, Quantitative 7.81H, Blood Urea Nitrogen 20H, Creatinine 1.00, Sodium Level 141, Potassium Level 4.5, Chloride Level 102, Carbon Dioxide Level 30, Calcium Level 8.5, Glomerular Filtration Rate > 60.0 FSBS Laboratory Tests Test 05/12/16 12:03 05/12/16 16:43 05/12/16 20:41 05/12/16 23:46 Range/Units Bedside Glucose (Misc Panel) 195 67 237 218 70-105 MG/DL Microbiology Microbiology 05/07/16 Blood Culture - Final, Complete NO GROWTH AFTER 5 DAYS 05/07/16 Blood Culture - Final, Complete NO GROWTH AFTER 5 DAYS 05/03/16 Blood Culture - Final, Complete NO GROWTH AFTER 5 DAYS 05/03/16 Blood Culture - Final, Complete NO GROWTH AFTER 5 DAYS 05/04/16 Stool Occult Blood (KORTNEY) - Final, Complete 05/03/16 Urine Culture - Final, Complete Diagnostic and Imaging Studies MRI of the lumbar spine was completed without contrast on 05/06/2016. The exam could not be completed due to severe hip leg and back pain. The T2-weighted images which were completed did demonstrate degenerative disc narrowing at L3-4 L4-5 and L5-S1 with disc space bulging diffusely at each of these levels. His does indent on the ventral margin of the thecal sac. Is no evidence of spinal stenosis. There is mild right-sided neural foraminal narrowing at L4-5 and L5- S1 which is unchanged. X-ray of the bilateral hips and AP pelvis was completed on 05/06/2016. This does demonstrate left hip hemiarthroplasty. There is an internal fixation of the right hip with a gamma minute gamma nail stabilizing the intertrochanteric fracture. The fracture is maintained in a stable position and alignment. There are no acute pelvic fractures identified. Assessment/Plan Assessment 1. Lumbar degenerative disc disease 2. Myalgia. 3. Acute on chronic low back pain. Plan Currently patient is on combination of cyclobenzaprine 10 mg every 6 hours and Lidoderm patch to be applied every day for 12 hours at a time. Patch is currently not in place. Lengthy discussion held with the patient. At this time I will discontinue cyclobenzaprine and start her on tizanidine 2 mg every 6 hours. We'll discontinue Lidoderm patch and start on BenGay topical to be applied to the low back and right hip area 3 times a day. At this time the Percocet is not having any adverse reactions and is effective occasionally. We' ll try a few days of the above regimen and if this is not effective we will change the Percocet to hydrocodone. I have encouraged the patient to get out of bed on a regular basis to stand and to walk. Because of her open wounds, her recent sepsis, and her continuing need for antibiotics we will not look to do any interventional treatments. Thank you Dr. Torres for allowing us to participate in the care of your patient Haroon Lora. Should you have any questions we'll certainly be glad to discuss this with you at any time. The number here at the clinic is [phone] option 4. Donita Herman May 13, 2016 11:15
[2016-05-13] MEDS: [UNRECOGNIZED DRUG - REMARK] XX SCH (12:00)
[2016-05-13] MEDS: VANCOMYCIN HCL 1,000 MG, VIAL MATE ADAPTER 1 EACH in D5W 250 ML IV SCH (12:19)
--- NOTE | 2016-05-13 13:36 | IPNPDOC ---
Text Note Date of Service The patient was seen on 05/13/16 at 13:29. NOTE Subjective: Patient is a 50 year old female with a PMHx of pancreatic cyst rupture causing ischemic gut - s/p partial colectomy and jejunostomy, DLP, DM2, CKD3, hx of CVA, RLS, Depression, CALVIN, Chronic sacral pressure ulcer, . Patient was recently admitted from 04/05 - 04/10 for dehydration 2/2 high output ostomy. Had outpatient arrangements for NS infusion and TPN. When patient was home she had complaints of suprapubic tenderness. Also noted that she had uncontrolled blood sugars. Upon arrival to ER patient was found to have a UTI and HHNK state. Blood cultures were subsequently positive for MSSA. Patient was seen and examined at the bedside. She reports that her lower right back pain has improved with a change in medications. Objective: Vitals (see below) General: Lying in bed, no acute distress, AAOx3 HEENT: NC, AT CVS: RRR, +S1S2 Lungs: Fair air entry b/l, -w/r/r Abdomen: Soft, ND, NT, +BSx4, Ostomy on R lower quadrant Extremities: +PPx4, -edema, -calf tenderness Assessment and plan: 1. Sepsis - 2/2 staph epidermidis bacteremia - (2/2 possible R IJ catheter infection) and/or urinary tract infection - Clinical picture of sepsis was present from admission - Initially treated for UTI with ceftriaxone; Strep epi was resistant to it, antibiotics were subsequently changed to vancomycin - Blood cultures 04/24 positive for Strep epidermidis - Urine cultures 04/25 negative after treatment with Vancomycin - Repeat blood cultures on 05/03 and 05/07 negative - TTE 05/03: no vegetations noted - Patient has a Right side Vitale catheter present - not removed as cultures were negative - s/p Ceftriaxone (for 12 days) - c/w Vancomycin - ID consulted (Dr. Hankins) - no need to remove catheter; will c/w current antibiotics until May 16 2. s/p HHNK - 2/2 poorly controlled DM2 and infection - Levemir has been titrated - will continue to follow glucose and adjust insulin as needed 3. Normocytic anemia - Hg from admission was 11 - currently stable around ~8 - Reticulocyte index of 1.2; Iron panel - consistent with CALVIN - s/p 1 unit PRBC - FOBT negative 05/04 - s/p Venofer 4. s/p AQUILES 5. History of pancreatic cyst rupture - causing ischemic cut; s/p partial colectomy with jejunostomy 6. Severe protein calorie malnutrition and high output ostomy - supplements with 1 liter of NS daily and TPN nightly 7. Depression 8. Diabetic neuropathy 9. Chronic lower back pain - MRI shows degenerative disc narrowing, no spinal stenosis, mild right sided neural foraminal narrowing - c/w lidoderm patch, percocet, s/p flexeril - seen by pain management; c/w bengay cream 10. Stage II Pressure ulcer at coccyx - present from admission 11. GI prophylaxis - c/w protonix 12. DVT prophylaxis - c/w heparin Disposition: - will require inpatient stay for Vancomycin until May 16; no home care available for her - outpatient setup already established for 1 L NS and TPN nightly VS,Fishbone, I+O VS, Fishbone, I+O Laboratory Tests 05/13/16 05:01 Calcium Level 8.5, Red Blood Count 2.86 L, Mean Corpuscular Volume 87.1, Mean Corpuscular Hemoglobin 27.7, Mean Corpuscular Hemoglobin Concent 31.8 L, Red Cell Distribution Width 14.6 H Vital Signs Date Time Temp Pulse Resp B/P Pulse Ox O2 Delivery O2 Flow Rate FiO2 05/13/16 12:49 18 05/13/16 06:33 Room Air 05/13/16 06:00 98.6 88 131/70 90 05/07/16 08:57 3.0 I&O- Last 24 Hours up to 6 AM 05/13/16 05:59 Intake Total 4095 ml Output Total 3800 ml Balance 295 ml LIBRADO PALMER MD May 13, 2016 13:36
[2016-05-13 14:00] VITALS: BP 121/59
--- NOTE | 2016-05-13 19:57 | IPN ---
DATE: 05/13/2016 SUBJECTIVE: Ms. Lora seems to be doing fairly well except for right hip pain. She has no nausea or vomiting. No abdominal pain. No chest pain, shortness of breath. She has been getting out of bed with the help of a walker. LABORATORY DATA: White count is 6.4, hemoglobin 7.9, hematocrit 25 platelets 65, reticulocyte count 3%. Sodium 141, potassium 4.5, chloride 102, bicarb 50, BUN 20, creatinine 1, glucose 90, calcium 8.5. CRP 7.81. MICROBIOLOGY: Blood cultures from 05/07 are negative. OBJECTIVE: VITAL SIGNS: On physical exam, temperature is 98.6, pulse 88, respirations 15, blood pressure 131/70, O2 saturation 90% on room air. Even though she is not complaining of shortness of breath, this is a drop from previous O2 saturations. HEART: Normal S1, S2. No murmurs. LUNGS: Clear. [id number] site is clean with no tenderness. BACK: Mild right sacroiliac tenderness. EXTREMITIES: Trace ankle edema. ABDOMEN: Soft, nontender with ileostomy bag. IMPRESSION: 1. Rdaszh-A-Ukow infection with Staphylococcus epidermidis on intravenous (IV) vancomycin since 05/01. The patient will need 14 days of the IV antibiotics through the [id number] from negative cultures on 05/03. End of therapy would be May 17. 2. Persistent right hip pain, history of open reduction internal fixation of right hip right leg. Probably mechanical and muscular in origin. Doing better with muscle relaxant. PLAN Continue IV vancomycin until . Most recent vancomycin level was 18.7 on 05/10. please also draw blood culture from Vitale and peripherally 3-4 days after antibiotics were discontinued MTDD
[2016-05-13] MEDS: traZODone 100 MG TAB PO SCH (20:56)
[2016-05-13] MEDS: PRAVASTATIN 20 MG TAB PO SCH (20:56)
[2016-05-13] MEDS ORDERED: [UNRECOGNIZED DRUG - MIXTURE] IV SCH ×5 (21:00)
[2016-05-13] MEDS ORDERED: FAT EMULSION IV 20% 500 ML IV SCH (21:00)
[2016-05-13] MEDS: NS 1,000 ML IV SCH (21:07)
[2016-05-13 22:00] VITALS: BP 123/62
[2016-05-14] MEDS: PERCOCET 5MG/325MG TAB PO PRN ×5 (00:10→23:56)
[2016-05-14] MEDS: HumaLOG INSULIN (NovoLOG) PER UNIT SC SCH ×5 (00:11→23:55)
[2016-05-14] MEDS: tiZANidine 4 MG TAB PO PRN ×4 (03:08→21:29)
[2016-05-14] MEDS: HEPARIN SOD (PORCINE) 5000 UNITS/ML VIAL SQ SCH ×3 (05:22→21:28)
[2016-05-14 05:23] LABS: MEAN CORPUSCULAR HGB CONC 31.4 g/dl (32.0-36.5); MEAN CORPUSCULAR VOLUME 89.2 fl (80.0-96.0); RED CELL DISTRIBUTION WIDTH 14.7 % (11.5-14.5)
[2016-05-14 05:44] LABS: ANION GAP 10 MEQ/L (8-16); BLOOD UREA NITROGEN 19 MG/DL (7-18); CALCIUM LEVEL 8.2 MG/DL (8.5-10.1); CARBON DIOXIDE LEVEL 30 MEQ/L (21-32); CHLORIDE LEVEL 99 MEQ/L (98-107); CREATININE FOR GFR 0.97 MG/DL (0.55-1.02); GLOMERULAR FILTRATION RATE > 60.0 (>51); GLUCOSE, FASTING 380 MG/DL (70-105); POTASSIUM SERUM 4.2 MEQ/L (3.5-5.1); SODIUM LEVEL 139 MEQ/L (136-145)
--- NOTE | 2016-05-14 05:55 | PHACANCOPD ---
PHARMACY VANCOMYCIN DOSING Pt Demographics Demographics Patient Age:50 , Weight:61.700 , Gender: female Adjusted Body Weight Date: 05/01/16, Adjusted Body Weight: [57.5]ACTUAL WT Kg Events Past 24 Hours Events Past 24 Hours: NO: Change in CrCl, Dialysis, Diuretic Therapy, Elevation in WBC, Fever, Other, Pending Diagnostics, Pending Procedures Vancomycin Vancomycin indication: staph epidermidis bacteremia Vancomycin Target Ranges: 15-20 mcg/ml Vancomycin Load Y/N: Yes Load Dose Date Time Vancomycin Load Dose: 1000MG Date: 05/01 Time: 12:00 noon Vancomycin Dose Date: 05/14/16. Current Vancomycin Dose: [1g IV q18h] Intermittent Dosing?: No Labs Labs Item Value Date Time White Blood Count 6.0 K/mm3 05/14/16512 Creatinine 0.97 MG/DL 05/14/16 05 Vancomycin Level Trough 17.5 UG/ML 05/14/16 0513 Vital Signs Label Value Date Time Patient Temperature 98.4 degrees F 05/13/16 2200 Temperature Source Tympanic 05/13/16 2200 Micro Microbiology 05/07/16 Blood Culture - Final, Complete NO GROWTH AFTER 5 DAYS 05/07/16 Blood Culture - Final, Complete NO GROWTH AFTER 5 DAYS 05/04/16 Stool Occult Blood (KORTNEY) - Final, Complete Creatinine Clearance Date:05/07/16. Creatinine Clearance: [84 ml/min]. Date:05/01/16. Creatinine Clearance: [66 ml/min]. Assessment and Plan Maintaining Current Dose?: Yes Reason for dose change: No Dose Change Pharmacist Note Pharmacist Note Date: 05/14/16. Pharmacist note: trough of 17.5 is within target range. Will continue current dosing. Will continue to monitor and make adjustment as needed. [facility] May 14, 2016 05:55
[2016-05-14 06:00] VITALS: BP 131/63
[2016-05-14] MEDS: VANCOMYCIN HCL 1,000 MG, VIAL MATE ADAPTER 1 EACH in D5W 250 ML IV SCH ×2 (06:22→23:55)
[2016-05-14] MEDS: LEVEMIR (INSULIN DETEMIR) 1 UNITS/0.01ML SC SCH ×2 (09:19→21:28)
[2016-05-14] MEDS: SLF 3 ML SYR IV SCH (09:19)
[2016-05-14] MEDS: CitaloPRAM (CeleXA) 20 MG TAB PO SCH (09:20)
[2016-05-14] MEDS: LOMOTIL 2.5MG/0.025MG TABLET PO SCH ×4 (09:20→21:29)
[2016-05-14] MEDS: carBAMazepine 200 MG TAB PO SCH ×2 (09:20→21:29)
[2016-05-14] MEDS: MAGNESIUM OXIDE 400 MG TAB (MAG-OX) PO SCH ×2 (09:20→21:28)
[2016-05-14] MEDS: rOPINIRole 1MG TAB PO SCH ×2 (09:20→21:28)
[2016-05-14] MEDS: ASPIRIN 81 MG ENTERIC TAB PO SCH (09:20)
[2016-05-14] MEDS: buPROPion 100 MG TAB PO SCH ×2 (09:21→21:29)
[2016-05-14] MEDS: GABAPENTIN 300 MG CAP PO SCH ×3 (09:21→21:28)
[2016-05-14] MEDS: PANTOPRAZOLE 40MG TAB (PROTONIX) PO SCH ×2 (09:21→21:28)
[2016-05-14] MEDS: ANALGESIC BALM CRM 120 GM TOP SCH ×3 (09:21→21:30)
[2016-05-14] MEDS: VITAMIN D 1,000 INTERNATIONAL UNITS TABLET PO SCH (09:21)
[2016-05-14] MEDS: FERROUS SULFATE 325MG TAB PO SCH ×3 (09:21→21:29)
[2016-05-14] MEDS: MULTIVITAMINS/MINERALS THERAP 1 TAB PO SCH (09:21)
[2016-05-14] MEDS: FLUTICASONE PROP 0.05% NASAL SPRAY 16 GM (FLONASE) SCH (09:22)
[2016-05-14] MEDS: [UNRECOGNIZED DRUG - REMARK] XX SCH (11:37)
[2016-05-14 14:00] VITALS: BP 114/56
--- NOTE | 2016-05-14 14:04 | IPNPDOC ---
Text Note Date of Service The patient was seen on 05/14/16 at 14:01. NOTE Subjective: Patient is a 50 year old female with a PMHx of pancreatic cyst rupture causing ischemic gut - s/p partial colectomy and jejunostomy, DLP, DM2, CKD3, hx of CVA, RLS, Depression, CALVIN, Chronic sacral pressure ulcer, . Patient was recently admitted from 04/05 - 04/10 for dehydration 2/2 high output ostomy. Had outpatient arrangements for NS infusion and TPN. When patient was home she had complaints of suprapubic tenderness. Also noted that she had uncontrolled blood sugars. Upon arrival to ER patient was found to have a UTI and HHNK state. Blood cultures were subsequently positive for MSSA. Patient was seen and examined at the bedside. Again she notes some pain with her R lower back radiating to her leg. Objective: Vitals (see below) General: Lying in bed, no acute distress, AAOx3 HEENT: NC, AT CVS: RRR, +S1S2 Lungs: Fair air entry b/l, -w/r/r Abdomen: Soft, ND, NT, +BSx4, Ostomy on R lower quadrant Extremities: +PPx4, -edema, -calf tenderness Assessment and plan: 1. Sepsis - 2/2 staph epidermidis bacteremia - (2/2 possible R IJ catheter infection) and/or urinary tract infection - Clinical picture of sepsis was present from admission - Initially treated for UTI with ceftriaxone; Strep epi was resistant to it, antibiotics were subsequently changed to vancomycin - Blood cultures 04/24 positive for Strep epidermidis; Repeat blood cultures on 05/03 and 05/07 negative - Urine cultures 04/25 negative after treatment with Vancomycin - TTE 05/03: no vegetations noted - No indication to remove R sided catheter - cultures negative rapidly and no more fevers - c/w Vancomycin until MondayMay 16; s/p Ceftriaxone (for 12 days) - ID consulted (Dr. Hankins) - appreciated their input 2. s/p HHNK - 2/2 poorly controlled DM2 and infection - Will increase dose of Levemir again today - will continue to follow glucose and adjust insulin as needed 3. Normocytic anemia - Hg from admission was 11 - currently stable around ~8 - Reticulocyte index of 1.2; Iron panel - consistent with CALVIN - s/p 1 unit PRBC - FOBT negative 05/04 - s/p Venofer 4. s/p AQUILES 5. History of pancreatic cyst rupture - causing ischemic gut; s/p partial colectomy with jejunostomy 6. Severe protein calorie malnutrition and high output ostomy - supplements with 1 liter of NS daily and TPN nightly 7. Depression 8. Diabetic neuropathy 9. Chronic lower back pain - MRI shows degenerative disc narrowing, no spinal stenosis, mild right sided neural foraminal narrowing - c/w lidoderm patch, percocet, s/p flexeril - seen by pain management; c/w bengay cream 10. Stage II Pressure ulcer at coccyx - present from admission 11. GI prophylaxis - c/w protonix 12. DVT prophylaxis - c/w heparin Disposition: - will require inpatient stay for Vancomycin until May 16; no home care available for her - outpatient setup already established for 1 L NS and TPN nightly VS,Fishbone, I+O VS, Fishbone, I+O Laboratory Tests 05/14/16 05:13 Calcium Level 8.2 L, Red Blood Count 2.81 L, Mean Corpuscular Volume 89.2, Mean Corpuscular Hemoglobin 28.0, Mean Corpuscular Hemoglobin Concent 31.4 L, Red Cell Distribution Width 14.7 H Vital Signs Date Time Temp Pulse Resp B/P Pulse Ox O2 Delivery O2 Flow Rate FiO2 05/14/16 12:06 18 05/14/16 06:00 99.2 89 131/63 95 Room Air I&O- Last 24 Hours up to 6 AM 05/14/16 06:00 Intake Total 2820 ml Output Total 7075 ml Balance -4255 ml LIBRADO PALMER MD May 14, 2016 14:04
[2016-05-14] MEDS ORDERED: [UNRECOGNIZED DRUG - OTHER] IV SCH (21:00)
[2016-05-14] MEDS ORDERED: INSULIN HUMAN REGULAR IV SCH (21:00)
[2016-05-14] MEDS ORDERED: POTASSIUM CHLORIDE IV SCH (21:00)
[2016-05-14] MEDS ORDERED: FAT EMULSION IV 20% 500 ML IV SCH (21:00)
[2016-05-14] MEDS: PRAVASTATIN 20 MG TAB PO SCH (21:28)
[2016-05-14] MEDS: traZODone 100 MG TAB PO SCH (21:28)
[2016-05-14] MEDS: NS 1,000 ML IV SCH (21:30)
[2016-05-14 22:00] VITALS: BP 109/55
[2016-05-15] MEDS: tiZANidine 4 MG TAB PO PRN ×4 (04:57→23:44)
[2016-05-15] MEDS: HEPARIN SOD (PORCINE) 5000 UNITS/ML VIAL SQ SCH ×3 (04:58→20:59)
[2016-05-15] MEDS: PERCOCET 5MG/325MG TAB PO PRN ×4 (04:59→20:54)
[2016-05-15 05:34] LABS: MEAN CORPUSCULAR HEMOGLOBIN 27.7 pg (27.0-33.0); MEAN CORPUSCULAR HGB CONC 31.9 g/dl (32.0-36.5); RED CELL DISTRIBUTION WIDTH 15.8 % (11.5-14.5); WHITE BLOOD COUNT 6.7 K/mm3 (4.0-10.0)
[2016-05-15 05:45] LABS: ANION GAP 10 MEQ/L (8-16); BLOOD UREA NITROGEN 21 MG/DL (7-18); CALCIUM LEVEL 8.2 MG/DL (8.5-10.1); CARBON DIOXIDE LEVEL 29 MEQ/L (21-32); CHLORIDE LEVEL 101 MEQ/L (98-107); CREATININE FOR GFR 0.89 MG/DL (0.55-1.02); GLOMERULAR FILTRATION RATE > 60.0 (>51); GLUCOSE, FASTING 216 MG/DL (70-105); POTASSIUM SERUM 4.1 MEQ/L (3.5-5.1); SODIUM LEVEL 140 MEQ/L (136-145)
[2016-05-15] MEDS: HumaLOG INSULIN (NovoLOG) PER UNIT SC SCH ×4 (05:51→23:44)
[2016-05-15 06:00] VITALS: BP 139/69
[2016-05-15] MEDS: SLF 3 ML SYR IV SCH (09:58)
[2016-05-15] MEDS: FLUTICASONE PROP 0.05% NASAL SPRAY 16 GM (FLONASE) SCH (09:58)
[2016-05-15] MEDS: LOMOTIL 2.5MG/0.025MG TABLET PO SCH ×4 (09:58→20:56)
[2016-05-15] MEDS: carBAMazepine 200 MG TAB PO SCH ×2 (09:59→20:56)
[2016-05-15] MEDS: VITAMIN D 1,000 INTERNATIONAL UNITS TABLET PO SCH (09:59)
[2016-05-15] MEDS: MAGNESIUM OXIDE 400 MG TAB (MAG-OX) PO SCH ×2 (09:59→20:57)
[2016-05-15] MEDS: CitaloPRAM (CeleXA) 20 MG TAB PO SCH (09:59)
[2016-05-15] MEDS: buPROPion 100 MG TAB PO SCH ×2 (09:59→20:57)
[2016-05-15] MEDS: rOPINIRole 1MG TAB PO SCH ×2 (09:59→20:56)
[2016-05-15] MEDS: GABAPENTIN 300 MG CAP PO SCH ×3 (10:00→20:56)
[2016-05-15] MEDS: MULTIVITAMINS/MINERALS THERAP 1 TAB PO SCH (10:00)
[2016-05-15] MEDS: PANTOPRAZOLE 40MG TAB (PROTONIX) PO SCH ×2 (10:00→20:56)
[2016-05-15] MEDS: FERROUS SULFATE 325MG TAB PO SCH ×3 (10:00→20:57)
[2016-05-15] MEDS: ASPIRIN 81 MG ENTERIC TAB PO SCH (10:00)
[2016-05-15] MEDS: LEVEMIR (INSULIN DETEMIR) 1 UNITS/0.01ML SC SCH ×2 (10:01→20:58)
[2016-05-15] MEDS: ANALGESIC BALM CRM 120 GM TOP SCH ×3 (10:01→21:00)
[2016-05-15] MEDS: [UNRECOGNIZED DRUG - REMARK] XX SCH (12:00)
[2016-05-15 14:00] VITALS: BP 115/59
--- NOTE | 2016-05-15 14:28 | IPNPDOC ---
Text Note Date of Service The patient was seen on 05/15/16 at 14:23. NOTE Subjective: Patient is a 50 year old female with a PMHx of pancreatic cyst rupture causing ischemic gut - s/p partial colectomy and jejunostomy, DLP, DM2, CKD3, hx of CVA, RLS, Depression, CALVIN, Chronic sacral pressure ulcer, . Patient was recently admitted from 04/05 - 04/10 for dehydration 2/2 high output ostomy. Had outpatient arrangements for NS infusion and TPN. When patient was home she had complaints of suprapubic tenderness. Also noted that she had uncontrolled blood sugars. Upon arrival to ER patient was found to have a UTI and HHNK state. Blood cultures were subsequently positive for MSSA. Patient was seen and examined at the bedside. Reports that the new pain medication has given some relief, but still experiences breath through pain. Objective: Vitals (see below) General: Lying in bed, no acute distress, AAOx3 HEENT: NC, AT CVS: RRR, +S1S2 Lungs: Fair air entry b/l, -w/r/r Abdomen: Soft, ND, NT, +BSx4, Ostomy on R lower quadrant Extremities: +PPx4, -edema, -calf tenderness Assessment and plan: 1. Sepsis - 2/2 staph epidermidis bacteremia - (2/2 possible R IJ catheter infection) and/or urinary tract infection - Clinical picture of sepsis was present from admission - Initially treated for UTI with ceftriaxone; Strep epi was resistant to it, antibiotics were subsequently changed to vancomycin - Blood cultures 04/24 positive for Strep epidermidis; Repeat blood cultures on 05/03 and 05/07 negative - Urine cultures 04/25 negative after treatment with Vancomycin - TTE 05/03: no vegetations noted - No indication to remove R sided catheter - cultures negative rapidly and no more fevers - c/w Vancomycin until MondayMay 16; s/p Ceftriaxone - ID consulted (Dr. Hankins) - appreciated their input 2. s/p HHNK - 2/2 poorly controlled DM2 and infection - Will increase dose of Levemir again today to 30 BID - will continue to follow glucose and adjust insulin as needed 3. Normocytic anemia - Hg from admission was 11 - currently stable around ~8 - Reticulocyte index of 1.2; Iron panel - consistent with CALVIN - s/p 1 unit PRBC - FOBT negative 05/04 - s/p Venofer; will give additional dose today - Will transfuse if Hg <7 4. s/p AQUILES 5. History of pancreatic cyst rupture - causing ischemic gut; s/p partial colectomy with jejunostomy 6. Severe protein calorie malnutrition and high output ostomy - supplements with 1 liter of NS daily and TPN nightly 7. Depression 8. Diabetic neuropathy 9. Chronic lower back pain - MRI shows degenerative disc narrowing, no spinal stenosis, mild right sided neural foraminal narrowing - c/w lidoderm patch, percocet, s/p flexeril - seen by pain management; c/w bengay cream and tizanidine - will increase dose of tizanidine 10. Stage II Pressure ulcer at coccyx - present from admission 11. GI prophylaxis - c/w protonix 12. DVT prophylaxis - c/w heparin Disposition: - will require inpatient stay for Vancomycin until May 16; no home care available for her - outpatient setup already established for 1 L NS and TPN nightly VS,Fishbone, I+O VS, Fishbone, I+O Laboratory Tests 05/15/16 05:19 Calcium Level 8.2 L, Red Blood Count 2.83 L, Mean Corpuscular Volume 87.0, Mean Corpuscular Hemoglobin 27.7, Mean Corpuscular Hemoglobin Concent 31.9 L, Red Cell Distribution Width 15.8 H Vital Signs Date Time Temp Pulse Resp B/P Pulse Ox O2 Delivery O2 Flow Rate FiO2 05/15/16 10:31 18 05/15/16 06:00 98.9 93 139/69 98 Room Air I&O- Last 24 Hours up to 6 AM 05/15/16 06:00 Intake Total 4286 ml Output Total 4300 ml Balance -14 ml LIBRADO PALMER MD May 15, 2016 14:28
[2016-05-15] MEDS ORDERED: IRON SUCROSE 100 MG/5 ML INJ (J1756) IV ONE (14:30)
[2016-05-15] MEDS ORDERED: IRON SUCROSE 25 MG in NS 50 ML IV ONE (16:00)
[2016-05-15] MEDS ORDERED: IRON SUCROSE 75 MG in NS 100 ML IV ONE (17:15)
[2016-05-15] MEDS: VANCOMYCIN HCL 1,000 MG, VIAL MATE ADAPTER 1 EACH in D5W 250 ML IV SCH (17:43)
[2016-05-15] MEDS: traZODone 100 MG TAB PO SCH (20:57)
[2016-05-15] MEDS: PRAVASTATIN 20 MG TAB PO SCH (20:57)
[2016-05-15] MEDS ORDERED: FAT EMULSION IV 20% 500 ML IV SCH (21:00)
[2016-05-15] MEDS ORDERED: INSULIN HUMAN REGULAR IV SCH (21:00)
[2016-05-15] MEDS ORDERED: [UNRECOGNIZED DRUG - OTHER] IV SCH (21:00)
[2016-05-15] MEDS ORDERED: POTASSIUM CHLORIDE IV SCH (21:00)
[2016-05-15] MEDS: NS 1,000 ML IV SCH (21:27)
[2016-05-15 22:00] VITALS: BP 103/57
[2016-05-16] MEDS: PERCOCET 5MG/325MG TAB PO PRN ×6 (00:59→23:13)
[2016-05-16 05:33] LABS: MEAN CORPUSCULAR HEMOGLOBIN 27.7 pg (27.0-33.0); MEAN CORPUSCULAR HGB CONC 31.9 g/dl (32.0-36.5); MEAN CORPUSCULAR VOLUME 86.9 fl (80.0-96.0); WHITE BLOOD COUNT 5.3 K/mm3 (4.0-10.0)
[2016-05-16 05:46] LABS: ANION GAP 8 MEQ/L (8-16); BLOOD UREA NITROGEN 19 MG/DL (7-18); CARBON DIOXIDE LEVEL 30 MEQ/L (21-32); CHLORIDE LEVEL 106 MEQ/L (98-107); GLOMERULAR FILTRATION RATE > 60.0 (>51); GLUCOSE, FASTING 91 MG/DL (70-105); POTASSIUM SERUM 3.9 MEQ/L (3.5-5.1); SODIUM LEVEL 144 MEQ/L (136-145)
[2016-05-16] MEDS: HumaLOG INSULIN (NovoLOG) PER UNIT SC SCH ×4 (05:56→17:32)
[2016-05-16 06:00] VITALS: BP 142/67
[2016-05-16] MEDS: HEPARIN SOD (PORCINE) 5000 UNITS/ML VIAL SQ SCH ×3 (06:02→22:13)
[2016-05-16] MEDS: tiZANidine 4 MG TAB PO PRN ×3 (06:02→18:45)
[2016-05-16] MEDS: rOPINIRole 1MG TAB PO SCH ×2 (09:32→22:10)
[2016-05-16] MEDS: CitaloPRAM (CeleXA) 20 MG TAB PO SCH (09:32)
[2016-05-16] MEDS: FERROUS SULFATE 325MG TAB PO SCH ×3 (09:32→22:11)
[2016-05-16] MEDS: carBAMazepine 200 MG TAB PO SCH ×2 (09:32→22:11)
[2016-05-16] MEDS: LOMOTIL 2.5MG/0.025MG TABLET PO SCH ×4 (09:32→22:10)
[2016-05-16] MEDS: buPROPion 100 MG TAB PO SCH ×2 (09:32→22:11)
[2016-05-16] MEDS: VITAMIN D 1,000 INTERNATIONAL UNITS TABLET PO SCH (09:33)
[2016-05-16] MEDS: MULTIVITAMINS/MINERALS THERAP 1 TAB PO SCH (09:33)
[2016-05-16] MEDS: MAGNESIUM OXIDE 400 MG TAB (MAG-OX) PO SCH ×2 (09:33→22:11)
[2016-05-16] MEDS: ASPIRIN 81 MG ENTERIC TAB PO SCH (09:33)
[2016-05-16] MEDS: GABAPENTIN 300 MG CAP PO SCH ×3 (09:33→22:11)
[2016-05-16] MEDS: PANTOPRAZOLE 40MG TAB (PROTONIX) PO SCH ×2 (09:33→22:11)
[2016-05-16] MEDS: FLUTICASONE PROP 0.05% NASAL SPRAY 16 GM (FLONASE) SCH (09:34)
[2016-05-16] MEDS: LEVEMIR (INSULIN DETEMIR) 1 UNITS/0.01ML SC SCH ×2 (09:34→22:12)
[2016-05-16] MEDS: SLF 3 ML SYR IV SCH (09:35)
[2016-05-16] MEDS: ANALGESIC BALM CRM 120 GM TOP SCH ×3 (09:35→22:13)
[2016-05-16] MEDS: [UNRECOGNIZED DRUG - REMARK] XX SCH (12:00)
--- NOTE | 2016-05-16 12:25 | IPNPDOC ---
Text Note Date of Service The patient was seen on 05/16/16 at 12:19. NOTE Subjective: Patient is a 50 year old female with a PMHx of pancreatic cyst rupture causing ischemic gut - s/p partial colectomy and jejunostomy, DLP, DM2, CKD3, hx of CVA, RLS, Depression, CALVIN, Chronic sacral pressure ulcer, . Patient was recently admitted from 04/05 - 04/10 for dehydration 2/2 high output ostomy. Had outpatient arrangements for NS infusion and TPN. When patient was home she had complaints of suprapubic tenderness. Also noted that she had uncontrolled blood sugars. Upon arrival to ER patient was found to have a UTI and HHNK state. Blood cultures were subsequently positive for MSSA. Patient was seen and examined at the bedside. Reports that the lower right back pain is more tolerable after her medications were adjusted yesterday. Physical therapy to evaluate her today for clearance. Objective: Vitals (see below) General: Lying in bed, no acute distress, AAOx3 HEENT: NC, AT CVS: RRR, +S1S2 Lungs: Fair air entry b/l, -w/r/r Abdomen: Soft, ND, NT, +BSx4, Ostomy on R lower quadrant Extremities: +PPx4, -edema, -calf tenderness Assessment and plan: 1. Sepsis - 2/2 staph epidermidis bacteremia - (2/2 possible R IJ catheter infection) and/or urinary tract infection - Clinical picture of sepsis was present from admission - Initially treated for UTI with ceftriaxone; Strep epi was resistant to it, antibiotics were subsequently changed to vancomycin - Blood cultures 04/24 positive for Strep epidermidis; Repeat blood cultures on 05/03 and 05/07 negative - Urine cultures 04/25 negative after treatment with Vancomycin - TTE 05/03: no vegetations noted - No indication to remove R sided catheter - cultures negative rapidly and no more fevers - c/w Vancomycin; last dose today 05/16 - ID consulted (Dr. Hankins) - appreciated their input 2. s/p HHNK - 2/2 poorly controlled DM2 and infection - Will increase dose of Levemir again today to 35 BID - will continue to follow glucose and adjust insulin as needed 3. Normocytic anemia - Hg from admission was 11 - currently stable around ~8 - Reticulocyte index of 1.2; Iron panel - consistent with CALVIN - s/p 1 unit PRBC - FOBT negative 05/04 - s/p Venofer x2 - Will transfuse if Hg <7 4. s/p AQUILES 5. History of pancreatic cyst rupture - causing ischemic gut; s/p partial colectomy with jejunostomy 6. Severe protein calorie malnutrition and high output ostomy - supplements with 1 liter of NS daily and TPN nightly 7. Depression 8. Diabetic neuropathy 9. Chronic lower back pain - MRI shows degenerative disc narrowing, no spinal stenosis, mild right sided neural foraminal narrowing - c/w lidoderm patch, percocet, s/p flexeril - seen by pain management; c/w bengay cream and increased dose of tizanidine 10. Stage II Pressure ulcer at coccyx - present from admission 11. GI prophylaxis - c/w protonix 12. DVT prophylaxis - c/w heparin Disposition: - case management working on discharge for tomorrow - outpatient setup already established for 1 L NS and TPN nightly VS,Fishbone, I+O VS, Fishbone, I+O Laboratory Tests 05/16/16 05:16 Calcium Level 8.0 L, Red Blood Count 2.88 L, Mean Corpuscular Volume 86.9, Mean Corpuscular Hemoglobin 27.7, Mean Corpuscular Hemoglobin Concent 31.9 L, Red Cell Distribution Width 15.0 H Vital Signs Date Time Temp Pulse Resp B/P Pulse Ox O2 Delivery O2 Flow Rate FiO2 05/16/16 10:30 16 Room Air 05/16/16 06:00 97.3 87 142/67 96 I&O- Last 24 Hours up to 6 AM 05/16/16 06:00 Intake Total 4718 ml Output Total 6000 ml Balance -1282 ml LIBRADO PALMER MD May 16, 2016 12:25
[2016-05-16] MEDS: VANCOMYCIN HCL 1,000 MG, VIAL MATE ADAPTER 1 EACH in D5W 250 ML IV SCH (12:43)
[2016-05-16 14:35] VITALS: BP 102/52
[2016-05-16] MEDS ORDERED: [UNRECOGNIZED DRUG - MIXTURE] IV SCH ×5 (21:00)
[2016-05-16] MEDS ORDERED: FAT EMULSION IV 20% 500 ML IV SCH (21:00)
[2016-05-16 22:00] VITALS: BP 135/65
[2016-05-16] MEDS: PRAVASTATIN 20 MG TAB PO SCH (22:11)
[2016-05-16] MEDS: traZODone 100 MG TAB PO SCH (22:12)
--- NOTE | 2016-05-16 22:30 | IPN ---
DATE: 05/16/2016 Delma was upset today because we discussed a public health referral and having nursing helping her at home. She is afebrile. Temperature is 97.7, pulse 85, respirations 16, oxygen saturation 96% on room air. Heart: Normal S1, S2 with no murmurs. Lungs are clear. No wheezes, rales or rhonchi. Abdomen: Soft, nontender. Ileostomy with large amount of stools, unchanged. Extremities: Trace edema. LABORATORY DATA: White count 5.3, hemoglobin 8, hematocrit 25, platelets 295. Sodium 144, potassium 3.9, chloride 106, bicarbonate 30, BUN 19, creatinine 0.8, glucose 91, calcium 8. Blood cultures from 05/07/2016 were negative. IMPRESSION: 1. [id number]-Nyxv infection. On IV vancomycin. Culture positive Staphylococcus epidermidis. The patient received her last dose of vancomycin today. 2. Poorly controlled diabetes and history of noncompliance. 3. Severe protein-calorie malnutrition with high output ostomy requiring total parenteral nutrition (TPN) and 1 liter of IV fluid daily. PLAN: Disposition: Home tomorrow if there is nursing agency who have accepted the patient. Please, I need to have blood cultures drawn from one peripheral and once with a port in 3-4 days, probably or Monday, to make sure the line has cleared from infection. Make sure that that is ordered on discharge to be done by nursing agency or for her to come and have it done at the hospital through the infusion unit as it needs to be done by a registered nurse from her port.
[2016-05-16] MEDS: NS 1,000 ML IV SCH (23:05)
[2016-05-17] MEDS: tiZANidine 4 MG TAB PO PRN ×4 (00:53→21:55)
[2016-05-17] MEDS: HumaLOG INSULIN (NovoLOG) PER UNIT SC SCH ×4 (00:53→17:49)
[2016-05-17] MEDS: PERCOCET 5MG/325MG TAB PO PRN ×5 (03:59→21:55)
[2016-05-17] MEDS: HEPARIN SOD (PORCINE) 5000 UNITS/ML VIAL SQ SCH ×3 (05:48→21:55)
[2016-05-17] MEDS: VANCOMYCIN HCL 1,000 MG, VIAL MATE ADAPTER 1 EACH in D5W 250 ML IV SCH (05:48)
[2016-05-17 06:00] VITALS: BP 119/63
[2016-05-17 06:16] LABS: MEAN CORPUSCULAR HEMOGLOBIN 28.9 pg (27.0-33.0); MEAN CORPUSCULAR HGB CONC 32.6 g/dl (32.0-36.5); MEAN CORPUSCULAR VOLUME 88.6 fl (80.0-96.0); WHITE BLOOD COUNT 6.3 K/mm3 (4.0-10.0)
[2016-05-17 06:32] LABS: ANION GAP 10 MEQ/L (8-16); BLOOD UREA NITROGEN 18 MG/DL (7-18); CALCIUM LEVEL 8.5 MG/DL (8.5-10.1); CARBON DIOXIDE LEVEL 27 MEQ/L (21-32); CHLORIDE LEVEL 105 MEQ/L (98-107); CREATININE FOR GFR 1.03 MG/DL (0.55-1.02); GLOMERULAR FILTRATION RATE > 60.0 (>51); GLUCOSE, FASTING 199 MG/DL (70-105); POTASSIUM SERUM 4.1 MEQ/L (3.5-5.1); SODIUM LEVEL 142 MEQ/L (136-145)
[2016-05-17] MEDS: CitaloPRAM (CeleXA) 20 MG TAB PO SCH (09:31)
[2016-05-17] MEDS: rOPINIRole 1MG TAB PO SCH ×2 (09:31→21:40)
[2016-05-17] MEDS: LOMOTIL 2.5MG/0.025MG TABLET PO SCH ×4 (09:31→21:40)
[2016-05-17] MEDS: MAGNESIUM OXIDE 400 MG TAB (MAG-OX) PO SCH ×2 (09:31→21:41)
[2016-05-17] MEDS: buPROPion 100 MG TAB PO SCH ×2 (09:31→21:40)
[2016-05-17] MEDS: PANTOPRAZOLE 40MG TAB (PROTONIX) PO SCH ×2 (09:31→21:41)
[2016-05-17] MEDS: VITAMIN D 1,000 INTERNATIONAL UNITS TABLET PO SCH (09:31)
[2016-05-17] MEDS: ASPIRIN 81 MG ENTERIC TAB PO SCH (09:31)
[2016-05-17] MEDS: FERROUS SULFATE 325MG TAB PO SCH ×3 (09:31→21:40)
[2016-05-17] MEDS: MULTIVITAMINS/MINERALS THERAP 1 TAB PO SCH (09:31)
[2016-05-17] MEDS: carBAMazepine 200 MG TAB PO SCH ×2 (09:31→21:41)
[2016-05-17] MEDS: GABAPENTIN 300 MG CAP PO SCH ×3 (09:31→21:40)
[2016-05-17] MEDS: LEVEMIR (INSULIN DETEMIR) 1 UNITS/0.01ML SC SCH ×2 (09:32→21:44)
[2016-05-17] MEDS: SLF 3 ML SYR IV SCH (09:33)
[2016-05-17] MEDS: ANALGESIC BALM CRM 120 GM TOP SCH ×3 (09:34→21:43)
[2016-05-17] MEDS: FLUTICASONE PROP 0.05% NASAL SPRAY 16 GM (FLONASE) SCH (09:34)
[2016-05-17] MEDS: [UNRECOGNIZED DRUG - REMARK] XX SCH (12:00)
[2016-05-17 14:00] VITALS: BP 122/58
--- NOTE | 2016-05-17 14:59 | IPNPDOC ---
Text Note Date of Service The patient was seen on 05/17/16 at 14:57. NOTE Subjective: Denies any complaints. States she has walked around with PT. Objective: Vitals: (see below) General: No acute distress, laying comfortably in bed. HEENT: Moist mucous membranes. Neck: No JVD or lymphadenopathy Cardiac: RRR, No murmurs Pulm: Clear to auscultation b/l. No wheezing, rhonchi. Right Vitale catheter. No area of bleeding or cellulitis. No tenderness. Abd: NT/ND + BS. Ostomy noted. Ext: No edema or cyanosis. LE with preserved strength 5/5 in BLE. Distal pulses intact. Labs (see below) Images: 04/24/16 CT ABDOMEN WITHOUT CONTRAST: Lung bases: No lung base infiltrate or effusion. Liver: No intrahepatic ductal dilation. Gallbladder: Cholecystectomy. Pancreas: No pancreatic duct dilation. Calcifications of chronic pancreatitis. Bowel loops: Right upper quadrant ileostomy. Diastasis of the anterior abdominal wall. Spleen: Normal size. Adrenals: Normal size. Right kidney: Mild hydronephrosis and hydroureter without obstructing stone. Left kidney: No stones or hydronephrosis. Calcifications adjacent to the left ureter are within the left gonadal vein. Aorta: Normal caliber. Peritoneum: No free air. CT PELVIS WITHOUT CONTRAST: Hips: Interval left hip arthroplasty and right femoral ORIF produce beam hardening artifact in the lower pelvis, limiting evaluation of the pelvic structures. Bladder: Normally distended. The wall is mildly thickened such that cystitis is not excluded Colon: Partial colectomy. Uterus: Hysterectomy. Peritoneum: No fluid. Lumbar spine: Degenerative spondylotic changes most pronounced at L4-5 and L5- S1. IMPRESSION: 1. Right upper quadrant ileostomy without evidence of obstruction. 2. Mild right hydronephrosis without obstructing stone. This may be due to reflux. 3. Urinary bladder wall thickening suggesting cystitis. MRI Lumbar spine 05/06/16 Findings: T2-weighted sagittal images demonstrate degenerative disc narrowing at this L3-4, L4-5, and L5-S1 with disc space bulging diffusely at each of these levels. This indents the ventral margin of the thecal sac. There is no evidence of spinal stenosis however. The thecal sac is fairly capacious. Conus medullaris terminates at L1-L2 and is unremarkable. There is mild right-sided neural foraminal narrowing L4-5 and L5-S1 unchanged. No new finding. Assessment/Plan 1. Staph epidermidis bacteremia - 2 blood cultures positive. Cont. vancomycin for now. Blood cultures repeated, and 1 bottle positive for staph epi. IV fluids. No leukocytosis. TTE with no vegetations. Repeat cx negative. will hold off on removing line as it does not appear to be infected. The positive cultures were from peripheral draws. Dr. Hankins on board. Patient completed her treatment with vancomycin. 2. S/p Diabetic ketoacidosis - Levemir has been titrated.. On TPN. May be secondary to urinary tract infection. Completing Rocephin 05/06/16. 3. Anemia - chronically trending down. Occult blood negative. Transfused 1 unit. Hb stable 4. AQUILES - resolved. likely secondary to volume depletion from high output ostomy. Creatinine improved. On IV fluids. 5. 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 6. Severe protein calorie malnutrition- on TPN 9 PM to 9 AM. 7. Depression- continue home meds 8. Diabetic neuropathy- continue Neurontin 9. Hypokalemia- potassium has been added to TPN 10. Chronic lower back pain with a stage II pressure ulcer on coccyx on admission- on Lidoderm patch, Percocet, Flexeril when necessary.MRI Lumbar spine (see above). Cont toradol, lidocaine patch, OOB, PT. Percocet. DVT prophy: Heparin Subcutaneous Case management is working on setting up a safe discharge. VS,Pili, I+O VS, [place], I+O Laboratory Tests 05/17/16 05:58 Calcium Level 8.5, Red Blood Count 2.92 L, Mean Corpuscular Volume 88.6, Mean Corpuscular Hemoglobin 28.9, Mean Corpuscular Hemoglobin Concent 32.6, Red Cell Distribution Width 15.0 H Vital Signs Date Time Temp Pulse Resp B/P Pulse Ox O2 Delivery O2 Flow Rate FiO2 05/17/16 14:32 18 Room Air 05/17/16 06:00 97.9 84 119/63 97 I&O- Last 24 Hours up to 6 AM 05/17/16 06:00 Intake Total 4890 ml Output Total 6750 ml Balance -1860 ml VONNIE MCMAHAN MD May 17, 2016 14:59
[2016-05-17] MEDS ORDERED: HumaLOG INSULIN (NovoLOG) PER UNIT SC SCH (18:00)
[2016-05-17] MEDS ORDERED: [UNRECOGNIZED DRUG - OTHER] IV SCH (21:00)
[2016-05-17] MEDS ORDERED: FAT EMULSION IV 20% 500 ML IV SCH ×2 (21:00)
[2016-05-17] MEDS ORDERED: [UNRECOGNIZED DRUG - OTHER] IV SCH (21:00)
[2016-05-17] MEDS ORDERED: POTASSIUM CHLORIDE IV SCH ×2 (21:00)
[2016-05-17] MEDS ORDERED: INSULIN HUMAN REGULAR IV SCH ×2 (21:00)
[2016-05-17] MEDS: PRAVASTATIN 20 MG TAB PO SCH (21:40)
[2016-05-17] MEDS: traZODone 100 MG TAB PO SCH (21:40)
[2016-05-17] MEDS: NS 1,000 ML IV SCH (21:40)
[2016-05-17 22:00] VITALS: BP 104/59
[2016-05-18] MEDS: HumaLOG INSULIN (NovoLOG) PER UNIT SC SCH ×5 (00:51→23:27)
[2016-05-18] MEDS: VANCOMYCIN HCL 1,000 MG, VIAL MATE ADAPTER 1 EACH in D5W 250 ML IV SCH (00:52)
[2016-05-18] MEDS: PERCOCET 5MG/325MG TAB PO PRN ×5 (02:19→20:11)
[2016-05-18] MEDS: tiZANidine 4 MG TAB PO PRN ×3 (04:28→18:10)
[2016-05-18] MEDS: HEPARIN SOD (PORCINE) 5000 UNITS/ML VIAL SQ SCH ×3 (05:37→21:31)
[2016-05-18 06:00] VITALS: BP 137/67
[2016-05-18 06:04] LABS: MEAN CORPUSCULAR HEMOGLOBIN 28.9 pg (27.0-33.0); MEAN CORPUSCULAR HGB CONC 33.3 g/dl (32.0-36.5); MEAN CORPUSCULAR VOLUME 86.8 fl (80.0-96.0); RED CELL DISTRIBUTION WIDTH 14.7 % (11.5-14.5); WHITE BLOOD COUNT 7.1 K/mm3 (4.0-10.0)
[2016-05-18 06:12] LABS: ANION GAP 9 MEQ/L (8-16); BLOOD UREA NITROGEN 20 MG/DL (7-18); CALCIUM LEVEL 8.4 MG/DL (8.5-10.1); CARBON DIOXIDE LEVEL 28 MEQ/L (21-32); CHLORIDE LEVEL 104 MEQ/L (98-107); CREATININE FOR GFR 0.83 MG/DL (0.55-1.02); GLOMERULAR FILTRATION RATE > 60.0 (>51); GLUCOSE, FASTING 88 MG/DL (70-105); POTASSIUM SERUM 4.2 MEQ/L (3.5-5.1); SODIUM LEVEL 141 MEQ/L (136-145)
[2016-05-18] MEDS: CitaloPRAM (CeleXA) 20 MG TAB PO SCH (09:21)
[2016-05-18] MEDS: MAGNESIUM OXIDE 400 MG TAB (MAG-OX) PO SCH ×2 (09:22→20:12)
[2016-05-18] MEDS: buPROPion 100 MG TAB PO SCH ×2 (09:22→20:11)
[2016-05-18] MEDS: rOPINIRole 1MG TAB PO SCH ×2 (09:22→20:12)
[2016-05-18] MEDS: VITAMIN D 1,000 INTERNATIONAL UNITS TABLET PO SCH (09:22)
[2016-05-18] MEDS: FLUTICASONE PROP 0.05% NASAL SPRAY 16 GM (FLONASE) SCH (09:22)
[2016-05-18] MEDS: ASPIRIN 81 MG ENTERIC TAB PO SCH (09:22)
[2016-05-18] MEDS: GABAPENTIN 300 MG CAP PO SCH ×3 (09:22→20:12)
[2016-05-18] MEDS: PANTOPRAZOLE 40MG TAB (PROTONIX) PO SCH ×2 (09:22→20:11)
[2016-05-18] MEDS: FERROUS SULFATE 325MG TAB PO SCH ×3 (09:22→20:12)
[2016-05-18] MEDS: LOMOTIL 2.5MG/0.025MG TABLET PO SCH ×4 (09:22→20:12)
[2016-05-18] MEDS: carBAMazepine 200 MG TAB PO SCH ×2 (09:22→20:12)
[2016-05-18] MEDS: MULTIVITAMINS/MINERALS THERAP 1 TAB PO SCH (09:22)
[2016-05-18] MEDS: LEVEMIR (INSULIN DETEMIR) 1 UNITS/0.01ML SC SCH ×2 (09:23→20:13)
[2016-05-18] MEDS: ANALGESIC BALM CRM 120 GM TOP SCH ×3 (09:23→20:15)
[2016-05-18] MEDS: SLF 3 ML SYR IV SCH (09:24)
[2016-05-18] MEDS: [UNRECOGNIZED DRUG - REMARK] XX SCH (12:00)
[2016-05-18 14:00] VITALS: BP 108/57
--- NOTE | 2016-05-18 16:01 | IPNPDOC ---
Text Note Date of Service The patient was seen on 05/18/16 at 16:00. NOTE Subjective: Denies any complaints. No acute changes overnight. Objective: Vitals: (see below) General: No acute distress, laying comfortably in bed. HEENT: Moist mucous membranes. Neck: No JVD or lymphadenopathy Cardiac: RRR, No murmurs Pulm: Clear to auscultation b/l. No wheezing, rhonchi. Right Vitale catheter. No area of bleeding or cellulitis. No tenderness. Abd: NT/ND + BS. Ostomy noted. Ext: No edema or cyanosis. LE with preserved strength 5/5 in BLE. Distal pulses intact. Labs (see below) Images: 04/24/16 CT ABDOMEN WITHOUT CONTRAST: Lung bases: No lung base infiltrate or effusion. Liver: No intrahepatic ductal dilation. Gallbladder: Cholecystectomy. Pancreas: No pancreatic duct dilation. Calcifications of chronic pancreatitis. Bowel loops: Right upper quadrant ileostomy. Diastasis of the anterior abdominal wall. Spleen: Normal size. Adrenals: Normal size. Right kidney: Mild hydronephrosis and hydroureter without obstructing stone. Left kidney: No stones or hydronephrosis. Calcifications adjacent to the left ureter are within the left gonadal vein. Aorta: Normal caliber. Peritoneum: No free air. CT PELVIS WITHOUT CONTRAST: Hips: Interval left hip arthroplasty and right femoral ORIF produce beam hardening artifact in the lower pelvis, limiting evaluation of the pelvic structures. Bladder: Normally distended. The wall is mildly thickened such that cystitis is not excluded Colon: Partial colectomy. Uterus: Hysterectomy. Peritoneum: No fluid. Lumbar spine: Degenerative spondylotic changes most pronounced at L4-5 and L5- S1. IMPRESSION: 1. Right upper quadrant ileostomy without evidence of obstruction. 2. Mild right hydronephrosis without obstructing stone. This may be due to reflux. 3. Urinary bladder wall thickening suggesting cystitis. MRI Lumbar spine 05/06/16 Findings: T2-weighted sagittal images demonstrate degenerative disc narrowing at this L3-4, L4-5, and L5-S1 with disc space bulging diffusely at each of these levels. This indents the ventral margin of the thecal sac. There is no evidence of spinal stenosis however. The thecal sac is fairly capacious. Conus medullaris terminates at L1-L2 and is unremarkable. There is mild right-sided neural foraminal narrowing L4-5 and L5-S1 unchanged. No new finding. Assessment/Plan 1. Staph epidermidis bacteremia - 2 blood cultures positive. Cont. vancomycin for now. Blood cultures repeated, and 1 bottle positive for staph epi. IV fluids. No leukocytosis. TTE with no vegetations. Repeat cx negative. will hold off on removing line as it does not appear to be infected. The positive cultures were from peripheral draws. Dr. Hankins on board. Patient completed her treatment with vancomycin. 2. S/p Diabetic ketoacidosis - Levemir has been titrated.. On TPN. May be secondary to urinary tract infection. Completing Rocephin 05/06/16. 3. Anemia - chronically trending down. Occult blood negative. Transfused 1 unit. Hb stable 4. AQUILES - resolved. likely secondary to volume depletion from high output ostomy. Creatinine improved. On IV fluids. 5. 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 6. Severe protein calorie malnutrition- on TPN 9 PM to 9 AM. 7. Depression- continue home meds 8. Diabetic neuropathy- continue Neurontin 9. Hypokalemia- potassium has been added to TPN 10. Chronic lower back pain with a stage II pressure ulcer on coccyx on admission- on Lidoderm patch, Percocet, Flexeril when necessary.MRI Lumbar spine (see above). Cont toradol, lidocaine patch, OOB, PT. Percocet. DVT prophy: Heparin Subcutaneous Case management is working on setting up a safe discharge. VS,Fishbone, I+O VS, Fishbone, I+O Laboratory Tests 05/18/16 05:40 Calcium Level 8.4 L, Red Blood Count 2.90 L, Mean Corpuscular Volume 86.8, Mean Corpuscular Hemoglobin 28.9, Mean Corpuscular Hemoglobin Concent 33.3, Red Cell Distribution Width 14.7 H Vital Signs Date Time Temp Pulse Resp B/P Pulse Ox O2 Delivery O2 Flow Rate FiO2 05/18/16 15:54 18 05/18/16 06:00 99.2 84 137/67 97 Room Air I&O- Last 24 Hours up to 6 AM 05/18/16 06:00 Intake Total 5146 ml Output Total 3925 ml Balance 1221 ml ABED,VONNIE MD May 18, 2016 16:01
[2016-05-18] MEDS: traZODone 100 MG TAB PO SCH (20:12)
[2016-05-18] MEDS: PRAVASTATIN 20 MG TAB PO SCH (20:12)
[2016-05-18] MEDS ORDERED: [UNRECOGNIZED DRUG - MIXTURE] IV SCH ×5 (21:00)
[2016-05-18] MEDS ORDERED: FAT EMULSION IV 20% 500 ML IV SCH (21:00)
[2016-05-18] MEDS: NS 1,000 ML IV SCH (21:31)
[2016-05-18 22:00] VITALS: BP 120/60
[2016-05-19] MEDS: PERCOCET 5MG/325MG TAB PO PRN ×5 (00:46→23:39)
[2016-05-19] MEDS: HEPARIN SOD (PORCINE) 5000 UNITS/ML VIAL SQ SCH ×3 (05:06→22:11)
[2016-05-19 05:26] LABS: MEAN CORPUSCULAR HEMOGLOBIN 28.3 pg (27.0-33.0); MEAN CORPUSCULAR VOLUME 85.8 fl (80.0-96.0); WHITE BLOOD COUNT 8.1 K/mm3 (4.0-10.0)
[2016-05-19 05:45] LABS: ANION GAP 9 MEQ/L (8-16); BLOOD UREA NITROGEN 22 MG/DL (7-18); CALCIUM LEVEL 8.2 MG/DL (8.5-10.1); CARBON DIOXIDE LEVEL 30 MEQ/L (21-32); CHLORIDE LEVEL 100 MEQ/L (98-107); CREATININE FOR GFR 0.92 MG/DL (0.55-1.02); GLOMERULAR FILTRATION RATE > 60.0 (>51); GLUCOSE, FASTING 125 MG/DL (70-105); POTASSIUM SERUM 4.2 MEQ/L (3.5-5.1); SODIUM LEVEL 139 MEQ/L (136-145)
[2016-05-19 06:00] VITALS: BP 156/77
[2016-05-19] MEDS: HumaLOG INSULIN (NovoLOG) PER UNIT SC SCH ×4 (06:15→23:39)
[2016-05-19] MEDS: tiZANidine 4 MG TAB PO PRN ×3 (06:17→18:10)
[2016-05-19] MEDS: FLUTICASONE PROP 0.05% NASAL SPRAY 16 GM (FLONASE) SCH (09:39)
[2016-05-19] MEDS: ANALGESIC BALM CRM 120 GM TOP SCH ×3 (09:39→22:08)
[2016-05-19] MEDS: MAGNESIUM OXIDE 400 MG TAB (MAG-OX) PO SCH ×2 (09:40→22:11)
[2016-05-19] MEDS: MULTIVITAMINS/MINERALS THERAP 1 TAB PO SCH (09:40)
[2016-05-19] MEDS: LOMOTIL 2.5MG/0.025MG TABLET PO SCH ×4 (09:40→22:07)
[2016-05-19] MEDS: VITAMIN D 1,000 INTERNATIONAL UNITS TABLET PO SCH (09:40)
[2016-05-19] MEDS: PANTOPRAZOLE 40MG TAB (PROTONIX) PO SCH ×2 (09:40→22:08)
[2016-05-19] MEDS: rOPINIRole 1MG TAB PO SCH ×2 (09:40→22:08)
[2016-05-19] MEDS: buPROPion 100 MG TAB PO SCH ×2 (09:40→22:08)
[2016-05-19] MEDS: FERROUS SULFATE 325MG TAB PO SCH ×3 (09:40→22:08)
[2016-05-19] MEDS: ASPIRIN 81 MG ENTERIC TAB PO SCH (09:40)
[2016-05-19] MEDS: GABAPENTIN 300 MG CAP PO SCH ×3 (09:42→22:07)
[2016-05-19] MEDS: SLF 3 ML SYR IV SCH (09:42)
[2016-05-19] MEDS: CitaloPRAM (CeleXA) 20 MG TAB PO SCH (09:42)
[2016-05-19] MEDS: carBAMazepine 200 MG TAB PO SCH ×2 (09:42→22:08)
[2016-05-19] MEDS: LEVEMIR (INSULIN DETEMIR) 1 UNITS/0.01ML SC SCH ×2 (09:42→22:12)
[2016-05-19] MEDS: [UNRECOGNIZED DRUG - REMARK] XX SCH (11:45)
[2016-05-19 14:00] VITALS: BP 95/63
--- NOTE | 2016-05-19 16:22 | IPNPDOC ---
Text Note Date of Service The patient was seen on 05/19/16 at 16:22. NOTE Subjective: Patient states she's doing well. Acknowledges that it is very difficult to set up TPN outpatient and will try to be compliant outpatient. Objective: Vitals: (see below) General: No acute distress, laying comfortably in bed. HEENT: Moist mucous membranes. Neck: No JVD or lymphadenopathy Cardiac: RRR, No murmurs Pulm: Clear to auscultation b/l. No wheezing, rhonchi. Right Vitale catheter. No area of bleeding or cellulitis. No tenderness. Abd: NT/ND + BS. Ostomy noted. Ext: No edema or cyanosis. LE with preserved strength 5/5 in BLE. Distal pulses intact. Labs (see below) Images: 04/24/16 CT ABDOMEN WITHOUT CONTRAST: Lung bases: No lung base infiltrate or effusion. Liver: No intrahepatic ductal dilation. Gallbladder: Cholecystectomy. Pancreas: No pancreatic duct dilation. Calcifications of chronic pancreatitis. Bowel loops: Right upper quadrant ileostomy. Diastasis of the anterior abdominal wall. Spleen: Normal size. Adrenals: Normal size. Right kidney: Mild hydronephrosis and hydroureter without obstructing stone. Left kidney: No stones or hydronephrosis. Calcifications adjacent to the left ureter are within the left gonadal vein. Aorta: Normal caliber. Peritoneum: No free air. CT PELVIS WITHOUT CONTRAST: Hips: Interval left hip arthroplasty and right femoral ORIF produce beam hardening artifact in the lower pelvis, limiting evaluation of the pelvic structures. Bladder: Normally distended. The wall is mildly thickened such that cystitis is not excluded Colon: Partial colectomy. Uterus: Hysterectomy. Peritoneum: No fluid. Lumbar spine: Degenerative spondylotic changes most pronounced at L4-5 and L5- S1. IMPRESSION: 1. Right upper quadrant ileostomy without evidence of obstruction. 2. Mild right hydronephrosis without obstructing stone. This may be due to reflux. 3. Urinary bladder wall thickening suggesting cystitis. MRI Lumbar spine 05/06/16 Findings: T2-weighted sagittal images demonstrate degenerative disc narrowing at this L3-4, L4-5, and L5-S1 with disc space bulging diffusely at each of these levels. This indents the ventral margin of the thecal sac. There is no evidence of spinal stenosis however. The thecal sac is fairly capacious. Conus medullaris terminates at L1-L2 and is unremarkable. There is mild right-sided neural foraminal narrowing L4-5 and L5-S1 unchanged. No new finding. Assessment/Plan 1. Staph epidermidis bacteremia - 2 blood cultures positive. Cont. vancomycin for now. Blood cultures repeated, and 1 bottle positive for staph epi. IV fluids. No leukocytosis. TTE with no vegetations. Repeat cx negative. will hold off on removing line as it does not appear to be infected. The positive cultures were from peripheral draws. Dr. Hankins on board. Patient completed her treatment with vancomycin. 2. S/p Diabetic ketoacidosis - Levemir has been titrated.. On TPN. May be secondary to urinary tract infection. Completing Rocephin 05/06/16. 3. Anemia - chronically trending down. Occult blood negative. Transfused 1 unit. Hb stable 4. AQUILES - resolved. likely secondary to volume depletion from high output ostomy. Creatinine improved. On IV fluids. 5. 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 6. Severe protein calorie malnutrition- on TPN 9 PM to 9 AM. 7. Depression- continue home meds 8. Diabetic neuropathy- continue Neurontin 9. Hypokalemia- potassium has been added to TPN 10. Chronic lower back pain with a stage II pressure ulcer on coccyx on admission- on Lidoderm patch, Percocet, Flexeril when necessary.MRI Lumbar spine (see above). Cont toradol, lidocaine patch, OOB, PT. Percocet. DVT prophy: Heparin Subcutaneous Case management is working on setting up a safe discharge. VS,Fishbone, I+O VS, Fishbone, I+O Laboratory Tests 05/19/16 05:09 Calcium Level 8.2 L, Red Blood Count 3.09 L, Mean Corpuscular Volume 85.8, Mean Corpuscular Hemoglobin 28.3, Mean Corpuscular Hemoglobin Concent 33.0, Red Cell Distribution Width 16.0 H Vital Signs Date Time Temp Pulse Resp B/P Pulse Ox O2 Delivery O2 Flow Rate FiO2 05/19/16 14:00 98.4 84 18 95/63 97 Room Air I&O- Last 24 Hours up to 6 AM 05/19/16 06:00 Intake Total 2970 ml Output Total 2350 ml Balance 620 ml VONNIE MCMAHAN MD May 19, 2016 16:22
[2016-05-19] MEDS: NS 1,000 ML IV SCH (20:55)
[2016-05-19] MEDS ORDERED: FAT EMULSION IV 20% 500 ML IV SCH (21:00)
[2016-05-19] MEDS ORDERED: INSULIN HUMAN REGULAR IV SCH (21:00)
[2016-05-19] MEDS ORDERED: POTASSIUM CHLORIDE IV SCH (21:00)
[2016-05-19] MEDS ORDERED: [UNRECOGNIZED DRUG - OTHER] IV SCH (21:00)
[2016-05-19] MEDS: traZODone 100 MG TAB PO SCH (21:24)
[2016-05-19] MEDS ORDERED: SODIUM CHLORIDE 0.9% 1000 ML IV ONE (21:30)
[2016-05-19 22:00] VITALS: BP 78/44
[2016-05-19] MEDS: PRAVASTATIN 20 MG TAB PO SCH (22:08)
[2016-05-19 22:20] VITALS: BP 126/70
[2016-05-20] MEDS: tiZANidine 4 MG TAB PO PRN ×4 (00:42→19:48)
[2016-05-20] MEDS: NS 1,000 ML IV SCH ×2 (00:45→21:28)
[2016-05-20] MEDS: PERCOCET 5MG/325MG TAB PO PRN ×5 (04:24→22:21)
[2016-05-20] MEDS: HEPARIN SOD (PORCINE) 5000 UNITS/ML VIAL SQ SCH ×3 (05:39→21:13)
[2016-05-20 05:55] LABS: MEAN CORPUSCULAR HEMOGLOBIN 27.6 pg (27.0-33.0); MEAN CORPUSCULAR HGB CONC 32.2 g/dl (32.0-36.5); MEAN CORPUSCULAR VOLUME 85.6 fl (80.0-96.0); RED CELL DISTRIBUTION WIDTH 15.8 % (11.5-14.5); WHITE BLOOD COUNT 8.6 K/mm3 (4.0-10.0)
[2016-05-20 06:00] VITALS: BP 141/68
[2016-05-20 06:11] LABS: ANION GAP 7 MEQ/L (8-16); BLOOD UREA NITROGEN 22 MG/DL (7-18); CALCIUM LEVEL 8.6 MG/DL (8.5-10.1); CARBON DIOXIDE LEVEL 29 MEQ/L (21-32); CHLORIDE LEVEL 102 MEQ/L (98-107); CREATININE FOR GFR 0.93 MG/DL (0.55-1.02); GLOMERULAR FILTRATION RATE > 60.0 (>51); GLUCOSE, FASTING 220 MG/DL (70-105); POTASSIUM SERUM 4.8 MEQ/L (3.5-5.1); SODIUM LEVEL 138 MEQ/L (136-145)
[2016-05-20] MEDS: HumaLOG INSULIN (NovoLOG) PER UNIT SC SCH ×3 (06:44→18:43)
[2016-05-20] MEDS: ASPIRIN 81 MG ENTERIC TAB PO SCH (08:29)
[2016-05-20] MEDS: ANALGESIC BALM CRM 120 GM TOP SCH ×3 (08:29→21:00)
[2016-05-20] MEDS: FLUTICASONE PROP 0.05% NASAL SPRAY 16 GM (FLONASE) SCH (08:29)
[2016-05-20] MEDS: SLF 3 ML SYR IV SCH (08:29)
[2016-05-20] MEDS: LOMOTIL 2.5MG/0.025MG TABLET PO SCH ×4 (08:29→21:09)
[2016-05-20] MEDS: buPROPion 100 MG TAB PO SCH ×2 (08:30→21:10)
[2016-05-20] MEDS: PANTOPRAZOLE 40MG TAB (PROTONIX) PO SCH ×2 (08:30→21:10)
[2016-05-20] MEDS: CitaloPRAM (CeleXA) 20 MG TAB PO SCH (08:30)
[2016-05-20] MEDS: rOPINIRole 1MG TAB PO SCH ×2 (08:30→21:10)
[2016-05-20] MEDS: MULTIVITAMINS/MINERALS THERAP 1 TAB PO SCH (08:30)
[2016-05-20] MEDS: VITAMIN D 1,000 INTERNATIONAL UNITS TABLET PO SCH (08:30)
[2016-05-20] MEDS: MAGNESIUM OXIDE 400 MG TAB (MAG-OX) PO SCH ×2 (08:30→21:09)
[2016-05-20] MEDS: FERROUS SULFATE 325MG TAB PO SCH ×3 (08:31→21:10)
[2016-05-20] MEDS: carBAMazepine 200 MG TAB PO SCH ×2 (08:31→21:10)
[2016-05-20] MEDS: LEVEMIR (INSULIN DETEMIR) 1 UNITS/0.01ML SC SCH ×2 (08:31→21:11)
[2016-05-20] MEDS: GABAPENTIN 300 MG CAP PO SCH ×3 (08:31→21:10)
--- NOTE | 2016-05-20 11:19 | IPN ---
DATE: 05/20/2016 Haroon seems to be doing well. She has been afebrile. She is anxious to go home. She still has her right-sided low back pain but that has improved as well. Her last dose of IV vancomycin was on May 18. Blood cultures will be done through her Vitale catheter from both ports to make sure that there is no residual colonization with staph epidermidis. A peripheral culture was also done. She is afebrile and she is cleared to go home. The patient will be called next week if cultures are positive. LABORATORY DATA: Today white count is 8.6, hemoglobin 8.6, hematocrit 26.8, platelets 318. Sodium 138, potassium 4.8, chloride 102, bicarb 29, BUN 22, creatinine 0.93, glucose 220, calcium 8.6. Blood cultures are pending. Last cultures were done on 05/07 and were negative.
[2016-05-20] MEDS: [UNRECOGNIZED DRUG - REMARK] XX SCH (11:43)
--- NOTE | 2016-05-20 14:43 | IPNPDOC ---
Text Note Date of Service The patient was seen on 05/20/16 at 14:42. NOTE Subjective: Patient states she's doing well. No acute changes overnight. Objective: Vitals: (see below) General: No acute distress, laying comfortably in bed. HEENT: Moist mucous membranes. Neck: No JVD or lymphadenopathy Cardiac: RRR, No murmurs Pulm: Clear to auscultation b/l. No wheezing, rhonchi. Right Vitale catheter. No area of bleeding or cellulitis. No tenderness. Abd: NT/ND + BS. Ostomy noted. Ext: No edema or cyanosis. LE with preserved strength 5/5 in BLE. Distal pulses intact. Labs (see below) Images: 04/24/16 CT ABDOMEN WITHOUT CONTRAST: Lung bases: No lung base infiltrate or effusion. Liver: No intrahepatic ductal dilation. Gallbladder: Cholecystectomy. Pancreas: No pancreatic duct dilation. Calcifications of chronic pancreatitis. Bowel loops: Right upper quadrant ileostomy. Diastasis of the anterior abdominal wall. Spleen: Normal size. Adrenals: Normal size. Right kidney: Mild hydronephrosis and hydroureter without obstructing stone. Left kidney: No stones or hydronephrosis. Calcifications adjacent to the left ureter are within the left gonadal vein. Aorta: Normal caliber. Peritoneum: No free air. CT PELVIS WITHOUT CONTRAST: Hips: Interval left hip arthroplasty and right femoral ORIF produce beam hardening artifact in the lower pelvis, limiting evaluation of the pelvic structures. Bladder: Normally distended. The wall is mildly thickened such that cystitis is not excluded Colon: Partial colectomy. Uterus: Hysterectomy. Peritoneum: No fluid. Lumbar spine: Degenerative spondylotic changes most pronounced at L4-5 and L5- S1. IMPRESSION: 1. Right upper quadrant ileostomy without evidence of obstruction. 2. Mild right hydronephrosis without obstructing stone. This may be due to reflux. 3. Urinary bladder wall thickening suggesting cystitis. MRI Lumbar spine 05/06/16 Findings: T2-weighted sagittal images demonstrate degenerative disc narrowing at this L3-4, L4-5, and L5-S1 with disc space bulging diffusely at each of these levels. This indents the ventral margin of the thecal sac. There is no evidence of spinal stenosis however. The thecal sac is fairly capacious. Conus medullaris terminates at L1-L2 and is unremarkable. There is mild right-sided neural foraminal narrowing L4-5 and L5-S1 unchanged. No new finding. Assessment/Plan 1. Staph epidermidis bacteremia - 2 blood cultures positive. Cont. vancomycin for now. Blood cultures repeated, and 1 bottle positive for staph epi. IV fluids. No leukocytosis. TTE with no vegetations. Repeat cx negative. will hold off on removing line as it does not appear to be infected. The positive cultures were from peripheral draws. Dr. Hankins on board. Patient completed her treatment with vancomycin. 2. S/p Diabetic ketoacidosis - Levemir has been titrated.. On TPN. May be secondary to urinary tract infection. Completing Rocephin 05/06/16. 3. Anemia - chronically trending down. Occult blood negative. Transfused 1 unit. Hb stable 4. AQUILES - resolved. likely secondary to volume depletion from high output ostomy. Creatinine improved. On IV fluids. 5. 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 6. Severe protein calorie malnutrition- on TPN 9 PM to 9 AM. 7. Depression- continue home meds 8. Diabetic neuropathy- continue Neurontin 9. Hypokalemia- potassium has been added to TPN 10. Chronic lower back pain with a stage II pressure ulcer on coccyx on admission- on Lidoderm patch, Percocet, Flexeril when necessary.MRI Lumbar spine (see above). Cont toradol, lidocaine patch, OOB, PT. Percocet. DVT prophy: Heparin Subcutaneous Case management is working on setting up a safe discharge. It has been difficult arranging for home TPN. Home care had said that they will not be attending to the patient if she does not have 24-hour care at home. VS,Fishbone, I+O VS, Fishbone, I+O Laboratory Tests 05/20/16 05:42 Calcium Level 8.6, Red Blood Count 3.13 L, Mean Corpuscular Volume 85.6, Mean Corpuscular Hemoglobin 27.6, Mean Corpuscular Hemoglobin Concent 32.2, Red Cell Distribution Width 15.8 H Vital Signs Date Time Temp Pulse Resp B/P Pulse Ox O2 Delivery O2 Flow Rate FiO2 05/20/16 13:05 17 Room Air 05/20/16 06:00 98.2 87 141/68 96 I&O- Last 24 Hours up to 6 AM 05/20/16 06:00 Intake Total 6959 ml Output Total 7150 ml Balance -191 ml VONNIE MCMAHAN MD May 20, 2016 14:43
[2016-05-20] MEDS ORDERED: FAT EMULSION IV 20% 500 ML IV SCH ×2 (18:00→21:00)
[2016-05-20] MEDS: diphenhydrAMINE 25 MG CAP PO PRN (18:42)
[2016-05-20] MEDS ORDERED: [UNRECOGNIZED DRUG - MIXTURE] IV SCH ×5 (21:00)
[2016-05-20] MEDS: traZODone 100 MG TAB PO SCH (21:10)
[2016-05-20] MEDS: PRAVASTATIN 20 MG TAB PO SCH (21:10)
[2016-05-20 22:00] VITALS: BP 113/55
[2016-05-21] MEDS: HumaLOG INSULIN (NovoLOG) PER UNIT SC SCH ×4 (00:05→17:51)
[2016-05-21] MEDS: PERCOCET 5MG/325MG TAB PO PRN ×5 (02:26→22:17)
[2016-05-21] MEDS: tiZANidine 4 MG TAB PO PRN ×3 (03:36→15:35)
[2016-05-21 05:28] LABS: MEAN CORPUSCULAR HEMOGLOBIN 28.1 pg (27.0-33.0); MEAN CORPUSCULAR HGB CONC 32.2 g/dl (32.0-36.5); MEAN CORPUSCULAR VOLUME 87.3 fl (80.0-96.0); RED CELL DISTRIBUTION WIDTH 14.8 % (11.5-14.5); WHITE BLOOD COUNT 6.7 K/mm3 (4.0-10.0)
[2016-05-21 05:45] LABS: ANION GAP 8 MEQ/L (8-16); BLOOD UREA NITROGEN 22 MG/DL (7-18); CALCIUM LEVEL 8.4 MG/DL (8.5-10.1); CARBON DIOXIDE LEVEL 29 MEQ/L (21-32); CHLORIDE LEVEL 103 MEQ/L (98-107); CREATININE FOR GFR 0.85 MG/DL (0.55-1.02); GLOMERULAR FILTRATION RATE > 60.0 (>51); GLUCOSE, FASTING 171 MG/DL (70-105); POTASSIUM SERUM 4.7 MEQ/L (3.5-5.1); SODIUM LEVEL 140 MEQ/L (136-145)
[2016-05-21 06:00] VITALS: BP 144/67
[2016-05-21] MEDS: HEPARIN SOD (PORCINE) 5000 UNITS/ML VIAL SQ SCH ×3 (06:11→22:00)
[2016-05-21 08:30] VITALS: BP 144/73
[2016-05-21] MEDS: ANALGESIC BALM CRM 120 GM TOP SCH ×3 (09:00→21:00)
[2016-05-21] MEDS: LEVEMIR (INSULIN DETEMIR) 1 UNITS/0.01ML SC SCH ×2 (10:23→21:00)
[2016-05-21] MEDS: MAGNESIUM OXIDE 400 MG TAB (MAG-OX) PO SCH ×2 (10:24→21:00)
[2016-05-21] MEDS: GABAPENTIN 300 MG CAP PO SCH ×3 (10:24→21:00)
[2016-05-21] MEDS: buPROPion 100 MG TAB PO SCH ×2 (10:24→21:00)
[2016-05-21] MEDS: diphenhydrAMINE 25 MG CAP PO PRN (10:24)
[2016-05-21] MEDS: VITAMIN D 1,000 INTERNATIONAL UNITS TABLET PO SCH (10:24)
[2016-05-21] MEDS: ASPIRIN 81 MG ENTERIC TAB PO SCH (10:25)
[2016-05-21] MEDS: MULTIVITAMINS/MINERALS THERAP 1 TAB PO SCH (10:25)
[2016-05-21] MEDS: rOPINIRole 1MG TAB PO SCH ×2 (10:25→21:00)
[2016-05-21] MEDS: FERROUS SULFATE 325MG TAB PO SCH ×3 (10:25→21:00)
[2016-05-21] MEDS: carBAMazepine 200 MG TAB PO SCH ×2 (10:25→21:00)
[2016-05-21] MEDS: PANTOPRAZOLE 40MG TAB (PROTONIX) PO SCH ×2 (10:25→21:00)
[2016-05-21] MEDS: LOMOTIL 2.5MG/0.025MG TABLET PO SCH ×4 (10:25→21:00)
[2016-05-21] MEDS: CitaloPRAM (CeleXA) 20 MG TAB PO SCH (10:25)
[2016-05-21] MEDS: FLUTICASONE PROP 0.05% NASAL SPRAY 16 GM (FLONASE) SCH (10:26)
[2016-05-21] MEDS: [UNRECOGNIZED DRUG - REMARK] XX SCH (12:00)
--- NOTE | 2016-05-21 12:34 | IPNPDOC ---
Text Note Date of Service The patient was seen on 05/21/16 at 12:33. NOTE Subjective: Patient denies CP/SOB/Palpitations. No acute changes overnight. Objective: Vitals: (see below) General: No acute distress, laying comfortably in bed. HEENT: Moist mucous membranes. Neck: No JVD or lymphadenopathy Cardiac: RRR, No murmurs Pulm: Clear to auscultation b/l. No wheezing, rhonchi. Right Vitale catheter. No area of bleeding or cellulitis. No tenderness. Abd: NT/ND + BS. Ostomy noted. Ext: No edema or cyanosis. LE with preserved strength 5/5 in BLE. Distal pulses intact. Labs (see below) Images: 04/24/16 CT ABDOMEN WITHOUT CONTRAST: Lung bases: No lung base infiltrate or effusion. Liver: No intrahepatic ductal dilation. Gallbladder: Cholecystectomy. Pancreas: No pancreatic duct dilation. Calcifications of chronic pancreatitis. Bowel loops: Right upper quadrant ileostomy. Diastasis of the anterior abdominal wall. Spleen: Normal size. Adrenals: Normal size. Right kidney: Mild hydronephrosis and hydroureter without obstructing stone. Left kidney: No stones or hydronephrosis. Calcifications adjacent to the left ureter are within the left gonadal vein. Aorta: Normal caliber. Peritoneum: No free air. CT PELVIS WITHOUT CONTRAST: Hips: Interval left hip arthroplasty and right femoral ORIF produce beam hardening artifact in the lower pelvis, limiting evaluation of the pelvic structures. Bladder: Normally distended. The wall is mildly thickened such that cystitis is not excluded Colon: Partial colectomy. Uterus: Hysterectomy. Peritoneum: No fluid. Lumbar spine: Degenerative spondylotic changes most pronounced at L4-5 and L5- S1. IMPRESSION: 1. Right upper quadrant ileostomy without evidence of obstruction. 2. Mild right hydronephrosis without obstructing stone. This may be due to reflux. 3. Urinary bladder wall thickening suggesting cystitis. MRI Lumbar spine 05/06/16 Findings: T2-weighted sagittal images demonstrate degenerative disc narrowing at this L3-4, L4-5, and L5-S1 with disc space bulging diffusely at each of these levels. This indents the ventral margin of the thecal sac. There is no evidence of spinal stenosis however. The thecal sac is fairly capacious. Conus medullaris terminates at L1-L2 and is unremarkable. There is mild right-sided neural foraminal narrowing L4-5 and L5-S1 unchanged. No new finding. Assessment/Plan 1. Staph epidermidis bacteremia - 2 blood cultures positive. Cont. vancomycin for now. Blood cultures repeated, and 1 bottle positive for staph epi. IV fluids. No leukocytosis. TTE with no vegetations. Repeat cx negative. will hold off on removing line as it does not appear to be infected. The positive cultures were from peripheral draws. Dr. Hankins on board. Patient completed her treatment with vancomycin. 2. S/p Diabetic ketoacidosis - Levemir has been titrated.. On TPN. May be secondary to urinary tract infection. Completing Rocephin 05/06/16. 3. Anemia - chronically trending down. Occult blood negative. Transfused 1 unit. Hb stable 4. AQUILES - resolved. likely secondary to volume depletion from high output ostomy. Creatinine improved. On IV fluids. 5. 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 6. Severe protein calorie malnutrition- on TPN 9 PM to 9 AM. 7. Depression- continue home meds 8. Diabetic neuropathy- continue Neurontin 9. Hypokalemia- potassium has been added to TPN 10. Chronic lower back pain with a stage II pressure ulcer on coccyx on admission- on Lidoderm patch, Percocet, Flexeril when necessary.MRI Lumbar spine (see above). Cont toradol, lidocaine patch, OOB, PT. Percocet. DVT prophy: Heparin Subcutaneous Case management is working on setting up a safe discharge. It has been difficult arranging for home TPN. Home care had said that they will not be attending to the patient if she does not have 24-hour care at home. VS,Fishbone, I+O VS, Fishbone, I+O Laboratory Tests 05/21/16 05:07 Calcium Level 8.4 L 05/21/16 05:08 Red Blood Count 3.05 L, Mean Corpuscular Volume 87.3, Mean Corpuscular Hemoglobin 28.1, Mean Corpuscular Hemoglobin Concent 32.2, Red Cell Distribution Width 14.8 H Vital Signs Date Time Temp Pulse Resp B/P Pulse Ox O2 Delivery O2 Flow Rate FiO2 05/21/16 12:04 18 05/21/16 08:30 98.2 89 144/73 96 Room Air I&O- Last 24 Hours up to 6 AM 05/21/16 06:00 Intake Total 2140 ml Output Total 5500 ml Balance -3360 ml VONNIE MCMAHAN MD May 21, 2016 12:34
[2016-05-21] MEDS: SLF 3 ML SYR IV SCH (12:47)
[2016-05-21] MEDS: diphenhydrAMINE CREAM 30GM TOP PRN (15:20)
[2016-05-21] MEDS ORDERED: POTASSIUM CHLORIDE IV SCH (21:00)
[2016-05-21] MEDS ORDERED: FAT EMULSION IV 20% 500 ML IV SCH (21:00)
[2016-05-21] MEDS ORDERED: [UNRECOGNIZED DRUG - OTHER] IV SCH (21:00)
[2016-05-21] MEDS: PRAVASTATIN 20 MG TAB PO SCH (21:00)
[2016-05-21] MEDS ORDERED: INSULIN HUMAN REGULAR IV SCH (21:00)
[2016-05-21] MEDS: traZODone 100 MG TAB PO SCH (21:00)
[2016-05-21 22:00] VITALS: BP 131/69
[2016-05-22] MEDS: tiZANidine 4 MG TAB PO PRN ×4 (00:05→23:25)
[2016-05-22] MEDS: HumaLOG INSULIN (NovoLOG) PER UNIT SC SCH ×4 (00:06→17:51)
[2016-05-22] MEDS: PERCOCET 5MG/325MG TAB PO PRN ×4 (04:12→21:41)
[2016-05-22] MEDS: HEPARIN SOD (PORCINE) 5000 UNITS/ML VIAL SQ SCH ×3 (05:13→21:44)
[2016-05-22] MEDS: diphenhydrAMINE 25 MG CAP PO PRN ×3 (05:25→21:41)
[2016-05-22 05:36] LABS: MEAN CORPUSCULAR HGB CONC 32.1 g/dl (32.0-36.5); MEAN CORPUSCULAR VOLUME 87.3 fl (80.0-96.0); RED CELL DISTRIBUTION WIDTH 14.9 % (11.5-14.5)
[2016-05-22 05:46] LABS: ANION GAP 8 MEQ/L (8-16); BLOOD UREA NITROGEN 26 MG/DL (7-18); CALCIUM LEVEL 8.6 MG/DL (8.5-10.1); CARBON DIOXIDE LEVEL 29 MEQ/L (21-32); CHLORIDE LEVEL 103 MEQ/L (98-107); CREATININE FOR GFR 0.87 MG/DL (0.55-1.02); GLOMERULAR FILTRATION RATE > 60.0 (>51); GLUCOSE, FASTING 76 MG/DL (70-105); POTASSIUM SERUM 4.4 MEQ/L (3.5-5.1); SODIUM LEVEL 140 MEQ/L (136-145)
[2016-05-22 06:00] VITALS: BP 131/67
[2016-05-22] MEDS: CitaloPRAM (CeleXA) 20 MG TAB PO SCH (08:38)
[2016-05-22] MEDS: MAGNESIUM OXIDE 400 MG TAB (MAG-OX) PO SCH ×2 (08:38→21:39)
[2016-05-22] MEDS: LOMOTIL 2.5MG/0.025MG TABLET PO SCH ×4 (08:38→21:41)
[2016-05-22] MEDS: GABAPENTIN 300 MG CAP PO SCH ×3 (08:39→21:41)
[2016-05-22] MEDS: buPROPion 100 MG TAB PO SCH ×2 (08:39→21:41)
[2016-05-22] MEDS: MULTIVITAMINS/MINERALS THERAP 1 TAB PO SCH (08:39)
[2016-05-22] MEDS: VITAMIN D 1,000 INTERNATIONAL UNITS TABLET PO SCH (08:39)
[2016-05-22] MEDS: carBAMazepine 200 MG TAB PO SCH ×2 (08:39→21:41)
[2016-05-22] MEDS: ASPIRIN 81 MG ENTERIC TAB PO SCH (08:39)
[2016-05-22] MEDS: FERROUS SULFATE 325MG TAB PO SCH ×3 (08:39→21:41)
[2016-05-22] MEDS: PANTOPRAZOLE 40MG TAB (PROTONIX) PO SCH ×2 (08:39→21:41)
[2016-05-22] MEDS: rOPINIRole 1MG TAB PO SCH ×2 (08:39→21:41)
[2016-05-22] MEDS: FLUTICASONE PROP 0.05% NASAL SPRAY 16 GM (FLONASE) SCH (08:46)
[2016-05-22] MEDS: ANALGESIC BALM CRM 120 GM TOP SCH ×3 (08:47→21:00)
[2016-05-22] MEDS: SLF 3 ML SYR IV SCH (08:47)
[2016-05-22] MEDS: LEVEMIR (INSULIN DETEMIR) 1 UNITS/0.01ML SC SCH ×2 (08:47→21:45)
[2016-05-22] MEDS: [UNRECOGNIZED DRUG - REMARK] XX SCH (12:00)
[2016-05-22] MEDS: diphenhydrAMINE CREAM 30GM TOP PRN ×2 (12:49→17:51)
[2016-05-22 14:00] VITALS: BP 139/76
--- NOTE | 2016-05-22 14:05 | IPNPDOC ---
Text Note Date of Service The patient was seen on 05/22/16 at 14:04. NOTE Subjective: Patient denies CP/SOB/Palpitations. No acute changes overnight. Objective: Vitals: (see below) General: No acute distress, laying comfortably in bed. HEENT: Moist mucous membranes. Neck: No JVD or lymphadenopathy Cardiac: RRR, No murmurs Pulm: Clear to auscultation b/l. No wheezing, rhonchi. Right Vitale catheter. No area of bleeding or cellulitis. No tenderness. Abd: NT/ND + BS. Ostomy noted. Ext: No edema or cyanosis. LE with preserved strength 5/5 in BLE. Distal pulses intact. Labs (see below) Images: 04/24/16 CT ABDOMEN WITHOUT CONTRAST: Lung bases: No lung base infiltrate or effusion. Liver: No intrahepatic ductal dilation. Gallbladder: Cholecystectomy. Pancreas: No pancreatic duct dilation. Calcifications of chronic pancreatitis. Bowel loops: Right upper quadrant ileostomy. Diastasis of the anterior abdominal wall. Spleen: Normal size. Adrenals: Normal size. Right kidney: Mild hydronephrosis and hydroureter without obstructing stone. Left kidney: No stones or hydronephrosis. Calcifications adjacent to the left ureter are within the left gonadal vein. Aorta: Normal caliber. Peritoneum: No free air. CT PELVIS WITHOUT CONTRAST: Hips: Interval left hip arthroplasty and right femoral ORIF produce beam hardening artifact in the lower pelvis, limiting evaluation of the pelvic structures. Bladder: Normally distended. The wall is mildly thickened such that cystitis is not excluded Colon: Partial colectomy. Uterus: Hysterectomy. Peritoneum: No fluid. Lumbar spine: Degenerative spondylotic changes most pronounced at L4-5 and L5- S1. IMPRESSION: 1. Right upper quadrant ileostomy without evidence of obstruction. 2. Mild right hydronephrosis without obstructing stone. This may be due to reflux. 3. Urinary bladder wall thickening suggesting cystitis. MRI Lumbar spine 05/06/16 Findings: T2-weighted sagittal images demonstrate degenerative disc narrowing at this L3-4, L4-5, and L5-S1 with disc space bulging diffusely at each of these levels. This indents the ventral margin of the thecal sac. There is no evidence of spinal stenosis however. The thecal sac is fairly capacious. Conus medullaris terminates at L1-L2 and is unremarkable. There is mild right-sided neural foraminal narrowing L4-5 and L5-S1 unchanged. No new finding. Assessment/Plan 1. Staph epidermidis bacteremia - 2 blood cultures positive. Cont. vancomycin for now. Blood cultures repeated, and 1 bottle positive for staph epi. IV fluids. No leukocytosis. TTE with no vegetations. Repeat cx negative. will hold off on removing line as it does not appear to be infected. The positive cultures were from peripheral draws. Dr. Hankins on board. Patient completed her treatment with vancomycin. Patient did have repeat blood cultures yesterday, with the culture from the line positive for gram-positive cocci in clusters- we speak with Dr. Hankins regarding possible removal of the line. 2. S/p Diabetic ketoacidosis - Levemir has been titrated.. On TPN. May be secondary to urinary tract infection. Completing Rocephin 05/06/16. 3. Anemia - chronically trending down. Occult blood negative. Transfused 1 unit. Hb stable 4. AQUILES - resolved. likely secondary to volume depletion from high output ostomy. Creatinine improved. On IV fluids. 5. 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 6. Severe protein calorie malnutrition- on TPN 9 PM to 9 AM. 7. Depression- continue home meds 8. Diabetic neuropathy- continue Neurontin 9. Hypokalemia- potassium has been added to TPN 10. Chronic lower back pain with a stage II pressure ulcer on coccyx on admission- on Lidoderm patch, Percocet, Flexeril when necessary.MRI Lumbar spine (see above). Cont toradol, lidocaine patch, OOB, PT. Percocet. DVT prophy: Heparin Subcutaneous Case management is working on setting up a safe discharge. It has been difficult arranging for home TPN. Home care had said that they will not be attending to the patient if she does not have 24-hour care at home. VS,Fishbone, I+O VS, Fishbone, I+O Laboratory Tests 05/22/16 05:18 Calcium Level 8.6, Red Blood Count 3.20 L, Mean Corpuscular Volume 87.3, Mean Corpuscular Hemoglobin 28.0, Mean Corpuscular Hemoglobin Concent 32.1, Red Cell Distribution Width 14.9 H Vital Signs Date Time Temp Pulse Resp B/P Pulse Ox O2 Delivery O2 Flow Rate FiO2 05/22/16 12:48 18 05/22/16 06:00 98.8 90 131/67 97 Room Air I&O- Last 24 Hours up to 6 AM 05/22/16 06:00 Intake Total 1680 ml Output Total 7400 ml Balance -5720 ml VONNIE MCMAHAN MD May 22, 2016 14:05
[2016-05-22] MEDS: FLUCONAZOLE 50MG TABLET PO SCH (17:12)
[2016-05-22] MEDS ORDERED: INSULIN HUMAN REGULAR IV ONE (21:00)
[2016-05-22] MEDS ORDERED: POTASSIUM CHLORIDE IV ONE (21:00)
[2016-05-22] MEDS ORDERED: FAT EMULSION IV 20% 500 ML IV ONE (21:00)
[2016-05-22] MEDS ORDERED: [UNRECOGNIZED DRUG - OTHER] IV ONE (21:00)
[2016-05-22] MEDS: PRAVASTATIN 20 MG TAB PO SCH (21:41)
[2016-05-22] MEDS: traZODone 100 MG TAB PO SCH (21:41)
[2016-05-22] MEDS: NS 1,000 ML IV SCH (21:54)
[2016-05-22 22:00] VITALS: BP 103/59
[2016-05-23] MEDS: HumaLOG INSULIN (NovoLOG) PER UNIT SC SCH ×4 (00:41→17:44)
[2016-05-23] MEDS: PERCOCET 5MG/325MG TAB PO PRN ×5 (04:21→21:57)
[2016-05-23] MEDS: diphenhydrAMINE 25 MG CAP PO PRN ×3 (04:24→16:27)
[2016-05-23 05:56] LABS: MEAN CORPUSCULAR HEMOGLOBIN 28.4 pg (27.0-33.0); MEAN CORPUSCULAR HGB CONC 32.3 g/dl (32.0-36.5); MEAN CORPUSCULAR VOLUME 88.1 fl (80.0-96.0); RED CELL DISTRIBUTION WIDTH 14.9 % (11.5-14.5); WHITE BLOOD COUNT 6.3 K/mm3 (4.0-10.0)
[2016-05-23 06:00] VITALS: BP 100/56
[2016-05-23 06:02] LABS: ANION GAP 7 MEQ/L (8-16); BLOOD UREA NITROGEN 26 MG/DL (7-18); CALCIUM LEVEL 8.6 MG/DL (8.5-10.1); CARBON DIOXIDE LEVEL 30 MEQ/L (21-32); CHLORIDE LEVEL 103 MEQ/L (98-107); CREATININE FOR GFR 0.94 MG/DL (0.55-1.02); GLOMERULAR FILTRATION RATE > 60.0 (>51); GLUCOSE, FASTING 127 MG/DL (70-105); POTASSIUM SERUM 4.5 MEQ/L (3.5-5.1); SODIUM LEVEL 140 MEQ/L (136-145)
[2016-05-23] MEDS: HEPARIN SOD (PORCINE) 5000 UNITS/ML VIAL SQ SCH ×3 (06:19→21:56)
[2016-05-23] MEDS: tiZANidine 4 MG TAB PO PRN ×3 (06:19→20:14)
[2016-05-23] MEDS: diphenhydrAMINE CREAM 30GM TOP PRN ×3 (06:23→17:45)
[2016-05-23] MEDS ORDERED: SODIUM CHLORIDE 0.9% 1000 ML IV ONE (08:30)
[2016-05-23] MEDS: ANALGESIC BALM CRM 120 GM TOP SCH ×3 (09:00→20:21)
[2016-05-23] MEDS: rOPINIRole 1MG TAB PO SCH ×2 (09:19→20:14)
[2016-05-23] MEDS: ASPIRIN 81 MG ENTERIC TAB PO SCH (09:19)
[2016-05-23] MEDS: PANTOPRAZOLE 40MG TAB (PROTONIX) PO SCH ×2 (09:19→20:14)
[2016-05-23] MEDS: LOMOTIL 2.5MG/0.025MG TABLET PO SCH ×4 (09:19→20:13)
[2016-05-23] MEDS: carBAMazepine 200 MG TAB PO SCH ×2 (09:19→20:14)
[2016-05-23] MEDS: FLUCONAZOLE 50MG TABLET PO SCH (09:19)
[2016-05-23] MEDS: GABAPENTIN 300 MG CAP PO SCH ×3 (09:19→20:14)
[2016-05-23] MEDS: CitaloPRAM (CeleXA) 20 MG TAB PO SCH (09:19)
[2016-05-23] MEDS: FERROUS SULFATE 325MG TAB PO SCH ×3 (09:20→20:14)
[2016-05-23] MEDS: VITAMIN D 1,000 INTERNATIONAL UNITS TABLET PO SCH (09:20)
[2016-05-23] MEDS: MAGNESIUM OXIDE 400 MG TAB (MAG-OX) PO SCH ×2 (09:20→20:14)
[2016-05-23] MEDS: MULTIVITAMINS/MINERALS THERAP 1 TAB PO SCH (09:20)
[2016-05-23] MEDS: buPROPion 100 MG TAB PO SCH ×2 (09:20→20:14)
[2016-05-23] MEDS: FLUTICASONE PROP 0.05% NASAL SPRAY 16 GM (FLONASE) SCH (09:22)
[2016-05-23] MEDS: SLF 3 ML SYR IV SCH (09:22)
[2016-05-23] MEDS: LEVEMIR (INSULIN DETEMIR) 1 UNITS/0.01ML SC SCH ×2 (09:22→20:15)
[2016-05-23] MEDS: [UNRECOGNIZED DRUG - REMARK] XX SCH (12:00)
--- NOTE | 2016-05-23 13:52 | IPNPDOC ---
Text Note Date of Service The patient was seen on 05/23/16 at 13:51. NOTE Subjective: Patient denies CP/SOB/Palpitations. No acute changes overnight. Feels well. Objective: Vitals: (see below) General: No acute distress, laying comfortably in bed. HEENT: Moist mucous membranes. Neck: No JVD or lymphadenopathy Cardiac: RRR, No murmurs Pulm: Clear to auscultation b/l. No wheezing, rhonchi. Right Vitale catheter. No area of bleeding or cellulitis. No tenderness. Abd: NT/ND + BS. Ostomy noted. Ext: No edema or cyanosis. LE with preserved strength 5/5 in BLE. Distal pulses intact. Labs (see below) Images: 04/24/16 CT ABDOMEN WITHOUT CONTRAST: Lung bases: No lung base infiltrate or effusion. Liver: No intrahepatic ductal dilation. Gallbladder: Cholecystectomy. Pancreas: No pancreatic duct dilation. Calcifications of chronic pancreatitis. Bowel loops: Right upper quadrant ileostomy. Diastasis of the anterior abdominal wall. Spleen: Normal size. Adrenals: Normal size. Right kidney: Mild hydronephrosis and hydroureter without obstructing stone. Left kidney: No stones or hydronephrosis. Calcifications adjacent to the left ureter are within the left gonadal vein. Aorta: Normal caliber. Peritoneum: No free air. CT PELVIS WITHOUT CONTRAST: Hips: Interval left hip arthroplasty and right femoral ORIF produce beam hardening artifact in the lower pelvis, limiting evaluation of the pelvic structures. Bladder: Normally distended. The wall is mildly thickened such that cystitis is not excluded Colon: Partial colectomy. Uterus: Hysterectomy. Peritoneum: No fluid. Lumbar spine: Degenerative spondylotic changes most pronounced at L4-5 and L5- S1. IMPRESSION: 1. Right upper quadrant ileostomy without evidence of obstruction. 2. Mild right hydronephrosis without obstructing stone. This may be due to reflux. 3. Urinary bladder wall thickening suggesting cystitis. MRI Lumbar spine 05/06/16 Findings: T2-weighted sagittal images demonstrate degenerative disc narrowing at this L3-4, L4-5, and L5-S1 with disc space bulging diffusely at each of these levels. This indents the ventral margin of the thecal sac. There is no evidence of spinal stenosis however. The thecal sac is fairly capacious. Conus medullaris terminates at L1-L2 and is unremarkable. There is mild right-sided neural foraminal narrowing L4-5 and L5-S1 unchanged. No new finding. Assessment/Plan 1. Staph epidermidis bacteremia - 2 blood cultures positive. Cont. vancomycin for now. Blood cultures repeated, and 1 bottle positive for staph epi. IV fluids. No leukocytosis. TTE with no vegetations. Repeat cx negative. will hold off on removing line as it does not appear to be infected. The positive cultures were from peripheral draws. Dr. Hankins on board. Patient completed her treatment with vancomycin. Patient did have repeat blood cultures yesterday, with the culture from the line positive for gram-positive cocci in clusters- we speak with Dr. Hankins regarding possible removal of the line. 2. S/p Diabetic ketoacidosis - Levemir has been titrated.. On TPN. May be secondary to urinary tract infection. Completing Rocephin 05/06/16. 3. Anemia - chronically trending down. Occult blood negative. Transfused 1 unit. Hb stable 4. AQUILES - resolved. likely secondary to volume depletion from high output ostomy. Creatinine improved. On IV fluids. 5. 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 6. Severe protein calorie malnutrition- on TPN 9 PM to 9 AM. 7. Depression- continue home meds 8. Diabetic neuropathy- continue Neurontin 9. Hypokalemia- potassium has been added to TPN 10. Chronic lower back pain with a stage II pressure ulcer on coccyx on admission- on Lidoderm patch, Percocet, Flexeril when necessary.MRI Lumbar spine (see above). Cont toradol, lidocaine patch, OOB, PT. Percocet. DVT prophy: Heparin Subcutaneous Case management is working on setting up a safe discharge. It has been difficult arranging for home TPN. Home care had said that they will not be attending to the patient if she does not have 24-hour care at home. She may end up needing placement instead. VS,Fishbone, I+O VS, Fishbone, I+O Laboratory Tests 05/23/16 05:25 Calcium Level 8.6, Red Blood Count 3.00 L, Mean Corpuscular Volume 88.1, Mean Corpuscular Hemoglobin 28.4, Mean Corpuscular Hemoglobin Concent 32.3, Red Cell Distribution Width 14.9 H Vital Signs Date Time Temp Pulse Resp B/P Pulse Ox O2 Delivery O2 Flow Rate FiO2 05/23/16 13:21 18 Room Air 05/23/16 06:00 98.1 84 100/56 94 I&O- Last 24 Hours up to 6 AM 05/23/16 06:00 Intake Total 4240 ml Output Total 3275 ml Balance 965 ml VONNIE MCMAHAN MD May 23, 2016 13:52
[2016-05-23 14:00] VITALS: BP 122/57
[2016-05-23] MEDS: traZODone 100 MG TAB PO SCH (20:14)
[2016-05-23] MEDS: PRAVASTATIN 20 MG TAB PO SCH (20:14)
[2016-05-23] MEDS ORDERED: D5W/0.9% SODIUM CHLORIDE 1,000 ML IV ONE (21:00)
[2016-05-23 22:00] VITALS: BP 102/59
[2016-05-24] MEDS: HumaLOG INSULIN (NovoLOG) PER UNIT SC SCH ×4 (00:22→18:13)
[2016-05-24] MEDS: HEPARIN SOD (PORCINE) 5000 UNITS/ML VIAL SQ SCH ×3 (05:42→21:37)
[2016-05-24] MEDS: PERCOCET 5MG/325MG TAB PO PRN ×4 (05:43→20:40)
[2016-05-24 06:00] VITALS: BP 129/68
[2016-05-24 06:02] LABS: MEAN CORPUSCULAR HEMOGLOBIN 28.8 pg (27.0-33.0); MEAN CORPUSCULAR HGB CONC 32.7 g/dl (32.0-36.5); MEAN CORPUSCULAR VOLUME 88.2 fl (80.0-96.0); RED CELL DISTRIBUTION WIDTH 14.9 % (11.5-14.5); WHITE BLOOD COUNT 6.2 K/mm3 (4.0-10.0)
[2016-05-24 06:14] LABS: CALCIUM LEVEL 8.4 MG/DL (8.5-10.1); CREATININE FOR GFR 1.12 MG/DL (0.55-1.02); GLOMERULAR FILTRATION RATE 54.8 (>51); POTASSIUM SERUM 4.3 MEQ/L (3.5-5.1)
[2016-05-24] MEDS ORDERED: VANCOMYCIN HCL 750 MG, VIAL MATE ADAPTER 1 EACH in D5W 250 ML IV SCH (07:30)
[2016-05-24] MEDS: GABAPENTIN 300 MG CAP PO SCH ×3 (10:42→20:39)
[2016-05-24] MEDS: MULTIVITAMINS/MINERALS THERAP 1 TAB PO SCH (10:42)
[2016-05-24] MEDS: rOPINIRole 1MG TAB PO SCH ×2 (10:43→20:38)
[2016-05-24] MEDS: FERROUS SULFATE 325MG TAB PO SCH ×3 (10:43→20:39)
[2016-05-24] MEDS: carBAMazepine 200 MG TAB PO SCH ×2 (10:43→20:39)
[2016-05-24] MEDS: PANTOPRAZOLE 40MG TAB (PROTONIX) PO SCH ×2 (10:43→20:39)
[2016-05-24] MEDS: diphenhydrAMINE 25 MG CAP PO PRN ×2 (10:43→16:03)
[2016-05-24] MEDS: FLUCONAZOLE 50MG TABLET PO SCH (10:44)
[2016-05-24] MEDS: tiZANidine 4 MG TAB PO PRN ×2 (10:44→18:15)
[2016-05-24] MEDS: MAGNESIUM OXIDE 400 MG TAB (MAG-OX) PO SCH ×2 (10:44→20:39)
[2016-05-24] MEDS: VITAMIN D 1,000 INTERNATIONAL UNITS TABLET PO SCH (10:44)
[2016-05-24] MEDS: LOMOTIL 2.5MG/0.025MG TABLET PO SCH ×4 (10:44→20:38)
[2016-05-24] MEDS: buPROPion 100 MG TAB PO SCH ×2 (10:44→20:38)
[2016-05-24] MEDS: ASPIRIN 81 MG ENTERIC TAB PO SCH (10:44)
[2016-05-24] MEDS: diphenhydrAMINE CREAM 30GM TOP PRN ×2 (10:45→21:42)
[2016-05-24] MEDS: CitaloPRAM (CeleXA) 20 MG TAB PO SCH (10:45)
[2016-05-24] MEDS: FLUTICASONE PROP 0.05% NASAL SPRAY 16 GM (FLONASE) SCH (10:46)
[2016-05-24] MEDS: LEVEMIR (INSULIN DETEMIR) 1 UNITS/0.01ML SC SCH ×2 (10:46→20:38)
[2016-05-24] MEDS: SLF 3 ML SYR IV SCH (10:47)
[2016-05-24] MEDS: ANALGESIC BALM CRM 120 GM TOP SCH ×3 (10:48→20:41)
[2016-05-24] MEDS: [UNRECOGNIZED DRUG - REMARK] XX SCH (12:00)
--- NOTE | 2016-05-24 12:54 | IPNPDOC ---
Text Note Date of Service The patient was seen on 05/24/16 at 12:45. NOTE Subjective: Patient is a 50 year old female with a PMHx of pancreatic cyst rupture causing ischemic gut - s/p partial colectomy and jejunostomy, DLP, DM2, CKD3, hx of CVA, RLS, Depression, CALVIN, Chronic sacral pressure ulcer, . Patient was recently admitted from 04/05 - 04/10 for dehydration 2/2 high output ostomy. Had outpatient arrangements for NS infusion and TPN. When patient was home she had complaints of suprapubic tenderness. Also noted that she had uncontrolled blood sugars. Upon arrival to ER patient was found to have a UTI and HHNK state. Blood cultures were subsequently positive for MSSA. Patient was seen and examined at the bedside. Denies any new problems at this time. Objective: Vitals (see below) General: Lying in bed, no acute distress, AAOx3 HEENT: NC, AT CVS: RRR, +S1S2 Lungs: Fair air entry b/l, -w/r/r Abdomen: Soft, ND, NT, +BSx4, Ostomy on R lower quadrant Extremities: +PPx4, -edema, -calf tenderness Assessment and plan: 1. Sepsis - 2/2 staph epidermidis bacteremia - (2/2 possible R IJ catheter infection) and/or urinary tract infection - Catheter not removed - Blood cultures 04/24 positive for Staph epi - received and completed IV course of Vancomycin; stopped 05/18 - Repeat blood cultures 05/20- positive for Gram positive cocci in clusters - Restarted Vancomycin 05/24 - Will discuss case with Dr. Hankins (ID) - appreciate their input 2. s/p HHNK - 2/2 poorly controlled DM2 and infection - c/w levemir 30 BID and ISS 3. Normocytic anemia - 2/2 CALVIN - c/w ferrous sulfate 4. s/p AQUILES 5. History of pancreatic cyst rupture - causing ischemic gut; s/p partial colectomy with jejunostomy 6. Severe protein calorie malnutrition and high output ostomy - supplements with 1 liter of NS daily and TPN nightly 7. Depression 8. Diabetic neuropathy 9. Chronic lower back pain - MRI shows degenerative disc narrowing, no spinal stenosis, mild right sided neural foraminal narrowing - evaluated by pain management - s/p flexeril - c/w lidoderm patch, percocet, bengay cream and tizanidine 10. Stage II Pressure ulcer at coccyx - present from admission 11. GI prophylaxis - c/w protonix 12. DVT prophylaxis - c/w heparin Disposition: - case management working options for outpatient setup of 1 L NS and TPN nightly - repeat cultures positive; will get ID evaluation VS,Fishbone, I+O VS, Fishbone, I+O Laboratory Tests 05/24/16 05:49 Calcium Level 8.4 L, Red Blood Count 3.00 L, Mean Corpuscular Volume 88.2, Mean Corpuscular Hemoglobin 28.8, Mean Corpuscular Hemoglobin Concent 32.7, Red Cell Distribution Width 14.9 H Vital Signs Date Time Temp Pulse Resp B/P Pulse Ox O2 Delivery O2 Flow Rate FiO2 05/24/16 11:20 20 Room Air 05/24/16 06:00 98.1 85 129/68 94 I&O- Last 24 Hours up to 6 AM 05/24/16 06:00 Intake Total 5672 ml Output Total 5775 ml Balance -103 ml LIBRADO PALMER MD May 24, 2016 12:45
[2016-05-24 14:00] VITALS: BP 112/62
[2016-05-24] MEDS: SODIUM CHLORIDE 0.9% INJ 10 ML SYR IV SCH ×2 (17:30→20:41)
[2016-05-24] MEDS: HEPARIN XX SCH (17:30)
[2016-05-24] MEDS: [UNRECOGNIZED DRUG - OTHER] XX SCH (17:30)
[2016-05-24] MEDS: VANCOMYCIN XX SCH (17:30)
[2016-05-24] MEDS: PRAVASTATIN 20 MG TAB PO SCH (20:38)
[2016-05-24] MEDS: traZODone 100 MG TAB PO SCH (20:39)
[2016-05-24] MEDS: **NOTE PATIENT COMMENT** MISC XX SCH (20:40)
[2016-05-24] MEDS ORDERED: FAT EMULSION IV 20% 500 ML IV SCH (21:00)
[2016-05-24] MEDS ORDERED: INSULIN HUMAN REGULAR IV SCH (21:00)
[2016-05-24] MEDS ORDERED: POTASSIUM CHLORIDE IV SCH (21:00)
[2016-05-24] MEDS ORDERED: [UNRECOGNIZED DRUG - OTHER] IV SCH (21:00)
--- NOTE | 2016-05-24 21:02 | IPN ---
DATE: 05/24/2016 Haroon seems to be doing well. She denies any complaint except for low back pain, which seems to be doing better. She has been afebrile. Her cultures that were done for her from line on May 20 from the port were positive preliminary with gram-positive cocci in clusters, 114. Blood culture peripherally with negative, 117. Two more sets of blood cultures were done. LABORATORY DATA: White count is 6.2, hemoglobin 8.6, hematocrit 26.4, platelets 247. Sodium 144, potassium 4.3, chloride 108, bicarbonate 31, BUN 18, creatinine 1.12, glucose 127, calcium 8.4. IMPRESSION: Line infection with Staphylococcus epidermidis. Bacteremia has resolved, but the line continues to be colonized with Staphylococcus epidermidis on repeat culture after 14 days of intravenous (IV) vancomycin. The patient has very poor IV access and needs her IV catheter for total parenteral nutrition (TPN) and therefore will try to save that Vitale catheter by doing vancomycin lock therapy for 2 weeks. If that is not successful, then the patient will have the line removed. PLAN: Vancomycin lock therapy was discussed with pharmacy, Katherin, who has placed the orders. That will be done for 2 weeks. Hopefully, the patient will be able to do that at home during the day hours when she does not receive total parenteral nutrition (TPN). The patient could place vancomycin and indwelling catheter, which will be removed and flushed before she puts her TPN. Repeat blood cultures will be followed. The patient needs to followup in my office in 2 weeks.
[2016-05-24] MEDS: NS 1,000 ML IV SCH (21:37)
[2016-05-24 22:00] VITALS: BP 102/54
[2016-05-25] MEDS: tiZANidine 4 MG TAB PO PRN ×4 (00:31→23:33)
[2016-05-25] MEDS: HumaLOG INSULIN (NovoLOG) PER UNIT SC SCH ×5 (00:31→23:32)
[2016-05-25] MEDS: HEPARIN SOD (PORCINE) 5000 UNITS/ML VIAL SQ SCH ×3 (05:17→21:17)
[2016-05-25] MEDS: PERCOCET 5MG/325MG TAB PO PRN ×5 (05:18→22:22)
[2016-05-25 05:40] LABS: MEAN CORPUSCULAR HEMOGLOBIN 27.2 pg (27.0-33.0); MEAN CORPUSCULAR HGB CONC 30.2 g/dl (32.0-36.5); RED CELL DISTRIBUTION WIDTH 15.7 % (11.5-14.5); WHITE BLOOD COUNT 6.7 K/mm3 (4.0-10.0)
[2016-05-25 05:52] LABS: CALCIUM LEVEL 8.7 MG/DL (8.5-10.1); CREATININE FOR GFR 1.1 MG/DL (0.55-1.02); POTASSIUM SERUM 4.7 MEQ/L (3.5-5.1)
[2016-05-25 06:00] VITALS: BP 141/68
[2016-05-25] MEDS: VANCOMYCIN XX SCH ×2 (09:00→09:22)
[2016-05-25] MEDS: PANTOPRAZOLE 40MG TAB (PROTONIX) PO SCH ×2 (09:20→21:19)
[2016-05-25] MEDS: FERROUS SULFATE 325MG TAB PO SCH ×3 (09:20→21:19)
[2016-05-25] MEDS: VITAMIN D 1,000 INTERNATIONAL UNITS TABLET PO SCH (09:20)
[2016-05-25] MEDS: ASPIRIN 81 MG ENTERIC TAB PO SCH (09:20)
[2016-05-25] MEDS: FLUCONAZOLE 50MG TABLET PO SCH (09:20)
[2016-05-25] MEDS: GABAPENTIN 300 MG CAP PO SCH ×3 (09:20→21:19)
[2016-05-25] MEDS: MAGNESIUM OXIDE 400 MG TAB (MAG-OX) PO SCH ×2 (09:20→21:18)
[2016-05-25] MEDS: rOPINIRole 1MG TAB PO SCH ×2 (09:21→21:19)
[2016-05-25] MEDS: diphenhydrAMINE 25 MG CAP PO PRN (09:21)
[2016-05-25] MEDS: LOMOTIL 2.5MG/0.025MG TABLET PO SCH ×4 (09:21→21:19)
[2016-05-25] MEDS: CitaloPRAM (CeleXA) 20 MG TAB PO SCH (09:21)
[2016-05-25] MEDS: carBAMazepine 200 MG TAB PO SCH ×2 (09:21→21:19)
[2016-05-25] MEDS: MULTIVITAMINS/MINERALS THERAP 1 TAB PO SCH (09:21)
[2016-05-25] MEDS: [UNRECOGNIZED DRUG - OTHER] XX SCH (09:22)
[2016-05-25] MEDS: buPROPion 100 MG TAB PO SCH ×2 (09:22→21:19)
[2016-05-25] MEDS: HEPARIN XX SCH (09:22)
[2016-05-25] MEDS: FLUTICASONE PROP 0.05% NASAL SPRAY 16 GM (FLONASE) SCH (09:23)
[2016-05-25] MEDS: SODIUM CHLORIDE 0.9% INJ 10 ML SYR IV SCH ×2 (09:23→21:20)
[2016-05-25] MEDS: diphenhydrAMINE CREAM 30GM TOP PRN ×2 (09:24→21:21)
[2016-05-25] MEDS: ANALGESIC BALM CRM 120 GM TOP SCH ×3 (09:24→21:20)
[2016-05-25] MEDS: LEVEMIR (INSULIN DETEMIR) 1 UNITS/0.01ML SC SCH ×2 (09:26→21:18)
[2016-05-25] MEDS: [UNRECOGNIZED DRUG - REMARK] XX SCH (12:00)
--- NOTE | 2016-05-25 12:35 | IPNPDOC ---
Text Note Date of Service The patient was seen on 05/25/16 at 12:30. NOTE Subjective: Patient is a 50 year old female with a PMHx of pancreatic cyst rupture causing ischemic gut - s/p partial colectomy and jejunostomy, DLP, DM2, CKD3, hx of CVA, RLS, Depression, CALVIN, Chronic sacral pressure ulcer, . Patient was recently admitted from 04/05 - 04/10 for dehydration 2/2 high output ostomy. Had outpatient arrangements for NS infusion and TPN. When patient was home she had complaints of suprapubic tenderness. Also noted that she had uncontrolled blood sugars. Upon arrival to ER patient was found to have a UTI and HHNK state. Blood cultures were subsequently positive for MSSA. Patient was seen and examined at the bedside. She does not report any events overnight Objective: Vitals (see below) General: Lying in bed, no acute distress, AAOx3 HEENT: NC, AT CVS: RRR, +S1S2 Lungs: Fair air entry b/l, -w/r/r Abdomen: Soft, ND, NT, +BSx4, Ostomy on R lower quadrant Extremities: +PPx4, -edema, -calf tenderness Assessment and plan: 1. Sepsis - 2/2 staph epidermidis bacteremia - (2/2 possible R IJ catheter infection) and/or urinary tract infection - Catheter not removed - Blood cultures 04/24 positive for Staph epi - received and completed IV course of Vancomycin; stopped 05/18 - Repeat blood cultures 05/20- positive for Gram positive cocci in clusters - Restarted Vancomycin 05/24 - will get vancomycin lock therapy for a duration of 2 weeks - Plan of care, for CRBSTI - will treat with vancomycin for 2 weeks, if colonization remains / positive blood cultures will need to have line removed - Dr. Hankins (ID) following - appreciate their input 2. s/p HHNK - 2/2 poorly controlled DM2 and infection - c/w levemir 30 BID and ISS 3. Normocytic anemia - 2/2 CALVIN - c/w ferrous sulfate 4. s/p AQUILES 5. History of pancreatic cyst rupture - causing ischemic gut; s/p partial colectomy with jejunostomy 6. Severe protein calorie malnutrition and high output ostomy - supplements with 1 liter of NS daily and TPN nightly 7. Depression 8. Diabetic neuropathy 9. Chronic lower back pain - MRI shows degenerative disc narrowing, no spinal stenosis, mild right sided neural foraminal narrowing - evaluated by pain management - s/p flexeril - c/w lidoderm patch, percocet, bengay cream and tizanidine 10. Stage II Pressure ulcer at coccyx - present from admission 11. GI prophylaxis - c/w protonix 12. DVT prophylaxis - c/w heparin Disposition: - case management working options for outpatient setup of 1 L NS and TPN nightly - will need outpatient vancomycin setup VS,Fishbone, I+O VS, Fishbone, I+O Laboratory Tests 05/25/16 05:25 Calcium Level 8.7, Red Blood Count 3.17 L, Mean Corpuscular Volume 90.0, Mean Corpuscular Hemoglobin 27.2, Mean Corpuscular Hemoglobin Concent 30.2 L, Red Cell Distribution Width 15.7 H Vital Signs Date Time Temp Pulse Resp B/P Pulse Ox O2 Delivery O2 Flow Rate FiO2 05/25/16 09:52 20 Room Air 05/25/16 06:00 99.3 88 141/68 96 I&O- Last 24 Hours up to 6 AM 05/25/16 06:00 Intake Total 4710 ml Output Total 4625 ml Balance 85 ml LIBRADO PALMER MD May 25, 2016 12:35
[2016-05-25] MEDS ORDERED: NS 1,000 ML IV SCH (12:45)
[2016-05-25 14:00] VITALS: BP 136/63
[2016-05-25] MEDS ORDERED: FAT EMULSION IV 20% 500 ML IV SCH ×2 (18:00→21:00)
[2016-05-25] MEDS ORDERED: [UNRECOGNIZED DRUG - MIXTURE] IV SCH ×5 (21:00)
[2016-05-25] MEDS ORDERED: NS 1,500 ML IV SCH (21:00)
[2016-05-25] MEDS: PRAVASTATIN 20 MG TAB PO SCH (21:19)
[2016-05-25] MEDS: traZODone 100 MG TAB PO SCH (21:19)
[2016-05-25] MEDS: **NOTE PATIENT COMMENT** MISC XX SCH (21:20)
[2016-05-25 22:00] VITALS: BP 105/55
[2016-05-26] MEDS: HEPARIN SOD (PORCINE) 5000 UNITS/ML VIAL SQ SCH ×3 (05:24→22:24)
[2016-05-26] MEDS: HumaLOG INSULIN (NovoLOG) PER UNIT SC SCH ×4 (05:25→23:44)
[2016-05-26] MEDS: PERCOCET 5MG/325MG TAB PO PRN ×3 (05:26→20:33)
[2016-05-26 05:46] LABS: MEAN CORPUSCULAR HEMOGLOBIN 27.9 pg (27.0-33.0); MEAN CORPUSCULAR HGB CONC 31.8 g/dl (32.0-36.5); MEAN CORPUSCULAR VOLUME 87.6 fl (80.0-96.0); RED CELL DISTRIBUTION WIDTH 14.6 % (11.5-14.5); WHITE BLOOD COUNT 5.6 K/mm3 (4.0-10.0)
[2016-05-26 06:00] VITALS: BP 119/58
[2016-05-26 06:06] LABS: ANION GAP 8 MEQ/L (8-16); BLOOD UREA NITROGEN 22 MG/DL (7-18); CALCIUM LEVEL 8.6 MG/DL (8.5-10.1); CARBON DIOXIDE LEVEL 29 MEQ/L (21-32); CHLORIDE LEVEL 102 MEQ/L (98-107); CREATININE FOR GFR 0.89 MG/DL (0.55-1.02); GLOMERULAR FILTRATION RATE > 60.0 (>51); GLUCOSE, FASTING 172 MG/DL (70-105); POTASSIUM SERUM 4.6 MEQ/L (3.5-5.1); SODIUM LEVEL 139 MEQ/L (136-145)
[2016-05-26] MEDS: CitaloPRAM (CeleXA) 20 MG TAB PO SCH (08:34)
[2016-05-26] MEDS: ASPIRIN 81 MG ENTERIC TAB PO SCH (08:34)
[2016-05-26] MEDS: FERROUS SULFATE 325MG TAB PO SCH ×3 (08:34→20:33)
[2016-05-26] MEDS: LEVEMIR (INSULIN DETEMIR) 1 UNITS/0.01ML SC SCH ×2 (08:34→22:24)
[2016-05-26] MEDS: LOMOTIL 2.5MG/0.025MG TABLET PO SCH ×4 (08:34→20:32)
[2016-05-26] MEDS: tiZANidine 4 MG TAB PO PRN ×3 (08:34→21:54)
[2016-05-26] MEDS: buPROPion 100 MG TAB PO SCH ×2 (08:35→20:32)
[2016-05-26] MEDS: PANTOPRAZOLE 40MG TAB (PROTONIX) PO SCH ×2 (08:35→20:33)
[2016-05-26] MEDS: FLUCONAZOLE 50MG TABLET PO SCH (08:35)
[2016-05-26] MEDS: GABAPENTIN 300 MG CAP PO SCH ×3 (08:35→20:32)
[2016-05-26] MEDS: VITAMIN D 1,000 INTERNATIONAL UNITS TABLET PO SCH (08:35)
[2016-05-26] MEDS: rOPINIRole 1MG TAB PO SCH ×2 (08:35→20:33)
[2016-05-26] MEDS: MAGNESIUM OXIDE 400 MG TAB (MAG-OX) PO SCH ×2 (08:35→20:33)
[2016-05-26] MEDS: carBAMazepine 200 MG TAB PO SCH ×2 (08:35→20:33)
[2016-05-26] MEDS: MULTIVITAMINS/MINERALS THERAP 1 TAB PO SCH (08:35)
[2016-05-26] MEDS: FLUTICASONE PROP 0.05% NASAL SPRAY 16 GM (FLONASE) SCH (08:36)
[2016-05-26] MEDS: SODIUM CHLORIDE 0.9% INJ 10 ML SYR IV SCH ×2 (08:37→21:40)
[2016-05-26] MEDS: ANALGESIC BALM CRM 120 GM TOP SCH ×3 (08:37→20:34)
[2016-05-26] MEDS: diphenhydrAMINE CREAM 30GM TOP PRN (08:38)
[2016-05-26] MEDS: VANCOMYCIN XX SCH ×2 (08:39)
[2016-05-26] MEDS: [UNRECOGNIZED DRUG - OTHER] XX SCH (08:39)
[2016-05-26] MEDS: HEPARIN XX SCH (08:39)
--- NOTE | 2016-05-26 11:01 | IPNPDOC ---
Text Note Date of Service The patient was seen on 05/26/16 at 10:56. NOTE Subjective: Patient is a 50 year old female with a PMHx of pancreatic cyst rupture causing ischemic gut - s/p partial colectomy and jejunostomy, DLP, DM2, CKD3, hx of CVA, RLS, Depression, CALVIN, Chronic sacral pressure ulcer, . Patient was recently admitted from 04/05 - 04/10 for dehydration 2/2 high output ostomy. Had outpatient arrangements for NS infusion and TPN. When patient was home she had complaints of suprapubic tenderness. Also noted that she had uncontrolled blood sugars. Upon arrival to ER patient was found to have a UTI and HHNK state. Blood cultures were subsequently positive for MSSA. Patient was seen and examined at the bedside. She noted that yesterday she began experiencing right leg pain again. Was well controlled before but had breakthrough pain last night. Objective: Vitals (see below) General: Lying in bed, no acute distress, AAOx3 HEENT: NC, AT CVS: RRR, +S1S2 Lungs: Fair air entry b/l, -w/r/r Abdomen: Soft, ND, NT, +BSx4, Ostomy on R lower quadrant Extremities: +PPx4, -edema, -calf tenderness Assessment and plan: 1. Sepsis - 2/2 staph epidermidis bacteremia - (2/2 possible R IJ catheter infection) and/or urinary tract infection - Catheter not removed - Blood cultures 04/24 positive for Staph epi - received and completed IV course of Vancomycin; stopped 05/18 - Repeat blood cultures 05/20- positive for Gram positive cocci in clusters - Restarted Vancomycin 05/24 - will get vancomycin lock therapy for a duration of 2 weeks - Plan of care, for CRBSTI - will treat with vancomycin lock therapy for 2 weeks , if colonization remains / positive blood cultures will need to have line removed - Dr. Hankins (ID) following - appreciate their input 2. s/p HHNK - 2/2 poorly controlled DM2 and infection - c/w levemir 30 BID and ISS 3. Normocytic anemia - 2/2 CALVIN - c/w ferrous sulfate 4. s/p AQUILES - mild elevation in Cr yesterday - corrected with 500cc supplemental NS yesterday evening 5. History of pancreatic cyst rupture - causing ischemic gut; s/p partial colectomy with jejunostomy 6. Severe protein calorie malnutrition and high output ostomy - supplements with 1 liter of NS daily and TPN nightly 7. Depression 8. Diabetic neuropathy 9. Chronic lower back pain - MRI shows degenerative disc narrowing, no spinal stenosis, mild right sided neural foraminal narrowing - evaluated by pain management - s/p flexeril - c/w percocet, bengay cream and tizanidine - will start Lidoderm patch again 10. Stage II Pressure ulcer at coccyx - present from admission 11. GI prophylaxis - c/w protonix 12. DVT prophylaxis - c/w heparin Disposition: - case management working options for outpatient setup of 1 L NS and TPN nightly - will need outpatient vancomycin lock therapy setup after patient teaching Pili SANCHEZ, I+O Pili SANCHEZ I+O Laboratory Tests 05/26/16 05:28 Calcium Level 8.6, Red Blood Count 3.02 L, Mean Corpuscular Volume 87.6, Mean Corpuscular Hemoglobin 27.9, Mean Corpuscular Hemoglobin Concent 31.8 L, Red Cell Distribution Width 14.6 H Vital Signs Date Time Temp Pulse Resp B/P Pulse Ox O2 Delivery O2 Flow Rate FiO2 05/26/16 07:00 16 05/26/16 06:00 98.3 85 119/58 95 05/25/16 22:22 Room Air I&O- Last 24 Hours up to 6 AM 05/26/16 06:00 Intake Total 4758 ml Output Total 7950 ml Balance -3192 ml LIBRADO PALMER MD May 26, 2016 11:01
[2016-05-26] MEDS: [UNRECOGNIZED DRUG - REMARK] XX SCH (12:00)
[2016-05-26] MEDS: LIDOCAINE 5% (LIDODERM) PATCH TD SCH (13:41)
[2016-05-26 14:00] VITALS: BP 127/68
[2016-05-26] MEDS: diphenhydrAMINE 25 MG CAP PO PRN ×2 (15:36→21:54)
[2016-05-26] MEDS: PRAVASTATIN 20 MG TAB PO SCH (20:33)
[2016-05-26] MEDS: traZODone 100 MG TAB PO SCH (20:33)
[2016-05-26] MEDS ORDERED: INSULIN HUMAN REGULAR IV SCH (21:00)
[2016-05-26] MEDS ORDERED: [UNRECOGNIZED DRUG - OTHER] IV SCH (21:00)
[2016-05-26] MEDS ORDERED: POTASSIUM CHLORIDE IV SCH (21:00)
[2016-05-26] MEDS ORDERED: FAT EMULSION IV 20% 500 ML IV SCH (21:00)
[2016-05-26] MEDS: NS 1,000 ML IV SCH (21:40)
[2016-05-26] MEDS: **NOTE PATIENT COMMENT** MISC XX SCH (21:42)
[2016-05-26 22:00] VITALS: BP 108/58
[2016-05-27] MEDS: PERCOCET 5MG/325MG TAB PO PRN ×5 (02:45→23:56)
[2016-05-27] MEDS: tiZANidine 4 MG TAB PO PRN ×3 (05:46→22:20)
[2016-05-27] MEDS: HEPARIN SOD (PORCINE) 5000 UNITS/ML VIAL SQ SCH ×3 (05:46→22:21)
[2016-05-27 06:00] VITALS: BP 130/66
[2016-05-27 06:02] LABS: MEAN CORPUSCULAR HEMOGLOBIN 28.2 pg (27.0-33.0); MEAN CORPUSCULAR HGB CONC 31.7 g/dl (32.0-36.5); MEAN CORPUSCULAR VOLUME 88.9 fl (80.0-96.0); RED CELL DISTRIBUTION WIDTH 14.7 % (11.5-14.5); WHITE BLOOD COUNT 6.6 K/mm3 (4.0-10.0)
[2016-05-27] MEDS: HumaLOG INSULIN (NovoLOG) PER UNIT SC SCH ×4 (06:18→23:56)
[2016-05-27 06:34] LABS: ANION GAP 8 MEQ/L (8-16); BLOOD UREA NITROGEN 20 MG/DL (7-18); CALCIUM LEVEL 8.7 MG/DL (8.5-10.1); CARBON DIOXIDE LEVEL 30 MEQ/L (21-32); CHLORIDE LEVEL 102 MEQ/L (98-107); GLOMERULAR FILTRATION RATE > 60.0 (>51); GLUCOSE, FASTING 246 MG/DL (70-105); POTASSIUM SERUM 4.7 MEQ/L (3.5-5.1); SODIUM LEVEL 140 MEQ/L (136-145)
[2016-05-27] MEDS: SODIUM CHLORIDE 0.9% INJ 10 ML SYR IV SCH ×2 (09:00→21:00)
[2016-05-27] MEDS: FLUTICASONE PROP 0.05% NASAL SPRAY 16 GM (FLONASE) SCH (09:00)
[2016-05-27] MEDS: LEVEMIR (INSULIN DETEMIR) 1 UNITS/0.01ML SC SCH ×2 (09:00→22:22)
[2016-05-27] MEDS: HEPARIN XX SCH (09:00)
[2016-05-27] MEDS: MULTIVITAMINS/MINERALS THERAP 1 TAB PO SCH (09:00)
[2016-05-27] MEDS: LIDOCAINE 5% (LIDODERM) PATCH TD SCH (09:00)
[2016-05-27] MEDS: [UNRECOGNIZED DRUG - OTHER] XX SCH (09:00)
[2016-05-27] MEDS: VANCOMYCIN XX SCH ×2 (09:00)
[2016-05-27] MEDS: ANALGESIC BALM CRM 120 GM TOP SCH ×3 (09:00→22:22)
[2016-05-27] MEDS ORDERED: LIDOCAINE 5% (LIDODERM) PATCH TD SCH (09:00)
[2016-05-27] MEDS: FERROUS SULFATE 325MG TAB PO SCH ×3 (09:06→22:20)
[2016-05-27] MEDS: carBAMazepine 200 MG TAB PO SCH ×2 (09:06→22:21)
[2016-05-27] MEDS: CitaloPRAM (CeleXA) 20 MG TAB PO SCH (09:06)
[2016-05-27] MEDS: VITAMIN D 1,000 INTERNATIONAL UNITS TABLET PO SCH (09:06)
[2016-05-27] MEDS: FLUCONAZOLE 50MG TABLET PO SCH (09:06)
[2016-05-27] MEDS: GABAPENTIN 300 MG CAP PO SCH ×3 (09:06→22:21)
[2016-05-27] MEDS: rOPINIRole 1MG TAB PO SCH ×2 (09:06→22:21)
[2016-05-27] MEDS: buPROPion 100 MG TAB PO SCH ×2 (09:06→22:21)
[2016-05-27] MEDS: LOMOTIL 2.5MG/0.025MG TABLET PO SCH ×4 (09:06→22:20)
[2016-05-27] MEDS: MAGNESIUM OXIDE 400 MG TAB (MAG-OX) PO SCH ×2 (09:07→22:20)
[2016-05-27] MEDS: ASPIRIN 81 MG ENTERIC TAB PO SCH (09:07)
[2016-05-27] MEDS: PANTOPRAZOLE 40MG TAB (PROTONIX) PO SCH ×2 (09:07→22:20)
[2016-05-27] MEDS: diphenhydrAMINE CREAM 30GM TOP PRN (09:13)
[2016-05-27] MEDS: diphenhydrAMINE 25 MG CAP PO PRN ×2 (09:22→16:45)
--- NOTE | 2016-05-27 12:46 | IPNPDOC ---
Text Note Date of Service The patient was seen on 05/27/16 at 12:34. NOTE Subjective: Patient is a 50 year old female with a PMHx of pancreatic cyst rupture causing ischemic gut - s/p partial colectomy and jejunostomy, DLP, DM2, CKD3, hx of CVA, RLS, Depression, CALVIN, Chronic sacral pressure ulcer, . Patient was recently admitted from 04/05 - 04/10 for dehydration 2/2 high output ostomy. Had outpatient arrangements for NS infusion and TPN. When patient was home she had complaints of suprapubic tenderness. Also noted that she had uncontrolled blood sugars. Upon arrival to ER patient was found to have a UTI and HHNK state. Blood cultures were subsequently positive for MSSA. Patient was seen and examined at the bedside. She advised me that she has been attmpting to learn how to setup of the vancomycin lock therapy. Nursing staff is working with her for training. Objective: Vitals (see below) General: Lying in bed, no acute distress, AAOx3 HEENT: NC, AT CVS: RRR, +S1S2 Lungs: Fair air entry b/l, -w/r/r Abdomen: Soft, ND, NT, +BSx4, Ostomy on R lower quadrant Extremities: +PPx4, -edema, -calf tenderness Assessment and plan: 1. Sepsis - 2/2 staph epidermidis bacteremia - (2/2 possible R IJ catheter infection) and/or urinary tract infection - Catheter not removed - Blood cultures 04/24 positive for Staph epi - received and completed IV course of Vancomycin; stopped 05/18 - Repeat blood cultures 05/20- positive for Gram positive cocci in clusters - Restarted Vancomycin 05/24 - will get vancomycin lock therapy for a duration of 2 weeks - Plan of care, for CRBSTI - will treat with vancomycin lock therapy for 2 weeks , if colonization remains / positive blood cultures will need to have line removed - Attempting to establish this for home; but requires training prior to departure - Dr. Hankins (ID) following - appreciate their input 2. s/p HHNK - 2/2 poorly controlled DM2 and infection - c/w levemir 30 BID and ISS 3. Normocytic anemia - 2/2 CALVIN - c/w ferrous sulfate 4. s/p AQUILES 5. History of pancreatic cyst rupture - causing ischemic gut; s/p partial colectomy with jejunostomy 6. Severe protein calorie malnutrition and high output ostomy - supplements with 1 liter of NS daily and TPN nightly 7. Depression 8. Diabetic neuropathy 9. Chronic lower back pain - MRI shows degenerative disc narrowing, no spinal stenosis, mild right sided neural foraminal narrowing - evaluated by pain management - s/p flexeril - c/w percocet, bengay cream and tizanidine; c/w Lidoderm patch 10. Stage II Pressure ulcer at coccyx - present from admission 11. GI prophylaxis - c/w protonix 12. DVT prophylaxis - c/w heparin Disposition: - case management working options for outpatient setup of 1 L NS and TPN nightly ; no options at this time - continue with vancomycin lock therapy teaching Pili SANCHEZ, I+O Pili SANCHEZ I+O Laboratory Tests 05/27/16 05:51 Calcium Level 8.7, Red Blood Count 3.04 L, Mean Corpuscular Volume 88.9, Mean Corpuscular Hemoglobin 28.2, Mean Corpuscular Hemoglobin Concent 31.7 L, Red Cell Distribution Width 14.7 H Vital Signs Date Time Temp Pulse Resp B/P Pulse Ox O2 Delivery O2 Flow Rate FiO2 05/27/16 10:15 18 05/27/16 06:00 97.9 84 130/66 98 Room Air I&O- Last 24 Hours up to 6 AM 05/27/16 06:00 Intake Total 2280 ml Output Total 6700 ml Balance -4420 ml LIBRADO PALMER MD May 27, 2016 12:46
[2016-05-27] MEDS: [UNRECOGNIZED DRUG - REMARK] XX SCH (13:55)
[2016-05-27 14:00] VITALS: BP 130/65
[2016-05-27] MEDS: **NOTE PATIENT COMMENT** MISC XX SCH (21:00)
[2016-05-27] MEDS ORDERED: [UNRECOGNIZED DRUG - MIXTURE] IV ONE ×5 (21:00)
[2016-05-27] MEDS ORDERED: FAT EMULSION IV 20% 500 ML IV ONE (21:00)
[2016-05-27] MEDS ORDERED: [UNRECOGNIZED DRUG - MIXTURE] IV SCH ×5 (21:00)
[2016-05-27 22:00] VITALS: BP 118/60
[2016-05-27] MEDS: PRAVASTATIN 20 MG TAB PO SCH (22:20)
[2016-05-27] MEDS: traZODone 100 MG TAB PO SCH (22:21)
[2016-05-27] MEDS: NS 1,000 ML IV SCH (22:31)
[2016-05-28] MEDS: diphenhydrAMINE 25 MG CAP PO PRN ×3 (05:38→20:42)
[2016-05-28] MEDS: PERCOCET 5MG/325MG TAB PO PRN ×5 (05:38→23:42)
[2016-05-28] MEDS: HEPARIN SOD (PORCINE) 5000 UNITS/ML VIAL SQ SCH ×3 (05:39→20:44)
[2016-05-28] MEDS: HumaLOG INSULIN (NovoLOG) PER UNIT SC SCH ×4 (05:40→23:42)
[2016-05-28 05:48] LABS: MEAN CORPUSCULAR HGB CONC 31.5 g/dl (32.0-36.5); WHITE BLOOD COUNT 6.3 K/mm3 (4.0-10.0)
[2016-05-28 05:55] LABS: ANION GAP 10 MEQ/L (8-16); BLOOD UREA NITROGEN 22 MG/DL (7-18); CALCIUM LEVEL 8.6 MG/DL (8.5-10.1); CARBON DIOXIDE LEVEL 29 MEQ/L (21-32); CHLORIDE LEVEL 101 MEQ/L (98-107); CREATININE FOR GFR 0.92 MG/DL (0.55-1.02); GLOMERULAR FILTRATION RATE > 60.0 (>51); GLUCOSE, FASTING 147 MG/DL (70-105); POTASSIUM SERUM 4.2 MEQ/L (3.5-5.1); SODIUM LEVEL 140 MEQ/L (136-145)
[2016-05-28 06:00] VITALS: BP 133/64
[2016-05-28] MEDS: VANCOMYCIN XX SCH ×2 (09:00→09:23)
[2016-05-28] MEDS: FLUTICASONE PROP 0.05% NASAL SPRAY 16 GM (FLONASE) SCH (09:00)
[2016-05-28] MEDS: LEVEMIR (INSULIN DETEMIR) 1 UNITS/0.01ML SC SCH ×2 (09:00→20:50)
[2016-05-28] MEDS: GABAPENTIN 300 MG CAP PO SCH ×3 (09:20→20:43)
[2016-05-28] MEDS: VITAMIN D 1,000 INTERNATIONAL UNITS TABLET PO SCH (09:20)
[2016-05-28] MEDS: rOPINIRole 1MG TAB PO SCH ×2 (09:20→20:43)
[2016-05-28] MEDS: PANTOPRAZOLE 40MG TAB (PROTONIX) PO SCH ×2 (09:21→20:43)
[2016-05-28] MEDS: carBAMazepine 200 MG TAB PO SCH ×2 (09:21→20:43)
[2016-05-28] MEDS: tiZANidine 4 MG TAB PO PRN ×3 (09:21→23:42)
[2016-05-28] MEDS: FERROUS SULFATE 325MG TAB PO SCH ×3 (09:21→20:43)
[2016-05-28] MEDS: buPROPion 100 MG TAB PO SCH ×2 (09:21→20:43)
[2016-05-28] MEDS: CitaloPRAM (CeleXA) 20 MG TAB PO SCH (09:21)
[2016-05-28] MEDS: ASPIRIN 81 MG ENTERIC TAB PO SCH (09:21)
[2016-05-28] MEDS: MULTIVITAMINS/MINERALS THERAP 1 TAB PO SCH (09:21)
[2016-05-28] MEDS: LIDOCAINE 5% (LIDODERM) PATCH TD SCH (09:22)
[2016-05-28] MEDS: FLUCONAZOLE 50MG TABLET PO SCH (09:22)
[2016-05-28] MEDS: ANALGESIC BALM CRM 120 GM TOP SCH ×3 (09:22→20:52)
[2016-05-28] MEDS: SODIUM CHLORIDE 0.9% INJ 10 ML SYR IV SCH ×2 (09:23→20:51)
[2016-05-28] MEDS: MAGNESIUM OXIDE 400 MG TAB (MAG-OX) PO SCH ×2 (09:23→20:43)
[2016-05-28] MEDS: [UNRECOGNIZED DRUG - OTHER] XX SCH (09:23)
[2016-05-28] MEDS: LOMOTIL 2.5MG/0.025MG TABLET PO SCH ×4 (09:23→20:43)
[2016-05-28] MEDS: HEPARIN XX SCH (09:23)
[2016-05-28] MEDS: [UNRECOGNIZED DRUG - REMARK] XX SCH (12:00)
--- NOTE | 2016-05-28 12:20 | IPNPDOC ---
Text Note Date of Service The patient was seen on 05/28/16 at 12:18. NOTE Subjective: Patient is a 50 year old female with a PMHx of pancreatic cyst rupture causing ischemic gut - s/p partial colectomy and jejunostomy, DLP, DM2, CKD3, hx of CVA, RLS, Depression, CALVIN, Chronic sacral pressure ulcer, . Patient was recently admitted from 04/05 - 04/10 for dehydration 2/2 high output ostomy. Had outpatient arrangements for NS infusion and TPN. When patient was home she had complaints of suprapubic tenderness. Also noted that she had uncontrolled blood sugars. Upon arrival to ER patient was found to have a UTI and HHNK state. Blood cultures were subsequently positive for MSSA. Patient was seen and examined at the bedside. She does not have any new complaints today. She is going to be seen by occupational therapy for improving her upper arm strength / dexterity so that she can manage vancomycin lock therapy and TPN at home. Objective: Vitals (see below) General: Lying in bed, no acute distress, AAOx3 HEENT: NC, AT CVS: RRR, +S1S2 Lungs: Fair air entry b/l, -w/r/r Abdomen: Soft, ND, NT, +BSx4, Ostomy on R lower quadrant Extremities: +PPx4, -edema, -calf tenderness Assessment and plan: 1. Sepsis - 2/2 staph epidermidis bacteremia - (2/2 possible R IJ catheter infection) and/or urinary tract infection - Catheter not removed - Blood cultures 04/24 positive for Staph epi - received and completed IV course of Vancomycin; stopped 05/18 - Repeat blood cultures 05/20- positive for Gram positive cocci in clusters - Restarted Vancomycin 05/24 - will get vancomycin lock therapy for a duration of 2 weeks - Plan of care, for CRBSTI - will treat with vancomycin lock therapy for 2 weeks , if colonization remains / positive blood cultures will need to have line removed - Will require occupational therapy for ability to setup infusion at home and change IV tubing - Dr. Hankins (ID) following - appreciate their input 2. s/p HHNK - 2/2 poorly controlled DM2 and infection - c/w levemir 30 BID and ISS 3. Normocytic anemia - 2/2 CALVIN - c/w ferrous sulfate 4. s/p AQUILES 5. History of pancreatic cyst rupture - causing ischemic gut; s/p partial colectomy with jejunostomy 6. Severe protein calorie malnutrition and high output ostomy - supplements with 1 liter of NS daily and TPN nightly 7. Depression 8. Diabetic neuropathy 9. Chronic lower back pain - MRI shows degenerative disc narrowing, no spinal stenosis, mild right sided neural foraminal narrowing - evaluated by pain management - s/p flexeril - c/w percocet, bengay cream and tizanidine; c/w Lidoderm patch 10. Stage II Pressure ulcer at coccyx - present from admission 11. GI prophylaxis - c/w protonix 12. DVT prophylaxis - c/w heparin Disposition: - case management working options for outpatient setup of 1 L NS and TPN nightly ; no options at this time - continue with vancomycin lock therapy teaching - awaiting occupational therapy VS,Pili, I+O VS, Pili, I+O Laboratory Tests 05/28/16 05:14 Calcium Level 8.6, Red Blood Count 3.20 L, Mean Corpuscular Volume 89.0, Mean Corpuscular Hemoglobin 28.0, Mean Corpuscular Hemoglobin Concent 31.5 L, Red Cell Distribution Width 15.0 H Vital Signs Date Time Temp Pulse Resp B/P Pulse Ox O2 Delivery O2 Flow Rate FiO2 05/28/16 10:15 18 05/28/16 06:00 96.8 83 133/64 97 Room Air I&O- Last 24 Hours up to 6 AM 05/28/16 06:00 Intake Total 2820 ml Output Total 5975 ml Balance -3155 ml LIBRADO PALMER MD May 28, 2016 12:20
[2016-05-28 14:00] VITALS: BP 115/65
[2016-05-28] MEDS: PRAVASTATIN 20 MG TAB PO SCH (20:43)
[2016-05-28] MEDS: traZODone 100 MG TAB PO SCH (20:43)
[2016-05-28] MEDS: NS 1,000 ML IV SCH (20:44)
[2016-05-28] MEDS: **NOTE PATIENT COMMENT** MISC XX SCH (20:51)
[2016-05-28] MEDS ORDERED: [UNRECOGNIZED DRUG - OTHER] IV SCH (21:00)
[2016-05-28] MEDS ORDERED: INSULIN HUMAN REGULAR IV SCH (21:00)
[2016-05-28] MEDS ORDERED: FAT EMULSION IV 20% 500 ML IV ONE (21:00)
[2016-05-28] MEDS ORDERED: POTASSIUM CHLORIDE IV SCH (21:00)
[2016-05-28 22:00] VITALS: BP 105/59
[2016-05-29] MEDS: diphenhydrAMINE 25 MG CAP PO PRN ×4 (03:18→23:43)
[2016-05-29] MEDS: HEPARIN SOD (PORCINE) 5000 UNITS/ML VIAL SQ SCH ×3 (05:10→21:52)
[2016-05-29] MEDS: HumaLOG INSULIN (NovoLOG) PER UNIT SC SCH ×4 (05:11→23:43)
[2016-05-29] MEDS: PERCOCET 5MG/325MG TAB PO PRN ×5 (05:11→21:53)
[2016-05-29 05:42] LABS: MEAN CORPUSCULAR HEMOGLOBIN 28.6 pg (27.0-33.0); MEAN CORPUSCULAR HGB CONC 31.4 g/dl (32.0-36.5); MEAN CORPUSCULAR VOLUME 91.2 fl (80.0-96.0); RED CELL DISTRIBUTION WIDTH 16.1 % (11.5-14.5); WHITE BLOOD COUNT 8.3 K/mm3 (4.0-10.0)
[2016-05-29 06:00] VITALS: BP 133/63
[2016-05-29 06:02] LABS: CALCIUM LEVEL 8.1 MG/DL (8.5-10.1); CREATININE FOR GFR 1.04 MG/DL (0.55-1.02); GLOMERULAR FILTRATION RATE 59.7 (>51); POTASSIUM SERUM 4.9 MEQ/L (3.5-5.1)
[2016-05-29] MEDS: SODIUM CHLORIDE 0.9% INJ 10 ML SYR IV SCH ×2 (09:00→21:54)
[2016-05-29] MEDS: CitaloPRAM (CeleXA) 20 MG TAB PO SCH (09:23)
[2016-05-29] MEDS: tiZANidine 4 MG TAB PO PRN ×3 (09:23→23:43)
[2016-05-29] MEDS: rOPINIRole 1MG TAB PO SCH ×2 (09:23→21:52)
[2016-05-29] MEDS: MAGNESIUM OXIDE 400 MG TAB (MAG-OX) PO SCH ×2 (09:23→21:52)
[2016-05-29] MEDS: LOMOTIL 2.5MG/0.025MG TABLET PO SCH ×4 (09:23→21:52)
[2016-05-29] MEDS: HEPARIN XX SCH (09:24)
[2016-05-29] MEDS: MULTIVITAMINS/MINERALS THERAP 1 TAB PO SCH (09:24)
[2016-05-29] MEDS: buPROPion 100 MG TAB PO SCH ×2 (09:24→21:52)
[2016-05-29] MEDS: PANTOPRAZOLE 40MG TAB (PROTONIX) PO SCH ×2 (09:24→21:52)
[2016-05-29] MEDS: [UNRECOGNIZED DRUG - OTHER] XX SCH (09:24)
[2016-05-29] MEDS: VITAMIN D 1,000 INTERNATIONAL UNITS TABLET PO SCH (09:24)
[2016-05-29] MEDS: FERROUS SULFATE 325MG TAB PO SCH ×3 (09:24→21:53)
[2016-05-29] MEDS: GABAPENTIN 300 MG CAP PO SCH ×3 (09:24→21:52)
[2016-05-29] MEDS: VANCOMYCIN XX SCH ×2 (09:24→09:25)
[2016-05-29] MEDS: ASPIRIN 81 MG ENTERIC TAB PO SCH (09:24)
[2016-05-29] MEDS: carBAMazepine 200 MG TAB PO SCH ×2 (09:24→21:52)
[2016-05-29] MEDS: LEVEMIR (INSULIN DETEMIR) 1 UNITS/0.01ML SC SCH ×2 (09:25→21:53)
[2016-05-29] MEDS: ANALGESIC BALM CRM 120 GM TOP SCH ×3 (09:25→21:55)
[2016-05-29] MEDS: LIDOCAINE 5% (LIDODERM) PATCH TD SCH (09:25)
[2016-05-29] MEDS: FLUTICASONE PROP 0.05% NASAL SPRAY 16 GM (FLONASE) SCH (09:25)
[2016-05-29] MEDS: [UNRECOGNIZED DRUG - REMARK] XX SCH (12:00)
[2016-05-29] MEDS: FLUCONAZOLE 50MG TABLET PO SCH (13:10)
--- NOTE | 2016-05-29 13:27 | IPNPDOC ---
Text Note Date of Service The patient was seen on 05/29/16 at 13:25. NOTE Subjective: Patient is a 50 year old female with a PMHx of pancreatic cyst rupture causing ischemic gut - s/p partial colectomy and jejunostomy, DLP, DM2, CKD3, hx of CVA, RLS, Depression, CALVIN, Chronic sacral pressure ulcer, . Patient was recently admitted from 04/05 - 04/10 for dehydration 2/2 high output ostomy. Had outpatient arrangements for NS infusion and TPN. When patient was home she had complaints of suprapubic tenderness. Also noted that she had uncontrolled blood sugars. Upon arrival to ER patient was found to have a UTI and HHNK state. Blood cultures were subsequently positive for MSSA. Patient was seen and examined at the bedside. She is requesting to see physical therapy today to improve her right hip pain. No other complaints otherwise. Objective: Vitals (see below) General: Lying in bed, no acute distress, AAOx3 HEENT: NC, AT CVS: RRR, +S1S2 Lungs: Fair air entry b/l, -w/r/r Abdomen: Soft, ND, NT, +BSx4, Ostomy on R lower quadrant Extremities: +PPx4, -edema, -calf tenderness Assessment and plan: 1. Sepsis - 2/2 staph epidermidis bacteremia - (2/2 possible R IJ catheter infection) and/or urinary tract infection - Catheter not removed - Blood cultures 04/24 positive for Staph epi - received and completed IV course of Vancomycin; stopped 05/18 - Repeat blood cultures 05/20- positive for Gram positive cocci in clusters - Restarted Vancomycin 05/24 - will get vancomycin lock therapy for a duration of 2 weeks - Repeat Blood cultures 05/24 negative - Plan of care, for CRBSTI - will treat with vancomycin lock therapy for 2 weeks , if colonization remains / positive blood cultures will need to have line removed - Awaiting occupational therapy and teaching of vancomycin lock therapy - Dr. Hankins (ID) following - appreciate their input 2. s/p HHNK - 2/2 poorly controlled DM2 and infection - c/w levemir 30 BID and ISS 3. Normocytic anemia - 2/2 CALVIN - c/w ferrous sulfate 4. s/p AQUILES 5. History of pancreatic cyst rupture - causing ischemic gut; s/p partial colectomy with jejunostomy 6. Severe protein calorie malnutrition and high output ostomy - supplements with 1 liter of NS daily and TPN nightly 7. Depression 8. Diabetic neuropathy 9. Chronic lower back pain - MRI shows degenerative disc narrowing, no spinal stenosis, mild right sided neural foraminal narrowing - s/p flexeril - c/w percocet, bengay cream and tizanidine; c/w Lidoderm patch - will get reevaluated by pain management 10. Stage II Pressure ulcer at coccyx - present from admission 11. GI prophylaxis - c/w protonix 12. DVT prophylaxis - c/w heparin Disposition: - case management working options for outpatient setup of 1 L NS and TPN nightly ; no options at this time - continue with vancomycin lock therapy teaching - awaiting occupational therapy VSPili, I+O VSPili I+O Laboratory Tests 05/29/16 05:19 Calcium Level 8.1 L, Red Blood Count 3.00 L, Mean Corpuscular Volume 91.2, Mean Corpuscular Hemoglobin 28.6, Mean Corpuscular Hemoglobin Concent 31.4 L, Red Cell Distribution Width 16.1 H Vital Signs Date Time Temp Pulse Resp B/P Pulse Ox O2 Delivery O2 Flow Rate FiO2 05/29/16 13:11 18 05/29/16 06:00 98.8 91 133/63 97 Room Air I&O- Last 24 Hours up to 6 AM 05/29/16 06:00 Intake Total 2040 ml Output Total 6125 ml Balance -4085 ml LIBRADO PALMER MD May 29, 2016 13:27
[2016-05-29 14:00] VITALS: BP 127/60
[2016-05-29] MEDS: **NOTE PATIENT COMMENT** MISC XX SCH (21:00)
[2016-05-29] MEDS ORDERED: FAT EMULSION IV 20% 500 ML IV ONE (21:00)
[2016-05-29] MEDS ORDERED: [UNRECOGNIZED DRUG - OTHER] IV SCH (21:00)
[2016-05-29] MEDS ORDERED: INSULIN HUMAN REGULAR IV SCH (21:00)
[2016-05-29] MEDS ORDERED: POTASSIUM CHLORIDE IV SCH (21:00)
[2016-05-29] MEDS: PRAVASTATIN 20 MG TAB PO SCH (21:52)
[2016-05-29] MEDS: traZODone 100 MG TAB PO SCH (21:52)
[2016-05-29] MEDS: NS 1,000 ML IV SCH (21:53)
[2016-05-29 22:00] VITALS: BP 107/62
[2016-05-30] MEDS: PERCOCET 5MG/325MG TAB PO PRN ×4 (04:30→18:03)
[2016-05-30] MEDS: HEPARIN SOD (PORCINE) 5000 UNITS/ML VIAL SQ SCH ×3 (05:36→22:00)
[2016-05-30] MEDS: HumaLOG INSULIN (NovoLOG) PER UNIT SC SCH ×3 (05:36→18:03)
[2016-05-30 05:39] LABS: MEAN CORPUSCULAR HEMOGLOBIN 28.6 pg (27.0-33.0); MEAN CORPUSCULAR HGB CONC 32.1 g/dl (32.0-36.5); MEAN CORPUSCULAR VOLUME 89.2 fl (80.0-96.0); RED CELL DISTRIBUTION WIDTH 15.2 % (11.5-14.5); WHITE BLOOD COUNT 5.5 K/mm3 (4.0-10.0)
[2016-05-30 06:00] VITALS: BP 117/57
[2016-05-30 06:16] LABS: ANION GAP 8 MEQ/L (8-16); BLOOD UREA NITROGEN 24 MG/DL (7-18); CALCIUM LEVEL 8.6 MG/DL (8.5-10.1); CARBON DIOXIDE LEVEL 28 MEQ/L (21-32); CHLORIDE LEVEL 102 MEQ/L (98-107); CREATININE FOR GFR 0.98 MG/DL (0.55-1.02); GLOMERULAR FILTRATION RATE > 60.0 (>51); GLUCOSE, FASTING 139 MG/DL (70-105); POTASSIUM SERUM 4.5 MEQ/L (3.5-5.1); SODIUM LEVEL 138 MEQ/L (136-145)
[2016-05-30] MEDS: LIDOCAINE 5% (LIDODERM) PATCH TD SCH (08:41)
[2016-05-30] MEDS: FLUCONAZOLE 50MG TABLET PO SCH (08:42)
[2016-05-30] MEDS: LEVEMIR (INSULIN DETEMIR) 1 UNITS/0.01ML SC SCH ×2 (08:42→21:07)
[2016-05-30] MEDS: rOPINIRole 1MG TAB PO SCH ×2 (08:42→21:07)
[2016-05-30] MEDS: carBAMazepine 200 MG TAB PO SCH ×2 (08:42→21:06)
[2016-05-30] MEDS: LOMOTIL 2.5MG/0.025MG TABLET PO SCH ×4 (08:42→21:07)
[2016-05-30] MEDS: buPROPion 100 MG TAB PO SCH ×2 (08:43→21:06)
[2016-05-30] MEDS: MAGNESIUM OXIDE 400 MG TAB (MAG-OX) PO SCH ×2 (08:43→21:07)
[2016-05-30] MEDS: VITAMIN D 1,000 INTERNATIONAL UNITS TABLET PO SCH (08:43)
[2016-05-30] MEDS: GABAPENTIN 300 MG CAP PO SCH ×3 (08:43→21:07)
[2016-05-30] MEDS: ASPIRIN 81 MG ENTERIC TAB PO SCH (08:43)
[2016-05-30] MEDS: CitaloPRAM (CeleXA) 20 MG TAB PO SCH (08:43)
[2016-05-30] MEDS: MULTIVITAMINS/MINERALS THERAP 1 TAB PO SCH (08:43)
[2016-05-30] MEDS: FERROUS SULFATE 325MG TAB PO SCH ×3 (08:43→21:06)
[2016-05-30] MEDS: PANTOPRAZOLE 40MG TAB (PROTONIX) PO SCH ×2 (08:43→21:06)
[2016-05-30] MEDS: VANCOMYCIN XX SCH ×2 (08:44→08:46)
[2016-05-30] MEDS: FLUTICASONE PROP 0.05% NASAL SPRAY 16 GM (FLONASE) SCH (08:44)
[2016-05-30] MEDS: [UNRECOGNIZED DRUG - OTHER] XX SCH (08:44)
[2016-05-30] MEDS: SODIUM CHLORIDE 0.9% INJ 10 ML SYR IV SCH ×2 (08:44→21:08)
[2016-05-30] MEDS: HEPARIN XX SCH (08:44)
[2016-05-30] MEDS: ANALGESIC BALM CRM 120 GM TOP SCH ×3 (08:45→21:08)
--- NOTE | 2016-05-30 11:30 | IPNPDOC ---
Text Note Date of Service The patient was seen on 05/30/16 at 11:26. NOTE Subjective: Patient is a 50 year old female with a PMHx of pancreatic cyst rupture causing ischemic gut - s/p partial colectomy and jejunostomy, DLP, DM2, CKD3, hx of CVA, RLS, Depression, CALVIN, Chronic sacral pressure ulcer, . Patient was recently admitted from 04/05 - 04/10 for dehydration 2/2 high output ostomy. Had outpatient arrangements for NS infusion and TPN. When patient was home she had complaints of suprapubic tenderness. Also noted that she had uncontrolled blood sugars. Upon arrival to ER patient was found to have a UTI and HHNK state. Blood cultures were subsequently positive for MSSA. Patient was seen and examined at the bedside. She does not have any new complaints today. Objective: Vitals (see below) General: Lying in bed, no acute distress, AAOx3 HEENT: NC, AT CVS: RRR, +S1S2 Lungs: Fair air entry b/l, -w/r/r Abdomen: Soft, ND, NT, +BSx4, Ostomy on R lower quadrant Extremities: +PPx4, -edema, -calf tenderness Assessment and plan: 1. s/p sepsis - 2/2 staph epidermidis bacteremia - (2/2 possible R IJ catheter infection) and/or urinary tract infection - Blood cultures 04/24 positive for Staph epi - received and completed IV course of Vancomycin; stopped 05/18 - Bood cultures 05/20-14 positive for Staph epi; Repeat Blood cultures 05/24 negative - CRBSTI - will treat with vancomycin lock therapy for 2 weeks (Started 05/24) - Catheter not removed; if colonization remains / positive blood cultures will need to have line removed - Awaiting occupational therapy and teaching of vancomycin lock therapy - Dr. Hankins (ID) following - appreciate their input 2. s/p HHNK - 2/2 poorly controlled DM2 and infection - c/w levemir 30 BID and ISS 3. Normocytic anemia - 2/2 CALVIN - c/w ferrous sulfate 4. s/p AQUILES 5. History of pancreatic cyst rupture - causing ischemic gut; s/p partial colectomy with jejunostomy 6. Severe protein calorie malnutrition and high output ostomy - supplements with 1 liter of NS daily and TPN nightly 7. Depression 8. Diabetic neuropathy 9. Chronic lower back pain - MRI shows degenerative disc narrowing, no spinal stenosis, mild right sided neural foraminal narrowing - c/w percocet, bengay cream and tizanidine, Lidoderm patch; s/p flexeril - Reevaluated by pain management today (05/30) 10. Stage II Pressure ulcer at coccyx - present from admission 11. GI prophylaxis - c/w protonix 12. DVT prophylaxis - c/w heparin Disposition: - case management working options for outpatient setup of 1 L NS and TPN nightly ; no options at this time - continue with vancomycin lock therapy teaching - awaiting occupational therapy VS,Pili, I+O VS, Pili, I+O Laboratory Tests 05/30/16 05:17 Calcium Level 8.6, Red Blood Count 3.07 L, Mean Corpuscular Volume 89.2, Mean Corpuscular Hemoglobin 28.6, Mean Corpuscular Hemoglobin Concent 32.1, Red Cell Distribution Width 15.2 H Vital Signs Date Time Temp Pulse Resp B/P Pulse Ox O2 Delivery O2 Flow Rate FiO2 05/30/16 09:15 16 05/30/16 06:00 98.2 84 117/57 97 Room Air I&O- Last 24 Hours up to 6 AM 05/30/16 06:00 Intake Total 2040 ml Output Total 5875 ml Balance -3835 ml LIBRADO PALMER MD May 30, 2016 11:30
[2016-05-30] MEDS: tiZANidine 4 MG TAB PO PRN ×2 (11:34→19:28)
[2016-05-30] MEDS: [UNRECOGNIZED DRUG - REMARK] XX SCH (12:00)
[2016-05-30] MEDS: diphenhydrAMINE 25 MG CAP PO PRN ×2 (12:51→19:28)
[2016-05-30 14:00] VITALS: BP 146/77
[2016-05-30] MEDS: diphenhydrAMINE CREAM 30GM TOP PRN (18:02)
[2016-05-30] MEDS ORDERED: [UNRECOGNIZED DRUG - MIXTURE] IV SCH ×5 (21:00)
[2016-05-30] MEDS ORDERED: FAT EMULSION IV 20% 500 ML IV SCH (21:00)
[2016-05-30] MEDS: **NOTE PATIENT COMMENT** MISC XX SCH (21:00)
[2016-05-30] MEDS: traZODone 100 MG TAB PO SCH (21:06)
[2016-05-30] MEDS: PRAVASTATIN 20 MG TAB PO SCH (21:06)
[2016-05-30] MEDS: NS 1,000 ML IV SCH (21:07)
[2016-05-30 22:00] VITALS: BP 115/60
[2016-05-31] MEDS: HumaLOG INSULIN (NovoLOG) PER UNIT SC SCH ×4 (00:02→18:08)
[2016-05-31] MEDS: PERCOCET 5MG/325MG TAB PO PRN ×4 (00:05→21:42)
[2016-05-31] MEDS: diphenhydrAMINE 25 MG CAP PO PRN ×4 (02:59→23:00)
[2016-05-31] MEDS: tiZANidine 4 MG TAB PO PRN ×4 (02:59→23:00)
[2016-05-31 05:39] LABS: MEAN CORPUSCULAR HEMOGLOBIN 28.3 pg (27.0-33.0); MEAN CORPUSCULAR VOLUME 88.4 fl (80.0-96.0); RED CELL DISTRIBUTION WIDTH 15.1 % (11.5-14.5); WHITE BLOOD COUNT 5.6 K/mm3 (4.0-10.0)
[2016-05-31 05:50] LABS: ANION GAP 7 MEQ/L (8-16); BLOOD UREA NITROGEN 22 MG/DL (7-18); CALCIUM LEVEL 8.1 MG/DL (8.5-10.1); CARBON DIOXIDE LEVEL 31 MEQ/L (21-32); CHLORIDE LEVEL 103 MEQ/L (98-107); CREATININE FOR GFR 0.93 MG/DL (0.55-1.02); GLOMERULAR FILTRATION RATE > 60.0 (>51); GLUCOSE, FASTING 101 MG/DL (70-105); POTASSIUM SERUM 4.3 MEQ/L (3.5-5.1); SODIUM LEVEL 141 MEQ/L (136-145)
[2016-05-31 06:00] VITALS: BP 130/82
[2016-05-31] MEDS: HEPARIN SOD (PORCINE) 5000 UNITS/ML VIAL SQ SCH ×3 (06:18→21:40)
[2016-05-31] MEDS: ANALGESIC BALM CRM 120 GM TOP SCH ×3 (09:15→21:39)
[2016-05-31] MEDS: rOPINIRole 1MG TAB PO SCH ×2 (09:15→21:41)
[2016-05-31] MEDS: CitaloPRAM (CeleXA) 20 MG TAB PO SCH (09:15)
[2016-05-31] MEDS: ASPIRIN 81 MG ENTERIC TAB PO SCH (09:16)
[2016-05-31] MEDS: MULTIVITAMINS/MINERALS THERAP 1 TAB PO SCH (09:16)
[2016-05-31] MEDS: VITAMIN D 1,000 INTERNATIONAL UNITS TABLET PO SCH (09:16)
[2016-05-31] MEDS: LOMOTIL 2.5MG/0.025MG TABLET PO SCH ×4 (09:16→21:41)
[2016-05-31] MEDS: buPROPion 100 MG TAB PO SCH ×2 (09:16→21:41)
[2016-05-31] MEDS: GABAPENTIN 300 MG CAP PO SCH ×3 (09:17→21:42)
[2016-05-31] MEDS: MAGNESIUM OXIDE 400 MG TAB (MAG-OX) PO SCH ×2 (09:17→21:41)
[2016-05-31] MEDS: FERROUS SULFATE 325MG TAB PO SCH ×3 (09:17→21:42)
[2016-05-31] MEDS: FLUCONAZOLE 50MG TABLET PO SCH (09:17)
[2016-05-31] MEDS: carBAMazepine 200 MG TAB PO SCH ×2 (09:17→21:42)
[2016-05-31] MEDS: PANTOPRAZOLE 40MG TAB (PROTONIX) PO SCH ×2 (09:17→21:41)
[2016-05-31] MEDS: LEVEMIR (INSULIN DETEMIR) 1 UNITS/0.01ML SC SCH ×2 (09:17→21:43)
[2016-05-31] MEDS: VANCOMYCIN XX SCH ×2 (09:18→09:19)
[2016-05-31] MEDS: HEPARIN XX SCH (09:18)
[2016-05-31] MEDS: LIDOCAINE 5% (LIDODERM) PATCH TD SCH (09:18)
[2016-05-31] MEDS: [UNRECOGNIZED DRUG - OTHER] XX SCH (09:18)
[2016-05-31] MEDS: SODIUM CHLORIDE 0.9% INJ 10 ML SYR IV SCH ×2 (09:18→21:43)
[2016-05-31] MEDS: FLUTICASONE PROP 0.05% NASAL SPRAY 16 GM (FLONASE) SCH (09:19)
[2016-05-31] MEDS: [UNRECOGNIZED DRUG - REMARK] XX SCH (12:00)
[2016-05-31 14:00] VITALS: BP 124/60
--- NOTE | 2016-05-31 15:28 | IPNPDOC ---
Text Note Date of Service The patient was seen on 05/31/16 at 15:22. NOTE Subjective: No acute changes overnight. Feels well. Had pain in her right sacral region. Objective: Vitals: (see below) General: No acute distress, laying comfortably in bed. HEENT: Moist mucous membranes. Neck: No JVD or lymphadenopathy Cardiac: RRR, No murmurs Pulm: Clear to auscultation b/l. No wheezing, rhonchi. Right Vitale catheter. No area of bleeding or cellulitis. No tenderness. Abd: NT/ND + BS. Ostomy noted. Ext: No edema or cyanosis. LE with preserved strength 5/5 in BLE. Distal pulses intact. Labs (see below) Images: 04/24/16 CT ABDOMEN WITHOUT CONTRAST: Lung bases: No lung base infiltrate or effusion. Liver: No intrahepatic ductal dilation. Gallbladder: Cholecystectomy. Pancreas: No pancreatic duct dilation. Calcifications of chronic pancreatitis. Bowel loops: Right upper quadrant ileostomy. Diastasis of the anterior abdominal wall. Spleen: Normal size. Adrenals: Normal size. Right kidney: Mild hydronephrosis and hydroureter without obstructing stone. Left kidney: No stones or hydronephrosis. Calcifications adjacent to the left ureter are within the left gonadal vein. Aorta: Normal caliber. Peritoneum: No free air. CT PELVIS WITHOUT CONTRAST: Hips: Interval left hip arthroplasty and right femoral ORIF produce beam hardening artifact in the lower pelvis, limiting evaluation of the pelvic structures. Bladder: Normally distended. The wall is mildly thickened such that cystitis is not excluded Colon: Partial colectomy. Uterus: Hysterectomy. Peritoneum: No fluid. Lumbar spine: Degenerative spondylotic changes most pronounced at L4-5 and L5- S1. IMPRESSION: 1. Right upper quadrant ileostomy without evidence of obstruction. 2. Mild right hydronephrosis without obstructing stone. This may be due to reflux. 3. Urinary bladder wall thickening suggesting cystitis. MRI Lumbar spine 05/06/16 Findings: T2-weighted sagittal images demonstrate degenerative disc narrowing at this L3-4, L4-5, and L5-S1 with disc space bulging diffusely at each of these levels. This indents the ventral margin of the thecal sac. There is no evidence of spinal stenosis however. The thecal sac is fairly capacious. Conus medullaris terminates at L1-L2 and is unremarkable. There is mild right-sided neural foraminal narrowing L4-5 and L5-S1 unchanged. No new finding. Assessment/Plan 1. Staph epidermidis bacteremia - 2 blood cultures positive. Cont. vancomycin for now. Blood cultures repeated, and 1 bottle positive for staph epi. IV fluids. No leukocytosis. TTE with no vegetations. Repeat cx negative. will hold off on removing line as it does not appear to be infected. The positive cultures were from peripheral draws. Dr. Hankins on board. Patient completed her treatment with vancomycin. Repeat blood cultures from line positive. Dr. Hankins has recommended 2 weeks of antibiotics during that through the line before entertaining removal of the line , as patient needs it for TPN. 2. S/p Diabetic ketoacidosis - Levemir has been titrated.. On TPN. May be secondary to urinary tract infection. Completing Rocephin 05/06/16. 3. Anemia - chronically trending down. Occult blood negative. Transfused 1 unit. Hb stable 4. AQUILES - resolved. likely secondary to volume depletion from high output ostomy. Creatinine improved. On IV fluids. 5. 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 6. Severe protein calorie malnutrition- on TPN 9 PM to 9 AM. 7. Depression- continue home meds 8. Diabetic neuropathy- continue Neurontin 9. Hypokalemia- potassium has been added to TPN 10. Chronic lower back pain with a stage II pressure ulcer on coccyx on admission- on Lidoderm patch, Percocet, Flexeril when necessary.MRI Lumbar spine (see above). Cont lidocaine patch, OOB, PT. Percocet. Naproxen has been added. DVT prophy: Heparin Subcutaneous Case management is working on setting up a safe discharge. It has been difficult arranging for home TPN. Home care had said that they will not be attending to the patient if she does not have 24-hour care at home. Unable to obtain placement. Occupation therapy working with patient so she may learn how to manage the TPN. VS,Fishbone, I+O VS, Fishbone, I+O Laboratory Tests 05/31/16 05:14 Calcium Level 8.1 L, Red Blood Count 3.02 L, Mean Corpuscular Volume 88.4, Mean Corpuscular Hemoglobin 28.3, Mean Corpuscular Hemoglobin Concent 32.0, Red Cell Distribution Width 15.1 H Vital Signs Date Time Temp Pulse Resp B/P Pulse Ox O2 Delivery O2 Flow Rate FiO2 05/31/16 14:32 16 05/31/16 06:00 97.8 79 130/82 97 Room Air I&O- Last 24 Hours up to 6 AM 05/31/16 06:00 Intake Total 4088 ml Output Total 6975 ml Balance -2887 ml VONNIE MCMAHAN MD May 31, 2016 15:28
[2016-05-31] MEDS: **NOTE PATIENT COMMENT** MISC XX SCH (21:00)
[2016-05-31] MEDS ORDERED: FAT EMULSION IV 20% 500 ML IV SCH (21:00)
[2016-05-31] MEDS ORDERED: [UNRECOGNIZED DRUG - OTHER] IV SCH (21:00)
[2016-05-31] MEDS ORDERED: POTASSIUM CHLORIDE IV SCH (21:00)
[2016-05-31] MEDS ORDERED: INSULIN HUMAN REGULAR IV SCH (21:00)
[2016-05-31] MEDS: NS 1,000 ML IV SCH (21:40)
[2016-05-31] MEDS: traZODone 100 MG TAB PO SCH (21:41)
[2016-05-31] MEDS: NAPROXEN 375 MG TAB PO SCH (21:41)
[2016-05-31] MEDS: PRAVASTATIN 20 MG TAB PO SCH (21:42)
[2016-05-31 22:00] VITALS: BP 111/56
[2016-06-01] MEDS: HumaLOG INSULIN (NovoLOG) PER UNIT SC SCH ×5 (00:07→23:59)
[2016-06-01] MEDS: tiZANidine 4 MG TAB PO PRN ×3 (05:00→17:52)
[2016-06-01] MEDS: diphenhydrAMINE 25 MG CAP PO PRN ×2 (05:00→17:52)
[2016-06-01] MEDS: HEPARIN SOD (PORCINE) 5000 UNITS/ML VIAL SQ SCH ×3 (05:01→21:37)
[2016-06-01 05:21] LABS: MEAN CORPUSCULAR HEMOGLOBIN 29.5 pg (27.0-33.0); MEAN CORPUSCULAR VOLUME 89.3 fl (80.0-96.0); RED CELL DISTRIBUTION WIDTH 15.1 % (11.5-14.5); WHITE BLOOD COUNT 5.9 K/mm3 (4.0-10.0)
[2016-06-01 05:53] LABS: CALCIUM LEVEL 8.2 MG/DL (8.5-10.1); CREATININE FOR GFR 1.14 MG/DL (0.55-1.02); GLOMERULAR FILTRATION RATE 53.7 (>51); POTASSIUM SERUM 4.3 MEQ/L (3.5-5.1)
[2016-06-01 06:00] VITALS: BP 128/63
[2016-06-01] MEDS: PERCOCET 5MG/325MG TAB PO PRN ×4 (06:30→20:16)
[2016-06-01] MEDS: PANTOPRAZOLE 40MG TAB (PROTONIX) PO SCH ×2 (09:28→20:15)
[2016-06-01] MEDS: LEVEMIR (INSULIN DETEMIR) 1 UNITS/0.01ML SC SCH ×2 (09:28→21:43)
[2016-06-01] MEDS: FLUCONAZOLE 50MG TABLET PO SCH (09:29)
[2016-06-01] MEDS: buPROPion 100 MG TAB PO SCH ×2 (09:29→20:15)
[2016-06-01] MEDS: GABAPENTIN 300 MG CAP PO SCH ×3 (09:29→20:16)
[2016-06-01] MEDS: rOPINIRole 1MG TAB PO SCH ×2 (09:29→20:14)
[2016-06-01] MEDS: ASPIRIN 81 MG ENTERIC TAB PO SCH (09:29)
[2016-06-01] MEDS: FERROUS SULFATE 325MG TAB PO SCH ×3 (09:29→20:15)
[2016-06-01] MEDS: NAPROXEN 375 MG TAB PO SCH ×2 (09:30→20:15)
[2016-06-01] MEDS: HEPARIN XX SCH (09:30)
[2016-06-01] MEDS: [UNRECOGNIZED DRUG - OTHER] XX SCH (09:30)
[2016-06-01] MEDS: SODIUM CHLORIDE 0.9% INJ 10 ML SYR IV SCH ×2 (09:30→21:38)
[2016-06-01] MEDS: VANCOMYCIN XX SCH ×2 (09:30→09:31)
[2016-06-01] MEDS: MULTIVITAMINS/MINERALS THERAP 1 TAB PO SCH (09:30)
[2016-06-01] MEDS: CitaloPRAM (CeleXA) 20 MG TAB PO SCH (09:30)
[2016-06-01] MEDS: carBAMazepine 200 MG TAB PO SCH ×2 (09:30→20:15)
[2016-06-01] MEDS: MAGNESIUM OXIDE 400 MG TAB (MAG-OX) PO SCH ×2 (09:31→20:16)
[2016-06-01] MEDS: VITAMIN D 1,000 INTERNATIONAL UNITS TABLET PO SCH (09:31)
[2016-06-01] MEDS: FLUTICASONE PROP 0.05% NASAL SPRAY 16 GM (FLONASE) SCH (09:31)
[2016-06-01] MEDS: LOMOTIL 2.5MG/0.025MG TABLET PO SCH ×4 (09:31→20:15)
[2016-06-01] MEDS: ANALGESIC BALM CRM 120 GM TOP SCH ×3 (09:32→21:38)
[2016-06-01] MEDS: LIDOCAINE 5% (LIDODERM) PATCH TD SCH (09:32)
[2016-06-01] MEDS: [UNRECOGNIZED DRUG - REMARK] XX SCH (12:00)
--- NOTE | 2016-06-01 12:37 | REP ---
Duplex extremity venous ultrasound: Right lower extremity. History: Right lower extremity pain. Question DVT. Findings: The deep veins are anechoic and fully compressible from the groin to the popliteal fossa in the right lower extremity. Color flow imaging is homogeneous. Spectral Doppler interrogation demonstrates intact respiratory variation in flow and normal manual augmentation of flow. There is no evidence of deep vein thrombosis. Impression: Negative right lower extremity duplex venous ultrasound. No evidence of deep vein thrombosis. Signed by Royce Tijerina MD 06/01/2016 12:28 P
--- NOTE | 2016-06-01 13:14 | REP ---
RIGHT HIP, TWO VIEWS: HISTORY: Pain. COMPARISON: 05/06/2016. The patient is status post ORIF of an p intertrochanteric fracture. A fixation plate and screw are present. There is no acute fracture or dislocation. The joint space is normal in appearance. IMPRESSION: The patient is status post ORIF of an intertrochanteric fracture. There is anatomic alignment. Signed by Ted Lee MD 06/01/2016 01:18 P
[2016-06-01 14:00] VITALS: BP 90/50
[2016-06-01 15:07] VITALS: BP 108/56
--- NOTE | 2016-06-01 18:59 | IPN ---
DATE: 06/01/2016 The patient is seen and examined. Denies any chest pain, pressure or discomfort. Does report right lower extremity pain. Denies any fevers or chills. The patient received TPN at night. Temperature 97.4, pulse 78, respirations 16, blood pressure 108/56, pulse oximetry 92% on room air. LABORATORY DATA: WBC 5.9, hemoglobin and hematocrit 8.8/26.7, platelets 193. Chemistry: Sodium 140, potassium 4.2, chloride 103, bicarbonate 28, BUN 23, creatinine 1.14. X-ray of the hip negative for fractures. Ultrasound Doppler negative for deep vein thrombosis (DVT). PHYSICAL EXAMINATION: GENERAL: The patient is alert and oriented times three. Very frail. In no acute distress. HEENT: Normocephalic, atraumatic. Moist mucous membranes. NECK: Supple. CARDIAC: Regular rate and rhythm. No murmurs detected. PULMONARY: Bilaterally clear to auscultation. No wheeze, rales or rhonchi. Right Vitale catheter in place. ABDOMEN: Soft, nontender. Colostomy noted with large output. EXTREMITIES: No edema in bilateral lower extremities. ASSESSMENT AND PLAN: This is a 50-year-old female with underlying medical history of pancreatic cyst rupture causing ischemic gut, status post partial colectomy and jejunostomy, dyslipidemia, diabetes type 2, chronic kidney disease stage III, history of CVA, depression, restless leg syndrome, iron deficiency anemia, high output colostomy, severe protein calorie malnutrition, chronic pressure ulcers. The patient was admitted recently from 04/05/2016 to 04/10/2016 for dehydration secondary to high output ostomy, had outpatient arrangement for normal saline infusion and TPN. When the patient was home, she had complaints of suprapubic tenderness and also noted that she had uncontrolled blood sugar. Upon arrival to the emergency department, the patient was found to have urinary tract infection (UTI) with hyperosmotic nonketotic state. Blood culture was subsequently positive for methicillin sensitive Staphylococcus aureus (MSSA). 1. Sepsis secondary to Staphylococcus epidermidis bacteremia, possibly related to catheter associated infection versus urinary tract infection (UTI). Repeat cultures were sent. Infectious disease, Dr. Hankins, was consulted. Catheter not removed initially, but we will consider catheter removal if repeat culture is positive. The patient completed treatment with vancomycin. 2. Status post diabetic ketoacidosis. Currently, on Levemir and TPN. Likely secondary to infection. Completed antibiotic with Rocephin 05/06/2016. Monitor sugars. Adjust insulin as needed. 3. Anemia. Fecal occult negative. Transfuse 1 unit of packed red blood cells. Followup hemoglobin and hematocrit. 4. Acute on chronic renal insufficiency, likely secondary to volume depletion due to high output ostomy. Monitor BUN and creatinine. IV fluids have been provided. THe patient is currently on TPN. 5. History of pancreatic cyst rupture leading to ischemic gut and partial colectomy with jejunostomy placement. Needs 1 to 2 liters of normal saline supplemented daily. 6. Severe protein calorie malnutrition. Currently, the patient is on TPN at 9:00 p.m. to 9:00 a.m. 7. Depression. Continue home medications. 8. Diabetic neuropathy. Continue Neurontin. 9. Hypokalemia. Potassium added to TPN. 10. Chronic low back pain with stage II pressure ulcer in the coccyx upon admission. Pain regimen with Lidocaine patch, Percocet, Flexeril. MRI appreciated. Physical therapy (PT). Naproxen and Percocet. 11. Gastrointestinal prophylaxis. Protonix. 12. Deep vein thrombosis (DVT) prophylaxis. Heparin subcutaneously. 13. Restless legs. Continue home medications. DISPOSITION PLANNING: Pending arrangements. Disposition difficult given the patient is on TPN. Patient and family services (PFS) consulted.
[2016-06-01] MEDS: PRAVASTATIN 20 MG TAB PO SCH (20:14)
[2016-06-01] MEDS: traZODone 100 MG TAB PO SCH (20:15)
[2016-06-01] MEDS: NS 1,000 ML IV SCH (20:17)
[2016-06-01] MEDS ORDERED: [UNRECOGNIZED DRUG - MIXTURE] IV SCH ×5 (21:00)
[2016-06-01] MEDS: **NOTE PATIENT COMMENT** MISC XX SCH (21:00)
[2016-06-01] MEDS ORDERED: FAT EMULSION IV 20% 500 ML IV SCH (21:00)
[2016-06-01 22:00] VITALS: BP 88/46
[2016-06-02] MEDS: PERCOCET 5MG/325MG TAB PO PRN ×3 (00:26→12:12)
[2016-06-02] MEDS: tiZANidine 4 MG TAB PO PRN ×2 (00:26→07:51)
[2016-06-02 06:00] VITALS: BP 123/68
[2016-06-02] MEDS: HEPARIN SOD (PORCINE) 5000 UNITS/ML VIAL SQ SCH (06:04)
[2016-06-02] MEDS: HumaLOG INSULIN (NovoLOG) PER UNIT SC SCH ×2 (06:05→12:13)
[2016-06-02 06:17] LABS: MEAN CORPUSCULAR HEMOGLOBIN 28.1 pg (27.0-33.0); MEAN CORPUSCULAR HGB CONC 30.7 g/dl (32.0-36.5); MEAN CORPUSCULAR VOLUME 91.3 fl (80.0-96.0); RED CELL DISTRIBUTION WIDTH 16.2 % (11.5-14.5)
[2016-06-02 06:22] LABS: CALCIUM LEVEL 8.5 MG/DL (8.5-10.1); CREATININE FOR GFR 1.06 MG/DL (0.55-1.02); GLOMERULAR FILTRATION RATE 58.4 (>51); POTASSIUM SERUM 4.3 MEQ/L (3.5-5.1)
[2016-06-02] MEDS: FLUCONAZOLE 50MG TABLET PO SCH (09:22)
[2016-06-02] MEDS: LOMOTIL 2.5MG/0.025MG TABLET PO SCH ×2 (09:23→12:12)
[2016-06-02] MEDS: MAGNESIUM OXIDE 400 MG TAB (MAG-OX) PO SCH (09:23)
[2016-06-02] MEDS: CitaloPRAM (CeleXA) 20 MG TAB PO SCH (09:23)
[2016-06-02] MEDS: buPROPion 100 MG TAB PO SCH (09:23)
[2016-06-02] MEDS: FERROUS SULFATE 325MG TAB PO SCH (09:24)
[2016-06-02] MEDS: ASPIRIN 81 MG ENTERIC TAB PO SCH (09:24)
[2016-06-02] MEDS: PANTOPRAZOLE 40MG TAB (PROTONIX) PO SCH (09:24)
[2016-06-02] MEDS: carBAMazepine 200 MG TAB PO SCH (09:24)
[2016-06-02] MEDS: VITAMIN D 1,000 INTERNATIONAL UNITS TABLET PO SCH (09:24)
[2016-06-02] MEDS: GABAPENTIN 300 MG CAP PO SCH (09:24)
[2016-06-02] MEDS: rOPINIRole 1MG TAB PO SCH (09:25)
[2016-06-02] MEDS: NAPROXEN 375 MG TAB PO SCH (09:25)
[2016-06-02] MEDS: LEVEMIR (INSULIN DETEMIR) 1 UNITS/0.01ML SC SCH (09:25)
[2016-06-02] MEDS: MULTIVITAMINS/MINERALS THERAP 1 TAB PO SCH (09:25)
[2016-06-02] MEDS: LIDOCAINE 5% (LIDODERM) PATCH TD SCH (09:26)
[2016-06-02] MEDS: SODIUM CHLORIDE 0.9% INJ 10 ML SYR IV SCH (09:26)
[2016-06-02] MEDS: VANCOMYCIN XX SCH ×2 (09:26→09:27)
[2016-06-02] MEDS: [UNRECOGNIZED DRUG - OTHER] XX SCH (09:26)
[2016-06-02] MEDS: HEPARIN XX SCH (09:26)
[2016-06-02] MEDS: FLUTICASONE PROP 0.05% NASAL SPRAY 16 GM (FLONASE) SCH (09:26)
[2016-06-02] MEDS: ANALGESIC BALM CRM 120 GM TOP SCH (09:27)
[2016-06-02] MEDS ORDERED: INSUDET SC (10:04)
[2016-06-02] MEDS: [UNRECOGNIZED DRUG - REMARK] XX SCH (12:00)
--- NOTE | 2016-06-02 19:51 | DSES ---
DATE OF ADMISSION: 04/24/2017 DATE OF DISCHARGE: 06/02/2016 PRIMARY CARE PROVIDER: Dr. Dong Moore INFECTIOUS DISEASE SPECIALIST: Dr. Hankins JUNIOR ART DIRECTOR: Dr. Pratt FINAL DIAGNOSES: 1. Sepsis secondary to Staphylococcus epidermidis bacteremia, possible catheter-associated infection. 2. Urinary tract infection. 3. Diabetic ketoacidosis. 4. Anemia. 5. Acute on chronic renal insufficiency. 6. History of pancreatic cysts and ischemic gut. 7. Severe protein-calorie malnutrition. 8. Depression. 9. Diabetic neuropathy. 10. Hypokalemia. 11. Chronic lower back pain. 12. Stage II pressure ulcers of the coccyx. 13. Restless leg syndrome. HISTORY OF PRESENT ILLNESS: This is a 50-year-old female patient with underlying medical history of insulin-dependent diabetes, dyslipidemia, jejunostomy, chronic kidney disease (CKD), history of cerebrovascular accident (CVA) without any residual, restless leg syndrome, depression, iron deficiency anemia, high-output ostomy, severe protein-calorie malnutrition, chronic sacral pressure ulcers with a history of pancreatic cysts rupture, causing ischemic gut and requiring partial colectomy and placement of jejunostomy tube. Patient was recently admitted at [facility] on 04/05/2016 to 04/10/2016. At the time, patient was admitted with severe dehydration secondary to high-output ostomy and was in the process of arranging for outpatient normal saline infusion through the central venous catheter; however, the patient states that she has not received these. Over the last 2 days, patient has noticed suprapubic tenderness, dysuria, weakness, and fatigue. No fevers, chills, sick contacts but what prompted the patient to present to the emergency room. Patient is normally on total parenteral nutrition (TPN), which she takes nightly. Patient checks her fingersticks and taking her insulin, but fingerstick has been high over the last 2 days, and she has not really done anything about it. Does not remember the specific readings. Denies any chest pain, shortness of breath, fevers, or chills. HOSPITAL COURSE: Patient was admitted to the hospital. Found to be in hyperosmolar nonketotic state, possibly secondary to underlying infection. Cultures were sent. Patient was admitted to intensive care unit (ICU). Intravenous (IV) fluids were provided as well as insulin drip. Basic metabolic panel, anion gap, fingersticks were monitored. Electrolytes were monitored. Cultures were sent. Patient had hypernatremia secondary to hyperglycemia. Was monitored. Patient had also acute kidney injury secondary to hyperosmolar dehydration. Lactic acid was followed. Patient is on fluconazole chronically with tunneled central line catheter for TPN. Patient's home medication for restless leg and aspirin were continued. Gabapentin was continued. Deep vein thrombosis (DVT) prophylaxis was provided. [employer] was consulted for the patient's condition. Patient was bridged slowly off of insulin. Antibiotics, initially broad spectrum was given. Blood culture was positive persistently for Staphylococcus epidermidis, which possibly suggests line infection. Subsequently, patient was treated with vancomycin. Infectious disease, Dr. Hankins, was consulted. Repeat blood culture from the line was negative. Patient completed a course of antibiotics. TPN nightly was provided. Patient and family services (PFS) was involved for potential placement given patient is having difficulty managing her TPN. Physical therapy evaluation was done. Patient's hemoglobin and hematocrit were monitored. Most of the patient's underlying problem is related to high-output ostomy. Patient passed physical therapy. Currently is back to baseline, receiving nightly TPN. Completed antibiotics course with glucose relatively well controlled. After a discussion with patient, it was determined that patient would like to have one more shot with TPN at home. Patient will be moving in with her sister. Social work has been very helpful in arranging home TPN. Due to infusion company, patient is to follow with infectious disease and primary care provider. Patient is with multiple comorbidities and severe deconditioning. Poor long-term prognosis. VITAL SIGNS: Temperature 97, pulse 86, respiration 18, blood pressure 123/68, pulse oximetry 93% on room air. LABORATORY DATA: WBC 6, hemoglobin and hematocrit 8.6/28.1, platelets 194. Chemistry: Sodium 139, potassium 4.3, chloride 103, bicarbonate 28, BUN 23, creatinine 1.06. DISCHARGE MEDICATIONS: - vitamin C 500 mg by mouth daily - aspirin 81 mg by mouth daily - Biotin 1000 mcg by mouth daily - buspirone 100 mg by mouth twice a day - calcium 600 mg by mouth twice a day - carbamazepine 200 mg by mouth twice a day - vitamin D 1000 units by mouth daily - citalopram 40 mg by mouth daily - Lomotil two tablets by mouth four times a day - Nexium 40 mg by mouth twice a day - ferrous sulfate 325 mg by mouth three times a day - Flonase two sprays intranasal daily - fluticasone 150 mg by mouth daily - gabapentin 300 mg by mouth three times a day - heparin flushes three times a day as directed - NovoLog before meals and at bedtime via scale. - lidocaine patch 5% topical daily as needed - magnesium oxide 800 mg by mouth twice a day - multivitamin one tablet by mouth daily - Zofran 4 mg by mouth three times a day as needed - pravastatin 20 mg by mouth at bedtime - Requip 1 mg by mouth twice a day - Silvadene cream topical daily as needed - trazodone 100 mg by mouth at bedtime - Levemir insulin 25 units subcutaneous twice a day - TPN from 9 p.m. to 9 a.m. at a rate of 130 mL per hour with additive of 40 units of insulin as well as 10 mEq of potassium chloride. Followup with infusion company. DISCHARGE INSTRUCTIONS: Patient is instructed to followup with primary care provider in 7 days, infectious disease specialist, Dr. Hankins, in 7-10 days. Return to hospital if symptoms worsen. Patient with multiple comorbidities. High risk for readmission.
[2016-06-02] MEDS ORDERED: FAT EMULSION IV 20% 500 ML IV SCH (21:00)
[2016-06-02] MEDS ORDERED: [UNRECOGNIZED DRUG - OTHER] IV SCH (21:00)
[2016-06-02] MEDS ORDERED: POTASSIUM CHLORIDE IV SCH (21:00)
[2016-06-02] MEDS ORDERED: INSULIN HUMAN REGULAR IV SCH (21:00)
[2016-06-03] MEDS ORDERED: INSUDET SC (20:54)
== END 2016-06-02 13:44 | disposition home or self-care (01) | DRG 314 ==
LOC: M ED 18:51 → M ED INP 21:23 → M ICU 23:40 → M MSPAV 04-26 12:49
PROVIDERS: ADMIT Internal Medicine; ATTEND Hospitalist
PROC: 30253N1 (ICD-10-PCS; principal; 2016-05-04)
DX: T82.7XXA Infection and inflammatory reaction due to other cardiac and vascular devices, implants and grafts, initial encounter (principal); E43 Unspecified severe protein-calorie malnutrition; A41.9 Sepsis, unspecified organism; E13.10 Other specified diabetes mellitus with ketoacidosis without coma; K91.2 Postsurgical malabsorption, not elsewhere classified; R64 Cachexia; N39.0 Urinary tract infection, site not specified; N17.9 Acute kidney failure, unspecified; K86.1 Other chronic pancreatitis; Z68.1 Body mass index [BMI] 19.9 or less, adult; E78.5 Hyperlipidemia, unspecified; I12.9 Hypertensive chronic kidney disease with stage 1 through stage 4 chronic kidney disease, or unspecified chronic kidney disease; N18.3 Chronic kidney disease, stage 3 (moderate); G25.81 Restless legs syndrome; M54.5 Low back pain; J44.9 Chronic obstructive pulmonary disease, unspecified; J06.9 Acute upper respiratory infection, unspecified; M19.90 Unspecified osteoarthritis, unspecified site; E86.0 Dehydration; E87.6 Hypokalemia; L89.152 Pressure ulcer of sacral region, stage 2; E11.42 Type 2 diabetes mellitus with diabetic polyneuropathy; D50.9 Iron deficiency anemia, unspecified; Z86.73 Personal history of transient ischemic attack (TIA), and cerebral infarction without residual deficits; Z90.49 Acquired absence of other specified parts of digestive tract; Z93.4 Other artificial openings of gastrointestinal tract status; Z79.4 Long term (current) use of insulin; Z79.82 Long term (current) use of aspirin; Z79.899 Other long term (current) drug therapy; Z87.891 Personal history of nicotine dependence; Z91.19 Patient's noncompliance with other medical treatment and regimen

== ENCOUNTER 2016-06-03 14:58 | Inpatient (IN) | payer MEDICARE, MEDICAID ==
[~2016-06-03] VITALS: Ht 175.3 cm; Wt 64.0 kg
[2016-06-03] MEDS ORDERED: ONDANSETRON 4MG/2ML VIAL (J2405) As Ordered ONE (16:40)
[2016-06-03] MEDS ORDERED: MORPHINE 4 MG/ML 1ML SYRINGE As Ordered ONE ×2 (16:41→17:31)
[2016-06-03 17:19] LABS: BASO % 0.2 % (0.0-1.0); EOS % 0.3 % (0.0-3.0); LARGE UNSTAINED CELL # 0.1 K/mm3 (0.0-0.4); LARGE UNSTAINED CELL % 0.9 % (0.0-4.0); LYMPH # 0.8 K/mm3 (1.5-4.5); LYMPH % 10.7 % (24.0-44.0); MEAN CORPUSCULAR HEMOGLOBIN 27.7 pg (27.0-33.0); MEAN CORPUSCULAR HGB CONC 31.2 g/dl (32.0-36.5); MEAN CORPUSCULAR VOLUME 88.9 fl (80.0-96.0); MONO # 0.4 K/mm3 (0.0-0.8); MONO % 4.7 % (0.0-5.0); NEUTROPHILS # 6.2 K/mm3 (1.8-7.7); NEUTROPHILS % 83.3 % (36.0-66.0); PLATELET COUNT, AUTOMATED 202 k/mm3 (150-450); RED CELL DISTRIBUTION WIDTH 15.3 % (11.5-14.5); WHITE BLOOD COUNT 7.4 K/mm3 (4.0-10.0)
[2016-06-03 17:41] LABS: CALCIUM LEVEL 9.2 MG/DL (8.5-10.1); CREATININE FOR GFR 1.31 MG/DL (0.55-1.02); GLOMERULAR FILTRATION RATE 45.8 (>51); POTASSIUM SERUM 4.4 MEQ/L (3.5-5.1)
[2016-06-03] MEDS ORDERED: ISOVUE-370 76% 100ML VIAL (Q9967) As Ordered ONE (17:53)
[2016-06-03] MEDS ORDERED: METOCLOPRAMIDE INJ 10MG/2ML VIAL (J2765) As Ordered ONE (17:54)
[2016-06-03 18:04] LABS: ALBUMIN 3.2 GM/DL (3.2-5.2); ALBUMIN/GLOBULIN RATIO 0.73 (1.00-1.93); BILIRUBIN,DIRECT 0.1 MG/DL (0.0-0.2); BILIRUBIN,TOTAL 0.5 MG/DL (0.2-1.0); TOTAL PROTEIN 7.6 GM/DL (6.4-8.2)
--- NOTE | 2016-06-03 19:40 | REPUSA ---
CLINICAL HISTORY: Abdomen pain. TECHNIQUE: Multiple axial CT images were obtained through the abdomen and pelvis. Images were obtain ed before and after IV contrast administration. Oral contrast material was not administered. COMPARISON: Made with prior study dated 04/24/2016. COMMENTS: The liver is of uniform attenuation without mass or defect. There is no intra or extrahepatic biliar y ductal dilatation. The spleen is normal. Status post cholecystectomy. The pancreas is of normal contour and attenuation characteristics. There is no evidence of adrenal mass. Both kidneys demonstrate prompt and equal nephrograms. The kidneys are normal in size, shape and con figuration. There is no evidence of renal or ureteral mass. No renal or ureteral calculi are identi fied. There is no hydroureter or hydronephrosis. No evidence for appendicitis. There is no bowel wall thickening. Note again is made of right upper q uadrant ileostomy. There is severe thickening of the gastric wall. Consider followup with upper end oscopy. There is a dilated loop of ileum noted which is fluid filled measuring less than 3 cm. This could represent ileus. No definite evidence of obstruction. Subcutaneous nodule noted in the anter ior abdominal wall. This is new since the prior study. No evidence for small or large bowel obstruc tion. There is no evidence of intrinsic or extrinsic bladder mass. There is evidence of small amount of pe risplenic ascites of unclear significance. Images of the lung bases show no evidence of pleural or parenchymal mass. There are no pleural effus ions. The bony structures are free of lytic or blastic lesions. Status post left total hip replacement wit h status post ORIF involving right proximal femur. IMPRESSION: 1. Right upper quadrant ileostomy. 2. There is severe thickening of the gastric wall. Consider followup with upper endoscopy. 3. There is a dilated loop of ileum noted which is fluid filled measuring less than 3 cm. This could represent ileus. No definite evidence of obstruction. 2. Small amount of perisplenic ascites of unclear significance. in Impression. Thank you for your kind referral of this patient. We appreciate the opportunity to participate in th is patient's care.
[2016-06-03] MEDS ORDERED: INSUDET SC (20:54)
[2016-06-03] MEDS ORDERED: EUCERIN 120GM CREAM TOP SCH ×2 (21:00)
[2016-06-03] MEDS ORDERED: diphenhydrAMINE 25 MG CAP As Ordered ONE (21:40)
[2016-06-03] MEDS ORDERED: tiZANidine 4 MG TAB As Ordered ONE (21:40)
[2016-06-03] MEDS ORDERED: LIDOCAINE 5% (LIDODERM) PATCH TOP PRN (22:15)
[2016-06-03] MEDS ORDERED: CALCIUM CARBONATE 500 MG CHEW U/D PO PRN (22:15)
[2016-06-03] MEDS ORDERED: SILVER SULFADIAZINE 1% CR 50 GM JAR TOP PRN (22:15)
[2016-06-03] MEDS ORDERED: ONDANSETRON 4 MG ORAL DISINTEGRATING TAB (S0181) PO PRN (22:15)
[2016-06-03] MEDS ORDERED: NS 1,000 ML IV SCH (22:18)
[2016-06-03] MEDS ORDERED: GLUCAGON FOR INJ 1 MG VIAL (J1610) SC PRN (22:30)
[2016-06-03] MEDS ORDERED: GLUCOSE 4 GM CHEW TABLET PO PRN (22:30)
[2016-06-03] MEDS ORDERED: DEXTROSE 50% 50 ML SYRINGE IV PRN (22:30)
[2016-06-03 23:08] VITALS: BP 103/58
--- NOTE | 2016-06-03 23:30 | EDDOCDS ---
Physician Documentation [facility] Name: Delma Lora Age: 50 yrs Sex: Female : 1965 Arrival Date: 06/03/2016 Time: 14:58 Bed TR8 Private MD: Dong Moore Disposition: 06/03/16 20:15 Hospitalization ordered by Yoana Gu for Inpatient Admission. Preliminary diagnosis is Vomiting. - Bed requested for [address] [place]. - Status is Inpatient Admission. mcp - Condition is Stable. - Problem is chronic. - Symptoms have improved. Historical: - Allergies: Augmentin; Bactrim; Pyridium; SULFA (SULFONAMIDES); - Home Meds: 1. baclofen 10 mg Oral tab 1 tab 3 times per day (Last dose: 06/02/2016) 2. Celexa 40 mg Oral tab 1 tab once daily (Last dose: 06/02/2016) 3. fluconazole 150 mg Oral tab 1 tab daily (Last dose: 06/02/2016) 4. gabapentin 100 mg oral cap 2 caps 3 times per day (Last dose: 06/02/2016) 5. heparin lock flush intravenous intravenous Unknown three times a day 6. Lantus 100 unit/mL Sub-Q crtg 30 unit twice a day 7. Lomotil 2.5-0.025 mg oral tab 1 tabs 4 times per day 8. magnesium oxide 400 mg Oral tab 800 mg twice a day (Last dose: 06/02/2016) 9. multivitamin Oral cap 1 tab daily 10. Nexium 40 mg Oral cpDR 1 cap 2 times per day 11. aspirin 81 mg Oral tab 1 tab once daily 12. Novolog 100 unit/mL Sub-Q soln Unknown Per sliding scale 13. potassium chloride 20 mEq Oral pack 1 packet 2 times per day 14. Pravachol 20 mg Oral tab 1 tab once daily 15. Requip 1 mg Oral tab 1 tab twice a day 16. saline 1000 ml infusion through Vitale Catheter daily. 17. Silvadene 1 % Topical crea once daily 18. potassium Runs 40 meq every 4 hours 19. Tegretol 200 mg Oral tab 1 tab every 12 hours 20. TPN Electrolytes 35-20-5 mEq/20 mL intravenous soln Runs for 12 hours overnight. 21. trazadone 100 mg 1 tab nightly 22. VitaMelts Energy 1,500 mcg oral tab Unknown daily 23. Vitamin C 500 mg Oral cpER 500 mg daily 24. Vitamin D3 1,000 unit oral cap daily 25. Wellbutrin SR 100 mg Oral TbER 1 tab 2 times per day 26. Zofran (as hydrochloride) 4 mg Oral tab 1 tabs tid prn 27. fluticasone 50 mcg/actuation nasal spsn 2 sprays once daily 28. magnesium chloride 200 mg/mL (20 %) injection soln every 4 hours 29. NS-Potassium Chloride 1000 mL IV daily - PMHx: chronic kidney; Depression; Diabetes - IDDM: controlled; Hypercholesterolemia; necrotic bowel; Stroke; - PSHx: jejunostomy; Hysteroscopy; Knee surgery- Right; left hip replacement; right hip repaired; hardware to right femur from break; Vitale port placement; Cholecystectomy; Appendectomy; blepheroplasty; Carpal Tunnel Repair- Bilateral; - Social history: Smoking status: Patient states former smoker of tobacco. No barriers to communication noted, The patient speaks fluent Swedish, Speaks appropriately for age. - Family history: No immediate family members are acutely ill. - : The pt / caregiver states he / she is not on anticoagulants. Home medication list is obtained from the patient, family members. - Exposure Risk Screening:: None identified. [employer]: 06/03 15:11 LMP N/A - Hysterectomy ld5 Vital Signs: 15:10 BP 184 / 88; Pulse 110 MON; Resp 23; Temp 98.4(TE); Pulse Ox 99% ; mb9 16:01 Pulse 110 MON; Pulse Ox 99% ; mb9 16:02 BP 160 / 78 (auto/); mb9 17:52 BP 171 / 85; Pulse 101; Resp 17; Pulse Ox 96% on R/A; mb9 18:01 Pain 8/10; mb9 21:43 BP 166 / 89 (auto/); mb9 21:43 Pulse 104 MON; Resp 17; Pulse Ox 97% ; Pain 5/10; mb9 22:26 BP 110 / 59 (auto/); Pulse 88; Resp 17; Temp 98.3(T); Pulse Ox 99% ; mb9 MDM: 15:41 Fingerstick Blood Sugar Reviewed. jo4 16:09 Ondansetron 4 mg IVP once ordered. jo4 16:09 morphine 4 mg IVP every 15 minutes; Document pain score/vitals after each dose (Hold if jo4 SBP < 90mmHg) x2 ordered. 16:09 CBC with Diff Ordered. EDMS 16:09 BMP Ordered. EDMS 16:11 Amylase Ordered. EDMS 16:11 Lipase Ordered. EDMS 16:11 Liver Profile Ordered. EDMS 17:01 NS 0.9% 1000 ml IV at 100 mL/hr continuous ordered. jo4 17:02 CT ABD & PELVIS: IV Contrast Only Ordered. EDMS 17:08 heparin 100units/mL flush (PICC line) 2 ml IVP once; flush each port first with 10mL of mb9 NS followed by heparin ordered. 17:37 CBC with Diff Reviewed. jo4 17:45 Metoclopramide 10 mg IV at 40 mg/hr once over 15 mins ordered. jo4 17:48 [facility] Payment Agreement was scanned into [employer] and attached to record. gjb 17:48 Financial registration complete. gjb 18:15 Liver Profile Reviewed. jo4 18:16 BMP Reviewed. jo4 18:16 Amylase Reviewed. jo4 18:16 Lipase Reviewed. jo4 18:22 IV Saline Lock ordered. ld5 20:18 BED REQUEST+ADM ordered. EDMS 21:26 tiZANidine 4 mg PO once ordered. mb9 21:26 diphenhydrAMINE 25 mg PO once ordered. mb9 21:34 Eucerin Lotion 1 applic Topical Per package directions; apply to bilateral forearms TID mb9 ordered. 21:38 Admission / Observation Status ordered. EDMS 22:25 CONSISTENT CARBOHYDRATES ordered. EDMS 22:25 COMPLETE COMPHRENSIVE METABOLI Ordered. EDMS 22:25 MAGNESIUM LEVEL Ordered. EDMS 22:25 COMPLETE BLOOD COUNT Ordered. EDMS 23:00 Eucerin Cream 1 applic Topical Per package directions; apply to bilateral forearms TID. mb9 ordered. Point of Care Testing: Blood Glucose: 15:32 Blood Glucose: 474 mg/dL; mb9 Ranges: Administered Medications: 16:59 Drug: Ondansetron 4 mg [ondansetron HCl 2 mg/mL intravenous solution (2 mL)] Route: mb9 IVP; Site: right subclavian; 17:42 Follow up: Response: Nausea is unchanged mb9 16:59 Drug: morphine 4 mg [morphine 4 mg/mL intravenous cartridge (1 mL)] Route: IVP; Site: mb9 right subclavian; 17:43 Drug: morphine 4 mg [morphine 4 mg/mL intravenous cartridge (1 mL)] Route: IVP; Site: mb9 Implantable Access Device; 18:01 Follow up: Pain 8/10 Adult; Response: Confirmed pt not driving.; Pain is unchanged, mb9 physician notified 17:49 Drug: NS 0.9% 1000 ml [sodium chloride 0.9 % intravenous solution] Route: IV; Rate: 100 mb9 mL/hr; Site: Implantable Access Device; 18:01 Drug: Metoclopramide 10 mg [metoclopramide 5 mg/mL injection solution] Route: IV; Rate: mb9 40 mg/hr; Infused Over: 15 mins; Site: Implantable Access Device; 18:25 Follow up: IV Status: Completed infusion ld5 19:03 Follow up: Response: Nausea is decreased mb9 21:45 Drug: tiZANidine 4 mg [tizanidine 4 mg tablet (1 tabs)] Route: PO; mb9 21:45 Drug: diphenhydrAMINE 25 mg [diphenhydramine 25 mg capsule (1 caps)] Route: PO; mb9 22:29 Drug: heparin 100units/mL flush (PICC line) 2 ml [heparin, porcine (PF) 10 unit/mL mb9 intravenous syringe (2 mL)] Route: IVP; Site: Implantable Access Device; 22:54 Not Given (Other Intervention Used): Eucerin Lotion 1 applic Topical Per package mb9 directions; apply to bilateral forearms TID 23:01 Drug: Eucerin Cream 1 applic Route: Topical; Site: affected area; mb9 Signatures: Dispatcher [employer] Nikkie Arita RN Sophia Jaramillo mcp, RN RN daq Dickerson, Laura, RN RN ld5 Devin Daly DO DO [id number] Dominic Vargas RN RN mb9 Maral Dhaliwal Jane, DO DO jo4 The chart was reviewed and I authenticate all verbal orders and agree with the evaluation and treatment provided.Attachments: 17:48 [facility] Payment Agreement jose MTDD
--- NOTE | 2016-06-03 23:30 | EDDOCDS ---
Nurse's Notes [facility] Name: Delma Lora Age: 50 yrs Sex: Female : 1965 Arrival Date: 06/03/2016 Time: 14:58 Bed TR8 Private MD: Dong Moore Diagnosis: Vomiting Presentation: 06/03 15:06 Presenting complaint: EMS states: Vomiting since last night. Pt was discharged from [facility] ld5 yesterday after being admitted for over a month. Status: Patient is not a slitter service and setter or dependent. Transition of care: patient was not received from another setting of care. 15:06 Acuity: ABELARDO Level 3 ld5 15:06 Method Of Arrival: Ambulance ld5 15:35 Adult Sepsis Screening: The patient does not have new or worsening altered mentation. ld5 Patient has a respiratory rate of greater than or equal to 22 (1 point). Systolic blood pressure is greater than 100. Patient has a qSOFA score of 1- Negative Sepsis Screen. Suicide/Homicide risk assessment- the patient denies having any suicidal and/or homicidal ideations and does not present with any other emotional, behavioral or mental health complaints. Triage Assessment: 15:11 General: Appears ill, uncomfortable. Pain: Location: abdomen. Neurological: Level of ld5 Consciousness is awake, obeys commands. Respiratory: Airway is patent Respiratory effort is even, unlabored. GI: Reports nausea, vomiting, intolerance of food, intolerance of fluids, since last night. 15:11 General: Appears uncomfortable, unkempt, Behavior is appropriate for age, cooperative. mb9 General: while assessing pt pt asked, "When they had me upstairs here they had me on percocet and zanaflex every 4 hours and then they didn't send me home with any. Could that cause this?". Pain: Location: abdomen Pain currently is 8 out of 10 on a pain scale. HIV screening NA for this visit Offered previously. The patient is triaged at the bedside. See Assessment in Nurses Notes section of ED record. Neurological: Level of Consciousness is awake, alert, Oriented to person, place, time. Respiratory: Airway is patent Respiratory effort is even, unlabored. GI: Bowel sounds present X 4 quads. Abd is soft X 4 quads Abd is tender to palpation X 4 quads. pt has a jejunostomy collection bag in place. 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 baclofen 10 mg Oral tab 1 tab 3 times per day (Last dose: 06/02/2016) 2. Celexa 40 mg Oral tab 1 tab once daily (Last dose: 06/02/2016) 3. fluconazole 150 mg Oral tab 1 tab daily (Last dose: 06/02/2016) 4. gabapentin 100 mg oral cap 2 caps 3 times per day (Last dose: 06/02/2016) 5. heparin lock flush intravenous intravenous Unknown three times a day 6. Lantus 100 unit/mL Sub-Q crtg 30 unit twice a day 7. Lomotil 2.5-0.025 mg oral tab 1 tabs 4 times per day 8. magnesium oxide 400 mg Oral tab 800 mg twice a day (Last dose: 06/02/2016) 9. multivitamin Oral cap 1 tab daily 10. Nexium 40 mg Oral cpDR 1 cap 2 times per day 11. aspirin 81 mg Oral tab 1 tab once daily 12. Novolog 100 unit/mL Sub-Q soln Unknown Per sliding scale 13. potassium chloride 20 mEq Oral pack 1 packet 2 times per day 14. Pravachol 20 mg Oral tab 1 tab once daily 15. Requip 1 mg Oral tab 1 tab twice a day 16. saline 1000 ml infusion through Vitale Catheter daily. 17. Silvadene 1 % Topical crea once daily 18. potassium Runs 40 meq every 4 hours 19. Tegretol 200 mg Oral tab 1 tab every 12 hours 20. TPN Electrolytes 35-20-5 mEq/20 mL intravenous soln Runs for 12 hours overnight. 21. trazadone 100 mg 1 tab nightly 22. Vita[employer] 1,500 mcg oral tab Unknown daily 23. Vitamin C 500 mg Oral cpER 500 mg daily 24. Vitamin D3 1,000 unit oral cap daily 25. Wellbutrin SR 100 mg Oral TbER 1 tab 2 times per day 26. Zofran (as hydrochloride) 4 mg Oral tab 1 tabs tid prn 27. fluticasone 50 mcg/actuation nasal spsn 2 sprays once daily 28. magnesium chloride 200 mg/mL (20 %) injection soln every 4 hours 29. NS-Potassium Chloride 1000 mL IV daily - PMHx: chronic kidney; Depression; Diabetes - IDDM: controlled; Hypercholesterolemia; necrotic bowel; Stroke; - PSHx: jejunostomy; Hysteroscopy; Knee surgery- Right; left hip replacement; right hip repaired; hardware to right femur from break; Vitale port placement; Cholecystectomy; Appendectomy; blepheroplasty; Carpal Tunnel Repair- Bilateral; - Social history: Smoking status: Patient states former smoker of tobacco. No barriers to communication noted, The patient speaks fluent Honduran, Speaks appropriately for age. - Family history: No immediate family members are acutely ill. - : The pt / caregiver states he / she is not on anticoagulants. Home medication list is obtained from the patient, family members. - Exposure Risk Screening:: None identified. Screenin:34 Screening information is obtained from the patient, family members, prior medical ld5 records. Fall risk: At risk due to immobility, prior history of falls. Assistance ADL's: Requires assistance with meal preparation, this assistance is provided by family members, bathing, assistance is provided by family members, dressing, assistance is provided by family members, toileting, assistance is provided by family members, housework, assistance is provided by family members, medication administration, assistance is provided by family members. Abuse/DV Screen: The patient / caregiver reports he/she is: not in a situation that causes fear, pain or injury. Nutritional screening: TPN 12 hours overnight. Advance Directives: Currently, there is a health care proxy, Xavier Ocasio. 19:06 home support is adequate. mb9 Assessment: 17:11 Reassessment: Patient states symptoms have not improved. General: Appears mb9 uncomfortable, Behavior is appropriate for age, cooperative. Pain: Location: right leg and right quadriceps and right upper thigh and abdomen Pain currently is 8 out of 10 on a pain scale. Respiratory: Airway is patent Respiratory effort is even, unlabored. 17:45 Reassessment: Patient states symptoms have not improved. General: Appears mb9 uncomfortable, Behavior is appropriate for age, cooperative. Pain: Location: right leg and right quadriceps and right upper thigh and abdomen. Respiratory: Airway is patent Respiratory effort is even, unlabored. 18:26 General: Reglan infusion complete. Provider in to speak with pt and family. ld5 19:06 Reassessment: Patient appears in no apparent distress at this time. Patient states mb9 symptoms have not improved. Adult Sepsis Screening: The patient does not have new or worsening altered mentation. Patient's respiratory rate is less than 22. Systolic blood pressure is greater than 100. Patient has a qSOFA score of 0- Negative Sepsis Screen. General: Appears uncomfortable, Behavior is appropriate for age, cooperative. Pain: Location: right leg and right quadriceps and right upper thigh Pain currently is 8 out of 10 on a pain scale. Respiratory: Airway is patent Respiratory effort is even, unlabored. 21:46 Reassessment: Patient appears in no apparent distress at this time. Patient states mb9 symptoms have not improved. Adult Sepsis Screening: The patient does not have new or worsening altered mentation. Patient's respiratory rate is less than 22. Systolic blood pressure is greater than 100. Patient has a qSOFA score of 0- Negative Sepsis Screen. General: Appears in no apparent distress, Behavior is appropriate for age, cooperative. Pain: Location: right leg and right quadriceps and right upper thigh. Respiratory: Airway is patent Respiratory effort is even, unlabored. GI: Denies nausea. 22:29 Reassessment: Patient appears in no apparent distress at this time. Patient states mb9 symptoms have improved. General: Appears in no apparent distress, Behavior is appropriate for age, cooperative. Pain: Location: right leg and right quadriceps and right upper thigh and abdomen Pain currently is 4 out of 10 on a pain scale. Respiratory: Airway is patent Respiratory effort is even, unlabored. Vital Signs: 15:10 BP 184 / 88; Pulse 110 MON; Resp 23; Temp 98.4(TE); Pulse Ox 99% ; mb9 16:01 Pulse 110 MON; Pulse Ox 99% ; mb9 16:02 BP 160 / 78 (auto/); mb9 17:52 BP 171 / 85; Pulse 101; Resp 17; Pulse Ox 96% on R/A; mb9 18:01 Pain 8/10; mb9 21:43 BP 166 / 89 (auto/); mb9 21:43 Pulse 104 MON; Resp 17; Pulse Ox 97% ; Pain 5/10; mb9 22:26 BP 110 / 59 (auto/); Pulse 88; Resp 17; Temp 98.3(T); Pulse Ox 99% ; mb9 Vitals: 15:11 Log In Time N/A - ambulance arrival. ld5 15:14 Log In Time N/A - ambulance arrival. mb9 ED Course: 14:59 Patient visited by Shanel August, Rn Resource Nurse. lbd 14:59 Patient moved to Waiting lbd 15:00 Dong Moore DO is Private Physician. lbd 15:00 Patient moved to 20 lbd 15:06 [facility] jo[facility] 15:06 Stephie Phillips MD is Attending Physician. jo4 15:07 Triage Initiated ld5 15:35 Patient visited by Conchis Dennis RN. ld5 15:40 Patient visited by Deb Atkins DO. jo4 15:41 Patient visited by Deb Atkins DO. jo4 16:54 Patient visited by Gwen Bella. nb2 16:59 Liver Profile Sent. mb9 16:59 Lipase Sent. mb9 16:59 Amylase Sent. mb9 16:59 BMP Sent. mb9 16:59 CBC with Diff Sent. mb9 17:44 Patient visited by Dominic Vargas RN. mb9 17:48 [facility] Payment Agreement was scanned into [employer] and attached to record. gjb 18:22 Inserted saline lock: 22 gauge in left forearm The patient tolerated the procedure well.ld5 18:26 Patient visited by Conchis Dennis,IJEOMA. ld5 19:06 The patient / caregiver is instructed regarding the plan of care and ED course. mb9 19:07 Patient visited by Dominic Vargas RN. mb9 19:49 CT ABD & PELVIS: IV Contrast Only Returned. EDMS 20:15 Yoana Gu is Hospitalizing Provider. cs11 22:26 No procedures done that require assistance. mb9 23:10 Patient moved to [facility] [place] Administered Medications: 16:59 Drug: Ondansetron 4 mg [ondansetron HCl 2 mg/mL intravenous solution (2 mL)] Route: mb9 IVP; Site: right subclavian; 17:42 Follow up: Response: Nausea is unchanged mb9 16:59 Drug: morphine 4 mg [morphine 4 mg/mL intravenous cartridge (1 mL)] Route: IVP; Site: mb9 right subclavian; 17:43 Drug: morphine 4 mg [morphine 4 mg/mL intravenous cartridge (1 mL)] Route: IVP; Site: 9 Implantable Access Device; 18:01 Follow up: Pain 8/10 Adult; Response: Confirmed pt not driving.; Pain is unchanged, mb9 physician notified 17:49 Drug: NS 0.9% 1000 ml [sodium chloride 0.9 % intravenous solution] Route: IV; Rate: 100 mb9 mL/hr; Site: Implantable Access Device; 18:01 Drug: Metoclopramide 10 mg [metoclopramide 5 mg/mL injection solution] Route: IV; Rate: mb9 40 mg/hr; Infused Over: 15 mins; Site: Implantable Access Device; 18:25 Follow up: IV Status: Completed infusion ld5 19:03 Follow up: Response: Nausea is decreased mb9 21:45 Drug: tiZANidine 4 mg [tizanidine 4 mg tablet (1 tabs)] Route: PO; mb9 21:45 Drug: diphenhydrAMINE 25 mg [diphenhydramine 25 mg capsule (1 caps)] Route: PO; mb9 22:29 Drug: heparin 100units/mL flush (PICC line) 2 ml [heparin, porcine (PF) 10 unit/mL mb9 intravenous syringe (2 mL)] Route: IVP; Site: Implantable Access Device; 22:54 Not Given (Other Intervention Used): Eucerin Lotion 1 applic Topical Per package mb9 directions; apply to bilateral forearms TID 23:01 Drug: Eucerin Cream 1 applic Route: Topical; Site: affected area; mb9 Point of Care Testing: Blood Glucose: 15:32 Blood Glucose: 474 mg/dL; mb9 Ranges: Intake: 22:33 IV: 400.00ml; Total: 400.00ml. mb9 Output: 19:20 Urine: 150.00ml (Voided); Total: 150.00ml. lr2 Order Results: Lab Order: Fingerstick Blood Sugar; SPEC'M 06/03/16 15:30 Test: BEDSIDE GLUCOSE; Value: 474; Range: 70-105; Abnormal: Above high normal; Units: MG/DL; Status: F Lab Order: CBC with Diff; SPEC'M 06/03/16 16:56 Test: WHITE BLOOD COUNT; Value: 7.4; Range: 4.0-10.0; Units: K/mm3; Status: F Test: RED BLOOD COUNT; Value: 3.61; Range: 4.00-5.40; Abnormal: Below low normal; Units: M/mm3; Status: F Test: HEMOGLOBIN; Value: 10.0; Range: 12.0-16.0; Abnormal: Below low normal; Units: g/dl; Status: F Test: HEMATOCRIT; Value: 32.1; Range: 36.0-47.0; Abnormal: Below low normal; Units: %; Status: F Test: MEAN CORPUSCULAR VOLUME; Value: 88.9; Range: 80.0-96.0; Units: fl; Status: F Test: MEAN CORPUSCULAR HEMOGLOBIN; Value: 27.7; Range: 27.0-33.0; Units: pg; Status: F Test: MEAN CORPUSCULAR HGB CONC; Value: 31.2; Range: 32.0-36.5; Abnormal: Below low normal; Units: g/dl; Status: F Test: RED CELL DISTRIBUTION WIDTH; Value: 15.3; Range: 11.5-14.5; Abnormal: Above high normal; Units: %; Status: F Test: PLATELET COUNT, AUTOMATED; Value: 202; Range: 150-450; Units: k/mm3; Status: F Test: NEUTROPHILS %; Value: 83.3; Range: 36.0-66.0; Abnormal: Above high normal; Units: %; Status: F Test: LYMPH %; Value: 10.7; Range: 24.0-44.0; Abnormal: Below low normal; Units: %; Status: F Test: MONO %; Value: 4.7; Range: 0.0-5.0; Units: %; Status: F Test: EOS %; Value: 0.3; Range: 0.0-3.0; Units: %; Status: F Test: BASO %; Value: 0.2; Range: 0.0-1.0; Units: %; Status: F Test: LARGE UNSTAINED CELL %; Value: 0.9; Range: 0.0-4.0; Units: %; Status: F Test: NEUTROPHILS #; Value: 6.2; Range: 1.8-7.7; Units: K/mm3; Status: F Test: LYMPH #; Value: 0.8; Range: 1.5-4.5; Abnormal: Below low normal; Units: K/mm3; Status: F Test: MONO #; Value: 0.4; Range: 0.0-0.8; Units: K/mm3; Status: F Test: EOS #; Value: 0.0; Range: 0.0-0.50; Units: K/mm3; Status: F Test: BASO #; Value: 0.0; Range: 0.0-0.2; Units: K/mm3; Status: F Test: LARGE UNSTAINED CELL #; Value: 0.1; Range: 0.0-0.4; Units: K/mm3; Status: F Lab Order: [facility]; SPEC'M 06/03/16 16:57 Test: GLUCOSE, FASTING; Value: 422; Range: 70-105; Abnormal: Above upper panic limits; Units: MG/DL; Status: F Test: BLOOD UREA NITROGEN; Value: 24; Range: 7-18; Abnormal: Above high normal; Units: MG/DL; Status: F Test: CREATININE FOR GFR; Value: 1.31; Range: 0.55-1.02; Abnormal: Above high normal; Units: MG/DL; Status: F Test: GLOMERULAR FILTRATION RATE; Value: 45.8; Range: >51; Abnormal: Below low normal; Status: F Test: SODIUM LEVEL; Value: 134; Range: 136-145; Abnormal: Below low normal; Units: MEQ/L; Status: F Test: POTASSIUM SERUM; Value: 4.4; Range: 3.5-5.1; Units: MEQ/L; Status: F Test: CHLORIDE LEVEL; Value: 95; Range: 98-107; Abnormal: Below low normal; Units: MEQ/L; Status: F Test: CARBON DIOXIDE LEVEL; Value: 28; Range: 21-32; Units: MEQ/L; Status: F Test: ANION GAP; Value: 11; Range: 8-16; Units: MEQ/L; Status: F Test: CALCIUM LEVEL; Value: 9.2; Range: 8.5-10.1; Units: MG/DL; Status: F Test Note: ; Units are mL/min/1.73 m2 Chronic Kidney Disease Staging per NKF: Stage I & II GFR >=60 Normal to Mildly Decreased Stage III GFR 30-59 Moderately Decreased Stage IV GFR 15-29 Severely Decreased Stage V GFR <15 Very Little GFR Left 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 Lab Order: Amylase; SPEC'M 06/03/16 16:57 Test: AMYLASE; Value: 19; Range: 25-115; Abnormal: Below low normal; Units: U/L; Status: F Lab Order: Lipase; SPEC'M 06/03/16 16:57 Test: LIPASE; Value: 45; Range: 73-393; Abnormal: Below low normal; Units: U/L; Status: F Lab Order: Liver Profile; SPEC'M 06/03/16 16:57 Test: AST/SGOT; Value: 15; Range: 15-37; Units: U/L; Status: F Test: ALT/SGPT; Value: 22; Range: 12-78; Units: U/L; Status: F Test: ALKALINE PHOSPHATASE; Value: 187; Range: 45-117; Abnormal: Above high normal; Units: U/L; Status: F Test: BILIRUBIN,TOTAL; Value: 0.5; Range: 0.2-1.0; Units: MG/DL; Status: F Test: BILIRUBIN,DIRECT; Value: 0.1; Range: 0.0-0.2; Units: MG/DL; Status: F Test: TOTAL PROTEIN; Value: 7.6; Range: 6.4-8.2; Units: GM/DL; Status: F Test: ALBUMIN; Value: 3.2; Range: 3.2-5.2; Units: GM/DL; Status: F Test: ALBUMIN/GLOBULIN RATIO; Value: 0.73; Range: 1.00-1.93; Abnormal: Below low normal; Status: F Radiology Order: CT ABD & PELVIS: IV Contrast Only Test: CT ABD & PELVIS: IV Contrast Only REASON FOR EXAMINATION: Abdomen Pain; ; CLINICAL HISTORY: Abdomen pain.; ; TECHNIQUE: Multiple axial CT images were obtained through the abdomen and pelvis. Images were obtain; ed before and after IV contrast administration. Oral contrast material was not administered.; ; COMPARISON: Made with prior study dated 04/24/2016.; ; COMMENTS:; The liver is of uniform attenuation without mass or defect. There is no intra or extrahepatic biliar; y ductal dilatation. The spleen is normal. Status post cholecystectomy. The pancreas is of normal; contour and attenuation characteristics. There is no evidence of adrenal mass.; ; Both kidneys demonstrate prompt and equal nephrograms. The kidneys are normal in size, shape and con; figuration. There is no evidence of renal or ureteral mass. No renal or ureteral calculi are identi; fied. There is no hydroureter or hydronephrosis.; ; No evidence for appendicitis. There is no bowel wall thickening. Note again is made of right upper q; uadrant ileostomy. There is severe thickening of the gastric wall. Consider followup with upper end; oscopy. There is a dilated loop of ileum noted which is fluid filled measuring less than 3 cm. This; could represent ileus. No definite evidence of obstruction. Subcutaneous nodule noted in the anter; ior abdominal wall. This is new since the prior study. No evidence for small or large bowel obstruc; tion.; ; There is no evidence of intrinsic or extrinsic bladder mass. There is evidence of small amount of pe; risplenic ascites of unclear significance.; ; Images of the lung bases show no evidence of pleural or parenchymal mass. There are no pleural effus; ions.; ; The bony structures are free of lytic or blastic lesions. Status post left total hip replacement wit; h status post ORIF involving right proximal femur.; ; IMPRESSION:; 1. Right upper quadrant ileostomy.; 2. There is severe thickening of the gastric wall. Consider followup with upper endoscopy.; 3. There is a dilated loop of ileum noted which is fluid filled measuring less than 3 cm. This could; represent ileus. No definite evidence of obstruction.; 2. Small amount of perisplenic ascites of unclear significance.; in Impression.; ; Thank you for your kind referral of this patient. We appreciate the opportunity to participate in ; is patient's care.; ; Outcome: 20:15 Decision to Hospitalize by Provider. cs11 22:26 Discharge Assessment: Patient awake, alert and oriented x 3. No cognitive and/or mb9 functional deficits noted. Patient verbalized understanding of disposition instructions. patient administered narcotics - yes. Patient was admitted to the hospital or transferred to another facility. The following High Risk Discharge criteria are identified: None. Admitted to Med/Surg accompanied by tech. Condition: good Condition: stable Condition: improved. CT Study completed. Property :Personal belongings accompany Pt. 23:29 Patient left the ED. mcp Signatures: Dispatcher [employer] EDMS Shanel August, Rn Resource Nurse Unit lbd Tanisha Rinaldi, RN RN [id number] Nikkie Garcia RN RN Conchis Fountain RN RN ld5 Devin Daly, DO DO cs11 Dominic VargasRN RN mb9 Maral Dhaliwal Jane, DO DO jo4 Gwen Bella2 Conchis Landaverde2 Corrections: (The following items were deleted from the chart) 15:15 15:11 BP 184 / 88; Pulse 109bpm; Resp 18bpm; Pulse Ox 99% RA; Height 5 ft. 9 in. ld5 Reported; Pain 10/10; ld5 MTDD
[2016-06-04] MEDS: traZODone 100 MG TAB PO SCH ×2 (00:22→21:00)
[2016-06-04] MEDS: MAGNESIUM OXIDE 400 MG TAB (MAG-OX) PO SCH ×3 (00:22→21:41)
[2016-06-04] MEDS: GABAPENTIN 300 MG CAP PO SCH ×4 (00:22→21:41)
[2016-06-04] MEDS: tiZANidine 4 MG TAB PO PRN ×4 (00:22→22:41)
[2016-06-04] MEDS: LOMOTIL 2.5MG/0.025MG TABLET PO SCH ×5 (00:22→21:41)
[2016-06-04] MEDS: PANTOPRAZOLE 40MG TAB (PROTONIX) PO SCH ×3 (00:22→21:24)
[2016-06-04] MEDS: PRAVASTATIN 20 MG TAB PO SCH ×2 (00:23→21:23)
[2016-06-04] MEDS: rOPINIRole 1MG TAB PO SCH ×3 (00:23→21:24)
[2016-06-04] MEDS: carBAMazepine 200 MG TAB PO SCH ×3 (00:23→21:41)
[2016-06-04] MEDS: buPROPion 100 MG TAB PO SCH ×3 (00:45→21:41)
[2016-06-04] MEDS: HumaLOG INSULIN (NovoLOG) PER UNIT SC SCH ×5 (00:45→21:00)
--- NOTE | 2016-06-04 02:46 | HPEPDOC ---
Medical History and Physical Date of Admission Jun 03, 2016 at 21:36 History and Physical Primary care provider: Dr. Dong Moore Date of Admission: 06/03/2016 CHIEF COMPLAINT: Nausea, vomiting, weakness HISTORY OF PRESENT ILLNESS: Ms. Lora was just discharged from the hospital yesterday after being an inpatient for 5 weeks. She went home, became nauseated shortly thereafter, and has been vomiting all through the night. She states that she felt so weak that she was even unable to flush her port with the vancomycin that was provided to her. Given her quick bounce back time, and the fact that they were considering placement on her recent admission, I told her I was very concerned that this was indication that she needed placement. She and her sister and the other family member in the room all agreed that she was too weak to be able to go home , that she would not be able to take care of herself, and that they agreed that she should be admitted, and then continue conversations with PFS regarding placement. It appears that in her short absence from the hospital she is already developed an acute kidney injury and her glucose is out of control once again, and she has intractable vomiting, abdominal pain, right hip pain and right leg pain as well. ALLERGIES: Clavulanic acid, penicillins, penicillin cross reactors, phanazopyridine, sulfa drugs, sulfamethoxazole, trimethoprim PAST MEDICAL HISTORY: Recent hospitalization for sepsis secondary to DKA as well as Staphylococcus epidermidis bacteremia, possibly catheter associated infection, she is currently supposed to have vancomycin flushes during the day, and TPN at night through her catheter Jejunostomy with history of high output, this was placed secondary to history of pancreatic cysts and ischemic gut Dyslipidemia Diabetes mellitus type 2 CKD stage II-III History of CVA without any residual effects Restless leg syndrome Depression Chronic Iron deficiency anemia Severe protein calorie malnutrition requiring daily TPN Chronic sacral pressure ulcer stage II Diabetic neuropathy Chronic low back pain PAST SURGICAL HISTORY: Jejunostomy Hysteroscope he Right knee surgery Left hip surgery Vitale port placement Cholecystectomy Appendectomy Blepharoplasty Carpal tunnel repair bilaterally SOCIAL HISTORY: Quit smoking in the remote past, denies alcohol or illicit drug use. FAMILY HISTORY: Noncontributory REVIEW OF SYSTEMS: As outlined in the HPI, otherwise negative PHYSICAL EXAMINATION: Vitals: Blood pressure 171/85, pulse 101, respirations 17, and temperature 98.4 , pulse ox 96% on room air General: She is reclined in a hospital stretcher, she appears to be very weak at this time, but she does not appear to be in any acute distress. She is visibly upset about the news of not being able to go home HEENT: Head normocephalic atraumatic, pupils equally reactive to light and accommodation, conjunctiva are pink, sclera are nonicteric, buccal mucosa is pink and moist with no lesions in the oropharynx. Hearing is grossly intact to conversation. Respiratory: Clear to auscultation bilaterally with no wheezes, rales, or rhonchi. Cardiovascular: Perhaps a little tachycardic with regular rhythm, with no rubs, gallops, or murmur. Abdomen: Soft, nontender, nondistended, no hepatosplenomegaly appreciated. Bowel sounds hypoactive. In jejunostomy in place, no surrounding erythema or edema. Extremities: 2+ pulses in the radial and dorsalis pedis bilaterally. No evidence of clubbing or cyanosis. IMAGING: CT of the abdomen and pelvis shows severe thickening of the gastric wall, a dilated loop of ileum which is fluid-filled measuring less than 3 cm which may possibly represent ileus, but no definite evidence of obstruction. There is also small amount of perisplenic ascites of unclear significance ASSESSMENT: 1. Intractable nausea and vomiting. significantly improved already in the ED with the administration of Zofran and Reglan. We will administer normal saline at this time, and hold her TPN for the evening. Recommend restarting this tomorrow if vomiting has improved. 2. Line infection with Staphylococcus epidermidis. Recommend consulted and Dr. Hankins in the morning, she is familiar with this case. The patient was started on 14 days of vancomycin lock therapy on 05/24/2016, therefore she still has 4 additional days remaining, we will continue these. We will check blood cultures. 3. Acute on chronic kidney injury. This is most likely from dehydration from her high output ostomy, will replete with normal saline and recheck her labs in the morning. 4. Severe calorie malnutrition. We will hold her TPN for this evening secondary to her nausea and vomiting, however recommend restarting tomorrow as indicated above. 5. Chronic anemia requiring blood transfusions in the past. Continue to monitor her H&H on a daily basis, continue with iron supplementation. 6. Diabetes mellitus type 2. Continue with home dose of Levemir as well as sliding scale insulin before meals and at bedtime, and just to note, she did previously have insulin put in her TPN as well. 7. Depression continue home medications 8. Diabetic neuropathy continue with home medication of Neurontin 9. Electrolyte imbalances, we will replete as necessary and check daily labs 10. Chronic low back pain with stage II pressure ulcer on coccyx. Continue with Lidoderm patch, Percocet, and tizanidine as necessary. 11. DVT Prophylaxis with Lovenox 12. Social Issues. Inability to take care of herself at home, PFS will be consulted. My preceptor for this patient encounter was physically present in the building during the encounter and was fully available. As needed, all aspects of the patient interview, examination, medical decision making process, and medical care plan development were reviewed and approved by the preceptor. Preceptor is aware and concurs with the plan as stated in the body of this note and will attest to such by his/her cosignature. Vital Signs as above Laboratory Data Labs 24H Laboratory Tests 2 06/03/16 15:30: Bedside Glucose (Misc Panel) 474H 06/03/16 16:56: White Blood Count 7.4, Red Blood Count 3.61L, Hemoglobin 10.0L, Hematocrit 32.1L , Mean Corpuscular Volume 88.9, Mean Corpuscular Hemoglobin 27.7, Mean Corpuscular Hemoglobin Concent 31.2L, Red Cell Distribution Width 15.3H, Platelet Count 202, Neutrophils (%) (Auto) 83.3H, Lymphocytes (%) (Auto) 10.7L, Monocytes (%) (Auto) 4.7, Eosinophils (%) (Auto) 0.3, Basophils (%) (Auto) 0.2, Neutrophils # (Auto) 6.2, Lymphocytes # (Auto) 0.8L, Monocytes # (Auto) 0.4, Eosinophils # (Auto) 0.0, Basophils # (Auto) 0.0, Large Unclassified Cells # 0.1 , Large Unclassified Cells % 0.9 06/03/16 16:57: Aspartate Amino Transf (AST/SGOT) 15, Alanine Aminotransferase (ALT/SGPT) 22, Alkaline Phosphatase 187H, Total Bilirubin 0.5, Direct Bilirubin 0.1, Albumin 3.2, Albumin/Globulin Ratio 0.73L, Amylase Level 19L, Anion Gap 11, Blood Urea Nitrogen 24H, Creatinine 1.31H, Sodium Level 134L, Potassium Level 4.4, Chloride Level 95L, Carbon Dioxide Level 28, Calcium Level 9.2, Glomerular Filtration Rate 45.8L, Lipase 45L, Total Protein 7.6 06/04/16 00:31: Bedside Glucose (Misc Panel) 279H CBC/BMP Laboratory Tests 06/03/16 16:56 Red Blood Count 3.61 L, Mean Corpuscular Volume 88.9, Mean Corpuscular Hemoglobin 27.7, Mean Corpuscular Hemoglobin Concent 31.2 L, Red Cell Distribution Width 15.3 H, Neutrophils (%) (Auto) 83.3 H, Lymphocytes (%) (Auto ) 10.7 L, Monocytes (%) (Auto) 4.7, Eosinophils (%) (Auto) 0.3, Basophils (%) ( Auto) 0.2, Neutrophils # (Auto) 6.2, Lymphocytes # (Auto) 0.8 L, Monocytes # ( Auto) 0.4, Eosinophils # (Auto) 0.0, Basophils # (Auto) 0.0 06/03/16 16:57 Calcium Level 9.2 FSBS Laboratory Tests Test 06/03/16 15:30 06/04/16 00:31 Range/Units Bedside Glucose (Misc Panel) 474 279 70-105 MG/DL Home Medications Scheduled (Requip) 1 Mg Tab 1 MG PO BID (Flonase Allergy Relief) 50 Mcg/Act Spr 2 SPRAYS NA DAILY (TPN Electrolytes) 1 Inj Inj 1 INJ IV DAILY Ascorbic Acid (Vitamin C) 500 Mg Tab 500 MG PO DAILY Aspirin (Aspirin 81) 81 Mg Tab 81 MG PO DAILY Biotin (Vitamin H) (Biotin) 1,000 Mcg Tab 1,000 MCG PO DAILY Bupropion HCl (Bupropion HCl) 50 Mg Halftab 100 MG PO BID Calcium (Calcium) 600 Mg Tab 600 MG PO BID Carbamazepine (Carbamazepine) 200 Mg Tab 200 MG PO BID Cholecalciferol (Vitamin D) 1,000 Unit Tab 1,000 UNIT PO DAILY Citalopram Hydrobromide (Citalopram Hydrobromide) 40 Mg Tab 40 MG PO DAILY Diphenoxylate/Atropine (Lomotil 2.5-0.025 mg) 1 Tab Tab 2 TAB PO QID Esomeprazole Magnesium Trihydr (Nexium) 40 Mg Cap 40 MG PO BID Ferrous Sulfate (Ferrous Sulfate) 325 Mg Tab 325 MG PO TID Fluconazole (Fluconazole) 150 Mg Tab 150 MG PO DAILY Gabapentin (Gabapentin) 300 Mg Cap 300 MG PO TID Heparin Sodium Flush (Porcine) (Heparin Lock Flush/NaCl F) 10 Unit/Ml Inj 1 DOSE IV TID Insulin Aspart (Novolog Flexpen) 100 Unit/Ml Inj 1 DOSE SC ACHS PER SLIDING SCALE Insulin Detemir (Levemir) 1 Units/0.01 Ml Susp 25 UNITS SC BID Magnesium Oxide (Magnesium Oxide) 400 Mg Tab 800 MG PO BID Multivitamins *[facility] STOCKED* (Thera M Plus *[facility] STOCKED*) 1 Tab Tab 1 TAB PO DAILY Pravastatin Sodium (Pravachol) 20 Mg Tab 20 MG PO QHS Sodium Chloride (Saline Flush) 0.9 % Inj 1 DOSE IV DAILY Trazodone HCl (Trazodone HCl) 100 Mg Tab 100 MG PO QHS Scheduled PRN Lidocaine (Lidocaine) 5 % Pad 1 PATCH TOP DAILY PRN PRN PAIN APPLY TO BACK Ondansetron (Zofran Odt) 4 Mg Tab 4 MG PO TID PRN PRN NAUSEA OR VOMITING Silver Sulfadiazine (Silvadene) 1 % Cre 1 DOSE TOP DAILY PRN PRN SKIN SORES APPLY TO BUTTOCKS Allergies Coded Allergies: Phenazopyridine (Unverified Allergy, Intermediate, RASH, 02/09/16) Sulfa Drugs (Unverified Allergy, Intermediate, RASH, 02/09/16) Replaces SULFAMETHOXAZ Sulfamethoxazole (Unverified Allergy, Intermediate, RASH, 02/09/16) Replaces SULFAMETHOXAZ Trimethoprim (Unverified Allergy, Intermediate, RASH, 02/09/16) Replaces SULFAMETHOXAZ Clavulanic Acid (Unverified Adverse Reaction, Mild, NAUSEA AND VOMITING, DIARRHEA, 02/09/16) Replaces AUGMENTIN Penicillins (Unverified Adverse Reaction, Mild, NAUSEA AND VOMITING, ) Replaces AUGMENTIN Penicillins Cross Reactors (Unverified Adverse Reaction, Mild, NAUSEA AND VOMITING, 02/09/16) Replaces AUGMENTIN GME ATTESTATION GME ATTESTATION My preceptor for this patient encounter was physically present in the building during the encounter and was fully available. As needed, all aspects of the patient interview, examination, medical decision making process, and medical care plan development were reviewed and approved by the preceptor. Preceptor is aware and concurs with the plan as stated in the body of this note and will attest to such by his/her cosignature. ATTENDING NOTE I, Yoana Gu, have seen and examined the above patient and agree with the assessment and plan as documented by Dr. Valdes. This patient will be admitted as an inpatient to the service of Dr. Mayo. GABBY VALDES DO Jun 04, 2016 02:46 YOANA GU Jun 04, 2016 06:16
[2016-06-04] MEDS ORDERED: SODIUM CHLORIDE 0.9% INJ 10 ML SYR IV PRN (05:45)
[2016-06-04 06:00] VITALS: BP 102/64
[2016-06-04 06:15] LABS: MEAN CORPUSCULAR HEMOGLOBIN 28.1 pg (27.0-33.0); MEAN CORPUSCULAR HGB CONC 32.1 g/dl (32.0-36.5); MEAN CORPUSCULAR VOLUME 87.5 fl (80.0-96.0); RED CELL DISTRIBUTION WIDTH 16.8 % (11.5-14.5); WHITE BLOOD COUNT 9.4 K/mm3 (4.0-10.0)
[2016-06-04 06:31] LABS: ALBUMIN 2.8 GM/DL (3.2-5.2); ALBUMIN/GLOBULIN RATIO 0.76 (1.00-1.93); BILIRUBIN,TOTAL 0.5 MG/DL (0.2-1.0); CALCIUM LEVEL 8.6 MG/DL (8.5-10.1); CREATININE FOR GFR 1.34 MG/DL (0.55-1.02); GLOMERULAR FILTRATION RATE 44.6 (>51); MAGNESIUM LEVEL 1.7 MG/DL (1.8-2.4); POTASSIUM SERUM 3.7 MEQ/L (3.5-5.1); TOTAL PROTEIN 6.5 GM/DL (6.4-8.2)
[2016-06-04] MEDS ORDERED: ENTER DRUG NAME HERE (PATIENT'S OWN MED) PO SCH (09:00)
[2016-06-04] MEDS ORDERED: SODIUM CHLORIDE 0.9% INJ 10 ML SYR IV SCH (09:00)
[2016-06-04] MEDS: FERROUS SULFATE 325MG TAB PO SCH ×3 (09:37→21:41)
[2016-06-04] MEDS: FLUTICASONE PROP 0.05% NASAL SPRAY 16 GM (FLONASE) SCH (09:37)
[2016-06-04] MEDS: MULTIVITAMINS/MINERALS THERAP 1 TAB PO SCH (09:37)
[2016-06-04] MEDS: FLUCONAZOLE 50MG TABLET PO SCH (09:37)
[2016-06-04] MEDS: CitaloPRAM (CeleXA) 20 MG TAB PO SCH (09:38)
[2016-06-04] MEDS: ASPIRIN 81 MG ENTERIC TAB PO SCH (09:38)
[2016-06-04] MEDS: VITAMIN D 1,000 INTERNATIONAL UNITS TABLET PO SCH (09:39)
[2016-06-04] MEDS: ASCORBIC ACID 500 MG TAB PO SCH (09:39)
[2016-06-04] MEDS: EUCERIN 120GM CREAM TOP PRN (09:39)
[2016-06-04] MEDS: ENOXAPARIN 40 MG/0.4 ML SYRINGE (J1650) SC SCH (09:40)
[2016-06-04] MEDS: SODIUM CHLORIDE 0.9% INJ 10 ML SYR IV SCH ×2 (09:41→21:00)
[2016-06-04] MEDS: LEVEMIR (INSULIN DETEMIR) 1 UNITS/0.01ML SC SCH ×2 (10:19→21:41)
[2016-06-04] MEDS ORDERED: diphenhydrAMINE CREAM 30GM TOP PRN (11:00)
[2016-06-04] MEDS: [UNRECOGNIZED DRUG - OTHER] XX SCH (11:23)
[2016-06-04] MEDS: VANCOMYCIN XX SCH (11:23)
[2016-06-04] MEDS: HEPARIN XX SCH (11:23)
[2016-06-04] MEDS: PERCOCET 5MG/325MG TAB PO PRN ×2 (13:40→21:24)
[2016-06-04 14:00] VITALS: BP 94/55
--- NOTE | 2016-06-04 14:18 | IPNPDOC ---
Text Note Date of Service The patient was seen on 06/04/16 at 14:14. NOTE Subjective: Patient states her nausea has resolved. Objective: Vitals: (see below) General: No acute distress, laying comfortably in bed. HEENT: Moist mucous membranes. Neck: No JVD or lymphadenopathy Cardiac: RRR, No murmurs Pulm: Clear to auscultation b/l. No wheezing, rhonchi. Right Vitale catheter. No area of bleeding or cellulitis. No tenderness. Abd: NT/ND + BS. Ostomy noted. Ext: No edema or cyanosis. LE with preserved strength 5/5 in BLE. Distal pulses intact. Labs (see below) Assessment/Plan 1. Staph epidermidis bacteremia - 2 blood cultures positive. Cont. vancomycin for now. Blood cultures repeated, and 1 bottle positive for staph epi. IV fluids. No leukocytosis. TTE with no vegetations. Repeat cx negative. will hold off on removing line as it does not appear to be infected. The positive cultures were from peripheral draws. Dr. Hankins on board. On 2 week course of antibiotics through the line before entertaining removal of the line, as patient needs it for TPN, as cultures have been positive. She states that she must her home doses of vancomycin. 2. AQUILES - resolved. likely secondary to volume depletion from high output ostomy. Creatinine improved. On IV fluids. 3. Anemia - chronically trending down. Occult blood negative. Transfused 1 unit. Hb stable 4. 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 5. Severe protein calorie malnutrition- on TPN 9 PM to 9 AM. 6. Depression- continue home meds 7. Diabetic neuropathy- continue Neurontin 8. Hypokalemia- potassium has been added to TPN 9. Chronic lower back pain with a stage II pressure ulcer on coccyx on admission - on Lidoderm patch, Percocet, Flexeril when necessary.MRI Lumbar spine (see above). Cont lidocaine patch, OOB, PT. Percocet. Naproxen has been added. DVT prophy: Heparin Subcutaneous Patient has been readmitted and is a very poor candidate for home care with her TPN. Placement has been very difficult given her chronic use of TPN. VS,Fishbone, I+O VS, Fishbone, I+O Laboratory Tests 06/03/16 16:56 Red Blood Count 3.61 L, Mean Corpuscular Volume 88.9, Mean Corpuscular Hemoglobin 27.7, Mean Corpuscular Hemoglobin Concent 31.2 L, Red Cell Distribution Width 15.3 H, Neutrophils (%) (Auto) 83.3 H, Lymphocytes (%) (Auto ) 10.7 L, Monocytes (%) (Auto) 4.7, Eosinophils (%) (Auto) 0.3, Basophils (%) ( Auto) 0.2, Neutrophils # (Auto) 6.2, Lymphocytes # (Auto) 0.8 L, Monocytes # ( Auto) 0.4, Eosinophils # (Auto) 0.0, Basophils # (Auto) 0.0 06/03/16 16:57 Calcium Level 9.2 06/04/16 05:54 Red Blood Count 3.04 L, Mean Corpuscular Volume 87.5, Mean Corpuscular Hemoglobin 28.1, Mean Corpuscular Hemoglobin Concent 32.1, Red Cell Distribution Width 16.8 H, Calcium Level 8.6, Aspartate Amino Transf (AST/SGOT) 16, Alanine Aminotransferase (ALT/SGPT) 20, Alkaline Phosphatase 158 H, Total Bilirubin 0.5, Total Protein 6.5, Albumin 2.8 L Vital Signs Date Time Temp Pulse Resp B/P Pulse Ox O2 Delivery O2 Flow Rate FiO2 06/04/16 13:40 18 Room Air 06/04/16 06:00 96.9 72 102/64 96 I&O- Last 24 Hours up to 6 AM 06/04/16 06:00 Intake Total 180 ml Output Total 700 ml Balance -520 ml VONNIE MCMAHAN MD Jun 04, 2016 14:18
[2016-06-04] MEDS ORDERED: FAT EMULSION IV 20% 500 ML IV SCH (21:00)
[2016-06-04] MEDS: **NOTE PATIENT COMMENT** MISC XX SCH (21:00)
[2016-06-04] MEDS ORDERED: [UNRECOGNIZED DRUG - MIXTURE] IV SCH ×5 (21:00)
[2016-06-04] MEDS ORDERED: HumaLOG INSULIN (NovoLOG) PER UNIT SC SCH (21:00)
[2016-06-04] MEDS: NS 1,000 ML IV SCH (21:26)
[2016-06-04 22:00] VITALS: BP 110/55
[2016-06-05] MEDS: PERCOCET 5MG/325MG TAB PO PRN ×4 (03:32→21:12)
[2016-06-05] MEDS ORDERED: SODIUM CHLORIDE 0.9% INJ 10 ML SYR IV PRN (05:15)
[2016-06-05 06:00] VITALS: BP 143/70
[2016-06-05] MEDS: tiZANidine 4 MG TAB PO PRN ×3 (06:06→22:39)
[2016-06-05] MEDS: SODIUM CHLORIDE 0.9% INJ 10 ML SYR IV SCH ×4 (06:15→21:10)
[2016-06-05 06:31] LABS: MEAN CORPUSCULAR HEMOGLOBIN 28.8 pg (27.0-33.0); MEAN CORPUSCULAR HGB CONC 32.7 g/dl (32.0-36.5); MEAN CORPUSCULAR VOLUME 88.1 fl (80.0-96.0); WHITE BLOOD COUNT 8.4 K/mm3 (4.0-10.0)
[2016-06-05 06:58] LABS: ALBUMIN 2.9 GM/DL (3.2-5.2); CALCIUM LEVEL 8.5 MG/DL (8.5-10.1); CREATININE FOR GFR 1.24 MG/DL (0.55-1.02); GLOMERULAR FILTRATION RATE 48.7 (>51); PHOSPHORUS LEVEL 4.1 MG/DL (2.5-4.9)
[2016-06-05] MEDS: HumaLOG INSULIN (NovoLOG) PER UNIT SC SCH ×4 (07:30→21:09)
[2016-06-05] MEDS: FLUTICASONE PROP 0.05% NASAL SPRAY 16 GM (FLONASE) SCH (09:00)
[2016-06-05] MEDS: LEVEMIR (INSULIN DETEMIR) 1 UNITS/0.01ML SC SCH ×2 (09:00→21:09)
[2016-06-05] MEDS: GABAPENTIN 300 MG CAP PO SCH ×3 (11:02→21:08)
[2016-06-05] MEDS: ASCORBIC ACID 500 MG TAB PO SCH (11:03)
[2016-06-05] MEDS: CitaloPRAM (CeleXA) 20 MG TAB PO SCH (11:03)
[2016-06-05] MEDS: MULTIVITAMINS/MINERALS THERAP 1 TAB PO SCH (11:03)
[2016-06-05] MEDS: FERROUS SULFATE 325MG TAB PO SCH ×3 (11:03→21:07)
[2016-06-05] MEDS: ASPIRIN 81 MG ENTERIC TAB PO SCH (11:03)
[2016-06-05] MEDS: carBAMazepine 200 MG TAB PO SCH ×2 (11:03→21:08)
[2016-06-05] MEDS: buPROPion 100 MG TAB PO SCH ×2 (11:04→21:08)
[2016-06-05] MEDS: LOMOTIL 2.5MG/0.025MG TABLET PO SCH ×4 (11:04→21:07)
[2016-06-05] MEDS: FLUCONAZOLE 50MG TABLET PO SCH (11:04)
[2016-06-05] MEDS: MAGNESIUM OXIDE 400 MG TAB (MAG-OX) PO SCH ×2 (11:04→21:08)
[2016-06-05] MEDS: PANTOPRAZOLE 40MG TAB (PROTONIX) PO SCH ×2 (11:04→21:08)
[2016-06-05] MEDS: VITAMIN D 1,000 INTERNATIONAL UNITS TABLET PO SCH (11:05)
[2016-06-05] MEDS: rOPINIRole 1MG TAB PO SCH ×2 (11:05→21:07)
[2016-06-05] MEDS: ENOXAPARIN 40 MG/0.4 ML SYRINGE (J1650) SC SCH (11:06)
--- NOTE | 2016-06-05 11:10 | IPNPDOC ---
Text Note Date of Service The patient was seen on 06/05/16 at 11:09. NOTE Subjective: Patient denies chest pain/shortness of breath/palpitations. No nausea/vomiting/abdominal pain. Objective: Vitals: (see below) General: No acute distress, laying comfortably in bed. HEENT: Moist mucous membranes. Neck: No JVD or lymphadenopathy Cardiac: RRR, No murmurs Pulm: Clear to auscultation b/l. No wheezing, rhonchi. Right Vitale catheter. No area of bleeding or cellulitis. No tenderness. Abd: NT/ND + BS. Ostomy noted. Ext: No edema or cyanosis. LE with preserved strength 5/5 in BLE. Distal pulses intact. Labs (see below) Assessment/Plan 1. Staph epidermidis bacteremia - 2 blood cultures positive. Cont. vancomycin for now. Blood cultures repeated, and 1 bottle positive for staph epi. IV fluids. No leukocytosis. TTE with no vegetations. Repeat cx negative. will hold off on removing line as it does not appear to be infected. The positive cultures were from peripheral draws. Dr. Hankins on board. On 2 week course of antibiotics through the line before entertaining removal of the line, as patient needs it for TPN, as cultures have been positive. She states that she must her home doses of vancomycin. 2. AQUILES - resolved. likely secondary to volume depletion from high output ostomy. Creatinine improved. On IV fluids. 3. Anemia - chronically trending down. Occult blood negative. Transfused 1 unit. Hb stable 4. 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 5. Severe protein calorie malnutrition- on TPN 9 PM to 9 AM. 6. Depression- continue home meds 7. Diabetic neuropathy- continue Neurontin 8. Hypokalemia- potassium has been added to TPN 9. Chronic lower back pain with a stage II pressure ulcer on coccyx on admission - on Lidoderm patch, Percocet, Flexeril when necessary.MRI Lumbar spine (see above). Cont lidocaine patch, OOB, PT. Percocet. Naproxen has been added. DVT prophy: Heparin Subcutaneous Patient has been readmitted and is a very poor candidate for home care with her TPN. Placement has been very difficult given her chronic use of TPN. VS,Fishbone, I+O VS, Fishbone, I+O Laboratory Tests 06/05/16 06:16 Anion Gap 11, Red Blood Count 3.20 L, Mean Corpuscular Volume 88.1, Mean Corpuscular Hemoglobin 28.8, Mean Corpuscular Hemoglobin Concent 32.7, Red Cell Distribution Width 15.0 H Vital Signs Date Time Temp Pulse Resp B/P Pulse Ox O2 Delivery O2 Flow Rate FiO2 06/05/16 11:09 18 06/05/16 06:00 97.5 91 143/70 94 Room Air I&O- Last 24 Hours up to 6 AM 06/05/16 06:00 Intake Total 5355 ml Output Total 4500 ml Balance 855 ml VONNIE MCMAHAN MD Jun 05, 2016 11:10
[2016-06-05] MEDS: VANCOMYCIN XX SCH (11:53)
[2016-06-05] MEDS: HEPARIN XX SCH (11:53)
[2016-06-05] MEDS: [UNRECOGNIZED DRUG - OTHER] XX SCH (11:53)
[2016-06-05 14:00] VITALS: BP 141/74
[2016-06-05] MEDS: **NOTE PATIENT COMMENT** MISC XX SCH (21:00)
[2016-06-05] MEDS ORDERED: FAT EMULSION IV 20% 500 ML IV SCH (21:00)
[2016-06-05] MEDS ORDERED: [UNRECOGNIZED DRUG - MIXTURE] IV SCH ×5 (21:00)
[2016-06-05] MEDS: traZODone 100 MG TAB PO SCH (21:08)
[2016-06-05] MEDS: PRAVASTATIN 20 MG TAB PO SCH (21:08)
[2016-06-05] MEDS: NS 1,000 ML IV SCH (21:10)
[2016-06-05 22:00] VITALS: BP 140/73
--- NOTE | 2016-06-06 00:30 | EDDOCDS ---
Nurse's Notes [facility] Name: Delma Lora Age: 50 yrs Sex: Female : 1965 Arrival Date: 06/03/2016 Time: 14:58 Bed TR8 Private MD: Dong Moore Diagnosis: Vomiting Presentation: 06/03 15:06 Presenting complaint: EMS states: Vomiting since last night. Pt was discharged from [facility] ld5 yesterday after being admitted for over a month. 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 Transition of care: patient was not received from another setting of care. 15:06 Acuity: ABELARDO Level 3 ld5 15:06 Method Of Arrival: Ambulance ld5 15:35 Adult Sepsis Screening: The patient does not have new or worsening altered mentation. ld5 Patient has a respiratory rate of greater than or equal to 22 (1 point). Systolic blood pressure is greater than 100. Patient has a qSOFA score of 1- Negative Sepsis Screen. Suicide/Homicide risk assessment- the patient denies having any suicidal and/or homicidal ideations and does not present with any other emotional, behavioral or mental health complaints. Triage Assessment: 15:11 General: Appears ill, uncomfortable. Pain: Location: abdomen. Neurological: Level of ld5 Consciousness is awake, obeys commands. Respiratory: Airway is patent Respiratory effort is even, unlabored. GI: Reports nausea, vomiting, intolerance of food, intolerance of fluids, since last night. 15:11 General: Appears uncomfortable, unkempt, Behavior is appropriate for age, cooperative. mb9 General: while assessing pt pt asked, "When they had me upstairs here they had me on percocet and zanaflex every 4 hours and then they didn't send me home with any. Could that cause this?". Pain: Location: abdomen Pain currently is 8 out of 10 on a pain scale. HIV screening NA for this visit Offered previously. The patient is triaged at the bedside. See Assessment in Nurses Notes section of ED record. Neurological: Level of Consciousness is awake, alert, Oriented to person, place, time. Respiratory: Airway is patent Respiratory effort is even, unlabored. GI: Bowel sounds present X 4 quads. Abd is soft X 4 quads Abd is tender to palpation X 4 quads. pt has a jejunostomy collection bag in place. 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 baclofen 10 mg Oral tab 1 tab 3 times per day (Last dose: 06/02/2016) 2. Celexa 40 mg Oral tab 1 tab once daily (Last dose: 06/02/2016) 3. fluconazole 150 mg Oral tab 1 tab daily (Last dose: 06/02/2016) 4. gabapentin 100 mg oral cap 2 caps 3 times per day (Last dose: 06/02/2016) 5. heparin lock flush intravenous intravenous Unknown three times a day 6. Lantus 100 unit/mL Sub-Q crtg 30 unit twice a day 7. Lomotil 2.5-0.025 mg oral tab 1 tabs 4 times per day 8. magnesium oxide 400 mg Oral tab 800 mg twice a day (Last dose: 06/02/2016) 9. multivitamin Oral cap 1 tab daily 10. Nexium 40 mg Oral cpDR 1 cap 2 times per day 11. aspirin 81 mg Oral tab 1 tab once daily 12. Novolog 100 unit/mL Sub-Q soln Unknown Per sliding scale 13. potassium chloride 20 mEq Oral pack 1 packet 2 times per day 14. Pravachol 20 mg Oral tab 1 tab once daily 15. Requip 1 mg Oral tab 1 tab twice a day 16. saline 1000 ml infusion through Vitale Catheter daily. 17. Silvadene 1 % Topical crea once daily 18. potassium Runs 40 meq every 4 hours 19. Tegretol 200 mg Oral tab 1 tab every 12 hours 20. TPN Electrolytes 35-20-5 mEq/20 mL intravenous soln Runs for 12 hours overnight. 21. trazadone 100 mg 1 tab nightly 22. Vita[employer] 1,500 mcg oral tab Unknown daily 23. Vitamin C 500 mg Oral cpER 500 mg daily 24. Vitamin D3 1,000 unit oral cap daily 25. Wellbutrin SR 100 mg Oral TbER 1 tab 2 times per day 26. Zofran (as hydrochloride) 4 mg Oral tab 1 tabs tid prn 27. fluticasone 50 mcg/actuation nasal spsn 2 sprays once daily 28. magnesium chloride 200 mg/mL (20 %) injection soln every 4 hours 29. NS-Potassium Chloride 1000 mL IV daily - PMHx: chronic kidney; Depression; Diabetes - IDDM: controlled; Hypercholesterolemia; necrotic bowel; Stroke; - PSHx: jejunostomy; Hysteroscopy; Knee surgery- Right; left hip replacement; right hip repaired; hardware to right femur from break; Vitale port placement; Cholecystectomy; Appendectomy; blepheroplasty; Carpal Tunnel Repair- Bilateral; - Social history: Smoking status: Patient states former smoker of tobacco. No barriers to communication noted, The patient speaks fluent Ukrainian, Speaks appropriately for age. - Family history: No immediate family members are acutely ill. - : The pt / caregiver states he / she is not on anticoagulants. Home medication list is obtained from the patient, family members. - Exposure Risk Screening:: None identified. Screenin:34 Screening information is obtained from the patient, family members, prior medical ld5 records. Fall risk: At risk due to immobility, prior history of falls. Assistance ADL's: Requires assistance with meal preparation, this assistance is provided by family members, bathing, assistance is provided by family members, dressing, assistance is provided by family members, toileting, assistance is provided by family members, housework, assistance is provided by family members, medication administration, assistance is provided by family members. Abuse/DV Screen: The patient / caregiver reports he/she is: not in a situation that causes fear, pain or injury. Nutritional screening: TPN 12 hours overnight. Advance Directives: Currently, there is a health care proxy, Xavier Ocasio. 19:06 home support is adequate. mb9 Assessment: 17:11 Reassessment: Patient states symptoms have not improved. General: Appears mb9 uncomfortable, Behavior is appropriate for age, cooperative. Pain: Location: right leg and right quadriceps and right upper thigh and abdomen Pain currently is 8 out of 10 on a pain scale. Respiratory: Airway is patent Respiratory effort is even, unlabored. 17:45 Reassessment: Patient states symptoms have not improved. General: Appears mb9 uncomfortable, Behavior is appropriate for age, cooperative. Pain: Location: right leg and right quadriceps and right upper thigh and abdomen. Respiratory: Airway is patent Respiratory effort is even, unlabored. 18:26 General: Reglan infusion complete. Provider in to speak with pt and family. ld5 19:06 Reassessment: Patient appears in no apparent distress at this time. Patient states mb9 symptoms have not improved. Adult Sepsis Screening: The patient does not have new or worsening altered mentation. Patient's respiratory rate is less than 22. Systolic blood pressure is greater than 100. Patient has a qSOFA score of 0- Negative Sepsis Screen. General: Appears uncomfortable, Behavior is appropriate for age, cooperative. Pain: Location: right leg and right quadriceps and right upper thigh Pain currently is 8 out of 10 on a pain scale. Respiratory: Airway is patent Respiratory effort is even, unlabored. 21:46 Reassessment: Patient appears in no apparent distress at this time. Patient states mb9 symptoms have not improved. Adult Sepsis Screening: The patient does not have new or worsening altered mentation. Patient's respiratory rate is less than 22. Systolic blood pressure is greater than 100. Patient has a qSOFA score of 0- Negative Sepsis Screen. General: Appears in no apparent distress, Behavior is appropriate for age, cooperative. Pain: Location: right leg and right quadriceps and right upper thigh. Respiratory: Airway is patent Respiratory effort is even, unlabored. GI: Denies nausea. 22:29 Reassessment: Patient appears in no apparent distress at this time. Patient states mb9 symptoms have improved. General: Appears in no apparent distress, Behavior is appropriate for age, cooperative. Pain: Location: right leg and right quadriceps and right upper thigh and abdomen Pain currently is 4 out of 10 on a pain scale. Respiratory: Airway is patent Respiratory effort is even, unlabored. Vital Signs: 15:10 BP 184 / 88; Pulse 110 MON; Resp 23; Temp 98.4(TE); Pulse Ox 99% ; mb9 16:01 Pulse 110 MON; Pulse Ox 99% ; mb9 16:02 BP 160 / 78 (auto/); mb9 17:52 BP 171 / 85; Pulse 101; Resp 17; Pulse Ox 96% on R/A; mb9 18:01 Pain 8/10; mb9 21:43 BP 166 / 89 (auto/); mb9 21:43 Pulse 104 MON; Resp 17; Pulse Ox 97% ; Pain 5/10; mb9 22:26 BP 110 / 59 (auto/); Pulse 88; Resp 17; Temp 98.3(T); Pulse Ox 99% ; mb9 Vitals: 15:11 Log In Time N/A - ambulance arrival. ld5 15:14 Log In Time N/A - ambulance arrival. mb9 ED Course: 14:59 Patient visited by Shanel August, Scale Expert. lbd 14:59 Patient moved to Waiting lbd 15:00 Dong Moore DO is Private Physician. lbd 15:00 Patient moved to 20 lbd 15:06 [facility] 15:06 Stephie Phillips MD is Attending Physician. jo4 15:07 Triage Initiated ld5 15:35 Patient visited by Conchis Dennis,IJEOMA. ld5 15:40 Patient visited by Deb Atkins DO. jo4 15:41 Patient visited by Deb Atkins DO. jo4 16:54 Patient visited by Gwen Bella. nb2 16:59 Liver Profile Sent. mb9 16:59 Lipase Sent. mb9 16:59 Amylase Sent. mb9 16:59 BMP Sent. mb9 16:59 CBC with Diff Sent. mb9 17:44 Patient visited by Dominic Vargas,IJEOMA. mb9 17:48 [facility] Payment Agreement was scanned into [employer] and attached to record. gjb 18:22 Inserted saline lock: 22 gauge in left forearm The patient tolerated the procedure well.ld5 18:26 Patient visited by Conchis Dennis,IJEOMA. ld5 19:06 The patient / caregiver is instructed regarding the plan of care and ED course. mb9 19:07 Patient visited by Dominic Vargas RN. mb9 19:49 CT ABD & PELVIS: IV Contrast Only Returned. EDMS 20:15 Yoana Gu is Hospitalizing Provider. cs11 22:26 No procedures done that require assistance. mb9 23:10 Patient moved to [place] [id number] 06/04 07:34 T-Sheet-- Draft Copy was scanned into [employer] and attached to record. gb 07:35 PCR was scanned into [employer] and attached to record. gb 10:53 Radiology Report was scanned into [employer] and attached to record. gb Administered Medications: 06/03 16:59 Drug: Ondansetron 4 mg [ondansetron HCl 2 mg/mL intravenous solution (2 mL)] Route: mb9 IVP; Site: right subclavian; 17:42 Follow up: Response: Nausea is unchanged mb9 16:59 Drug: morphine 4 mg [morphine 4 mg/mL intravenous cartridge (1 mL)] Route: IVP; Site: mb9 right subclavian; 17:43 Drug: morphine 4 mg [morphine 4 mg/mL intravenous cartridge (1 mL)] Route: IVP; Site: mb9 Implantable Access Device; 18:01 Follow up: Pain 8/10 Adult; Response: Confirmed pt not driving.; Pain is unchanged, mb9 physician notified 17:49 Drug: NS 0.9% 1000 ml [sodium chloride 0.9 % intravenous solution] Route: IV; Rate: 100 mb9 mL/hr; Site: Implantable Access Device; 18:01 Drug: Metoclopramide 10 mg [metoclopramide 5 mg/mL injection solution] Route: IV; Rate: mb9 40 mg/hr; Infused Over: 15 mins; Site: Implantable Access Device; 18:25 Follow up: IV Status: Completed infusion ld5 19:03 Follow up: Response: Nausea is decreased mb9 21:45 Drug: tiZANidine 4 mg [tizanidine 4 mg tablet (1 tabs)] Route: PO; mb9 21:45 Drug: diphenhydrAMINE 25 mg [diphenhydramine 25 mg capsule (1 caps)] Route: PO; mb9 22:29 Drug: heparin 100units/mL flush (PICC line) 2 ml [heparin, porcine (PF) 10 unit/mL mb9 intravenous syringe (2 mL)] Route: IVP; Site: Implantable Access Device; 22:54 Not Given (Other Intervention Used): Eucerin Lotion 1 applic Topical Per package mb9 directions; apply to bilateral forearms TID 23:01 Drug: Eucerin Cream 1 applic Route: Topical; Site: affected area; mb9 Point of Care Testing: Blood Glucose: 15:32 Blood Glucose: 474 mg/dL; mb9 Ranges: Intake: 22:33 IV: 400.00ml; Total: 400.00ml. mb9 Output: 19:20 Urine: 150.00ml (Voided); Total: 150.00ml. lr2 Order Results: Lab Order: Fingerstick Blood Sugar; SPEC'M 06/03/16 15:30 Test: BEDSIDE GLUCOSE; Value: 474; Range: 70-105; Abnormal: Above high normal; Units: MG/DL; Status: F Lab Order: CBC with Diff; SPEC'M 06/03/16 16:56 Test: WHITE BLOOD COUNT; Value: 7.4; Range: 4.0-10.0; Units: K/mm3; Status: F Test: RED BLOOD COUNT; Value: 3.61; Range: 4.00-5.40; Abnormal: Below low normal; Units: M/mm3; Status: F Test: HEMOGLOBIN; Value: 10.0; Range: 12.0-16.0; Abnormal: Below low normal; Units: g/dl; Status: F Test: HEMATOCRIT; Value: 32.1; Range: 36.0-47.0; Abnormal: Below low normal; Units: %; Status: F Test: MEAN CORPUSCULAR VOLUME; Value: 88.9; Range: 80.0-96.0; Units: fl; Status: F Test: MEAN CORPUSCULAR HEMOGLOBIN; Value: 27.7; Range: 27.0-33.0; Units: pg; Status: F Test: MEAN CORPUSCULAR HGB CONC; Value: 31.2; Range: 32.0-36.5; Abnormal: Below low normal; Units: g/dl; Status: F Test: RED CELL DISTRIBUTION WIDTH; Value: 15.3; Range: 11.5-14.5; Abnormal: Above high normal; Units: %; Status: F Test: PLATELET COUNT, AUTOMATED; Value: 202; Range: 150-450; Units: k/mm3; Status: F Test: NEUTROPHILS %; Value: 83.3; Range: 36.0-66.0; Abnormal: Above high normal; Units: %; Status: F Test: LYMPH %; Value: 10.7; Range: 24.0-44.0; Abnormal: Below low normal; Units: %; Status: F Test: MONO %; Value: 4.7; Range: 0.0-5.0; Units: %; Status: F Test: EOS %; Value: 0.3; Range: 0.0-3.0; Units: %; Status: F Test: BASO %; Value: 0.2; Range: 0.0-1.0; Units: %; Status: F Test: LARGE UNSTAINED CELL %; Value: 0.9; Range: 0.0-4.0; Units: %; Status: F Test: NEUTROPHILS #; Value: 6.2; Range: 1.8-7.7; Units: K/mm3; Status: F Test: LYMPH #; Value: 0.8; Range: 1.5-4.5; Abnormal: Below low normal; Units: K/mm3; Status: F Test: MONO #; Value: 0.4; Range: 0.0-0.8; Units: K/mm3; Status: F Test: EOS #; Value: 0.0; Range: 0.0-0.50; Units: K/mm3; Status: F Test: BASO #; Value: 0.0; Range: 0.0-0.2; Units: K/mm3; Status: F Test: LARGE UNSTAINED CELL #; Value: 0.1; Range: 0.0-0.4; Units: K/mm3; Status: F Lab Order: [facility]; SPEC'M 06/03/16 16:57 Test: GLUCOSE, FASTING; Value: 422; Range: 70-105; Abnormal: Above upper panic limits; Units: MG/DL; Status: F Test: BLOOD UREA NITROGEN; Value: 24; Range: 7-18; Abnormal: Above high normal; Units: MG/DL; Status: F Test: CREATININE FOR GFR; Value: 1.31; Range: 0.55-1.02; Abnormal: Above high normal; Units: MG/DL; Status: F Test: GLOMERULAR FILTRATION RATE; Value: 45.8; Range: >51; Abnormal: Below low normal; Status: F Test: SODIUM LEVEL; Value: 134; Range: 136-145; Abnormal: Below low normal; Units: MEQ/L; Status: F Test: POTASSIUM SERUM; Value: 4.4; Range: 3.5-5.1; Units: MEQ/L; Status: F Test: CHLORIDE LEVEL; Value: 95; Range: 98-107; Abnormal: Below low normal; Units: MEQ/L; Status: F Test: CARBON DIOXIDE LEVEL; Value: 28; Range: 21-32; Units: MEQ/L; Status: F Test: ANION GAP; Value: 11; Range: 8-16; Units: MEQ/L; Status: F Test: CALCIUM LEVEL; Value: 9.2; Range: 8.5-10.1; Units: MG/DL; Status: F Test Note: ; Units are mL/min/1.73 m2 Chronic Kidney Disease Staging per NKF: Stage I & II GFR >=60 Normal to Mildly Decreased Stage III GFR 30-59 Moderately Decreased Stage IV GFR 15-29 Severely Decreased Stage V GFR <15 Very Little GFR Left ESRD GFR <15 on INFERTILITY MEDICAL ASSISTANT Lab Order: Amylase; SPEC'M 06/03/16 16:57 Test: AMYLASE; Value: 19; Range: 25-115; Abnormal: Below low normal; Units: U/L; Status: F Lab Order: Lipase; SPEC'M 06/03/16 16:57 Test: LIPASE; Value: 45; Range: 73-393; Abnormal: Below low normal; Units: U/L; Status: F Lab Order: Liver Profile; SPEC' 06/03/16 16:57 Test: AST/SGOT; Value: 15; Range: 15-37; Units: U/L; Status: F Test: ALT/SGPT; Value: 22; Range: 12-78; Units: U/L; Status: F Test: ALKALINE PHOSPHATASE; Value: 187; Range: 45-117; Abnormal: Above high normal; Units: U/L; Status: F Test: BILIRUBIN,TOTAL; Value: 0.5; Range: 0.2-1.0; Units: MG/DL; Status: F Test: BILIRUBIN,DIRECT; Value: 0.1; Range: 0.0-0.2; Units: MG/DL; Status: F Test: TOTAL PROTEIN; Value: 7.6; Range: 6.4-8.2; Units: GM/DL; Status: F Test: ALBUMIN; Value: 3.2; Range: 3.2-5.2; Units: GM/DL; Status: F Test: ALBUMIN/GLOBULIN RATIO; Value: 0.73; Range: 1.00-1.93; Abnormal: Below low normal; Status: F Radiology Order: CT ABD & PELVIS: IV Contrast Only Test: CT ABD & PELVIS: IV Contrast Only REASON FOR EXAMINATION: Abdomen Pain; ; CLINICAL HISTORY: Abdomen pain.; ; TECHNIQUE: Multiple axial CT images were obtained through the abdomen and pelvis. Images were obtain; ed before and after IV contrast administration. Oral contrast material was not administered.; ; COMPARISON: Made with prior study dated 04/24/2016.; ; COMMENTS:; The liver is of uniform attenuation without mass or defect. There is no intra or extrahepatic biliar; y ductal dilatation. The spleen is normal. Status post cholecystectomy. The pancreas is of normal; contour and attenuation characteristics. There is no evidence of adrenal mass.; ; Both kidneys demonstrate prompt and equal nephrograms. The kidneys are normal in size, shape and con; figuration. There is no evidence of renal or ureteral mass. No renal or ureteral calculi are identi; fied. There is no hydroureter or hydronephrosis.; ; No evidence for appendicitis. There is no bowel wall thickening. Note again is made of right upper q; uadrant ileostomy. There is severe thickening of the gastric wall. Consider followup with upper end; oscopy. There is a dilated loop of ileum noted which is fluid filled measuring less than 3 cm. This; could represent ileus. No definite evidence of obstruction. Subcutaneous nodule noted in the anter; ior abdominal wall. This is new since the prior study. No evidence for small or large bowel obstruc; tion.; ; There is no evidence of intrinsic or extrinsic bladder mass. There is evidence of small amount of pe; risplenic ascites of unclear significance.; ; Images of the lung bases show no evidence of pleural or parenchymal mass. There are no pleural effus; ions.; ; The bony structures are free of lytic or blastic lesions. Status post left total hip replacement wit; h status post ORIF involving right proximal femur.; ; IMPRESSION:; 1. Right upper quadrant ileostomy.; 2. There is severe thickening of the gastric wall. Consider followup with upper endoscopy.; 3. There is a dilated loop of ileum noted which is fluid filled measuring less than 3 cm. This could; represent ileus. No definite evidence of obstruction.; 2. Small amount of perisplenic ascites of unclear significance.; in Impression.; ; Thank you for your kind referral of this patient. We appreciate the opportunity to participate in ; is patient's care.; ; Outcome: 20:15 Decision to Hospitalize by Provider. cs11 22:26 Discharge Assessment: Patient awake, alert and oriented x 3. No cognitive and/or mb9 functional deficits noted. Patient verbalized understanding of disposition instructions. patient administered narcotics - yes. Patient was admitted to the hospital or transferred to another facility. The following High Risk Discharge criteria are identified: None. Admitted to Med/Surg accompanied by tech. Condition: good Condition: stable Condition: improved. CT Study completed. Property :Personal belongings accompany Pt. 23:29 Patient left the ED. [facility] Signatures: Dispatcher [employer] EDMS Shanel August, Scale Expert Unit lbd Tanisha Rinaldi, RN RN kmg1 Nikkie Garcia RN RN Delmy Dominguez, Reg Reg gb Conchis Dennis RN RN ld5 Devin Daly DO DO cs11 Dominic VargasRN RN mb9 Maral Dhaliwal Jane, DO DO jo4 Gwen Bella nb2 Conchis Landaverde lr2 Corrections: (The following items were deleted from the chart) 15:15 15:11 BP 184 / 88; Pulse 109bpm; Resp 18bpm; Pulse Ox 99% RA; Height 5 ft. 9 in. ld5 Reported; Pain 10/10; ld5 Chart Complete MTDD
--- NOTE | 2016-06-06 00:30 | EDDOCDS ---
Physician Documentation [facility] Name: Delma Lora Age: 50 yrs Sex: Female : 1965 Arrival Date: 06/03/2016 Time: 14:58 Bed TR8 Private MD: Dong Moore Disposition: 06/03/16 20:15 Hospitalization ordered by Yoana Gu for Inpatient Admission. Preliminary diagnosis is Vomiting. - Bed requested for 4 [place]. - Status is Inpatient Admission. mcp - Condition is Stable. - Problem is chronic. - Symptoms have improved. Historical: - Allergies: Augmentin; Bactrim; Pyridium; SULFA (SULFONAMIDES); - Home Meds: 1. baclofen 10 mg Oral tab 1 tab 3 times per day (Last dose: 06/02/2016) 2. Celexa 40 mg Oral tab 1 tab once daily (Last dose: 06/02/2016) 3. fluconazole 150 mg Oral tab 1 tab daily (Last dose: 06/02/2016) 4. gabapentin 100 mg oral cap 2 caps 3 times per day (Last dose: 06/02/2016) 5. heparin lock flush intravenous intravenous Unknown three times a day 6. Lantus 100 unit/mL Sub-Q crtg 30 unit twice a day 7. Lomotil 2.5-0.025 mg oral tab 1 tabs 4 times per day 8. magnesium oxide 400 mg Oral tab 800 mg twice a day (Last dose: 06/02/2016) 9. multivitamin Oral cap 1 tab daily 10. Nexium 40 mg Oral cpDR 1 cap 2 times per day 11. aspirin 81 mg Oral tab 1 tab once daily 12. Novolog 100 unit/mL Sub-Q soln Unknown Per sliding scale 13. potassium chloride 20 mEq Oral pack 1 packet 2 times per day 14. Pravachol 20 mg Oral tab 1 tab once daily 15. Requip 1 mg Oral tab 1 tab twice a day 16. saline 1000 ml infusion through Vitale Catheter daily. 17. Silvadene 1 % Topical crea once daily 18. potassium Runs 40 meq every 4 hours 19. Tegretol 200 mg Oral tab 1 tab every 12 hours 20. TPN Electrolytes 35-20-5 mEq/20 mL intravenous soln Runs for 12 hours overnight. 21. trazadone 100 mg 1 tab nightly 22. VitaMelts Energy 1,500 mcg oral tab Unknown daily 23. Vitamin C 500 mg Oral cpER 500 mg daily 24. Vitamin D3 1,000 unit oral cap daily 25. Wellbutrin SR 100 mg Oral TbER 1 tab 2 times per day 26. Zofran (as hydrochloride) 4 mg Oral tab 1 tabs tid prn 27. fluticasone 50 mcg/actuation nasal spsn 2 sprays once daily 28. magnesium chloride 200 mg/mL (20 %) injection soln every 4 hours 29. NS-Potassium Chloride 1000 mL IV daily - PMHx: chronic kidney; Depression; Diabetes - IDDM: controlled; Hypercholesterolemia; necrotic bowel; Stroke; - PSHx: jejunostomy; Hysteroscopy; Knee surgery- Right; left hip replacement; right hip repaired; hardware to right femur from break; Vitale port placement; Cholecystectomy; Appendectomy; blepheroplasty; Carpal Tunnel Repair- Bilateral; - Social history: Smoking status: Patient states former smoker of tobacco. No barriers to communication noted, The patient speaks fluent Amharic, Speaks appropriately for age. - Family history: No immediate family members are acutely ill. - : The pt / caregiver states he / she is not on anticoagulants. Home medication list is obtained from the patient, family members. - Exposure Risk Screening:: None identified. 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 jo4 16:09 Ondansetron 4 mg IVP once ordered. jo4 16:09 morphine 4 mg IVP every 15 minutes; Document pain score/vitals after each dose (Hold if jo4 SBP < 90mmHg) x2 ordered. 16:09 CBC with Diff Ordered. EDMS 16:09 BMP Ordered. EDMS 16:11 Amylase Ordered. EDMS 16:11 Lipase Ordered. EDMS 16:11 Liver Profile Ordered. EDMS 17:01 NS 0.9% 1000 ml IV at 100 mL/hr continuous ordered. jo4 17:02 CT ABD & PELVIS: IV Contrast Only Ordered. EDMS 17:08 heparin 100units/mL flush (PICC line) 2 ml IVP once; flush each port first with 10mL of mb9 NS followed by heparin ordered. 17:37 CBC with Diff Reviewed. jo4 17:45 Metoclopramide 10 mg IV at 40 mg/hr once over 15 mins ordered. jo4 17:48 [facility] Payment Agreement was scanned into [email or web address] and attached to record. gjb 17:48 Financial registration complete. gjb 18:15 Liver Profile Reviewed. jo4 18:16 BMP Reviewed. jo4 18:16 Amylase Reviewed. jo4 18:16 Lipase Reviewed. jo4 18:22 IV Saline Lock ordered. ld5 20:18 BED REQUEST+ADM ordered. EDMS 21:26 tiZANidine 4 mg PO once ordered. mb9 21:26 diphenhydrAMINE 25 mg PO once ordered. mb9 21:34 Eucerin Lotion 1 applic Topical Per package directions; apply to bilateral forearms TID mb9 ordered. 21:38 Admission / Observation Status ordered. EDMS 22:25 CONSISTENT CARBOHYDRATES ordered. EDMS 22:25 COMPLETE COMPHRENSIVE METABOLI Ordered. EDMS 22:25 MAGNESIUM LEVEL Ordered. EDMS 22:25 COMPLETE BLOOD COUNT Ordered. EDMS 23:00 Eucerin Cream 1 applic Topical Per package directions; apply to bilateral forearms TID. mb9 ordered. 06/04 07:34 T-Sheet-- Draft Copy was scanned into MedTel[employer] and attached to record. gb 07:35 PCR was scanned into [email or web address] and attached to record. gb 10:53 Radiology Report was scanned into MedTel24 and attached to record. gb Point of Care Testing: Blood Glucose: 06/03 15:32 Blood Glucose: 474 mg/dL; mb9 Ranges: Administered Medications: 16:59 Drug: Ondansetron 4 mg [ondansetron HCl 2 mg/mL intravenous solution (2 mL)] Route: mb9 IVP; Site: right subclavian; 17:42 Follow up: Response: Nausea is unchanged mb9 16:59 Drug: morphine 4 mg [morphine 4 mg/mL intravenous cartridge (1 mL)] Route: IVP; Site: mb9 right subclavian; 17:43 Drug: morphine 4 mg [morphine 4 mg/mL intravenous cartridge (1 mL)] Route: IVP; Site: mb9 Implantable Access Device; 18:01 Follow up: Pain 8/10 Adult; Response: Confirmed pt not driving.; Pain is unchanged, mb9 physician notified 17:49 Drug: NS 0.9% 1000 ml [sodium chloride 0.9 % intravenous solution] Route: IV; Rate: 100 mb9 mL/hr; Site: Implantable Access Device; 18:01 Drug: Metoclopramide 10 mg [metoclopramide 5 mg/mL injection solution] Route: IV; Rate: mb9 40 mg/hr; Infused Over: 15 mins; Site: Implantable Access Device; 18:25 Follow up: IV Status: Completed infusion ld5 19:03 Follow up: Response: Nausea is decreased mb9 21:45 Drug: tiZANidine 4 mg [tizanidine 4 mg tablet (1 tabs)] Route: PO; mb9 21:45 Drug: diphenhydrAMINE 25 mg [diphenhydramine 25 mg capsule (1 caps)] Route: PO; mb9 22:29 Drug: heparin 100units/mL flush (PICC line) 2 ml [heparin, porcine (PF) 10 unit/mL mb9 intravenous syringe (2 mL)] Route: IVP; Site: Implantable Access Device; 22:54 Not Given (Other Intervention Used): Eucerin Lotion 1 applic Topical Per package mb9 directions; apply to bilateral forearms TID 23:01 Drug: Eucerin Cream 1 applic Route: Topical; Site: affected area; mb9 Signatures: Dispatcher [employer] Nikkie Arita RN RN mcp Quesenberry HC, Deborah, RN RN daq Barnhardt, Gloria, Conchis Patten RN RN ld5 Devin Daly DO DO cs11 Dominic Vargas RN RN mb9 Maral Dhaliwal Jane, DO DO jo4 The chart was reviewed and I authenticate all verbal orders and agree with the evaluation and treatment provided.Attachments: 17:48 [facility] Payment Agreement gjb 06/04 07:34 T-Sheet-- Draft Copy gb Chart Complete MTDD
--- NOTE | 2016-06-06 00:30 | EDDOCDS ---
Physician Documentation [facility] Name: Delma Lora Age: 50 yrs Sex: Female : 1965 Arrival Date: 06/03/2016 Time: 14:58 Bed TR8 Private MD: Dong Moore Disposition: 06/03/16 20:15 Hospitalization ordered by Yoana Gu for Inpatient Admission. Preliminary diagnosis is Vomiting. - Bed requested for 4 [place]. - Status is Inpatient Admission. mcp - Condition is Stable. - Problem is chronic. - Symptoms have improved. Historical: - Allergies: Augmentin; Bactrim; Pyridium; SULFA (SULFONAMIDES); - Home Meds: 1. baclofen 10 mg Oral tab 1 tab 3 times per day (Last dose: 06/02/2016) 2. Celexa 40 mg Oral tab 1 tab once daily (Last dose: 06/02/2016) 3. fluconazole 150 mg Oral tab 1 tab daily (Last dose: 06/02/2016) 4. gabapentin 100 mg oral cap 2 caps 3 times per day (Last dose: 06/02/2016) 5. heparin lock flush intravenous intravenous Unknown three times a day 6. Lantus 100 unit/mL Sub-Q crtg 30 unit twice a day 7. Lomotil 2.5-0.025 mg oral tab 1 tabs 4 times per day 8. magnesium oxide 400 mg Oral tab 800 mg twice a day (Last dose: 06/02/2016) 9. multivitamin Oral cap 1 tab daily 10. Nexium 40 mg Oral cpDR 1 cap 2 times per day 11. aspirin 81 mg Oral tab 1 tab once daily 12. Novolog 100 unit/mL Sub-Q soln Unknown Per sliding scale 13. potassium chloride 20 mEq Oral pack 1 packet 2 times per day 14. Pravachol 20 mg Oral tab 1 tab once daily 15. Requip 1 mg Oral tab 1 tab twice a day 16. saline 1000 ml infusion through Vitale Catheter daily. 17. Silvadene 1 % Topical crea once daily 18. potassium Runs 40 meq every 4 hours 19. Tegretol 200 mg Oral tab 1 tab every 12 hours 20. TPN Electrolytes 35-20-5 mEq/20 mL intravenous soln Runs for 12 hours overnight. 21. trazadone 100 mg 1 tab nightly 22. VitaMelts Energy 1,500 mcg oral tab Unknown daily 23. Vitamin C 500 mg Oral cpER 500 mg daily 24. Vitamin D3 1,000 unit oral cap daily 25. Wellbutrin SR 100 mg Oral TbER 1 tab 2 times per day 26. Zofran (as hydrochloride) 4 mg Oral tab 1 tabs tid prn 27. fluticasone 50 mcg/actuation nasal spsn 2 sprays once daily 28. magnesium chloride 200 mg/mL (20 %) injection soln every 4 hours 29. NS-Potassium Chloride 1000 mL IV daily - PMHx: chronic kidney; Depression; Diabetes - IDDM: controlled; Hypercholesterolemia; necrotic bowel; Stroke; - PSHx: jejunostomy; Hysteroscopy; Knee surgery- Right; left hip replacement; right hip repaired; hardware to right femur from break; Vitale port placement; Cholecystectomy; Appendectomy; blepheroplasty; Carpal Tunnel Repair- Bilateral; - Social history: Smoking status: Patient states former smoker of tobacco. No barriers to communication noted, The patient speaks fluent Khmer, Speaks appropriately for age. - Family history: No immediate family members are acutely ill. - : The pt / caregiver states he / she is not on anticoagulants. Home medication list is obtained from the patient, family members. - Exposure Risk Screening:: None identified. 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 jo4 16:09 Ondansetron 4 mg IVP once ordered. jo4 16:09 morphine 4 mg IVP every 15 minutes; Document pain score/vitals after each dose (Hold if jo4 SBP < 90mmHg) x2 ordered. 16:09 CBC with Diff Ordered. EDMS 16:09 BMP Ordered. EDMS 16:11 Amylase Ordered. EDMS 16:11 Lipase Ordered. EDMS 16:11 Liver Profile Ordered. EDMS 17:01 NS 0.9% 1000 ml IV at 100 mL/hr continuous ordered. jo4 17:02 CT ABD & PELVIS: IV Contrast Only Ordered. EDMS 17:08 heparin 100units/mL flush (PICC line) 2 ml IVP once; flush each port first with 10mL of mb9 NS followed by heparin ordered. 17:37 CBC with Diff Reviewed. jo4 17:45 Metoclopramide 10 mg IV at 40 mg/hr once over 15 mins ordered. jo4 17:48 [facility] Payment Agreement was scanned into [employer] and attached to record. gjb 17:48 Financial registration complete. gjb 18:15 Liver Profile Reviewed. jo4 18:16 BMP Reviewed. jo4 18:16 Amylase Reviewed. jo4 18:16 Lipase Reviewed. jo4 18:22 IV Saline Lock ordered. ld5 20:18 BED REQUEST+ADM ordered. EDMS 21:26 tiZANidine 4 mg PO once ordered. mb9 21:26 diphenhydrAMINE 25 mg PO once ordered. mb9 21:34 Eucerin Lotion 1 applic Topical Per package directions; apply to bilateral forearms TID mb9 ordered. 21:38 Admission / Observation Status ordered. EDMS 22:25 CONSISTENT CARBOHYDRATES ordered. EDMS 22:25 COMPLETE COMPHRENSIVE METABOLI Ordered. EDMS 22:25 MAGNESIUM LEVEL Ordered. EDMS 22:25 COMPLETE BLOOD COUNT Ordered. EDMS 23:00 Eucerin Cream 1 applic Topical Per package directions; apply to bilateral forearms TID. mb9 ordered. 06/04 07:34 T-Sheet-- Draft Copy was scanned into [employer] and attached to record. gb 07:35 PCR was scanned into [employer] and attached to record. gb 10:53 Radiology Report was scanned into An[employer] and attached to record. gb Point of Care Testing: Blood Glucose: 06/03 15:32 Blood Glucose: 474 mg/dL; mb9 Ranges: Administered Medications: 16:59 Drug: Ondansetron 4 mg [ondansetron HCl 2 mg/mL intravenous solution (2 mL)] Route: mb9 IVP; Site: right subclavian; 17:42 Follow up: Response: Nausea is unchanged mb9 16:59 Drug: morphine 4 mg [morphine 4 mg/mL intravenous cartridge (1 mL)] Route: IVP; Site: mb9 right subclavian; 17:43 Drug: morphine 4 mg [morphine 4 mg/mL intravenous cartridge (1 mL)] Route: IVP; Site: mb9 Implantable Access Device; 18:01 Follow up: Pain 8/10 Adult; Response: Confirmed pt not driving.; Pain is unchanged, mb9 physician notified 17:49 Drug: NS 0.9% 1000 ml [sodium chloride 0.9 % intravenous solution] Route: IV; Rate: 100 mb9 mL/hr; Site: Implantable Access Device; 18:01 Drug: Metoclopramide 10 mg [metoclopramide 5 mg/mL injection solution] Route: IV; Rate: mb9 40 mg/hr; Infused Over: 15 mins; Site: Implantable Access Device; 18:25 Follow up: IV Status: Completed infusion ld5 19:03 Follow up: Response: Nausea is decreased mb9 21:45 Drug: tiZANidine 4 mg [tizanidine 4 mg tablet (1 tabs)] Route: PO; mb9 21:45 Drug: diphenhydrAMINE 25 mg [diphenhydramine 25 mg capsule (1 caps)] Route: PO; mb9 22:29 Drug: heparin 100units/mL flush (PICC line) 2 ml [heparin, porcine (PF) 10 unit/mL mb9 intravenous syringe (2 mL)] Route: IVP; Site: Implantable Access Device; 22:54 Not Given (Other Intervention Used): Eucerin Lotion 1 applic Topical Per package mb9 directions; apply to bilateral forearms TID 23:01 Drug: Eucerin Cream 1 applic Route: Topical; Site: affected area; mb9 Signatures: Dispatcher [employer] Nikkie Arita RN RN mcp [place] HC, Deborah, RN RN daq Barnhardt, Gloria, Conchis Patten RN RN ld5 Devin Daly DO DO cs11 Dominic Vargas RN RN mb9 Maral Dhaliwal Jane, DO DO jo4 The chart was reviewed and I authenticate all verbal orders and agree with the evaluation and treatment provided.Attachments: 17:48 [facility] Payment Agreement gjb 06/04 07:34 T-Sheet-- Draft Copy gb Chart Complete MTDD
[2016-06-06] MEDS: HumaLOG INSULIN (NovoLOG) PER UNIT SC SCH ×4 (01:02→17:29)
[2016-06-06] MEDS: PERCOCET 5MG/325MG TAB PO PRN ×4 (04:07→23:33)
[2016-06-06 05:56] LABS: MEAN CORPUSCULAR HEMOGLOBIN 27.8 pg (27.0-33.0); MEAN CORPUSCULAR HGB CONC 31.7 g/dl (32.0-36.5); MEAN CORPUSCULAR VOLUME 87.5 fl (80.0-96.0); RED CELL DISTRIBUTION WIDTH 16.2 % (11.5-14.5); WHITE BLOOD COUNT 7.1 K/mm3 (4.0-10.0)
[2016-06-06 06:00] VITALS: BP 128/62
[2016-06-06 06:19] LABS: ALBUMIN 2.7 GM/DL (3.2-5.2); CALCIUM LEVEL 8.4 MG/DL (8.5-10.1); CREATININE FOR GFR 1.15 MG/DL (0.55-1.02); GLOMERULAR FILTRATION RATE 53.2 (>51); POTASSIUM SERUM 4.2 MEQ/L (3.5-5.1)
[2016-06-06] MEDS: tiZANidine 4 MG TAB PO PRN ×3 (06:27→19:56)
[2016-06-06] MEDS: LEVEMIR (INSULIN DETEMIR) 1 UNITS/0.01ML SC SCH ×2 (08:25→21:34)
[2016-06-06] MEDS: VANCOMYCIN XX SCH (09:14)
[2016-06-06] MEDS: [UNRECOGNIZED DRUG - OTHER] XX SCH (09:14)
[2016-06-06] MEDS: SODIUM CHLORIDE 0.9% INJ 10 ML SYR IV SCH ×3 (09:14→21:33)
[2016-06-06] MEDS: FLUTICASONE PROP 0.05% NASAL SPRAY 16 GM (FLONASE) SCH (09:14)
[2016-06-06] MEDS: ENOXAPARIN 40 MG/0.4 ML SYRINGE (J1650) SC SCH (09:14)
[2016-06-06] MEDS: HEPARIN XX SCH (09:14)
[2016-06-06] MEDS: MULTIVITAMINS/MINERALS THERAP 1 TAB PO SCH (09:16)
[2016-06-06] MEDS: GABAPENTIN 300 MG CAP PO SCH ×3 (09:16→21:31)
[2016-06-06] MEDS: ASPIRIN 81 MG ENTERIC TAB PO SCH (09:16)
[2016-06-06] MEDS: CitaloPRAM (CeleXA) 20 MG TAB PO SCH (09:16)
[2016-06-06] MEDS: FERROUS SULFATE 325MG TAB PO SCH ×3 (09:16→21:32)
[2016-06-06] MEDS: rOPINIRole 1MG TAB PO SCH ×2 (09:16→21:31)
[2016-06-06] MEDS: PANTOPRAZOLE 40MG TAB (PROTONIX) PO SCH ×2 (09:16→21:32)
[2016-06-06] MEDS: FLUCONAZOLE 50MG TABLET PO SCH (09:17)
[2016-06-06] MEDS: buPROPion 100 MG TAB PO SCH ×2 (09:17→21:31)
[2016-06-06] MEDS: ASCORBIC ACID 500 MG TAB PO SCH (09:17)
[2016-06-06] MEDS: carBAMazepine 200 MG TAB PO SCH ×2 (09:17→21:31)
[2016-06-06] MEDS: LOMOTIL 2.5MG/0.025MG TABLET PO SCH ×4 (09:17→21:32)
[2016-06-06] MEDS: MAGNESIUM OXIDE 400 MG TAB (MAG-OX) PO SCH ×2 (09:18→21:32)
[2016-06-06] MEDS: VITAMIN D 1,000 INTERNATIONAL UNITS TABLET PO SCH (09:18)
--- NOTE | 2016-06-06 13:58 | IPNPDOC ---
Text Note Date of Service The patient was seen on 06/06/16 at 13:58. NOTE Subjective: Patient denies any changes. No nausea/vomiting/abdominal pain. Objective: Vitals: (see below) General: No acute distress, laying comfortably in bed. HEENT: Moist mucous membranes. Neck: No JVD or lymphadenopathy Cardiac: RRR, No murmurs Pulm: Clear to auscultation b/l. No wheezing, rhonchi. Right Vitale catheter. No area of bleeding or cellulitis. No tenderness. Abd: NT/ND + BS. Ostomy noted. Ext: No edema or cyanosis. LE with preserved strength 5/5 in BLE. Distal pulses intact. Labs (see below) Assessment/Plan 1. Staph epidermidis bacteremia - 2 blood cultures positive. Cont. vancomycin for now. Blood cultures repeated, and 1 bottle positive for staph epi. IV fluids. No leukocytosis. TTE with no vegetations. Repeat cx negative. will hold off on removing line as it does not appear to be infected. The positive cultures were from peripheral draws. Dr. Hankins on board. On 2 week course of antibiotics through the line before entertaining removal of the line, as patient needs it for TPN, as cultures have been positive. She states that she must her home doses of vancomycin. 2. AQUILES - resolved. likely secondary to volume depletion from high output ostomy. Creatinine improved. On IV fluids. 3. Anemia - chronically trending down. Occult blood negative. Transfused 1 unit. Hb stable 4. 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 5. Severe protein calorie malnutrition- on TPN 9 PM to 9 AM. 6. Depression- continue home meds 7. Diabetic neuropathy- continue Neurontin 8. Hypokalemia- potassium has been added to TPN 9. Chronic lower back pain with a stage II pressure ulcer on coccyx on admission - on Lidoderm patch, Percocet, Flexeril when necessary.MRI Lumbar spine (see above). Cont lidocaine patch, OOB, PT. Percocet dose has been increased. DVT prophy: Heparin Subcutaneous Patient has been readmitted and is a very poor candidate for home care with her TPN. Placement has been very difficult given her chronic use of TPN. Current Medications Current Medications Medications (Trade) Dose Ordered Sig/Thelma Route PRN Reason Start Time Stop Time Status Last Admin Dose Admin Ascorbic Acid (Vitamin C) 500 mg DAILY PO 06/04/16 09:00 07/04/16 08:59 06/06/16 09:17 Aspirin (Ecotrin) 81 mg DAILY PO 06/04/16 09:00 07/04/16 08:59 06/06/16 09:16 Bupropion HCl (Wellbutrin) 100 mg BID PO 06/03/16 21:00 07/03/16 20:59 06/06/16 09:17 Calcium Carbonate 500 mg 500 mg BID PRN PO INDIGESTION 06/03/16 22:15 07/03/16 22:14 Carbamazepine (TEGretol) 200 mg BID PO 06/03/16 21:00 07/03/16 20:59 06/06/16 09:17 Citalopram Hydrobromide (CeleXA) 40 mg DAILY PO 06/04/16 09:00 07/04/16 08:59 06/06/16 09:16 Dextrose (Dextrose 50%) 25 ml ASDIRECTED PRN IV SEE LABEL COMMENTS 06/03/16 22:30 07/03/16 22:29 Diphenhydramine HCl (Benadryl Cream) APPLY TO ARMS Q6H PRN TOP ITCHING 06/04/16 11:00 07/04/16 10:59 Diphenoxylate HCl/ Atropine (Lomotil 2.5mg/ 0.025mg) 2 ea QID PO 06/03/16 21:00 06/10/16 20:59 06/06/16 13:38 Enoxaparin Sodium (Lovenox) 40 mg DAILY SC 06/04/16 09:00 06/09/16 08:59 06/06/16 09:14 Fat Emulsion Intravenous 500 ml @ 42 mls/hr 1T@21 IV 06/04/16 21:00 06/05/16 08:55 DC 06/04/16 21:25 Fat Emulsion Intravenous (Liposyn Iii 20%) 500 ml @ 41.667 mls/ hr 1T@21 IV 06/05/16 21:00 06/06/16 08:59 DC 06/05/16 21:09 Fat Emulsion Intravenous (Liposyn Iii 20%) 500 ml @ 41.667 mls/ hr 1T@21 IV 06/06/16 21:00 06/07/16 08:59 Ferrous Sulfate (Ferrous Sulfate) 325 mg TID PO 06/04/16 09:00 07/04/16 08:59 06/06/16 09:16 Fluconazole (Diflucan) 150 mg DAILY PO 06/04/16 09:00 06/11/16 08:59 06/06/16 09:17 Fluticasone Propionate (Flonase 0.05% Nasal [place]) 2 SPRAYS IN EACH NOSTRIL DAILY NA 06/04/16 09:00 07/04/16 08:59 06/06/16 09:14 Gabapentin (Neurontin) 300 mg TID PO 06/03/16 21:00 07/03/16 20:59 06/06/16 09:16 Glucagon (Glucagon) 1 mg ASDIRECTED PRN SC SEE LABEL COMMENTS 06/03/16 22:30 07/03/16 22:29 Glucose (Glucose) 16 GM ASDIRECTED PRN PO SEE LABEL COMMENTS 06/03/16 22:30 07/03/16 22:29 Heparin Sodium (Heparin Lock Flush 10units/ml) 30 units ASDIRECTED PRN IV SEE LABEL COMMENTS 06/04/16 05:45 06/04/16 10:45 DC 06/04/16 05:52 Heparin Sodium (Heparin Lock Flush 10units/ml) 30 units ASDIRECTED PRN IV SEE LABEL COMMENTS 06/05/16 05:15 06/06/16 09:58 DC Heparin Sodium (Heparin Lock Flush 10units/ml) 30 units DAILY IV 06/04/16 09:00 06/04/16 10:45 DC Heparin Sodium (Heparin Lock Flush 10units/ml) 30 units DAILY IV 06/05/16 06:00 06/06/16 09:58 DC 06/05/16 06:15 Insulin Detemir (Levemir Insulin) 25 units BID SC 06/04/16 09:00 07/04/16 08:59 06/05/16 21:09 Insulin Human Lispro SEE PROTOCOL TABLE Q6H SC 06/06/16 00:00 07/06/16 00:00 06/06/16 13:38 Insulin Human Lispro (HumaLOG INSULIN) SEE PROTOCOL TABLE AC SC 06/04/16 07:30 06/06/16 00:44 DC 06/05/16 12:00 Insulin Human Lispro (HumaLOG INSULIN) SEE PROTOCOL TABLE QHS SC 06/03/16 21:00 06/06/16 00:44 DC 06/05/16 21:09 Insulin Human Lispro (HumaLOG INSULIN) [facility] 06/04/16 21:00 06/04/16 21:00 DC Lidocaine (Lidoderm Patch) 1 patch DAILY PRN TOP PAIN 06/03/16 22:15 07/03/16 22:14 06/04/16 23:05 Magnesium Oxide (Mag-Ox) 800 mg BID PO 06/03/16 21:00 07/03/16 20:59 06/06/16 09:18 Mineral Oil/White Petrolatum (Eucerin) APPLY TO BILATERAL FOREARMS BID TOP 06/03/16 21:00 06/03/16 22:18 DC Mineral Oil/White Petrolatum (Eucerin) APPLY TO BILATERAL FOREARMS TID TOP 06/03/16 21:00 06/03/16 22:18 DC Mineral Oil/White Petrolatum (Eucerin) APPLY TO BILATERAL FOREARMS TIDP PRN TOP ITCHING 06/03/16 22:18 07/03/16 20:59 06/04/16 09:39 Miscellaneous (Unresolved Patient Own Med Order) SEE LABEL COMMENTS UNRESOLVED XX 06/04/16 00:01 06/06/16 12:04 DC Multivitamins (Theragram-M) 1 tab DAILY PO 06/04/16 09:00 07/04/16 08:59 06/06/16 09:16 Multivitamins 10 ml/Chromium/ Copper/Manganese/ Seleni/Zn 1 ml/ Insulin Human Regular 51 units/ Potassium Chloride 12.8 meq/ Amino Ac/Electrol/ Dextrose/Calcium 2,017.91 ml @ 130 mls/ hr 1T@21 IV 06/04/16 21:00 06/05/16 12:33 DC 06/04/16 21:25 Multivitamins 10 ml/Chromium/ Copper/Manganese/ Seleni/Zn 1 ml/ Insulin Human Regular 51 units/ Potassium Chloride 12.8 meq/ Amino Ac/Electrol/ Dextrose/Calcium 2,017.91 ml @ 130 mls/ hr 1T@21 IV 06/05/16 21:00 06/06/16 08:59 DC 06/05/16 21:10 Multivitamins 10 ml/Chromium/ Copper/Manganese/ Seleni/Zn 1 ml/ Insulin Human Regular 51 units/ Potassium Chloride 12.8 meq/ Amino Ac/Electrol/ Dextrose/Calcium 2,017.91 ml @ 130 mls/ hr 1T@21 IV 06/06/16 21:00 06/07/16 09:00 Non-Formulary Medication INSTILL ENOUGH ANTIBIO... DAILY XX 06/04/16 09:00 07/04/16 08:59 06/06/16 09:14 Non-Formulary Medication ( See Comment Field Below ) PLEASE ASPIRATE ANTIBIO... DAILY@21 XX 06/04/16 21:00 07/04/16 20:59 06/05/16 21:00 Non-Formulary Medication ( See Comment Field Below ) REMOVE LIDODERM PATCH... DAILY@21 XX 06/04/16 21:00 07/04/16 20:59 Ondansetron HCl (Zofran Odt) 4 mg TID PRN PO NAUSEA OR VOMITING 06/03/16 22:15 07/03/16 22:14 Oxycodone/ Acetaminophen (Percocet 5mg/ 325mg Tablet) 2 tab Q6HP PRN PO MILD/MODERATE PAIN (PS 1-7) 06/05/16 14:00 06/12/16 13:59 06/06/16 10:22 Oxycodone/ Acetaminophen 1 tab 1 tab Q6HP PRN PO MILD/MODERATE PAIN (PS 1-7) 06/04/16 11:00 06/05/16 13:59 DC 06/05/16 11:09 Pantoprazole Sodium (Protonix) 40 mg BID PO 06/03/16 21:00 07/03/16 20:59 06/06/16 09:16 Patient Own Medication (Patient'S Own Med) 1 ea DAILY PO 06/04/16 09:00 06/06/16 12:04 DC Pravastatin Sodium (Pravachol) 20 mg QHS PO 06/03/16 21:00 07/03/16 20:59 06/05/16 21:08 Ropinirole HCl (Requip) 1 mg BID PO 06/03/16 21:00 07/03/16 20:59 06/06/16 09:16 Silver Sulfadiazine (Silvadene 1%) APPLY TO SORES ON BUTTOCKS DAILY PRN TOP SKIN SORES 06/03/16 22:15 07/03/16 22:14 Sodium Chloride (Nacl 0.9%) 1,000 ml @ 125 mls/hr Q8H IV 06/03/16 22:18 06/04/16 10:57 DC 06/03/16 00:38 Sodium Chloride (Nacl 0.9%) 1,000 ml @ 150 mls/hr QHS IV 06/04/16 21:00 07/04/16 20:59 06/05/16 21:10 Sodium Chloride (Saline Lock Flush) 10 ML DAILY IV 06/04/16 09:00 07/04/16 08:59 06/06/16 09:14 Sodium Chloride (Saline Lock Flush) 10 ml ASDIRECTED PRN IV SEE LABEL COMMENTS 06/04/16 05:45 06/04/16 10:45 DC 06/04/16 05:51 Sodium Chloride (Saline Lock Flush) 10 ml DAILY IV 06/04/16 09:00 06/04/16 10:45 DC Sodium Chloride (Saline Lock Flush) 10 ml DAILY IV 06/05/16 06:00 06/06/16 09:58 DC 06/06/16 09:15 Sodium Chloride (Saline Lock Flush) 10ML DAILY@21 IV 06/04/16 21:00 07/04/16 20:59 06/05/16 21:10 Sodium Chloride 10 ml 10 ml ASDIRECTED PRN IV SEE LABEL COMMENTS 06/05/16 05:15 06/06/16 09:58 DC Tizanidine HCl (Zanaflex) 4 mg Q6HP PRN PO SPASMS 06/04/16 00:00 07/04/16 00:00 06/06/16 13:38 Trazodone HCl (Desyrel) 100 mg QHS PO 06/03/16 21:00 07/03/16 20:59 06/05/16 21:08 Vitamin D (Vitamin D) 1,000 units DAILY PO 06/04/16 09:00 07/04/16 08:59 06/06/16 09:18 Allergies Coded Allergies: Phenazopyridine (Unverified Allergy, Intermediate, RASH, 02/09/16) Sulfa Drugs (Unverified Allergy, Intermediate, RASH, 02/09/16) Replaces SULFAMETHOXAZ Sulfamethoxazole (Unverified Allergy, Intermediate, RASH, 02/09/16) Replaces SULFAMETHOXAZ Trimethoprim (Unverified Allergy, Intermediate, RASH, 02/09/16) Replaces SULFAMETHOXAZ Clavulanic Acid (Unverified Adverse Reaction, Mild, NAUSEA AND VOMITING, DIARRHEA, 02/09/16) Replaces AUGMENTIN Penicillins (Unverified Adverse Reaction, Mild, NAUSEA AND VOMITING, ) Replaces AUGMENTIN Penicillins Cross Reactors (Unverified Adverse Reaction, Mild, NAUSEA AND VOMITING, 02/09/16) Replaces AUGMENTIN VS,Fishbone, I+O VS, Fishbone, I+O Laboratory Tests 06/06/16 05:32 Anion Gap 8, Red Blood Count 3.06 L, Mean Corpuscular Volume 87.5, Mean Corpuscular Hemoglobin 27.8, Mean Corpuscular Hemoglobin Concent 31.7 L, Red Cell Distribution Width 16.2 H Vital Signs Date Time Temp Pulse Resp B/P Pulse Ox O2 Delivery O2 Flow Rate FiO2 06/06/16 10:52 18 06/06/16 09:00 Room Air 06/06/16 06:00 96.9 92 128/62 98 I&O- Last 24 Hours up to 6 AM 06/06/16 06:00 Intake Total 5968 ml Output Total 7775 ml Balance -1807 ml VONNIE MCMAHAN MD Jun 06, 2016 13:58
[2016-06-06 14:00] VITALS: BP 150/80
[2016-06-06 15:04] VITALS: BP 124/62
[2016-06-06] MEDS ORDERED: [UNRECOGNIZED DRUG - MIXTURE] IV SCH ×5 (21:00)
[2016-06-06] MEDS ORDERED: FAT EMULSION IV 20% 500 ML IV SCH (21:00)
[2016-06-06] MEDS: traZODone 100 MG TAB PO SCH (21:31)
[2016-06-06] MEDS: PRAVASTATIN 20 MG TAB PO SCH (21:32)
[2016-06-06] MEDS: NS 1,000 ML IV SCH (21:33)
[2016-06-06] MEDS: **NOTE PATIENT COMMENT** MISC XX SCH (21:33)
[2016-06-06 22:00] VITALS: BP 161/77
[2016-06-07] MEDS: HumaLOG INSULIN (NovoLOG) PER UNIT SC SCH ×4 (00:26→18:39)
[2016-06-07] MEDS: tiZANidine 4 MG TAB PO PRN ×4 (02:51→22:22)
[2016-06-07 06:00] VITALS: BP 159/73
[2016-06-07] MEDS: PERCOCET 5MG/325MG TAB PO PRN ×3 (06:46→19:29)
[2016-06-07 06:52] LABS: MEAN CORPUSCULAR HEMOGLOBIN 28.7 pg (27.0-33.0); MEAN CORPUSCULAR HGB CONC 32.5 g/dl (32.0-36.5); MEAN CORPUSCULAR VOLUME 88.1 fl (80.0-96.0); WHITE BLOOD COUNT 8.6 K/mm3 (4.0-10.0)
[2016-06-07 07:00] LABS: ALBUMIN 2.9 GM/DL (3.2-5.2); ANION GAP 7 MEQ/L (8-16); BLOOD UREA NITROGEN 24 MG/DL (7-18); CALCIUM LEVEL 8.9 MG/DL (8.5-10.1); CARBON DIOXIDE LEVEL 29 MEQ/L (21-32); CHLORIDE LEVEL 104 MEQ/L (98-107); CREATININE FOR GFR 1.03 MG/DL (0.55-1.02); GLOMERULAR FILTRATION RATE > 60.0 (>51); GLUCOSE, FASTING 63 MG/DL (70-105); PHOSPHORUS LEVEL 3.6 MG/DL (2.5-4.9); POTASSIUM SERUM 4.3 MEQ/L (3.5-5.1); SODIUM LEVEL 140 MEQ/L (136-145)
[2016-06-07] MEDS: FLUTICASONE PROP 0.05% NASAL SPRAY 16 GM (FLONASE) SCH (08:27)
[2016-06-07] MEDS: FLUCONAZOLE 50MG TABLET PO SCH (08:28)
[2016-06-07] MEDS: MAGNESIUM OXIDE 400 MG TAB (MAG-OX) PO SCH ×2 (08:28→22:23)
[2016-06-07] MEDS: CitaloPRAM (CeleXA) 20 MG TAB PO SCH (08:28)
[2016-06-07] MEDS: buPROPion 100 MG TAB PO SCH ×2 (08:28→22:22)
[2016-06-07] MEDS: LOMOTIL 2.5MG/0.025MG TABLET PO SCH ×4 (08:28→22:23)
[2016-06-07] MEDS: FERROUS SULFATE 325MG TAB PO SCH ×3 (08:28→22:22)
[2016-06-07] MEDS: VITAMIN D 1,000 INTERNATIONAL UNITS TABLET PO SCH (08:28)
[2016-06-07] MEDS: ASCORBIC ACID 500 MG TAB PO SCH (08:28)
[2016-06-07] MEDS: GABAPENTIN 300 MG CAP PO SCH ×3 (08:28→22:22)
[2016-06-07] MEDS: carBAMazepine 200 MG TAB PO SCH ×2 (08:29→22:22)
[2016-06-07] MEDS: ASPIRIN 81 MG ENTERIC TAB PO SCH (08:29)
[2016-06-07] MEDS: VANCOMYCIN XX SCH (08:29)
[2016-06-07] MEDS: MULTIVITAMINS/MINERALS THERAP 1 TAB PO SCH (08:29)
[2016-06-07] MEDS: [UNRECOGNIZED DRUG - OTHER] XX SCH (08:29)
[2016-06-07] MEDS: HEPARIN XX SCH (08:29)
[2016-06-07] MEDS: rOPINIRole 1MG TAB PO SCH ×2 (08:29→22:22)
[2016-06-07] MEDS: PANTOPRAZOLE 40MG TAB (PROTONIX) PO SCH ×2 (08:29→22:22)
[2016-06-07] MEDS: ENOXAPARIN 40 MG/0.4 ML SYRINGE (J1650) SC SCH (08:29)
[2016-06-07] MEDS: SODIUM CHLORIDE 0.9% INJ 10 ML SYR IV SCH ×2 (08:29→22:20)
--- NOTE | 2016-06-07 12:51 | IPN ---
DATE: 06/07/2016 Ms. Lora has no complaints of pain, chest pain, shortness of breath. Would like to be discharged home to her sister's house if that can be arranged. She did help with flushing her line today. Temperature 98, pulse 97, respiratory rate 18, blood pressure 159/73, 98% on room air. Input and output notable for negative fluid balance of -1835, 3700 mL of stool noted yesterday. Weight is 63.1 kg with a Body Mass Index (BMI) of 20.5. She is awake, appropriately interactive. Breathing is symmetrical and rested. Heart is distant sounding. Abdomen is soft. Sodium 140, creatinine 1.03, hemoglobin 9. ASSESSMENT: This is a 50-year-old who is being treated for Staphylococcus epidermidis bacteremia, who had been unsuccessful at home in managing her antibiotics. PLAN: 1. Staphylococcus epidermidis bacteremia. Continuing on antibiotics. 2. The patient has high output ostomy and is on TPN, which is continued. 3. The patient has resolving acute kidney injury. 4. The patient has anemia. Monitor hemoglobin and hematocrit. 5. The patient has a history of pancreatic cyst rupture leading to ischemia and partial colectomy with jejunostomy with 1 to 2 liters of normal saline supplemented daily. 6. The patient has severe protein calorie malnutrition. On TPN. 7. The patient has diabetic neuropathy. 8. The patient has chronic low back pain and has asked to see pain management, who was consulted yesterday.
[2016-06-07] MEDS: LEVEMIR (INSULIN DETEMIR) 1 UNITS/0.01ML SC SCH ×2 (13:22→22:22)
[2016-06-07 14:00] VITALS: BP 138/74
[2016-06-07] MEDS ORDERED: INSULIN HUMAN REGULAR IV SCH (21:00)
[2016-06-07] MEDS ORDERED: DEX IV SCH (21:00)
[2016-06-07] MEDS ORDERED: FAT EMULSION IV 20% 500 ML IV SCH (21:00)
[2016-06-07] MEDS ORDERED: ELECTROLYTE IV SCH (21:00)
[2016-06-07] MEDS ORDERED: CALC IV SCH (21:00)
[2016-06-07] MEDS ORDERED: AMINO AC IV SCH (21:00)
[2016-06-07] MEDS ORDERED: KCL 10MEQ IN 100ML SWI (KRUN) 10 MEQ in APPROPRIATE DILUENT 1 EA IV ONE ×2 (21:30)
[2016-06-07 22:00] VITALS: BP 140/78
[2016-06-07] MEDS: **NOTE PATIENT COMMENT** MISC XX SCH (22:20)
[2016-06-07] MEDS: NS 1,000 ML IV SCH (22:21)
[2016-06-07] MEDS: traZODone 100 MG TAB PO SCH (22:22)
[2016-06-07] MEDS: PRAVASTATIN 20 MG TAB PO SCH (22:22)
[2016-06-08] MEDS: HumaLOG INSULIN (NovoLOG) PER UNIT SC SCH ×5 (00:49→18:05)
[2016-06-08] MEDS: PERCOCET 5MG/325MG TAB PO PRN ×4 (03:49→23:38)
[2016-06-08 06:00] VITALS: BP 149/74
[2016-06-08 06:11] LABS: ALBUMIN 2.8 GM/DL (3.2-5.2); ANION GAP 6 MEQ/L (8-16); BLOOD UREA NITROGEN 25 MG/DL (7-18); CALCIUM LEVEL 8.7 MG/DL (8.5-10.1); CARBON DIOXIDE LEVEL 30 MEQ/L (21-32); CHLORIDE LEVEL 104 MEQ/L (98-107); CREATININE FOR GFR 0.98 MG/DL (0.55-1.02); GLOMERULAR FILTRATION RATE > 60.0 (>51); GLUCOSE, FASTING 56 MG/DL (70-105); PHOSPHORUS LEVEL 4.4 MG/DL (2.5-4.9); POTASSIUM SERUM 4.3 MEQ/L (3.5-5.1); SODIUM LEVEL 140 MEQ/L (136-145)
[2016-06-08 06:15] LABS: MEAN CORPUSCULAR HEMOGLOBIN 28.6 pg (27.0-33.0); MEAN CORPUSCULAR HGB CONC 32.3 g/dl (32.0-36.5); MEAN CORPUSCULAR VOLUME 88.6 fl (80.0-96.0); WHITE BLOOD COUNT 6.8 K/mm3 (4.0-10.0)
[2016-06-08] MEDS: tiZANidine 4 MG TAB PO PRN ×3 (08:36→21:10)
[2016-06-08] MEDS: LEVEMIR (INSULIN DETEMIR) 1 UNITS/0.01ML SC SCH ×2 (09:00→21:10)
[2016-06-08] MEDS: ASCORBIC ACID 500 MG TAB PO SCH (09:23)
[2016-06-08] MEDS: FLUTICASONE PROP 0.05% NASAL SPRAY 16 GM (FLONASE) SCH (09:23)
[2016-06-08] MEDS: ASPIRIN 81 MG ENTERIC TAB PO SCH (09:24)
[2016-06-08] MEDS: PANTOPRAZOLE 40MG TAB (PROTONIX) PO SCH ×2 (09:24→21:11)
[2016-06-08] MEDS: GABAPENTIN 300 MG CAP PO SCH ×3 (09:24→21:11)
[2016-06-08] MEDS: VITAMIN D 1,000 INTERNATIONAL UNITS TABLET PO SCH (09:24)
[2016-06-08] MEDS: CitaloPRAM (CeleXA) 20 MG TAB PO SCH (09:24)
[2016-06-08] MEDS: FERROUS SULFATE 325MG TAB PO SCH ×3 (09:24→21:10)
[2016-06-08] MEDS: buPROPion 100 MG TAB PO SCH ×2 (09:25→21:19)
[2016-06-08] MEDS: SODIUM CHLORIDE 0.9% INJ 10 ML SYR IV SCH ×2 (09:25→21:19)
[2016-06-08] MEDS: MAGNESIUM OXIDE 400 MG TAB (MAG-OX) PO SCH ×2 (09:25→21:10)
[2016-06-08] MEDS: HEPARIN XX SCH (09:25)
[2016-06-08] MEDS: LOMOTIL 2.5MG/0.025MG TABLET PO SCH ×4 (09:25→21:11)
[2016-06-08] MEDS: VANCOMYCIN XX SCH (09:25)
[2016-06-08] MEDS: carBAMazepine 200 MG TAB PO SCH ×2 (09:25→21:12)
[2016-06-08] MEDS: [UNRECOGNIZED DRUG - OTHER] XX SCH (09:25)
[2016-06-08] MEDS: rOPINIRole 1MG TAB PO SCH ×2 (09:25→21:10)
[2016-06-08] MEDS: MULTIVITAMINS/MINERALS THERAP 1 TAB PO SCH (09:25)
[2016-06-08] MEDS: ENOXAPARIN 40 MG/0.4 ML SYRINGE (J1650) SC SCH (09:26)
[2016-06-08] MEDS: FLUCONAZOLE 50MG TABLET PO SCH (10:38)
--- NOTE | 2016-06-08 12:30 | REP ---
Right lower extremity Duplex Doppler venous ultrasound: Real time compression and duplex Doppler interrogation of the right lower extremity deep venous system is performed. The right common femoral, superficial femoral and popliteal veins are fully compressible with transducer pressure and demonstrate normal spontaneous and phasic flow, without evidence of deep venous thrombosis. Impression: No evidence of deep venous thrombosis of the right lower extremity femoral popliteal venous system. Signed by Aneesh Cooper MD 06/08/2016 12:20 P
[2016-06-08] MEDS: EUCERIN 120GM CREAM TOP PRN (18:07)
--- NOTE | 2016-06-08 20:52 | IPN ---
DATE: 06/08/2016 Ms. Lora is complaining of right leg pain today, similar in location as it was yesterday, although it is more skin sensitivity on the lateral aspect in the area between the greater trochanter and the knee. She has the subjective sensation that it may be swollen as compared to yesterday. She is tolerating diet. She has been out of bed and moving around the room. She is looking forward to returning to freedom outside the hospital at her sisters house. Temperature is 98.1, pulse 86, respiratory rate 18, blood pressure 129/74, 97% on room air. Intake and output notable for a positive fluid balance of 317. Weight is 63.1 kg. She is awake, appropriately interactive, pleasantly conversant. Mucous membranes moist. Breathing is symmetrical and rested. Speaking in complete sentences. No accessory muscle use. Abdomen is soft. There is mild tenderness of her right lower extremity. There is no swelling. There is no warmth. There is no erythema. White cell count is 6.8, hemoglobin 9, platelets 147, creatinine 0.98. Ultrasound of the area shows no evidence of deep vein thrombosis (DVT). ASSESSMENT: 50-year-old who is being treated for Staphylococcus epidermidis bacteremia who had been unsuccessful at home managing her antibiotics. PLAN: 1. Patient has staphylococcus epidermidis bacteremia. Continue on antibiotics as previously ordered. 2. The patient has high ostomy output and is on chronic TPN, and that is continued. It does have insulin in her TPN. Her fingerstick has been trending low. We have held the morning dose of Levemir. 3. The patient has resolved acute kidney injury. 4. The patient has anemia, monitoring hemoglobin and hematocrit. 5. The patient has a history of pancreatic cyst rupture leading to ischemia and partial colectomy and jejunostomy and 1-2 liters of normal saline supplement necessary for hydration daily. 6. The patient has severe protein calorie malnutrition. 7. The patient has diabetic neuropathy. 8. She has chronic low back pain. Pain management consulted. Awaiting official consult.
[2016-06-08] MEDS: **NOTE PATIENT COMMENT** MISC XX SCH (21:00)
[2016-06-08] MEDS ORDERED: [UNRECOGNIZED DRUG - MIXTURE] IV SCH ×5 (21:00)
[2016-06-08] MEDS ORDERED: FAT EMULSION IV 20% 500 ML IV SCH (21:00)
[2016-06-08] MEDS: traZODone 100 MG TAB PO SCH (21:11)
[2016-06-08] MEDS: PRAVASTATIN 20 MG TAB PO SCH (21:11)
[2016-06-08] MEDS: NS 1,000 ML IV SCH (21:12)
[2016-06-08 22:00] VITALS: BP 122/59
[2016-06-09] MEDS: HumaLOG INSULIN (NovoLOG) PER UNIT SC SCH ×4 (00:08→17:31)
[2016-06-09] MEDS: tiZANidine 4 MG TAB PO PRN ×3 (03:18→17:31)
[2016-06-09 05:38] LABS: MEAN CORPUSCULAR HEMOGLOBIN 28.9 pg (27.0-33.0); MEAN CORPUSCULAR HGB CONC 32.4 g/dl (32.0-36.5); RED CELL DISTRIBUTION WIDTH 14.6 % (11.5-14.5); WHITE BLOOD COUNT 6.1 K/mm3 (4.0-10.0)
[2016-06-09 06:00] VITALS: BP 127/68
[2016-06-09 06:10] LABS: ALBUMIN 2.7 GM/DL (3.2-5.2); CALCIUM LEVEL 8.4 MG/DL (8.5-10.1); CREATININE FOR GFR 1.14 MG/DL (0.55-1.02); GLOMERULAR FILTRATION RATE 53.7 (>51); PHOSPHORUS LEVEL 4.3 MG/DL (2.5-4.9); POTASSIUM SERUM 4.5 MEQ/L (3.5-5.1)
--- NOTE | 2016-06-09 06:39 | CR ---
DATE OF CONSULTATION: 06/08/2016 REFERRING PROVIDER: Dr. Mayo CHIEF COMPLAINT: Right thigh pain. Right low back pain. HISTORY OF PRESENT ILLNESS: Delma is a 50-year-old female who was discharged from the hospital and readmitted recently. She became weak at home and was unable to care for herself with flushing of her port with vancomycin. History of right femur hardware and bilateral hip repair/replacement after a fall injury in September 2015. The chief area of pain is hypersensitivity to the right anterior thigh with light touch and constant aching pain. Currently receiving Percocet 5/325 and gabapentin which does not seem to be helping, only periodically for a short term. Rating pain level as a 7 over 10. PAST MEDICAL HISTORY: 1. Ischemic gut requiring colectomy, need for IV hydration, sepsis with Staphylococcus epidermidis requiring IV antibiotics. 2. History of bilateral femur fracture and right hip fracture status post multiple falls. 3. Iron deficiency anemia. 4. History of multiple pressure ulcers. 5. Chronic kidney disease. 6. Status post stroke. 7. Diabetes mellitus type 2. 8. Restless leg syndrome. 9. Dyslipidemia. SURGICAL HISTORY: As above. PSYCHOSOCIAL HISTORY: The plan is to be discharged home with her sister. Denies alcohol use. Denies drug use. Remote history of smoking. REVIEW OF SYSTEMS: CONSTITUTIONAL: Denies recent fever or illness. SKIN: Reports breakdown and healing areas on the sacrum and lower extremities. PULMONARY: Reports shortness of breath with exertion. CARDIOVASCULAR: Denies chest pain. GI: Diarrhea (high output ileostomy). : Normal urination. Denies hematuria. HEMATOLOGIC: Reports anemia and easy bruising. MUSCULOSKELETAL: Reports leg pain, muscle pain, muscle stiffness and spasms. NEUROLOGIC: Denies headache, migraines or numbness. PSYCHOLOGICAL: Anxiety. PHYSICAL EXAMINATION: Awake, alert, pleasant, no acute distress. VITAL SIGNS: 98.1, 86, 18, blood pressure 149/74, oxygen saturation 97% on room air. CARDIAC: S1, S2. Normal rate and rhythm. RESPIRATORY: Lung sounds clear, nonlabored. Able to move extremities. Reports pain with movement to a side lying position over right leg. Reports hypersensitivity to light touch over right anterior thigh and femur in a distal distribution. Inspection of spine with mild tenderness with palpation over the right lumbar facet region. Extremities are warm with no swelling noted. No redness noted. ASSESSMENT: 1. Right leg pain. 2. Chronic pain, status post trauma/surgery. 3. Neuropathy. PLAN: Recommend trial of Lyrica 100 mg twice a day. If no improvement, this could be titrated up to three times a day. Recommend slowly reducing gabapentin and discontinuing over the course of the next three to four days. The patient may also benefit from scheduled muscle relaxant, i.e., tizanidine 4 mg twice a day. Thank you for allowing us to participate in the care of your patient, Delma Lora. If you have any questions or concerns, please do not hesitate to contact me.
[2016-06-09] MEDS: ASCORBIC ACID 500 MG TAB PO SCH (09:00)
[2016-06-09] MEDS: LEVEMIR (INSULIN DETEMIR) 1 UNITS/0.01ML SC SCH ×2 (09:06→21:23)
[2016-06-09] MEDS: PERCOCET 5MG/325MG TAB PO PRN ×3 (09:07→22:05)
[2016-06-09] MEDS: HEPARIN XX SCH (09:07)
[2016-06-09] MEDS: ENOXAPARIN 40 MG/0.4 ML SYRINGE (J1650) SC SCH (09:07)
[2016-06-09] MEDS: VANCOMYCIN XX SCH (09:07)
[2016-06-09] MEDS: [UNRECOGNIZED DRUG - OTHER] XX SCH (09:07)
[2016-06-09] MEDS: FERROUS SULFATE 325MG TAB PO SCH ×3 (09:08→21:21)
[2016-06-09] MEDS: FLUCONAZOLE 50MG TABLET PO SCH (09:08)
[2016-06-09] MEDS: CitaloPRAM (CeleXA) 20 MG TAB PO SCH (09:08)
[2016-06-09] MEDS: SODIUM CHLORIDE 0.9% INJ 10 ML SYR IV SCH ×2 (09:08→21:28)
[2016-06-09] MEDS: carBAMazepine 200 MG TAB PO SCH ×2 (09:08→21:21)
[2016-06-09] MEDS: LOMOTIL 2.5MG/0.025MG TABLET PO SCH ×4 (09:08→21:20)
[2016-06-09] MEDS: FLUTICASONE PROP 0.05% NASAL SPRAY 16 GM (FLONASE) SCH (09:08)
[2016-06-09] MEDS: MAGNESIUM OXIDE 400 MG TAB (MAG-OX) PO SCH ×2 (09:09→21:21)
[2016-06-09] MEDS: GABAPENTIN 300 MG CAP PO SCH ×3 (09:09→21:20)
[2016-06-09] MEDS: PANTOPRAZOLE 40MG TAB (PROTONIX) PO SCH ×2 (09:09→21:21)
[2016-06-09] MEDS: rOPINIRole 1MG TAB PO SCH ×2 (09:09→21:20)
[2016-06-09] MEDS: ASPIRIN 81 MG ENTERIC TAB PO SCH (09:09)
[2016-06-09] MEDS: MULTIVITAMINS/MINERALS THERAP 1 TAB PO SCH (09:09)
[2016-06-09] MEDS: VITAMIN D 1,000 INTERNATIONAL UNITS TABLET PO SCH (09:09)
[2016-06-09] MEDS: buPROPion 100 MG TAB PO SCH ×2 (09:09→21:21)
[2016-06-09 14:00] VITALS: BP 98/62
--- NOTE | 2016-06-09 18:10 | IPN ---
DATE: 06/09/2016 Ms. Lora is complaining of continued right leg pain, was glad to see the pain management provider yesterday. Lyrica has been started. Gabapentin is being weaned. Tolerating diet. Looking forward to getting out of the hospital. Temperature 97, pulse 86, respiratory rate 18, blood pressure 123/68, 98% on room air. Intake and output notable for a positive fluid balance of 2126, weight 66 kg. She is awake, appropriately interactive, pleasantly conversant. Breathing is symmetrical and rested. Heart is in a regular rate and rhythm. Abdomen soft, doughy, nontender. There is no tenderness, warmth, or erythema of her right lower extremity. White cell count is 6.1, hemoglobin 8.7, and platelets of 151, BUN 28, creatinine 1.14. My assessment is as follows: This is a 50-year-old who is being treated for Staphylococcus epidermidis bacteremia who had been unsuccessful at home with managing her antibiotics. Plan is as follows: 1. For Staphylococcus epidermidis bacteremia, I have discussed this case with Dr. Hankins who says that we can discontinue the antibiotics as of today. Will discontinue this and tomorrow plan to send her home with followup blood cultures next week. 2. The patient has high output ostomy output and is on chronic total parenteral nutrition (TPN). That is continued. There is insulin in her total parenteral nutrition (TPN). Finger sticks have been variably controlled during the hospitalization. 3. The patient has resolved acute kidney injury. 4. The patient has anemia. Monitoring hemoglobin and hematocrit. 5. The patient has history of pancreatic cyst rupture leading to ischemia and partial colectomy and jejunostomy because of short gut. Requires 1-2 liters of normal saline supplement as additional hydration daily. 6. The patient has severe protein calorie malnutrition. 7. The patient has chronic back pain and has been seen by pain management.
[2016-06-09] MEDS: **NOTE PATIENT COMMENT** MISC XX SCH (21:00)
[2016-06-09] MEDS ORDERED: FAT EMULSION IV 20% 500 ML IV SCH (21:00)
[2016-06-09] MEDS ORDERED: INSULIN HUMAN REGULAR IV SCH (21:00)
[2016-06-09] MEDS ORDERED: CALC IV SCH (21:00)
[2016-06-09] MEDS ORDERED: ELECTROLYTE IV SCH (21:00)
[2016-06-09] MEDS ORDERED: AMINO AC IV SCH (21:00)
[2016-06-09] MEDS ORDERED: DEX IV SCH (21:00)
[2016-06-09] MEDS: traZODone 100 MG TAB PO SCH (21:20)
[2016-06-09] MEDS: PRAVASTATIN 20 MG TAB PO SCH (21:21)
[2016-06-09] MEDS: NS 1,000 ML IV SCH (21:21)
[2016-06-09 22:00] VITALS: BP 109/60
[2016-06-10] MEDS: tiZANidine 4 MG TAB PO PRN ×2 (00:02→09:10)
[2016-06-10] MEDS: HumaLOG INSULIN (NovoLOG) PER UNIT SC SCH ×2 (00:02→06:36)
[2016-06-10] MEDS: PERCOCET 5MG/325MG TAB PO PRN (05:49)
[2016-06-10 06:00] VITALS: BP 115/63
[2016-06-10 06:57] LABS: MEAN CORPUSCULAR HEMOGLOBIN 29.4 pg (27.0-33.0); MEAN CORPUSCULAR HGB CONC 33.3 g/dl (32.0-36.5); MEAN CORPUSCULAR VOLUME 88.3 fl (80.0-96.0); RED CELL DISTRIBUTION WIDTH 14.6 % (11.5-14.5); WHITE BLOOD COUNT 7.3 K/mm3 (4.0-10.0)
[2016-06-10 07:21] LABS: ALBUMIN 2.1 GM/DL (3.2-5.2); ANION GAP 9 MEQ/L (8-16); BLOOD UREA NITROGEN 23 MG/DL (7-18); CALCIUM LEVEL 6.7 MG/DL (8.5-10.1); CARBON DIOXIDE LEVEL 24 MEQ/L (21-32); CHLORIDE LEVEL 112 MEQ/L (98-107); CREATININE FOR GFR 0.72 MG/DL (0.55-1.02); GLOMERULAR FILTRATION RATE > 60.0 (>51); GLUCOSE, FASTING 98 MG/DL (70-105); PHOSPHORUS LEVEL 3.2 MG/DL (2.5-4.9); POTASSIUM SERUM 3.4 MEQ/L (3.5-5.1); SODIUM LEVEL 145 MEQ/L (136-145)
[2016-06-10] MEDS ORDERED: INSUDET SC (08:04)
[2016-06-10] MEDS ORDERED: LYRI100C10 PO (08:04)
[2016-06-10] MEDS ORDERED: GABA300C3 PO (08:04)
[2016-06-10] MEDS ORDERED: CYCL5TA PO (08:04)
[2016-06-10] MEDS ORDERED: OXYC1TAB23 PO (08:04)
[2016-06-10] MEDS ORDERED: POTASSIUM CHLORIDE 10 MEQ SR TABLET PO ONE (08:15)
[2016-06-10] MEDS: FLUTICASONE PROP 0.05% NASAL SPRAY 16 GM (FLONASE) SCH (09:10)
[2016-06-10] MEDS: [UNRECOGNIZED DRUG - OTHER] XX SCH (09:11)
[2016-06-10] MEDS: VANCOMYCIN XX SCH (09:11)
[2016-06-10] MEDS: ENOXAPARIN 40 MG/0.4 ML SYRINGE (J1650) SC SCH (09:11)
[2016-06-10] MEDS: HEPARIN XX SCH (09:11)
[2016-06-10] MEDS: SODIUM CHLORIDE 0.9% INJ 10 ML SYR IV SCH (09:12)
[2016-06-10] MEDS: LEVEMIR (INSULIN DETEMIR) 1 UNITS/0.01ML SC SCH (09:12)
[2016-06-10] MEDS: carBAMazepine 200 MG TAB PO SCH (09:13)
[2016-06-10] MEDS: MAGNESIUM OXIDE 400 MG TAB (MAG-OX) PO SCH (09:13)
[2016-06-10] MEDS: ASCORBIC ACID 500 MG TAB PO SCH (09:13)
[2016-06-10] MEDS: ASPIRIN 81 MG ENTERIC TAB PO SCH (09:13)
[2016-06-10] MEDS: VITAMIN D 1,000 INTERNATIONAL UNITS TABLET PO SCH (09:13)
[2016-06-10] MEDS: CitaloPRAM (CeleXA) 20 MG TAB PO SCH (09:13)
[2016-06-10] MEDS: rOPINIRole 1MG TAB PO SCH (09:13)
[2016-06-10] MEDS: FERROUS SULFATE 325MG TAB PO SCH (09:13)
[2016-06-10] MEDS: buPROPion 100 MG TAB PO SCH (09:13)
[2016-06-10] MEDS: PANTOPRAZOLE 40MG TAB (PROTONIX) PO SCH (09:13)
[2016-06-10] MEDS: GABAPENTIN 300 MG CAP PO SCH (09:13)
[2016-06-10] MEDS: LOMOTIL 2.5MG/0.025MG TABLET PO SCH (09:14)
[2016-06-10] MEDS: MULTIVITAMINS/MINERALS THERAP 1 TAB PO SCH (09:14)
[2016-06-10] MEDS: FLUCONAZOLE 50MG TABLET PO SCH (09:14)
--- NOTE | 2016-06-11 03:13 | DSES ---
DATE OF ADMISSION: 06/03/2016 DATE OF DISCHARGE: 06/10/2016 Specialists involved during her care included Patricia Valera from the pain center. There were no complications during her stay. No procedures were performed during her stay. DISCHARGE DIAGNOSES: 1. Staphylococcus epidermidis bacteremia. 2. Acute kidney injury. 3. Anemia. 4. Severe protein calorie malnutrition on chronic total parenteral nutrition (TPN). 5. High output ostomy. 6. Diabetic neuropathy. 7. Hypokalemia. 8. Chronic low back pain. 9. Stage II pressure ulcer on coccyx at admission. 10. Right leg pain. The following is a summary of her hospitalization: This is a 50-year-old female with history of Staphylococcus epidermidis bacteremia with a Vitale catheter in place, who had been recently hospitalized and then discharged for outpatient management and had failed outpatient management and was brought to the hospital for further monitoring. The patient was treated with her home TPN, continued with her vancomycin locks through Vitale catheter. Had pain related to likely bed confinement and hospitalization, was seen by pain management, who recommended some changes to medications, some of which are not able to be continued at the time of discharge due to the patient's insurance coverage. It was thought that she was unsafe to send to her own home and so she was discharged to the care of her sister. On the day of discharge, she is feeling well. She has no complaints of chest pain. No shortness of breath. She still has right leg pain. Temperature 97, pulse 64, respiratory rate 20, blood pressure 115/63, 96% on room air. Awake, alert. Breathing is symmetrical and rested. Heart is distant sounding, not tachycardic. Abdomen soft. White cell count 7.3, hemoglobin 9.4. Potassium 3.4, creatinine 0.72. DISCHARGE INSTRUCTIONS: Include the following of Dr. Moore on the day of discharge at 11:30 a.m., following with Dr. Hankins 06/15 at 12:30. Activity as tolerated. Diet as tolerated. Continue TPN and home fluid orders. She was given a prescription for: - Flexeril 5 mg by mouth three times a day as needed for spasm, number 21 - Percocet 5/325 one tablet by mouth every 4 hours as needed for pain, number 24 - Lyrica 100 mg by mouth twice daily, number 60 Continue: - vitamin C 500 by mouth daily - aspirin 81 mg by mouth daily - biotin 1000 mcg by mouth daily - Wellbutrin 100 mg by mouth twice daily - calcium 600 mg by mouth twice daily - carbamazepine 200 mg by mouth twice daily - vitamin D supplement 1000 units by mouth daily - citalopram 40 mg by mouth daily - Lomotil four times daily - Nexium 40 mg by mouth twice daily - iron 325 mg by mouth three times a day - Flonase two sprays nasally daily - fluconazole 150 mg by mouth daily - continue heparin locking [id number] - continue NovoLog sliding scale - continue lidocaine - continue magnesium oxide supplement - multivitamin supplement - Zofran 4 mg by mouth three times a day as needed - Pravachol 20 mg by mouth daily at bedtime - Requip 1 mg by mouth twice daily - Silvadene as needed for sores - TPN continue as prescribed for 12 hours daily - trazodone 100 mg by mouth daily at bedtime We are weaning Neurontin over the course of 6 days to off as it is being replaced with Lyrica and we have changed the Levemir to 20 units twice daily. I did discuss this on the day prior to discharge with Dr. Moore.
== END 2016-06-10 11:20 | disposition home health service (06) | DRG 314 ==
LOC: M ED 14:58 → M ED INP 21:36 → M MSPAV 23:07
PROVIDERS: ADMIT Hospitalist; ATTEND Internal Medicine
DX: T82.7XXA Infection and inflammatory reaction due to other cardiac and vascular devices, implants and grafts, initial encounter (principal); E43 Unspecified severe protein-calorie malnutrition; R78.81 Bacteremia; N17.9 Acute kidney failure, unspecified; K56.7 Ileus, unspecified; N99.512 Cystostomy malfunction; R11.2 Nausea with vomiting, unspecified; L89.152 Pressure ulcer of sacral region, stage 2; N18.3 Chronic kidney disease, stage 3 (moderate); E11.40 Type 2 diabetes mellitus with diabetic neuropathy, unspecified; E87.6 Hypokalemia; F32.9 Major depressive disorder, single episode, unspecified; D50.9 Iron deficiency anemia, unspecified; M79.661 Pain in right lower leg; M54.5 Low back pain; G25.81 Restless legs syndrome; B95.7 Other staphylococcus as the cause of diseases classified elsewhere; Z79.4 Long term (current) use of insulin; Z79.82 Long term (current) use of aspirin; Z79.899 Other long term (current) drug therapy; Z88.0 Allergy status to penicillin; Z88.2 Allergy status to sulfonamides; Z88.1 Allergy status to other antibiotic agents; Z86.73 Personal history of transient ischemic attack (TIA), and cerebral infarction without residual deficits; Z90.49 Acquired absence of other specified parts of digestive tract; Z87.891 Personal history of nicotine dependence; Z79.01 Long term (current) use of anticoagulants; Z96.641 Presence of right artificial hip joint; Z96.642 Presence of left artificial hip joint

== ENCOUNTER → 2016-06-10 | Outpatient (REF) | payer MEDICARE, MEDICAID ==
[~2016-06-10] MED LIST changes: +CYCL5TA PO; +LYRI100C10 PO; +OXYC1TAB23 PO
== END ==
LOC: M SFHCPLAZ 11:51
PROVIDERS: ATTEND Family Medicine
DX: T82.7XXA Infection and inflammatory reaction due to other cardiac and vascular devices, implants and grafts, initial encounter (principal); E46 Unspecified protein-calorie malnutrition; Z53.8 Procedure and treatment not carried out for other reasons

== ENCOUNTER → 2016-06-13 | Outpatient (REF) | payer MEDICARE, MEDICAID | LOC: M SFHCPLAZ 13:13 | PROVIDERS: ATTEND Family Medicine | DX: A41.02 Sepsis due to Methicillin resistant Staphylococcus aureus (principal); Z53.9 Procedure and treatment not carried out, unspecified reason ==

== ENCOUNTER → 2016-06-15 | Outpatient (REF) | payer MEDICARE, MEDICAID ==
[2016-06-15 21:47] LABS: MEAN CORPUSCULAR HEMOGLOBIN 28.5 pg (27.0-33.0); MEAN CORPUSCULAR HGB CONC 33.1 g/dl (32.0-36.5); MEAN CORPUSCULAR VOLUME 86.1 fl (80.0-96.0); RED CELL DISTRIBUTION WIDTH 13.7 % (11.5-14.5); WHITE BLOOD COUNT 9.7 K/mm3 (4.0-10.0)
== END ==
LOC: M LAB REF 21:12
PROVIDERS: ATTEND Family Medicine
DX: A41.02 Sepsis due to Methicillin resistant Staphylococcus aureus (principal)

== ENCOUNTER → 2016-06-17 | Outpatient (REF) | payer MEDICARE, MEDICAID ==
[2016-06-17 11:37] LABS: BASO % 0.4 % (0.0-1.0); EOS # 0.4 K/mm3 (0.0-0.50); EOS % 3.1 % (0.0-3.0); LARGE UNSTAINED CELL # 0.1 K/mm3 (0.0-0.4); LARGE UNSTAINED CELL % 0.7 % (0.0-4.0); LYMPH # 2.2 K/mm3 (1.5-4.5); LYMPH % 14.5 % (24.0-44.0); MEAN CORPUSCULAR HEMOGLOBIN 28.2 pg (27.0-33.0); MEAN CORPUSCULAR HGB CONC 33.3 g/dl (32.0-36.5); MEAN CORPUSCULAR VOLUME 84.7 fl (80.0-96.0); MONO # 0.6 K/mm3 (0.0-0.8); MONO % 4.4 % (0.0-5.0); NEUTROPHILS # 11.2 K/mm3 (1.8-7.7); PLATELET COUNT, AUTOMATED 246 k/mm3 (150-450); RED CELL DISTRIBUTION WIDTH 14.2 % (11.5-14.5); WHITE BLOOD COUNT 14.5 K/mm3 (4.0-10.0)
[2016-06-17 12:09] LABS: ALBUMIN 3.1 GM/DL (3.2-5.2); ALBUMIN/GLOBULIN RATIO 0.72 (1.00-1.93); BILIRUBIN,TOTAL 0.3 MG/DL (0.2-1.0); CREATININE FOR GFR 1.08 MG/DL (0.55-1.02); GLOMERULAR FILTRATION RATE 57.2 (>51); MAGNESIUM LEVEL 2.4 MG/DL (1.8-2.4); PHOSPHORUS LEVEL 2.3 MG/DL (2.5-4.9); POTASSIUM SERUM 4.8 MEQ/L (3.5-5.1); TOTAL PROTEIN 7.4 GM/DL (6.4-8.2)
== END ==
LOC: M SHH 11:24
PROVIDERS: ATTEND Family Medicine
DX: K81.2 Acute cholecystitis with chronic cholecystitis (principal); R35.0 Frequency of micturition; E11.9 Type 2 diabetes mellitus without complications

== ENCOUNTER → 2016-06-17 | Outpatient (REF) | payer MEDICARE, MEDICAID | LOC: M SFHCPLAZ 08:50 | PROVIDERS: ATTEND Family Medicine | DX: R35.0 Frequency of micturition (principal) ==